=== PATIENT | male | born 1945 | race Caucasian/White ===

== ENCOUNTER 2016-12-24 08:32 | Inpatient (IN) | payer BC, OTHER ==
[2016-11-22 12:42] VITALS: BMI 21.0
--- NOTE | 2016-11-22 13:12 | PAT Medication Instructions ---
Service Date Nov 22, 2016. Current Home Medication List Gabapentin (Neurontin), 400 MG PO HS Multivitamin (Multivitamin), 1 TAB PO QAM Oxycodone/Acetaminophen 2.5MG/325MG (Percocet 2.5MG/325MG), 1.5 TAB PO Q4-6H PRN for Pain Medication Instructions For Your Scheduled Surgery - Hold the following medications the morning of surgery: Multivitamin (Multivitamin), 1 TAB PO QAM - Take the following medications the morning of surgery with a sip of water OTHERWISE NOTHING TO EAT OR DRINK AFTER MIDNIGHT: Oxycodone/Acetaminophen 2.5MG/325MG (Percocet 2.5MG/325MG), 1.5 TAB PO Q4-6H PRN for Pain (may take if needed up to 4 hours prior to surgery) - Take the following medications as scheduled the night before surgery: Gabapentin (Neurontin), 400 MG PO HS Oxycodone/Acetaminophen 2.5MG/325MG (Percocet 2.5MG/325MG), 1.5 TAB PO Q4-6H PRN for Pain If you have any questions please call us at [phone] (Mona Christensen PA-C) or [phone] or [phone]
[2016-11-22 14:07] LABS: BASO % 0.5 %; BASO ABS # 0.03 K/uL (0-0.2); COMPLETE YES; EOS % 2.1 %; IG% 0.2 %; LYMPH % 30.1 %; LYMPH ABS # 1.96 K/uL (1.2-3.4); MEAN CELL VOLUME 85.4 fL (80-100); MEAN CORPUSCULAR HEMOGLOBIN 29.6 pg (25-34); MEAN CORPUSCULAR HGB CONC 34.6 g/dl (32-36); MEAN PLATELET VOLUME 11.1 fL (7.4-10.4); MONO % 4.9 %; NEUT % 62.2 %; PLATELET COUNT 199 K/uL (130-400); WHITE BLOOD COUNT 6.52 K/uL (4.8-10.8)
[2016-11-22 14:13] LABS: URINE APPEARANCE CLEAR (CLEAR); URINE BILIRUBIN NEG (NEG); URINE COLOR YELLOW; URINE NITRITE NEG (NEG); URINE SPECIFIC GRAVITY 1.022 (1.000-1.030); UROBILINOGEN NEG (NEG); ZZUR CULT IF INDIC CLEAN CATCH NO
[2016-11-22 14:15] LABS: INR 1.1 (0.9-1.1); PROTHROMBIN TIME (PATIENT) 12.2 SECONDS (9.0-12.0)
[2016-11-22 14:30] LABS: BUN/CREATININE RATIO 14.2 (10-20); CALCIUM 8.8 mg/dl (8.5-10.1); CREATININE 1.1 mg/dl (0.60-1.40)
[2016-11-22 14:33] LABS: MANUAL MICROSCOPIC REQUIRED? NO; REVIEW REQ? NO
--- NOTE | 2016-12-21 10:14 | HISTORY & PHYSICAL EXAMINATION ---
DATE OF ADMISSION: 12/24/2016 CHIEF COMPLAINT: Right knee pain. HISTORY OF PRESENT ILLNESS: Mr. Fregoso is a 71-year-old male with a multiple-year history of pain in his right knee. The patient rates his pain a 10/10. He has pain with his daily activities. He has limited standing and walking tolerance. Pain is worse with weightbearing. The patient takes injections and [place] without relief. Anti-inflammatories cause nosebleeds. He has failed conservative treatment and is scheduled for right knee replacement. PAST MEDICAL HISTORY: He denies heart disease, diabetes or DVT. PAST SURGICAL HISTORY: Left TKA 2013, right shoulder arthroscopy. SOCIAL HISTORY: The patient denies alcohol or tobacco use. He lives in a single-story home. He is and retired. FAMILY HISTORY: Negative for DVT. MEDICATIONS: Oxycodone 1-1/2 tablet daily, gabapentin 400 mg at bedtime, multivitamin. ALLERGIES: TAPE. REVIEW OF SYSTEMS: See HPI. Ten other systems reviewed, all negative. PHYSICAL EXAMINATION: VITAL SIGNS: Height 5-foot 10, weight 152 pounds, BMI is 22. GENERAL: This is a well-developed, well-nourished male who is alert and oriented x3. Mood and affect are appropriate. HEENT: Normocephalic, atraumatic. Mucous membranes are moist and intact. NECK: Supple without lymphadenopathy. HEART: Regular rate and rhythm without murmurs, rubs or gallops. LUNGS: Clear to auscultation without wheezes or rhonchi. ABDOMEN: Soft and nontender. Bowel sounds are equal and active. EXTREMITIES: No ecchymosis, redness or warmth. Thigh and calf are soft and nontender. He has varus deformity. Range of motion is from 0-120 degrees with +1 laxity. He is neurovascularly intact with +5/5 strength. X-RAY EXAMINATION: AP and lateral views show joint space narrowing and osteophyte formation, mainly in the medial compartment. IMPRESSION: Degenerative joint disease, right knee. PLAN: The patient will be admitted for a right total knee arthroplasty. We will plan on aspirin for DVT prophylaxis. The patient will have [facility] for home physical therapy. Dr. Long is his PCP.
[~2016-12-24] VITALS: Ht 177.8 cm; Wt 68.2 kg
[2016-12-24] VITALS (8 sets, daily range): BP systolic 98–152; BP diastolic 55–76; PULSE 56–65; TEMP 36.2–36.9; O2SAT 92–98; Ht 177.8 cm; Wt 68.2 kg
[~2016-12-24 08:32] MED LIST: ACETAMINOPHEN 500 MG TAB PO SCH; ATROPINE SULFATE 0.1 MG/ML 5ML SYR IV PRN; BUPIVACAINE 0.25% 30 ML VIAL ONE; BUPIVACAINE 0.5 % 5 MG/1 ML PF 10ML VIAL ONE; CEFAZOLIN 2000 MG/60 ML D5W 60 ML IV SCH; CeleBREX 200 MG CAP PO SCH; DEXAMETHASONE 4 MG TAB PO SCH; EpHEDrine SULFATE INJ 50 MG/ML AMP IV PRN; FAMOTIDINE 20 MG TAB PO SCH; FENTANYL CITRATE INJ 50 MCG/1 ML 2 ML VIAL IV PRN; GABA1CAP5 PO; GABAPENTIN 300 MG CAP PO SCH; LACTATED RINGER'S 1000ML 1,000 ML IV SCH; LACTATED RINGER'S 1000ML 500 ML IV ONE; METOCLOPRAMIDE HCL 10 MG TAB PO SCH; MULT-506 PO; ONDANSETRON INJ 2 MG/ML 2 ML VIAL IV PRN; OXYC2.5T3 PO; OXYCODONE HCL 10 MG TABCR (OXYCONTIN) PO SCH; POLYMYXIN B SULFATE 100,000 UNITS in NSS 100ML IR SCH; ROPIVACAINE 5MG/ML 30 ML 150 MG, BUPIVACAINE/EPINEPHR 0.5% MPF 30 ML, KETOROLAC TROMETH... INFIL SCH; VANCOMYCIN INJ 400 MG in NSS 100ML IR SCH
--- NOTE | 2016-12-24 11:11 | History & Physical Bridge Note ---
H&P Re-Evaluation Bridge Note: I have examined the patient, reviewed the History & Physical and in the interval since the performance of the History & Physical I have noted the following changes of clinical significance: No changes noted
[2016-12-24] MEDS ORDERED: PROPOFOL IV EMULSION 10 MG/ML 20 ML VIAL IV ONE (11:27)
[2016-12-24] MEDS ORDERED: MIDAZOLAM HCL 1 MG/ML 2ML VIAL ONE ×2 (11:27)
[2016-12-24] MEDS ORDERED: FENTANYL CITRATE INJ 50 MCG/1 ML 2 ML VIAL ONE (11:27)
[2016-12-24] MEDS: TRANEXAMIC ACID INJ 1,000 MG in SODIUM CHLORIDE 0.9% 100ML 100 ML IV SCH ×2 (11:54→16:29)
[2016-12-24] MEDS ORDERED: BUPIVACAINE/EPINEPHRINE 0.25% 1:200,000 30 ML VIAL ONE (12:25)
[2016-12-24] MEDS ORDERED: BACITRACIN 50000 UNIT VIAL ONE (12:25)
[2016-12-24] MEDS ORDERED: ORTHO JOINT ANESTHETIC ONE (12:25)
[2016-12-24] MEDS ORDERED: POVIDONE-IODINE OP SOLN 30 ML BTL ONE (12:25)
[2016-12-24] MEDS ORDERED: LIDOCAINE HCL 2% 2 ML VIAL (20MG/ML) ONE (13:00)
--- NOTE | 2016-12-24 13:47 | [facility] Post Operative Brief Note ---
Immediate Operative Summary Operative Date Dec 24, 2016. Pre-Operative Diagnosis Degenerative joint disease, right knee Post-Operative Diagnosis Degenerative joint disease, right knee Procedure(s) Performed Right Total Knee Arthoplasty Surgeon Dr. Jaime Hart Operating Room Technologist Surgeon(s) Keyshawn Jackson PA-C Estimated Blood Loss 50 ml Findings DJD Specimens A: Right knee bone and tissue Complication(s) None Disposition Recovery Room / PACU
[2016-12-24] MEDS ORDERED: OXYCODONE HCL IR 5 MG TAB (IMMEDIATE RELEASE) PO PRN (14:00)
[2016-12-24] MEDS ORDERED: MAGNESIUM HYDROXIDE SUSP 30 ML UDC PO PRN (14:00)
[2016-12-24] MEDS ORDERED: SOD PHOSPHATE/SOD BIPHOSPHATE ENEMA 132 ML BTL PR PRN (14:00)
[2016-12-24] MEDS ORDERED: BISACODYL 10 MG SUPP PR PRN (14:00)
[2016-12-24] MEDS ORDERED: MoRPHine SULFATE 2 MG/ML CARP IV PRN (14:00)
[2016-12-24] MEDS ORDERED: ONDANSETRON INJ 2 MG/ML 2 ML VIAL IV PRN (14:00)
[2016-12-24] MEDS ORDERED: DiphenhydrAMINE HCL 50 MG/ML VIAL IV PRN (14:00)
[2016-12-24] MEDS ORDERED: ALUMINUM/MAGNESIUM/SIMETH (MAALOX MAX) 30 ML UDC PO PRN (14:00)
[2016-12-24] MEDS ORDERED: KETOROLAC TROMETHAMINE 15 MG/ML VIAL IV. PRN (14:00)
[2016-12-24] MEDS ORDERED: ZOLPIDEM TARTRATE 5 MG TAB PO PRN (14:00)
[2016-12-24] MEDS ORDERED: METOCLOPRAMIDE HCL INJ 5 MG/ML 2 ML VIAL IV PRN (14:00)
--- NOTE | 2016-12-24 14:40 | DIAGNOSTIC IMAGING REPORT ---
RIGHT KNEE 1 OR 2 VIEWS ROUTINE CLINICAL HISTORY: AP/LATERAL IN PACU RIGHT KNEE Right pain. Trauma placement. COMPARISON: None. DISCUSSION: Status post total right knee replacement. Good contact between prosthetic and underlying bone. Surgical drains in position. Expected postoperative soft tissue change IMPRESSION: Anatomic alignment status post total joint replacement Electronically signed by: Luther Abraham M.D. 12/24/2016 2:39 PM Dictated Date/Time: 12/24/2016 2:38 PM
--- NOTE | 2016-12-24 15:23 | Anesthesiology Progress Note ---
Anesthesia Post Op Note Date & Time Dec 24, 2016 at 15:24 Vital Signs Pain Intensity: 0 Vital Signs Past 12 Hours Date Time Temp Pulse Resp B/P Pulse Ox O2 Delivery O2 Flow Rate FiO2 12/24/16 15:15 57 12 113/62 98 Nasal Cannula 2 12/24/16 15:05 58 12 114/61 98 Nasal Cannula 2 12/24/16 14:55 37.0 63 21 125/71 98 Nasal Cannula 2 12/24/16 14:45 62 14 96/39 97 Nasal Cannula 2 12/24/16 14:35 60 12 121/63 98 Nasal Cannula 2 12/24/16 14:25 61 16 118/64 98 Nasal Cannula 2 12/24/16 14:15 36.2 64 14 116/55 98 Nasal Cannula 2 12/24/16 09:27 36.6 59 16 152/76 97 Room Air Notes Mental Status: alert / awake / arousable, participated in evaluation Pt Amnestic to Procedure: Yes Nausea / Vomiting: adequately controlled Pain: adequately controlled Airway Patency, RR, SpO2: stable & adequate BP & HR: stable & adequate Hydration State: stable & adequate Neuraxial Anesthesia: was administered, sensory block is resolving Anesthetic Complications: no major complications apparent
[2016-12-24] MEDS: D5W AND 1/2NSS + 20MEQ KCL 1,000 ML IV SCH (19:46)
[2016-12-24] MEDS: CEFAZOLIN IV 1,000 MG in DEXTROSE 5% 50ML 50 ML IV SCH (19:48)
[2016-12-24] MEDS ORDERED: TRANEXAMIC ACID INJ 1,000 MG in SODIUM CHLORIDE 0.9% 100ML 100 ML IV SCH (20:00)
[2016-12-24] MEDS ORDERED: SENNA 8.6 MG TAB PO SCH (21:00)
[2016-12-24] MEDS ORDERED: GABAPENTIN 400 MG CAP PO SCH (21:00)
[2016-12-24] MEDS: ASPIRIN 81 MG ECTAB PO SCH (21:06)
[2016-12-24] MEDS: OXYCODONE HCL 10 MG TABCR (OXYCONTIN) PO SCH (21:06)
[2016-12-24] MEDS: ACETAMINOPHEN 500 MG TAB PO SCH (22:09)
[2016-12-24] MEDS: TRAMADOL HCL 50 MG TAB PO PRN (22:12)
--- NOTE | 2016-12-25 00:34 | OPERATIVE REPORT ---
DATE OF OPERATION: 12/24/2016 PREOPERATIVE DIAGNOSIS: Degenerative arthritis, right knee. POSTOPERATIVE DIAGNOSIS: Same. PROCEDURE: Right total knee with patient matched implant. SURGEON: Dr. Hart. INSURANCE LAW SPECIALIST: VIRGILIO Quintero. ANESTHESIA: Spinal. BLOOD LOSS: 50 mL. REPLACEMENT FLUIDS: 1700 mL crystalloid. DRAINS: Hemovac x2. CULTURES: None. COMPLICATIONS: None. COMPONENTS USED: Silvestre \T\ Nephew Journey Knee System: Femur size 6, tibia size 5 x 10, patella size 38. NOTE: VIRGILIO Quintero was present and assisted throughout due to the complicated nature of this case. He helped with preparation and setup, he first assisted throughout and personally closed the capsule, subcutaneous skin layers and applied the postoperative dressing. DESCRIPTION: Following satisfactory spinal, the patient was supine. A tourniquet was placed but not inflated. The lower extremity was prepared with ChloraPrep and draped sterilely. Following a surgical time-out, a midline incision was made with a trivector approach. The knee showed marked grade 4 changes in all compartments. The cruciate ligaments were excised. The patient matched femoral block was applied. Femoral distal rotation and resection were set and completed. The 4-in-1 block was used to finish preparation of the femur. The patient matched tibial block was applied. Tibial resection was completed. The patella was freehand cut. Soft tissue balancing was completed and a trial reduction showed good tensioning, stability on the collateral ligaments, stable range of motion, and the patella tracked well. The trial components were removed. The capsule was prepared with the orthopedic cocktail and after irrigation, the components were cemented using Simplex G cement. A Betadine soak was performed. After 5 minutes, the Betadine was irrigated. Two drains were placed. After irrigation, the capsule was closed with a running suture of 0 V-Loc and reinforced with #1 Vicryl. Subcutaneous tissues were closed with 2-0 Vicryl. The skin was closed with surgical celestino and an Aquacel dressing was applied. The patient was returned to his bed in stable condition. I attest to the content of the Intraoperative Record and any orders documented therein. Any exceptio ns are noted below.
[2016-12-25 02:50] VITALS: BP 101/61; PULSE 62; TEMP 36.5; O2SAT 97
[2016-12-25] MEDS: CEFAZOLIN IV 1,000 MG in DEXTROSE 5% 50ML 50 ML IV SCH (04:33)
[2016-12-25] MEDS: D5W AND 1/2NSS + 20MEQ KCL 1,000 ML IV SCH (04:33)
[2016-12-25] MEDS: ACETAMINOPHEN 500 MG TAB PO SCH (05:41)
[2016-12-25] MEDS: TRAMADOL HCL 50 MG TAB PO PRN (05:41)
[2016-12-25 05:53] LABS: HEMATOCRIT 33.9 % (42-52); MEAN CORPUSCULAR HEMOGLOBIN 29.3 pg (25-34); MEAN CORPUSCULAR HGB CONC 34.5 g/dl (32-36); PLATELET COUNT 188 K/uL (130-400); RED BLOOD COUNT 3.99 M/uL (4.7-6.1); WHITE BLOOD COUNT 12.36 K/uL (4.8-10.8)
[2016-12-25 06:28] LABS: BUN/CREATININE RATIO 17.2 (10-20); CALCIUM 8.4 mg/dl (8.5-10.1); POTASSIUM 4.3 mmol/L (3.5-5.1)
[2016-12-25 07:37] VITALS: BP 122/72; PULSE 59; TEMP 36.3; O2SAT 94
--- NOTE | 2016-12-25 07:43 | Orthopedic Progress Note ---
Orthopedic Progress Note Date of Service Dec 25, 2016. Subjective Post OP Day: 1 Reports: feeling well, Denies: SOB, calf pain, chest pain, light headedness, nausea / vomiting Objective calves soft nontender, N/V intact, dressing C/D/I, A&O x3, toes mobile, hemovac drainage (1515/205CC PER SHIFT) Date Time Temp Pulse Resp B/P Pulse Ox O2 Delivery O2 Flow Rate FiO2 12/25/16 07:37 36.3 59 16 122/72 94 Room Air 12/25/16 02:50 36.5 62 16 101/61 97 Room Air 12/25/16 00:15 Room Air 12/24/16 23:03 36.3 61 17 118/67 96 Room Air 12/24/16 20:28 92 Room Air 12/24/16 18:37 36.2 63 17 124/64 98 Nasal Cannula 2.0 12/24/16 17:28 36.2 65 17 120/64 97 Nasal Cannula 2.0 12/24/16 16:25 36.9 56 16 131/70 98 Nasal Cannula 2.0 12/24/16 16:00 36.5 56 17 98/55 98 Nasal Cannula 2.0 12/24/16 15:30 98 Nasal Cannula 2.0 12/24/16 15:30 98 Nasal Cannula 2.0 12/24/16 15:30 36.5 60 17 114/64 98 Nasal Cannula 2.0 12/24/16 15:25 36.8 58 12 116/64 98 Nasal Cannula 2 12/24/16 15:15 57 12 113/62 98 Nasal Cannula 2 12/24/16 15:05 58 12 114/61 98 Nasal Cannula 2 12/24/16 14:55 37.0 63 21 125/71 98 Nasal Cannula 2 12/24/16 14:45 62 14 96/39 97 Nasal Cannula 2 12/24/16 14:35 60 12 121/63 98 Nasal Cannula 2 12/24/16 14:25 61 16 118/64 98 Nasal Cannula 2 12/24/16 14:15 36.2 64 14 116/55 98 Nasal Cannula 2 12/24/16 09:27 36.6 59 16 152/76 97 Room Air Laboratory Results 24 Hours: Test 12/25/16 05:20 Hematocrit 33.9 % Hemoglobin 11.7 g/dL Assessment & Plan Assessment: POD#1 SP RIGHT TKA Inhouse Planning Pain Management: Celebrex, Oxycontin, PO Tylenol, Oxy IR DVT Prophylaxis: TEDs, SCDs, ASA Discharge Planning Discharge Planning: home with home health (DC HOME TODAY. KEEP DRESSING/DRAIN.)
[2016-12-25] MEDS ORDERED: RXC5 PO (07:45)
[2016-12-25] MEDS ORDERED: ONDA8TAB6 PO (07:45)
[2016-12-25] MEDS ORDERED: ACET-1138 PO (07:45)
[2016-12-25] MEDS ORDERED: SNK PO (07:45)
[2016-12-25] MEDS ORDERED: MORP-157 PO (07:45)
[2016-12-25] MEDS ORDERED: ASPEC81 PO (07:45)
[2016-12-25] MEDS ORDERED: CLB200 PO (07:45)
--- NOTE | 2016-12-25 07:46 | Discharge Instructions ---
Discharge Instructions Admission Reason for Admission: Right Knee Degenerative Arthritis Discharge Discharge Diagnosis / Problem: SP RIGHT TKA Discharge Goals Goal(s): Decrease discomfort, Improve function, Increase independence Activity Recommendations Activity Limitations: per Instructions/Follow-up section . Instructions / Follow-Up Instructions / Follow-Up ACTIVITY RECOMMENDATIONS: SELF CARE INSTRUCTIONS AFTER TOTAL KNEE REPLACEMENT A. You may need to continue a physical therapy program after discharge from the hospital. There are several options available to you. Your doctor will assist you in selecting the best one for you. 1. An out-patient facility 2 to 3 times a week for therapy or home therapy. 2. Continue working on all exercises taught to you in the hospital. Your goals should be to increase bending of your knee to 90 degrees and beyond and to fully straighten your knee. B. You may progress at your own pace from walking with a walker or crutches to a cane; then to no assistive devices. C. Make walking a part of your daily routine. Be up as much as comfortable with rest periods throughout the day. Rest with leg elevation is very important. Use the ice wrap frequently for the first 3-4 weeks. D. There are no restrictions on activities. You may ride in a car, shop, participate in chief program officer and all social activities. E. Wear the long elastic stockings (YOLIS hose) 20 hours a day for 2 weeks after surgery. They can be removed several times a day for laundering and for a bath. F. You may shower, no tub baths until cleared by your doctor. SPECIAL CARE INSTRUCTIONS: VERY IMPORTANT TO READ AND REVIEW A. There are a few signs you need to watch for after you are home. Call [facility] if you notice any of the followin. Increased severe knee pain. Some pain is expected especially when you exercise. 2. Increased swelling in your leg or knee; pain or swelling of the calf muscle in either lower leg. 3. Any fluid drainage from the incision. 4. Shortness of breath or chest pain. B. Please call [facility] at if you have any concerns or questions about your operation or recovery. The doctor or his nurse will return your call promptly. C. You must take antibiotics before dental work, bladder, bowel or other surgery. Your doctor will provide you with a permanent care to carry describing this precaution. IMPORTANT: * REMEMBER TO TAKE ASPIRIN, 81 MG, TWICE DAILY FOR 4 WEEKS UNLESS OTHERWISE DIRECTED. THIS IS YOUR BLOOD THINNER. * HIGH RISK PATIENTS MAY BE PRESCRIBED A STRONGER BLOOD THINNER. THIS WILL BE PROVIDED AT DISCHARGE. * CALL IF INCREASED PAIN, REDNESS, DRAINAGE OR FEVER GREATER THAT 101. * WEAR YOLIS HOSE 20 HOURS PER DAY FOR 2 WEEKS. * YOU MAY HAVE A LARGE BAND-AID LIKE DRESSING (SILVERON). THIS WILL REMAIN ON YOUR INCISION FOR 7 DAYS, THEN CAN BE REMOVED. IF INCISION IS LEAKING THROUGH DRESSING, CALL THE OFFICE . FOLLOW UP VISIT: If appointment is not already scheduled: Please call [facility] to make a follow-up appointment for 2 weeks after your surgery at . Current Hospital Diet Patient's current hospital diet: Regular Diet Discharge Diet Recommended Diet: Regular Diet Procedures Procedures Performed: Right Total Knee Arthoplasty Pending Studies Studies pending at discharge: no Medical Emergencies . Who to Call and When: Medical Emergencies: If at any time you feel your situation is an emergency, please call [phone] immediately. . Non-Emergent Contact Non-Emergency issues call your: Primary Care Provider . "Provider Documentation" section prepared by Taryn Canales. VTE Core Measure Inpt VTE Proph given/why not?: Other Anticoagulation, T.E.D. Stockings, SCD's
[2016-12-25] MEDS: ASPIRIN 81 MG ECTAB PO SCH (08:42)
[2016-12-25] MEDS: OXYCODONE HCL 10 MG TABCR (OXYCONTIN) PO SCH (08:42)
[2016-12-25] MEDS ORDERED: MULTIVITAMIN TAB PO SCH (09:00)
[2016-12-25] MEDS ORDERED: PANTOprazole SOD 40 MG TAB PO SCH (09:00)
[2016-12-25 09:46] VITALS: BP 121/66; PULSE 69; O2SAT 95
[2016-12-25 10:45] VITALS: BP 117/59; PULSE 74; TEMP 36.3; O2SAT 96
[2016-12-25 12:25] VITALS: BP 117/59; PULSE 74; TEMP 36.3; O2SAT 96
[2016-12-26] MEDS ORDERED: CeleBREX 200 MG CAP PO SCH (21:00)
--- NOTE | 2016-12-27 13:39 | DISCHARGE SUMMARY ---
DISCHARGE DIAGNOSIS: Degenerative joint disease, right knee. CONSULTS: None. COMPLICATIONS: None. PROCEDURES: Right total knee arthroplasty performed by Dr. Jaime Hart on 12/24/2016. BRIEF HISTORY: As dictated in the history and physical. HOSPITAL SUMMARY: The patient was admitted on the above date and had the above-noted surgery performed which he tolerated well. On the first postoperative day, he was feeling well and had no complaints. Denied shortness of breath, calf pain, chest pain or lightheadedness. Calves were soft and nontender, neurovascularly intact. Dressings clean, dry and intact. Toes were mobile. Vital signs were stable and he was afebrile. Hemoglobin was 11.7 and he was started on physical therapy protocol and continued on DVT prophylaxis and pain management. He was progressing well with his physical therapy and remaining stable and it was felt that he could be discharged to home on 12/25/2016. For further review, please see chart. LAB AND X-RAY DATA: As per chart. DISCHARGE INSTRUCTIONS: The patient was discharged to home in satisfactory condition on 12/25/2016. DIET: Regular. ACTIVITY: Follow TKA instruction sheets and special care instructions as noted. Follow up with Dr. Hart in 2 weeks. The patient to call for appointment if one has not been made for you. DISCHARGE MEDICATIONS: Acetaminophen 1000 mg p.o. q. 8 hours, aspirin 81 mg p.o. b.i.d., Celebrex 200 mg p.o. b.i.d., MS Contin 15 mg p.o. q. 12 hours, Zofran 8 mg p.o. q. 8 hours p.r.n. nausea, oxycodone 5-10 mg p.o. q. 4 hours p.r.n., senna 17.2 mg p.o. at bedtime. Resume taking gabapentin 400 mg p.o. at bedtime, multivitamin 1 tab p.o. q.a.m. and stop taking Percocet.
== END 2016-12-25 14:07 | disposition home health service (06) | DRG 470 ==
LOC: ENRESERVTM → ENRESERVDT → C.ACU 08:32 → C.3E 11:24
PROVIDERS: ADMIT Orthopaedic Surgery; ATTEND Orthopaedic Surgery
PROC: 0SRC0J9 Replacement of Right Knee Joint with Synthetic Substitute, Cemented, Open Approach (ICD-10-PCS; principal; 2016-12-24 11:15)
DX: M17.11 Unilateral primary osteoarthritis, right knee (principal); Z96.652 Presence of left artificial knee joint

== ENCOUNTER 2017-12-04 10:08 | Emergency (ER) | payer BC, OTHER ==
[~2017-12-04] VITALS: Ht 175.3 cm; Wt 67.5 kg
[~2017-12-04 10:08] MED LIST changes: +ACET-1138 PO; -ACETAMINOPHEN 500 MG TAB PO SCH; +ASPEC81 PO; -ATROPINE SULFATE 0.1 MG/ML 5ML SYR IV PRN; -BUPIVACAINE 0.25% 30 ML VIAL ONE; -BUPIVACAINE 0.5 % 5 MG/1 ML PF 10ML VIAL ONE; -CEFAZOLIN 2000 MG/60 ML D5W 60 ML IV SCH; +CLB200 PO; -CeleBREX 200 MG CAP PO SCH; -DEXAMETHASONE 4 MG TAB PO SCH; -EpHEDrine SULFATE INJ 50 MG/ML AMP IV PRN; -FAMOTIDINE 20 MG TAB PO SCH; -FENTANYL CITRATE INJ 50 MCG/1 ML 2 ML VIAL IV PRN; -GABAPENTIN 300 MG CAP PO SCH; -LACTATED RINGER'S 1000ML 1,000 ML IV SCH; -LACTATED RINGER'S 1000ML 500 ML IV ONE; -METOCLOPRAMIDE HCL 10 MG TAB PO SCH; -ONDANSETRON INJ 2 MG/ML 2 ML VIAL IV PRN; -OXYC2.5T3 PO; -OXYCODONE HCL 10 MG TABCR (OXYCONTIN) PO SCH; -POLYMYXIN B SULFATE 100,000 UNITS in NSS 100ML IR SCH; -ROPIVACAINE 5MG/ML 30 ML 150 MG, BUPIVACAINE/EPINEPHR 0.5% MPF 30 ML, KETOROLAC TROMETH... INFIL SCH; +RXC5 PO; +SNK PO; -VANCOMYCIN INJ 400 MG in NSS 100ML IR SCH
[2017-12-04 10:22] VITALS: TEMP 36.4; Ht 175.3 cm; Wt 67.5 kg
[2017-12-04] MEDS ORDERED: ALUMINUM/MAGNESIUM SUSP 30 ML UDC PO STA (10:53)
[2017-12-04] MEDS ORDERED: ASPIRIN 81 MG CHEW PO STA (10:53)
--- NOTE | 2017-12-04 10:55 | EMERGENCY ROOM VISIT NOTE ---
History Report prepared by Joseph: Ad Noland Under the Supervision of: Dr. Sean Buchanan D.O. First contact with patient: 10:48 Chief Complaint: CHEST PAIN Stated Complaint: CHEST PAIN, SOB Nursing Triage Summary: pt reports chest pain started at 1999 yesterday feels like burning. feels sob worse with deep breath. History of Present Illness The patient is a 72 year old male who presents to the Emergency Room with complaints of constant chest pains that began last night at 1999, 14 hours prior to arrival. The patient states that his pain is mostly concentrated to his left side and that it is worsened with deep inspiration. The pain is described at a "burning" sensation. The patient's notes that last night when his symptoms began he was short of breath. He denies any associated cough. He has no cardiac history and has never had a cardiac work-up before. Source of History: patient, spouse/significant other Onset: 14 hours [employer]OWBO[employer] OPER[employer] Position: chest (left) Quality: burning Timing: constant Associated Symptoms: + SOB Review of Systems See HPI for pertinent positives & negatives. A total of 10 systems reviewed and were otherwise negative. Past Medical & Surgical Medical Problems: (1) Kidney stone (2) Small bowel obstruction Surgical Problems: (1) Post-operative state Family History Omitted secondary to age. Social History Smoking Status: Never Smoker Drug Use: none Marital Status: Housing Status: lives with family Occupation Status: employed Current/Historical Medications Scheduled Gabapentin (Neurontin), 400 MG PO HS Omeprazole (Prilosec), 40 MG PO DAILY [Triflex], 1 DOSE PO DAILY Scheduled PRN Oxycodone HCl (Oxycodone HCl), 2.5 MG PO BID PRN for Pain Allergies Coded Allergies: Iodinated Diagnostic Agents (Unverified Allergy, Mild, itchy, 12/04/17) Levofloxacin (Unverified Allergy, Mild, itchy, 12/04/17) Adhesives (Unverified Allergy, Unknown, PULLED SKIN OFF WITH TAPE, 12/04/17 ) Physical Exam Vital Signs Date Time Temp Pulse Resp B/P (MAP) Pulse Ox O2 Delivery O2 Flow Rate FiO2 12/04/17 12:43 60 20 158/91 96 12/04/17 11:04 58 12/04/17 10:58 63 18 173/93 98 Room Air 12/04/17 10:58 97 Room Air 12/04/17 10:22 36.4 67 18 138/73 97 Room Air Physical Exam GENERAL: Patient is awake, alert, and in no acute distress. Patient is resting comfortably and showing no signs of anxiety EYES: The conjunctivae are clear. The pupils are round and reactive. EARS, NOSE, MOUTH AND THROAT: The nose is without any evidence of any deformity. Mucous membranes are moist tongue is midline NECK: The neck is nontender and supple. RESPIRATORY: Normal respiratory effort is noted there is no evidence of wheezing rhonchi or rales CARDIOVASCULAR: Regular rate and rhythm noted there no murmurs rubs or gallops normal S1 normal S2 GASTROINTESTINAL: The abdomen is soft. Bowel sounds are present in all quadrants. Abdomen is nontender MUSCULOSKELETAL/EXTREMITIES: There is no evidence of gross deformity full range of motion is noted in the hips and shoulders SKIN: There is no obvious evidence of any rash. There are no petechiae, pallor or cyanosis noted. NEUROLOGIC: Patient is awake alert and oriented x3 Medical Decision & Procedures ER Provider Diagnostic Interpretation: Radiology results as stated below per my review and radiologist interpretation: CHEST ONE VIEW PORTABLE CLINICAL HISTORY: CHEST PAIN dyspnea COMPARISON STUDY: 07/06/2014 FINDINGS: The bones soft tissues and hemidiaphragms are normal. The cardiomediastinal silhouette is normal. The lungs are clear. The pulmonary vasculature is normal. IMPRESSION: Negative chest. The above report was generated using voice recognition software. It may contain grammatical, syntax or spelling errors. Electronically signed by: Luther Abraham M.D. 12/04/2017 11:19 AM Dictated Date/Time: 12/04/2017 11:19 AM Laboratory Results 12/04/17 10:58 Red Blood Count 5.25, Mean Corpuscular Volume 85.0, Mean Corpuscular Hemoglobin 29.3, Mean Corpuscular Hemoglobin Concent 34.5, Mean Platelet Volume 10.3, Neutrophils (%) (Auto) 69.8, Lymphocytes (%) (Auto) 20.9, Monocytes (%) (Auto) 7.5, Eosinophils (%) (Auto) 1.3, Basophils (%) (Auto) 0.3, Neutrophils # (Auto) 4.22, Lymphocytes # (Auto) 1.26, Monocytes # (Auto) 0.45, Eosinophils # (Auto) 0.08, Basophils # (Auto) 0.02 12/04/17 10:58 Test 12/04/17 10:58 White Blood Count 6.04 K/uL (4.8-10.8) Red Blood Count 5.25 M/uL (4.7-6.1) Hemoglobin 15.4 g/dL (14.0-18.0) Hematocrit 44.6 % (42-52) Mean Corpuscular Volume 85.0 fL (80-100) Mean Corpuscular Hemoglobin 29.3 pg (25-34) Mean Corpuscular Hemoglobin Concent 34.5 g/dl (32-36) Platelet Count 204 K/uL (130-400) Mean Platelet Volume 10.3 fL (7.4-10.4) Neutrophils (%) (Auto) 69.8 % Lymphocytes (%) (Auto) 20.9 % Monocytes (%) (Auto) 7.5 % Eosinophils (%) (Auto) 1.3 % Basophils (%) (Auto) 0.3 % Neutrophils # (Auto) 4.22 K/uL (1.4-6.5) Lymphocytes # (Auto) 1.26 K/uL (1.2-3.4) Monocytes # (Auto) 0.45 K/uL (0.11-0.59) Eosinophils # (Auto) 0.08 K/uL (0-0.5) Basophils # (Auto) 0.02 K/uL (0-0.2) RDW Standard Deviation 42.3 fL (36.4-46.3) RDW Coefficient of Variation 13.8 % (11.5-14.5) Immature Granulocyte % (Auto) 0.2 % Immature Granulocyte # (Auto) 0.01 K/uL (0.00-0.02) Prothrombin Time 11.4 SECONDS (9.0-12.0) Prothromb Time International Ratio 1.1 (0.9-1.1) Activated Partial Thromboplast Time 25.4 SECONDS (21.0-31.0) Partial Thromboplastin Ratio 1.0 Anion Gap 7.0 mmol/L (3-11) Est Creatinine Clear Calc Drug Dose 70.1 ml/min Estimated GFR () 97.2 Estimated GFR (Non- 83.9 BUN/Creatinine Ratio 16.9 (10-20) Calcium Level 9.1 mg/dl (8.5-10.1) Total Bilirubin 0.4 mg/dl (0.2-1) Direct Bilirubin < 0.1 mg/dl (0-0.2) Aspartate Amino Transf (AST/SGOT) 13 U/L (15-37) Alanine Aminotransferase (ALT/SGPT) 20 U/L (12-78) Alkaline Phosphatase 102 U/L (45-117) Total Creatine Kinase 43 U/L (39-308) Creatine Kinase MB 1.1 ng/ml (0.5-3.6) Creatine Kinase MB Ratio 2.6 (0-3.0) Troponin I < 0.015 ng/ml (0-0.045) Total Protein 6.8 gm/dl (6.4-8.2) Albumin 3.7 gm/dl (3.4-5.0) Lipase 104 U/L (73-393) Laboratory results per my review. Medications Administered Medications (Trade) Dose Ordered Sig/Chani Route Start Time Stop Time Status Last Admin Dose Admin Aspirin (Aspirin Chew) 324 mg NOW STAT PO 12/04/17 10:53 12/04/17 10:54 DC 12/04/17 11:34 324 MG Al Hydroxide/Mg Hydroxide (Maalox Susp) 30 ml NOW STAT PO 12/04/17 10:53 12/04/17 10:54 DC 12/04/17 11:34 30 ML ECG Indication: chest pain Rate (beats per minute): 59 Rhythm: sinus bradycardia Findings: no acute ischemic change, no ectopy Comparison ECG Date: 07/06/2014 Change: no significant change Change: Patient's EKG was interpreted by me. ED Course 1050: The patient was evaluated in room C10. A complete history and physical examination were performed. 1053: Ordered Maalox Susp 30 mL PO, Aspirin Chew 324 PO. 1215: Upon reevaluation, the patient is resting in bed. I discussed the results and treatment plan with him. He verbalized agreement of the treatment plan. The patient was discharged home. Medical Decision Differential diagnosis: Etiologies such as cardiac ischemia, aortic dissection, pulmonary embolism, pneumonia, pneumothorax, musculoskeletal, infections, pericarditis, myocarditis , esophageal rupture, gastrointestinal, as well as others were entertained. The Patient has a Heart Score of 2. Following evaluation. The patient is a 72-year-old male who presented to the emergency department for evaluation of ongoing epigastric pain. The patient's EKG did not show any acute changes compared to previous. The patient's cardiac biomarker was negative despite having ongoing pain. I discussed the patient's laboratory and radiographic studies with him. I also discussed the limitations of the emergency department workup for chest pain with him. The patient was encouraged to continue all medications as prescribed and rest. I also encouraged him to call his primary care physician to schedule a follow-up appointment for possible further testing such as stress test. He was also encouraged to return the emergency Department immediately if symptoms change worsen or the need arises. Blood Pressure Screening Patient's blood pressure: Elevated blood pressure Blood pressure disposition: Elevated BP felt to be situational Impression Primary Impression: Epigastric abdominal pain Scribe Attestation The scribe's documentation has been prepared under my direction and personally reviewed by me in its entirety. I confirm that the note above accurately reflects all work, treatment, procedures, and medical decision making performed by me. Departure Information Dispostion Home / Self-Care Prescriptions Omeprazole (PRILOSEC) 40 Mg Cap 40 MG PO DAILY, #30 CAP Prov: Sean Buchanan, DO 12/04/17 Referrals Dominic Long, DNiONi (PCP) Forms Call Back Authorization, HOME CARE DOCUMENTATION FORM, IMPORTANT VISIT INFORMATION Patient Instructions My [facility] Additional Instructions Call your family to schedule a follow-up appointment. You may require further studies such as a stress test to further evaluate the cause of her discomfort. Continue all medications as prescribed. Try using Maalox or Mylanta as directed for symptomatically relief. Return to the emergency department immediately if symptoms change worsen or the need arises.
[2017-12-04 10:58] VITALS: O2SAT 97
[2017-12-04 11:12] LABS: BASO % 0.3 %; BASO ABS # 0.02 K/uL (0-0.2); EOS % 1.3 %; EOS ABS # 0.08 K/uL (0-0.5); HEMATOCRIT 44.6 % (42-52); HEMOGLOBIN 15.4 g/dL (14.0-18.0); IG# 0.01 K/uL (0.00-0.02); LYMPH % 20.9 %; LYMPH ABS # 1.26 K/uL (1.2-3.4); MEAN CORPUSCULAR HEMOGLOBIN 29.3 pg (25-34); MEAN CORPUSCULAR HGB CONC 34.5 g/dl (32-36); MEAN PLATELET VOLUME 10.3 fL (7.4-10.4); MONO % 7.5 %; MONO ABS # 0.45 K/uL (0.11-0.59); NEUT % 69.8 %; NEUT ABS # 4.22 K/uL (1.4-6.5); PLATELET COUNT 204 K/uL (130-400); RED CELL DISTRIBUTION WIDTH CV 13.8 % (11.5-14.5); RED CELL DISTRIBUTION WIDTH SD 42.3 fL (36.4-46.3); WHITE BLOOD COUNT 6.04 K/uL (4.8-10.8)
[2017-12-04] MEDS ORDERED: TRIFLEX PO (11:18)
[2017-12-04] MEDS ORDERED: OXYC-609 PO (11:18)
[2017-12-04 11:20] LABS: INR 1.1 (0.9-1.1); PTT PATIENT 25.4 SECONDS (21.0-31.0)
--- NOTE | 2017-12-04 11:21 | DIAGNOSTIC IMAGING REPORT ---
CHEST ONE VIEW PORTABLE CLINICAL HISTORY: CHEST PAIN dyspnea COMPARISON STUDY: 07/06/2014 FINDINGS: The bones soft tissues and hemidiaphragms are normal. The cardiomediastinal silhouette is normal. The lungs are clear. The pulmonary vasculature is normal. IMPRESSION: Negative chest. The above report was generated using voice recognition software. It may contain grammatical, syntax or spelling errors. Electronically signed by: Luther Abraham M.D. 12/04/2017 11:19 AM Dictated Date/Time: 12/04/2017 11:19 AM
[2017-12-04 11:30] LABS: ALBUMIN 3.7 gm/dl (3.4-5.0); ALT/SGPT 20 U/L (12-78); BLOOD UREA NITROGEN 15 mg/dl (7-18); CALCIUM 9.1 mg/dl (8.5-10.1); CARBON DIOXIDE 26 mmol/L (21-32); CREATININE 0.91 mg/dl (0.60-1.40); GLUCOSE 99 mg/dl (70-99); LIPASE 104 U/L (73-393); POTASSIUM 4.1 mmol/L (3.5-5.1); SODIUM 136 mmol/L (136-145)
[2017-12-04 11:35] LABS: ALKALINE PHOSPHATASE 102 U/L (45-117); AST/SGOT 13 U/L (15-37); CKMB 1.1 ng/ml (0.5-3.6); TOTAL PROTEIN 6.8 gm/dl (6.4-8.2)
[2017-12-04] MEDS ORDERED: OMEP40CA41 PO (12:33)
[2017-12-04 12:43] VITALS: BP 158/91; PULSE 60; O2SAT 96
== END 2017-12-04 12:44 | disposition home or self-care (01) ==
LOC: C.EDB 10:10 → C.EDC 12:44
DX: R10.13 Epigastric pain (principal); Z87.442 Personal history of urinary calculi; Z79.899 Other long term (current) drug therapy

== ENCOUNTER → 2017-12-25 | Day surgery (SDC) | payer BC ==
[2017-12-24 07:34] VITALS: Ht 177.8 cm; Wt 68.2 kg
[~2017-12-25] VITALS: Ht 177.8 cm; Wt 68.2 kg
[~2017-12-25] MED LIST changes: -ACET-1138 PO; -ASPEC81 PO; -CLB200 PO; +GABA-1220 PO; -GABA1CAP5 PO; +LIDOCAINE HCL 2% 2 ML VIAL (20MG/ML) ONE; +OXYC-57 PO; +PRLSR20 PO; +PROPOFOL IV EMULSION 10 MG/ML 20 ML VIAL IV ONE; -RXC5 PO; -SNK PO; +SODIUM CHLORIDE 0.9% 500ML 500 ML IV ONE
--- NOTE | 2017-12-25 09:28 | Endo History and Physical ---
History & Physical Date of Service: Dec 25, 2017. Chief Complaint: HISTORY OF POLYPS Referring Physician: CAT History of Present Illness 72 yo presenting for surveillance colonoscopy for remote history of polyps. Past Medical History Arthritis, Cancer, Kidney Disease Past Surgical History Hx Cardiac Surgery: No Hx Internal Defibrillator: No Hx Pacemaker: No Hx Abdominal Surgery: Yes (EXPLORATORY LAP FOR TWISTED BOWELS, LEFT INGUINAL HERNIA) Hx of Implantable Prosthesis: No Hx Post-Op Nausea and Vomiting: No Hx Cancer Surgery: Yes (BASAL CELL NECK AND HEAD) Hx Thoracic Surgery: No Hx Orthopedic: Yes (LEFT/RT TKA, RT SHOULDER SURGERY) Hx Urinary Tract Surgery: Yes (KIDNEY STONE REMOVAL (OPEN SURGERY)) Family History Esophogeal CA Social History Smoking Status: Never Smoker Hx Substance Use: Yes (SEE MED REC) Hx Alcohol Use: Yes (OCCASIONAL) Allergies Coded Allergies: Iodinated Diagnostic Agents (Unverified Allergy, Mild, itchy, 12/25/17) Levofloxacin (Unverified Allergy, Mild, itchy, 12/25/17) Adhesives (Unverified Allergy, Unknown, PULLED SKIN OFF WITH TAPE, 12/25/17 ) Current Medications Reported Home Medications Medications Dose Route/Sig Max Daily Dose Days Date Category Dose Instructions Prilosec (Omeprazole) 20 Mg Capcr 20 Mg PO QAM 12/24/17 Reported Multivitamin (Multivitamins) Tab 1 Tab PO QAM 12/24/17 Reported Percocet 5MG/325MG (Oxycodone/Acetaminophen) Tab 0.5 Tab PO BID PRN 12/24/17 Reported PAIN Neurontin (Gabapentin) 400 Mg Cap 400 Mg PO HS 11/22/16 Reported Vital Signs Weight (Kilograms): 68.18 Height (Feet): 5 Height (Inches): 10 Physical Exam General Appearance: WD/WN Respiratory/Chest: Respiratory effort: no dyspnea Auscultation: breath sounds normal, CTA except as noted, no wheezing Cardiovascular: Heart Auscultation: RRR, normal S1, normal S2 Abdomen: Bowel Sounds: normal Inspection & Palpation: soft, non-distended, no tenderness, guarding & rebound Assessment and Plan 72 yo presenting for colonoscopy for history of polyps
--- NOTE | 2017-12-25 10:07 | GI REPORT ---
Procedure Date: 12/25/2017 9:39 AM Procedure: Colonoscopy Indications: High risk colon cancer surveillance: Personal history of colonic polyps Medicines: Monitored Anesthesia Care Complications: No immediate complications. Estimated blood loss: None. Estimated Blood Loss: Estimated blood loss: none. Procedure: Pre-Anesthesia Assessment: - Pre-Anesthesia Assessment: - Prior to the procedure, a History and Physical was performed, and patient medications, allergies and sensitivities were reviewed. The patient's tolerance of previous anesthesia was reviewed. Please see Tip or Skip for complete details. - The risks and benefits of the procedure and the sedation options and risks were discussed with the patient. All questions were answered and informed consent was obtained. - Patient identification and proposed procedure were verified prior to the procedure by the physician and the nurse. The procedure was verified in the pre-procedure area in the procedure room. After obtaining informed consent, the endoscope was passed carefully and meticuously under direct vision and only advanced when the lumen was clearly identified, C02 insuflation was utilized throughout the entirity of the procedure. Throughout the procedure, the patient's blood pressure, pulse, and oxygen saturations were monitored continuously. After I obtained informed consent, the scope was passed under direct vision. Throughout the procedure, the patient's blood pressure, pulse, and oxygen saturations were monitored continuously. The scope was introduced through the anus and advanced to the cecum, identified by appendiceal orifice and ileocecal valve. The colonoscopy was performed without difficulty. The patient tolerated the procedure well. The quality of the bowel preparation was good. Findings: A 3 mm polyp was found in the ascending colon. The polyp was sessile. The polyp was removed with a jumbo cold forceps. Resection and retrieval were complete. A 3 mm polyp was found in the sigmoid colon. The polyp was sessile. The polyp was removed with a jumbo cold forceps. Resection and retrieval were complete. Multiple small-mouthed diverticula were found in the sigmoid colon. Internal hemorrhoids were found during retroflexion. The terminal ileum appeared normal. The exam was otherwise without abnormality on direct and retroflexion views. Impression: - One 3 mm polyp in the ascending colon, removed with a jumbo cold forceps. Resected and retrieved. - One 3 mm polyp in the sigmoid colon, removed with a jumbo cold forceps. Resected and retrieved. - Diverticulosis in the sigmoid colon. - Internal hemorrhoids. - The examined portion of the ileum was normal. - The examination was otherwise normal on direct and retroflexion views. Recommendation: - Discharge patient to home (with escort). - Repeat colonoscopy in 5 years for surveillance based on pathology results. - Return to referring physician as previously scheduled. Dony Holland MD 12/25/2017 10:06:58 AM This report has been signed electronically. Note Initiated On: 12/25/2017 9:39 AM I attest to the content of the Intraoperative Record and orders documented therein, exceptions below
--- NOTE | 2017-12-25 10:10 | Discharge Instructions ---
Endoscopy Patient Instructions Date / Procedure(s) Performed Dec 25, 2017. Colonoscopy Allergy Information Coded Allergies: Iodinated Diagnostic Agents (Unverified Allergy, Mild, itchy, 12/25/17) Levofloxacin (Unverified Allergy, Mild, itchy, 12/25/17) Adhesives (Unverified Allergy, Unknown, PULLED SKIN OFF WITH TAPE, 12/25/17 ) Discharge Date / Findings Dec 25, 2017. Findings: A 3 mm polyp was found in the ascending colon. The polyp was sessile. The polyp was removed with a jumbo cold forceps. Resection and retrieval were complete. A 3 mm polyp was found in the sigmoid colon. The polyp was sessile. The polyp was removed with a jumbo cold forceps. Resection and retrieval were complete. Multiple small-mouthed diverticula were found in the sigmoid colon. Internal hemorrhoids were found during retroflexion. The terminal ileum appeared normal. The exam was otherwise without abnormality on direct and retroflexion views. Impression: - One 3 mm polyp in the ascending colon, removed with a jumbo cold forceps. Resected and retrieved. - One 3 mm polyp in the sigmoid colon, removed with a jumbo cold forceps. Resected and retrieved. - Diverticulosis in the sigmoid colon. - Internal hemorrhoids. - The examined portion of the ileum was normal. - The examination was otherwise normal on direct and retroflexion views. Recommendation: - Discharge patient to home (with escort). - Repeat colonoscopy in 5 years for surveillance based on pathology results. - Return to referring physician as previously scheduled. Provider Instructions Activity Restrictions - No exercising or heavy lifting for 24 hours. - Do not drink alcohol the day of the procedure. - Do not drive a car or operate machinery until the day after the procedure. - Do not make any important decisions or sign important papers in 24 hours after the procedure. Following Day: - Return to full activity which may include returning to work/school. Diet Start your diet with liquids and light foods (jello, soup, juice, toast). Then eat your usual diet if not nauseated. Treatment For Common After Affects For mild abdominal pain, bloating, or excessive gas: - Rest - Eat lightly - Lie on right side Follow-Up Information Follow-up with CAT as scheduled Anesthesia Information What You Should Know You have had a procedure that required some medicine to reduce anxiety and discomfort. This treatment is called moderate sedation. After receiving the treatment, you may be sleepy, but you will be able to breathe on your own. The effects of the treatment may last for several hours. Follow these instructions along with Activity/Diet recommendations noted above: * Do NOT do anything where dizziness or clumsiness would be dangerous. * Rest quietly at home today, then you can be up and about tomorrow. * Have a responsible person stay with you the rest of today. * You may have had an I.V. today. If so, you may take the dressing off later today. Recommendations Call your doctor if: * Trouble breathing * Continuous vomiting for more than 24 hours * Temperature above 101 degrees * Severe abdominal pain or bloating * Pain not relieved by pain medicine ordered * There is increased drainage or redness from any incision * A large amount of rectal bleeding greater than 2-3 tablespoons. (If you had a polyp/s removed or have hemorrhoids, a small amount of blood - from the rectum is to be expected.) * You have any unanswered questions or concerns. IN THE EVENT OF A SERIOUS EMERGENCY, GO TO THE NEAREST EMERGENCY ROOM Your discharge instructions were prepared by provider Dony Holland. Patient Instructions Signature Page Moises Fregoso Patient (or Guardian) Signature/Date: I have read and understand the instructions given to me by my caregivers. Caregiver/RN/Doctor Signature/Date: The above-named patient and/or guardian has received patient instructions on this date. + Original Patient Signature Page (only) stays with chart. Please make copy for patient.
[2017-12-25 10:27] VITALS: BP 125/71; PULSE 60; O2SAT 95
--- NOTE | 2017-12-25 10:59 | Anesthesiology Progress Note ---
Anesthesia Post Op Note Date & Time Dec 25, 2017 at 10:59 Vital Signs Pain Intensity: 0 Vital Signs Past 12 Hours Date Time Temp Pulse Resp B/P (MAP) Pulse Ox O2 Delivery O2 Flow Rate FiO2 12/25/17 10:27 60 20 125/71 (89) 95 12/25/17 10:18 62 20 124/70 (88) 95 12/25/17 10:12 63 20 115/71 (86) 97 12/25/17 10:04 60 20 93/49 (64) 97 Notes Mental Status: alert / awake / arousable, participated in evaluation Pt Amnestic to Procedure: Yes Nausea / Vomiting: adequately controlled Pain: adequately controlled Airway Patency, RR, SpO2: stable & adequate BP & HR: stable & adequate Hydration State: stable & adequate Anesthetic Complications: no major complications apparent
== END | disposition home or self-care (01) ==
LOC: C.GI 08:42
PROVIDERS: ATTEND Internal Medicine
DX: Z12.11 Encounter for screening for malignant neoplasm of colon (principal); Z86.010 Personal history of colon polyps; D12.2 Benign neoplasm of ascending colon; D12.5 Benign neoplasm of sigmoid colon; K57.30 Diverticulosis of large intestine without perforation or abscess without bleeding; K64.8 Other hemorrhoids; M19.90 Unspecified osteoarthritis, unspecified site; Z98.890 Other specified postprocedural states; Z96.653 Presence of artificial knee joint, bilateral; F17.220 Nicotine dependence, chewing tobacco, uncomplicated; Z80.0 Family history of malignant neoplasm of digestive organs

== ENCOUNTER 2021-09-29 18:30 | Inpatient (IN) ==
[2021-09-29] MEDS ORDERED: ONDANSETRON INJ 2 MG/ML 2 ML VIAL IV STA (19:04)
[2021-09-29 20:05] LABS: Basophils # (auto) 0.01 K/uL (0-0.2); Basophils % (auto) 0.1 %; Eosinophils # (auto) 0.06 K/uL (0-0.5); Eosinophils % (auto) 0.5 %; Hematocrit (blood only) 46.6 % (42-52); Hemoglobin 16.1 g/dL (14.0-18.0); Immature Granulocytes # (auto) 0.03 K/uL (0.00-0.02); Immature Granulocytes % (auto) 0.3 %; Lymphocytes % (auto) 9.5 %; Mean Corpuscular Hemoglobin 30.5 pg (25-34); Mean Corpuscular Hgb Conc 34.5 g/dL (32-36); Mean Corpuscular Volume 88.3 fL (80-100); Mean Platelet Volume 11.8 fL (7.4-10.4); Monocytes # (auto) 0.31 K/uL (0.11-0.59); Monocytes % (auto) 2.7 %; Neutrophils # (auto) 10.07 K/uL (1.4-6.5); Neutrophils % (auto) 86.9 %; Platelet Count 172 K/uL (130-400); RDW Coefficient of Variation 13.9 % (11.5-14.5); RDW Standard Deviation 45.4 fL (36.4-46.3); Red Blood Count 5.28 M/uL (4.7-6.1); White Blood Count 11.58 K/uL (4.8-10.8)
[2021-09-29 20:46] LABS: Albumin Level 3.8 gm/dl (3.4-5.0); BUN Creatinine Ratio 16.2 (10-20); Bilirubin,Total 0.6 mg/dl (0.2-1); Calcium 9.6 mg/dl (8.5-10.1); Creatinine Clr Calc Pharmacy 57.5 ml/min; Est GFR (African American) 79.2 ml/min; Est GFR (Non-African American) 68.3 ml/min; Globulin 3.9 gm/dl (2.5-4.0); Potassium 4.3 mmol/L (3.5-5.1); Total Protein 7.7 gm/dl (6.4-8.2)
[2021-09-29] MEDS ORDERED: MoRPHine SULFATE 2 MG/ML CARP IV STA (21:54)
[2021-09-29] MEDS ORDERED: PROCHLORPERAZINE 2 ML IV ONE (21:54)
[2021-09-29] MEDS ORDERED: diphenhydrAMINE 50 MG/ML VIAL IV STA (21:54)
--- NOTE | 2021-09-29 22:01 | Emergency Department Note ---
Impression & Plan SBO (small bowel obstruction), Nephrolithiasis, Abdominal pain, Hernia, hiatal ED Provider Note NAME: BLANCO MEYER AGE: 75 SEX: M : 1945 ARRIVES VIA: Walk-In INFORMANT: Patient, ED PROVIDER(S): Justice Rico MD Chief Complaint: Abdominal pain HPI: Patient does present due to concern for abdominal pain. The patient states that this began soon after lunch today. The patient states that since then the patient has had approximately 5 episodes of nonbloody but is concerned about bilious emesis. Patient states that this was similar to when he had a bowel obstruction 12 years ago and did require surgery to relieve it. Patient has any fevers but does feel chilled. The patient has received his seasonal flu shot as well as his Covid vaccination. The patient does use smokeless tobacco but denies any alcohol or drug use. Patient is not taking anything for symptoms and states that his abdominal pain is diffuse and may be worse in the mid abdomen. Patient states that has been fairly constant with associated nausea and the vomiting. Patient denies any dysuria or hematuria. The patient did have a small bowel movement around 5 but it was incomplete. ROS: See HPI for pertinent positives and negatives. A total of 10 systems were reviewed and otherwise negative. Past medical history: See below Surgical history: See below Social history: See below Physical Exam: GENERAL: Well appearing, well nourished, NAD, wearing glasses, wearing a mask, non-toxic. EYE EXAM: Normal conjunctiva. PERRL, no anisocoria and EOM's grossly intact w/o pain. [OROPHARYNX: Moist mucus membranes. Grossly normal dentition. No exudate, posterior pharynx is clear, no tonsillar/uvular deviation or swelling. No cervical adenopathy, no submental, submandibular, or sublingual swelling.] NECK: Supple, no nuchal rigidity, no adenopathy, non-tender. No signs of meningismus. FROM of the neck with good chin to chest and neck extension. No stridor. LUNGS: Clear to auscultation. Normal chest wall mechanics. HEART: NSR, no MRG. ABDOMEN: Abdomen soft, mild diffuse discomfort without peritonitis, no masses, no rebound or guarding. BACK: No CVA TTP. SKIN: No rashes and no bruising. UPPER EXTREMITIES: Upper extremities are grossly normal. LOWER EXTREMITIES: Grossly normal, no edema. NEURO EXAM: A&O x3, cranial nerves II-XII grossly intact, normal speech, moves all 4 extremities on command w/o issue. Differential diagnoses: Appendicitis, testicular torsion, infections, diverticulitis, UTI, obstruction, mesenteric ischemia, aortic pathology, inflammatory bowel disease, renal colic, PUD, pancreatitis, biliary pathology, hernia, volvulus, constipation, as well as other pathologies. Course: Patient was seen and evaluated the bedside. Full history physical exam was performed. Imaging Studies: See Below Cardiac monitoring: An order was placed for continuous cardiac monitoring. The monitor shows a rate of 82 with sinus rhythm. MDM: Patient was seen due to concern for abdominal pain. The patient was concerned about the possibility of a small bowel obstruction as he has a prior history and states that this feels similar. Blood work was obtained in triage. CAT scan was ordered and patient was treated symptomatically. Patient has a white count of 11 with a normal H&H and platelet count. Kidney function is unremarkable. Lipase normal along with LFTs with only trace elevation in alk phos. Patient CT does show concerns for SBO with transition point in the right lower quadrant. No pneumatosis or pneumoperitoneum. I did speak with the on-call hospitalist Dr. Funk and the patient was admitted to the medicine service. I did speak with the on-call general surgery service Deep Paul PA-C. Upon reassessment of the patient the patient has had no further vomiting and states that his pain and nausea is improved. Patient was admitted to the medicine service. Past Med/Surg History Medical History Bowel obstruction H/O nephrolithotomy with removal of calculi Kidney stones Nephrolithiasis Surgical History H/O abdominal surgery Social History Smoking Status: Current some day smoker Tobacco Type: Smokeless Tobacco (Dip or Chew) Hx Alcohol Use: No Hx Substance Use: No Current Living Situation: Spouse Feels Safe at Home: Yes Immunizations: Vaccinated for Covid and has received seasonal flu shot Allergies Allergies Allergy/AdvReac Type Severity Reaction Status Date / Time adhesive Allergy Intermediate PULLED Verified 09/29/21 22:25 SKIN OFF WITH TAPE Iodinated Contrast Media Allergy Intermediate ITCHY, Verified 09/29/21 22:25 REDNESS FROM IV SITE UP TO SHOULDER levofloxacin Allergy Mild itchy Verified 09/29/21 22:25 Home Meds Home Medications Medication Instructions Recorded Confirmed cyanocobalamin (vitamin B-12) 1,000 mcg PO DAILY 09/29/21 09/29/21 1,000 mcg tablet (Vitamin B-12) dorzolamide-timolol (PF) 2 %-0.5 % 1 drp OPHTHALMIC (EYE) BID 09/29/21 09/29/21 eye drops in a dropperette gabapentin 400 mg capsule 400 mg PO HS 09/29/21 09/29/21 latanoprost 0.005 % eye drops 1 drp OPB HS 09/29/21 09/29/21 multivitamin 1 tab PO DAILY 09/29/21 09/29/21 omeprazole 20 mg capsule,delayed 20 mg PO DAILY 09/29/21 09/29/21 release oxycodone-acetaminophen 5 mg-325 0.5 - 1 tab PO DIRECTED PRN 09/29/21 09/29/21 mg tablet propylene glycol 0.6 % eye drops 1 drp OPHTHALMIC (EYE) DIRECTED 09/29/21 09/29/21 (Systane Complete) PRN Results & Data (ED) Vital Signs Vital Signs - 24 hr 09/29/21 18:52 09/29/21 22:00 Temperature 36.5 C Temperature Source Temporal Artery Scan Pulse Rate [Left Finger] 88 Respiratory Rate 16 20 Respiratory Depth Normal Blood Pressure 170/71 H Blood Pressure [Right Arm] 140/89 Blood Pressure Mean 104 Blood Pressure Mean [Right Arm] 106 Blood Pressure Position Sitting Pulse Oximetry 97 98 Oxygen Delivery Method Room Air Room Air Sepsis Recent Fever Within 48 Hours No Sepsis New/Unexplained Change in Mental Status No Sepsis Action Taken by Nursing No Action Required Home Medications Current Medication List: was personally reviewed by me Laboratory Data Attestation: I reviewed the patient's lab results. Result diagrams: 09/29/21 19:40 09/29/21 19:40 Lab Results 09/29/21 09/29/21 Range/Units 19:40 19:40 WBC 11.58 H (4.8-10.8) K/uL RBC 5.28 (4.7-6.1) M/uL Hgb 16.1 (14.0-18.0) g/dL Hct 46.6 (42-52) % MCV 88.3 (80-100) fL MCH 30.5 (25-34) pg MCHC 34.5 (32-36) g/dL RDW Std Deviation 45.4 (36.4-46.3) fL RDW Coeff of [place]errero 13.9 (11.5-14.5) % Plt Count 172 (130-400) K/uL MPV 11.8 H (7.4-10.4) fL Immature Gran % (Auto) 0.3 % Neut % (Auto) 86.9 % Lymph % (Auto) 9.5 % [place] % (Auto) 2.7 % Eos % (Auto) 0.5 % Baso % (Auto) 0.1 % Neut # (Auto) 10.07 H (1.4-6.5) K/uL Lymph # (Auto) 1.10 L (1.2-3.4) K/uL [place] # (Auto) 0.31 (0.11-0.59) K/uL Eos # (Auto) 0.06 (0-0.5) K/uL Baso # (Auto) 0.01 (0-0.2) K/uL Immature Gran # (Auto) 0.03 H (0.00-0.02) K/uL Sodium 137 (136-145) mmol/L Potassium 4.3 (3.5-5.1) mmol/L Chloride 108 H (98-107) mmol/L Carbon Dioxide 23 (21-32) mmol/L Anion Gap 6.0 (3-11) BUN 17 (7-18) mg/dl Creatinine 1.06 (0.6-1.4) mg/dl Est Cr Clr Drug Dosing 57.5 ml/min Est GFR ( Amer) 79.2 ml/min Est GFR (Non-Af Amer) 68.3 ml/min BUN/Creatinine Ratio 16.2 (10-20) Glucose 133 H (70-99) mg/dl Calcium 9.6 (8.5-10.1) mg/dl Total Bilirubin 0.6 (0.2-1) mg/dl AST 15 (15-37) U/L ALT 19 (12-78) U/L Alkaline Phosphatase 129 H (45-117) U/L Total Protein 7.7 (6.4-8.2) gm/dl Albumin 3.8 (3.4-5.0) gm/dl Globulin 3.9 (2.5-4.0) gm/dl Albumin/Globulin Ratio 1.0 (0.9-2) Lipase 99 (73-393) U/L Specimen Hemolysis Administered Medications Discontinued Medications Diphenhydramine HCl (Diphenhydramine 50 Mg/Ml Vial) 12.5 mg IV NOW STA Stop: 09/29/21 21:55 Last Admin: 09/29/21 22:14 Dose: 12.5 mg Documented by: [id number] Prochlorperazine (Compazine) 2 mls @ 1 mls/min IV ONE ONE Stop: 09/29/21 21:55 Last Admin: 09/29/21 22:13 Dose: 1 mls/min Documented by: [id number] Ioversol (Optiray 320 100ml) 92 ml IV ONCE ONE Stop: 09/29/21 22:44 Last Admin: 09/29/21 22:44 Dose: 92 ml Documented by: [id number] Morphine Sulfate (Morphine Sulfate 2 Mg/Ml Carp) 2 mg IV NOW STA Stop: 09/29/21 21:55 Last Admin: 09/29/21 22:13 Dose: 2 mg Documented by: [id number] Ondansetron HCl (Ondansetron Inj 2 Mg/Ml 2 Ml Vial) 4 mg IV NOW STA Stop: 09/29/21 19:05 Last Admin: 09/29/21 19:47 Dose: 4 mg Documented by: [id number] Imaging Data Radiologist's Impression: Abdomen/Pelvis CT 09/29/21 21:[address] WITH IV CONTRAST CT DOSE: 299.55 mGy.cm HISTORY: Acute generalized abdominal pain with nausea and vomiting diffuse ab pain, n/v; h/o obstruction TECHNIQUE: Multiaxial CT images of the abdomen and pelvis were performed following the IV administration of 92 cc of Optiray, A dose lowering technique was utilized adhering to the principles of ALARA. COMPARISON STUDY: CT abdomen and pelvis 05/03/2013 FINDINGS: Mild cardiomegaly with coronary artery calcifications. Subsegmental bibasilar atelectasis/scarring. Calcified granulomata of the right lung base. There is no pneumatosis or pneumoperitoneum. Unremarkable spleen, moderately atrophic pancreas, gallbladder, adrenal glands and liver. Patent portal vein. 1.3 cm cyst of the superior pole left kidney. Cysts of the right kidney measure up to 1.7 cm. Multifocal cortical thinning with parenchymal scarring of the right kidney. Numerous right-sided renal calculi measure up to approximately 5 mm. No ureteral calculi or hydronephrosis. There is a 1.2 cm calcification within the dependent aspect of the right urinary bladder adjacent to the ureterovesicular junction. Prostamegaly. Urinary bladder wall thickening with partial distention. Small fat filled right inguinal hernia. Atherosclerosis of the aorta without aneurysm. There is no adenopathy. Distended fluid-filled distal esophagus with small hiatal hernia. Numerous air and fluid-filled prominent and mildly dilated loops of small bowel within the lower abdomen and pelvis measure up to 3 cm. Mild associated intraluminal edema. There is transitioned narrowing of the ileum within the abdominal right lower quadrant on image 313 of series 3 with distal decompressed bowel. Air-fluid levels are also noted within the cecum and ascending colon with mild transition narrowing of the mid ascending colon on image 283 seen best on the coronal and sagittal reformatted images. Unremarkable soft tissues. No acute fracture. Degenerative changes of the spine, pelvis and hips. IMPRESSION: 1. Findings suggestive of small bowel obstruction with transition point within the abdominal right lower quadrant. 2. Mild interloop edema without pneumatosis or pneumoperitoneum. 3. Transitioned luminal narrowing of the mid ascending colon is likely secondary to peristalsis. An underlying lesion is considered less likely. This could be correlated with endoscopy. 4. Nonobstructing right nephrolithiasis without ureteral calculi or hydronephrosis. 5. 1.2 cm calculus of the dependent urinary bladder. 6. Prostamegaly. 7. Small hiatal hernia. ACT 112: Negative or not required by law. The above report was generated using voice recognition software. It may contain grammatical, syntax or spelling errors. Electronically signed by: Dennis Wu M.D. 09/29/2021 11:21 PM Discharge Plan Visit Data Chief Complaint: GI Assessment Stated Complaint: VOMITING,CRAMPS,CONSTIPATION ED Provider: Justice Rico Discharge Problem: SBO (small bowel obstruction), Nephrolithiasis, Abdominal pain, Hernia, hiatal Forms Stand Alone Forms: My [facility] Prescriptions Prescriptions: No Action latanoprost 0.005 % drops 1 drp OPB HS RF: 0 gabapentin 400 mg capsule 400 mg PO HS RF: 0 oxycodone-acetaminophen 5-325 mg tablet 0.5 - 1 tab PO DIRECTED PRN (Reason: Pain) RF: 0 omeprazole 20 mg capsule,delayed release(DR/EC) 20 mg PO DAILY RF: 0 dorzolamide-timolol (PF) 2-0.5 % dropperette 1 drp ophthalmic (eye) BID RF: 0 multivitamin Tablet 1 tab PO DAILY RF: 0 cyanocobalamin (vitamin B-12) [Vitamin B-12] 1,000 mcg Tablet 1,000 mcg PO DAILY RF: 0 Systane Complete 0.6 % Drops 1 drp OPHTHALMIC (EYE) DIRECTED PRN (Reason: Dry Eyes) RF: 0 Referrals Referrals: Dominic Long DO [Physician] - Discharge Problem: Abdominal pain Qualifiers: Abdominal location: generalized Qualified Code(s): R10.84 - Generalized abdominal pain
[2021-09-29] MEDS ORDERED: OPTIRAY 320 100ml IV ONE (22:43)
--- NOTE | 2021-09-29 23:23 | CT Scan Report ---
ABDOMEN AND PELVIS CT WITH IV CONTRAST CT DOSE: 299.55 mGy.cm HISTORY: Acute generalized abdominal pain with nausea and vomiting diffuse ab pain, n/v; h/o obstruc tion TECHNIQUE: Multiaxial CT images of the abdomen and pelvis were performed following the IV administrat ion of 92 cc of Optiray, A dose lowering technique was utilized adhering to the principles of ALARA. COMPARISON STUDY: CT abdomen and pelvis 05/03/2013 FINDINGS: Mild cardiomegaly with coronary artery calcifications. Subsegmental bibasilar atelectasis/s carring. Calcified granulomata of the right lung base. There is no pneumatosis or pneumoperitoneum. U nremarkable spleen, moderately atrophic pancreas, gallbladder, adrenal glands and liver. Patent bianka l vein. 1.3 cm cyst of the superior pole left kidney. Cysts of the right kidney measure up to 1.7 cm. Multifo alen cortical thinning with parenchymal scarring of the right kidney. Numerous right-sided renal calcu li measure up to approximately 5 mm. No ureteral calculi or hydronephrosis. There is a 1.2 cm calcifi cation within the dependent aspect of the right urinary bladder adjacent to the ureterovesicular junc tion. Prostamegaly. Urinary bladder wall thickening with partial distention. Small fat filled right i nguinal hernia. Atherosclerosis of the aorta without aneurysm. There is no adenopathy. Distended fluid-filled distal esophagus with small hiatal hernia. Numerous air and fluid-filled promi nent and mildly dilated loops of small bowel within the lower abdomen and pelvis measure up to 3 cm. Mild associated intraluminal edema. There is transitioned narrowing of the ileum within the abdominal right lower quadrant on image 313 of series 3 with distal decompressed bowel. Air-fluid levels are a lso noted within the cecum and ascending colon with mild transition narrowing of the mid ascending co gilberto on image 283 seen best on the coronal and sagittal reformatted images. Unremarkable soft tissues. No acute fracture. Degenerative changes of the spine, pelvis and hips. IMPRESSION: 1. Findings suggestive of small bowel obstruction with transition point within the abdominal right lo wer quadrant. 2. Mild interloop edema without pneumatosis or pneumoperitoneum. 3. Transitioned luminal narrowing of the mid ascending colon is likely secondary to peristalsis. An u nderlying lesion is considered less likely. This could be correlated with endoscopy. 4. Nonobstructing right nephrolithiasis without ureteral calculi or hydronephrosis. 5. 1.2 cm calculus of the dependent urinary bladder. 6. Prostamegaly. 7. Small hiatal hernia. ACT 112: Negative or not required by law. The above report was generated using voice recognition software. It may contain grammatical, syntax o r spelling errors. Electronically signed by: Dennis Wu M.D. 09/29/2021 11:21 PM
--- NOTE | 2021-09-30 00:12 | Surgery Consultation ---
Date of Consultation September 30, 2021 Assessment & Plan (1) SBO (small bowel obstruction): Patient be admitted on the medical service. We recommend proceeding as follows: N.p.o. status Hydration measures with IV fluids Provide analgesics Provide antiemetics At the present time the patient's abdomen is nondistended, his pain is well controlled, and he does not have any nausea vomiting. I did discuss with the patient if his abdominal exam worsens (worsening pain, worsening abdominal d istention, etc.) Or if any further nausea vomiting ensue I would recommend placing an NG tube for gastric decompression and symptomatic relief. We will continue following while the patient is hospitalized Supervising Physician Co-Signing Physician Notes Dr. Pastorpatient admitted with abdominal pain nausea and vomiting. He has a history of prior laparotomies and possible bowel resection but history of adhesions . He has not had any nausea or vomiting since being in the hospital We will monitor him without NG tube at the present time History of Present Illness Reason for Consultation: Small bowel obstruction History of Present Illness This 75-year-old male with a prior history of abdominal surgery. The patient says he required exploratory laparotomy secondary to "twisted bowel". He notes that the surgery was in excess of 20 years ago. Patient says he has had multiple small bowel obstructions in the past. He notes his most recent small bowel obstruction was approximate 12 years ago and was treated successfully in a conservative manner. Patient notes that he was in his usual state of health feeling fine yesterday however earlier today he developed some abdominal pain in the right upper quadrant of his abdomen along with some nausea vomiting. Patient notes his pain does not radiate and he also does not note any other modifying factors. Because of the symptoms he presented to the emergency department In the emergency department patient had labs and imaging which I independently reviewed. CBC revealed white blood cell count is 11.5. Hemoglobin, hematocrit, and platelet count were all within normal range. Chemistry profile shows sodium, potassium, BUN, and creatinine were all within normal range. There is no significant elevation of his LFTs or lipase. A Covid test has been performed and was pending. CT scan of the abdomen and pelvis were performed. This showed findings suggestive of a small bowel obstruction with a transition point in the right lower quadrant. There was no pneumatosis or pneumoperitoneum. The patient was noted to have some air-fluid levels in dilated loops of small bowel in the lower abdomen. At the time of my interview is resting comfortably in bed. His pain is well controlled and his nausea vomiting has subsided. Allergies Allergy/AdvReac Type Severity Reaction Status Date / Time adhesive Allergy Intermediate PULLED Verified 09/29/21 22:25 SKIN OFF WITH TAPE Iodinated Contrast Media Allergy Intermediate ITCHY, Verified 09/29/21 22:25 REDNESS FROM IV SITE UP TO SHOULDER levofloxacin Allergy Mild itchy Verified 09/29/21 22:25 Home Medications Medication Instructions Recorded Confirmed Type cyanocobalamin (vitamin B-12) 1,000 mcg PO DAILY 09/29/21 09/29/21 History 1,000 mcg tablet (Vitamin B-12) dorzolamide-timolol (PF) 2 %-0.5 % 1 drp OPHTHALMIC (EYE) BID 09/29/21 09/29/21 History eye drops in a dropperette gabapentin 400 mg capsule 400 mg PO HS 09/29/21 09/29/21 History latanoprost 0.005 % eye drops 1 drp OPB HS 09/29/21 09/29/21 History multivitamin 1 tab PO DAILY 09/29/21 09/29/21 History omeprazole 20 mg capsule,delayed 20 mg PO DAILY 09/29/21 09/29/21 History release oxycodone-acetaminophen 5 mg-325 0.5 - 1 tab PO DIRECTED PRN 09/29/21 09/29/21 History mg tablet propylene glycol 0.6 % eye drops 1 drp OPHTHALMIC (EYE) DIRECTED 09/29/21 09/29/21 History (Systane Complete) PRN Patient History Medical History Bowel obstruction H/O nephrolithotomy with removal of calculi Kidney stones Nephrolithiasis Surgical History H/O abdominal surgery Social History Smoking Status: Never smoker Tobacco Type: Smokeless Tobacco (Dip or Chew) Second Hand Exposure: No; Do You Dip or Chew Tobacco: No; Tobacco Cessation Education Requested by Patient: No Hx Alcohol Use: No Hx Substance Use: No Preferred Language: Stateless Communication Ability: Effective Harness Inspector Required: No Beliefs That Will Affect Care: None Current Living Situation: Spouse Other Information That Helps Us Care for You: No Feels Safe at Home: Yes Safety Concerns: Feels Safe At This Time Assistive Devices: Glasses and Hearing Aid - Right Assistive Devices Comment: Reading glasses. Review of Systems Constitutional: no fever and no chills Eyes: no diplopia Ear, Nose, Mouth, Throat: no ear pain Respiratory: no cough and no dyspnea Cardiovascular: no chest pain Gastrointestinal: + abdominal pain, + nausea and + vomiting Genitourinary: no dysuria Integumentary: no rash Neurologic: no localized weakness Physical Exam Constitutional: well developed and well nourished; no acute distress Eyes: no conjunctival abnormality ENMT: Ears: no hearing impairment Neck: trachea midline Respiratory: normal respiratory effort, lungs clear to auscultation Cardiovascular: Rate/Rhythm: regular rate and regular rhythm Gastrointestinal (Abdomen): Abdomen is soft and nondistended. Bowel sounds are hypoactive. The patient had a well-healed Laurent incision under the right subcostal margin. There is no rebound tenderness or guarding. Patient did have some minor pain with palpation greatest in the right upper quadrant. I do not appreciate any hernias. Musculoskeletal: No calf tenderness Skin: no rashes Neurologic: moves all extremities Results & Data ([facility]) Vital Signs (Past 12 Hours) Vital Signs Temp Pulse Resp BP BP Pulse Ox 09/29/21 22:00 88 20 140/89 98 09/29/21 18:52 36.5 C 16 170/71 H 97 PG Care Time/CCT Total # of Minutes Spent Total Time Spent with Patient: Total time spent is greater than 50% in coordination of care (as documented) at patient's floor/unit and/or counseling patient: Coding Level of Care Code 36018 Inpt Consult Level 5 Diagnoses SBO (small bowel obstruction) K56.609
--- NOTE | 2021-09-30 00:58 | History & Physical Report ---
Date of Service September 30, 2021 Assessment & Plan (1) SBO (small bowel obstruction): Plan: History bowel surgery for "twisted bowel" 1970s chronic back pain on narcotics anxiety/mood disorder, at baseline GERD on PPI Hyperglycemia rule out DM GMF Bowel rest NGT decompression if with further emesis Surgery consult Re: SBO (Patient already evaluated at the ER by provider contact center rep.) Patient advised to limit as needed narcotic intake for chronic back pain for now Check hemoglobin A1c DVT prophylaxis per Lovenox subcu Full code Text document was generated using [employer] voice recognition software. It may contain grammatical or spelling errors. Kindly contact undersigned for clarification of any documentation item in question. History of Present Illness Chief Complaint: Abdominal pain Primary Care Provider: Rosa Dickens MD History obtained from patient and records. Medical history significant for hyperlipidemia, urolithiasis, chronic back pain, anxiety/mood disorder, GERD, glaucoma. Last confinement 2016 under Orthopedics service for elective right knee surgery. Patient noted generalized abdominal pain after lunch today followed by bilious emesis. Good bowel movements today as per patient no fever, no chills. Achy abdominal pain reminiscent of twisted bowel episode requiring emergent surgery at [facility] in 1973. Patient denies chest pain, S OB. Patient consulted ER for further evaluation. 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 Allergies Allergy/AdvReac Type Severity Reaction Status Date / Time adhesive Allergy Intermediate PULLED Verified 09/29/21 22:25 SKIN OFF WITH TAPE Iodinated Contrast Media Allergy Intermediate ITCHY, Verified 09/29/21 22:25 REDNESS FROM IV SITE UP TO SHOULDER levofloxacin Allergy Mild itchy Verified 09/29/21 22:25 Home Medications Medication Instructions Recorded Confirmed Type cyanocobalamin (vitamin B-12) 1,000 mcg PO DAILY 09/29/21 09/29/21 History 1,000 mcg tablet (Vitamin B-12) dorzolamide-timolol (PF) 2 %-0.5 % 1 drp OPHTHALMIC (EYE) BID 09/29/21 09/29/21 History eye drops in a dropperette gabapentin 400 mg capsule 400 mg PO HS 11/19/21 11/19/21 History latanoprost 0.005 % eye drops 1 drp OPB HS 09/29/21 09/29/21 History multivitamin 1 tab PO DAILY 09/29/21 09/29/21 History omeprazole 20 mg capsule,delayed 20 mg PO DAILY 09/29/21 09/29/21 History release oxycodone-acetaminophen 5 mg-325 0.5 - 1 tab PO DIRECTED PRN 09/29/21 09/29/21 History mg tablet propylene glycol 0.6 % eye drops 1 drp OPHTHALMIC (EYE) DIRECTED 09/29/21 09/29/21 History (Systane Complete) PRN Past Med/Surg History Medical History Bowel obstruction H/O nephrolithotomy with removal of calculi Kidney stones Nephrolithiasis Surgical History H/O abdominal surgery Social History Smoking Status: Never smoker Tobacco Type: Smokeless Tobacco (Dip or Chew) Second Hand Exposure: No; Do You Dip or Chew Tobacco: No; Tobacco Cessation Education Requested by Patient: No Hx Alcohol Use: No Hx Substance Use: No Preferred Language: Kinyarwanda Communication Ability: Effective Hazmat Cdl Driver Required: No Beliefs That Will Affect Care: None Current Living Situation: Spouse Other Information That Helps Us Care for You: No Feels Safe at Home: Yes Safety Concerns: Feels Safe At This Time Assistive Devices: Glasses and Hearing Aid - Right Assistive Devices Comment: Reading glasses. Review of Systems Review of Systems: As per HPI, all 10 systems reviewed, all other ROS negative Physical Exam Physical Exam: GENERAL: Comfortable, pleasant, no respiratory distress SKIN: Normal color, warm HEENT: [place] palpebral conjunctivae, no ptosis, dry buccal mucosa NECK : Supple, no tenderness CHEST : CTA, no tenderness HEART : RRR, no obvious murmurs ABDOMEN: Some distention, central abdominal tenderness EXTREMITIES : No LE swelling/tenderness, no other conspicuous deformities noted NEUROLOGIC : Coherent, no facial asymmetry, no other gross focality Results & Data Results & Data ([facility]) Vital Signs (Past 12 Hours) Vital Signs Temp Pulse Pulse Resp BP BP Pulse Ox 09/30/21 00:00 135/84 95 09/29/21 23:45 94 09/29/21 23:30 86 18 140/75 94 09/29/21 23:15 83 16 94 09/29/21 23:00 75 18 133/71 94 09/29/21 22:59 72 16 95 09/29/21 22:00 88 20 140/89 98 09/29/21 18:52 36.5 C 16 170/71 H 97 Laboratory Results Laboratory Results WBC 11.58 K/uL (4.8-10.8) H 09/29/21 19:40 RBC 5.28 M/uL (4.7-6.1) 09/29/21 19:40 Hgb 16.1 g/dL (14.0-18.0) 09/29/21 19:40 Hct 46.6 % (42-52) 09/29/21 19:40 MCV 88.3 fL (80-100) 09/29/21 19:40 MCH 30.5 pg (25-34) 09/29/21 19:40 MCHC 34.5 g/dL (32-36) 09/29/21 19:40 RDW Std Deviation 45.4 fL (36.4-46.3) 09/29/21 19:40 RDW Coeff of Guerrero 13.9 % (11.5-14.5) 09/29/21 19:40 Plt Count 172 K/uL (130-400) 09/29/21 19:40 MPV 11.8 fL (7.4-10.4) H 09/29/21 19:40 Immature Gran % (Auto) 0.3 % 09/29/21 19:40 Neut % (Auto) 86.9 % 09/29/21 19:40 Lymph % (Auto) 9.5 % 09/29/21 19:40 Sawyer % (Auto) 2.7 % 09/29/21 19:40 Eos % (Auto) 0.5 % 09/29/21 19:40 Baso % (Auto) 0.1 % 09/29/21 19:40 Neut # (Auto) 10.07 K/uL (1.4-6.5) H 09/29/21 19:40 Lymph # (Auto) 1.10 K/uL (1.2-3.4) L 09/29/21 19:40 Sawyer # (Auto) 0.31 K/uL (0.11-0.59) 09/29/21 19:40 Eos # (Auto) 0.06 K/uL (0-0.5) 09/29/21 19:40 Baso # (Auto) 0.01 K/uL (0-0.2) 09/29/21 19:40 Immature Gran # (Auto) 0.03 K/uL (0.00-0.02) H 09/29/21 19:40 Sodium 137 mmol/L (136-145) 09/29/21 19:40 Potassium 4.3 mmol/L (3.5-5.1) 09/29/21 19:40 Chloride 108 mmol/L (98-107) H 09/29/21 19:40 Carbon Dioxide 23 mmol/L (21-32) 09/29/21 19:40 Anion Gap 6.0 (3-11) 09/29/21 19:40 BUN 17 mg/dl (7-18) 09/29/21 19:40 Creatinine 1.06 mg/dl (0.6-1.4) 09/29/21 19:40 Est Cr Clr Drug Dosing 57.5 ml/min 09/29/21 19:40 Est GFR ( Amer) 79.2 ml/min 09/29/21 19:40 Est GFR (Non-Af Amer) 68.3 ml/min 09/29/21 19:40 BUN/Creatinine Ratio 16.2 (10-20) 09/29/21 19:40 Glucose 133 mg/dl (70-99) H 09/29/21 19:40 Calcium 9.6 mg/dl (8.5-10.1) 09/29/21 19:40 Total Bilirubin 0.6 mg/dl (0.2-1) 09/29/21 19:40 AST 15 U/L (15-37) 09/29/21 19:40 ALT 19 U/L (12-78) 09/29/21 19:40 Alkaline Phosphatase 129 U/L (45-117) H 09/29/21 19:40 Total Protein 7.7 gm/dl (6.4-8.2) 09/29/21 19:40 Albumin 3.8 gm/dl (3.4-5.0) 09/29/21 19:40 Globulin 3.9 gm/dl (2.5-4.0) 09/29/21 19:40 Albumin/Globulin Ratio 1.0 (0.9-2) 09/29/21 19:40 Lipase 99 U/L (73-393) 09/29/21 19:40 Specimen Hemolysis 09/29/21 19:40 SARS-CoV-2, RNA, NAAT NEGATIVE (NEGATIVE) 09/29/21 Unknown Impressions Abdomen/Pelvis CT 09/29/21 21:[address] WITH IV CONTRAST CT DOSE: 299.55 mGy.cm HISTORY: Acute generalized abdominal pain with nausea and vomiting diffuse ab pain, n/v; h/o obstruction TECHNIQUE: Multiaxial CT images of the abdomen and pelvis were performed following the IV administration of 92 cc of Optiray, A dose lowering technique was utilized adhering to the principles of ALARA. COMPARISON STUDY: CT abdomen and pelvis 05/03/2013 FINDINGS: Mild cardiomegaly with coronary artery calcifications. Subsegmental bibasilar atelectasis/scarring. Calcified granulomata of the right lung base. There is no pneumatosis or pneumoperitoneum. Unremarkable spleen, moderately atrophic pancreas, gallbladder, adrenal glands and liver. Patent portal vein. 1.3 cm cyst of the superior pole left kidney. Cysts of the right kidney measure up to 1.7 cm. Multifocal cortical thinning with parenchymal scarring of the right kidney. Numerous right-sided renal calculi measure up to approximately 5 mm. No ureteral calculi or hydronephrosis. There is a 1.2 cm calcification within the dependent aspect of the right urinary bladder adjacent to the ureterovesicular junction. Prostamegaly. Urinary bladder wall thickening with partial distention. Small fat filled right inguinal hernia. Atherosclerosis of the aorta without aneurysm. There is no adenopathy. Distended fluid-filled distal esophagus with small hiatal hernia. Numerous air and fluid-filled prominent and mildly dilated loops of small bowel within the lower abdomen and pelvis measure up to 3 cm. Mild associated intraluminal edema. There is transitioned narrowing of the ileum within the abdominal right lower quadrant on image 313 of series 3 with distal decompressed bowel. Air-fluid levels are also noted within the cecum and ascending colon with mild transition narrowing of the mid ascending colon on image 283 seen best on the coronal and sagittal reformatted images. Unremarkable soft tissues. No acute fracture. Degenerative changes of the spine, pelvis and hips. IMPRESSION: 1. Findings suggestive of small bowel obstruction with transition point within the abdominal right lower quadrant. 2. Mild interloop edema without pneumatosis or pneumoperitoneum. 3. Transitioned luminal narrowing of the mid ascending colon is likely secondary to peristalsis. An underlying lesion is considered less likely. This could be correlated with endoscopy. 4. Nonobstructing right nephrolithiasis without ureteral calculi or hydronephrosis. 5. 1.2 cm calculus of the dependent urinary bladder. 6. Prostamegaly. 7. Small hiatal hernia. ACT 112: Negative or not required by law. The above report was generated using voice recognition software. It may contain grammatical, syntax or spelling errors. Electronically signed by: Dennis Wu M.D. 09/29/2021 11:21 PM
[2021-09-30] MEDS: SODIUM CHLORIDE 0.9% 1000ML 1,000 ML IV SCH ×2 (01:27→18:01)
[2021-09-30 01:30] LABS: Magnesium 2.3 mg/dl (1.8-2.4)
[2021-09-30] MEDS ORDERED: ACETAMINOPHEN 325 MG TAB PO PRN (02:05)
[2021-09-30] MEDS ORDERED: PROMETHAZINE HCL 6.25 MG in SODIUM CHLORIDE 0.9% 50 ML IV PRN (02:05)
[2021-09-30] MEDS ORDERED: ARTIFICIAL TEARS OP PRN (02:15)
[2021-09-30] MEDS: DORZOLAMIDE/TIMOLOL 22.3/6.8MG/ML 10 ML BTL OP SCH ×3 (02:39→19:57)
[2021-09-30] MEDS: LATANOPROST 0.005% OP SOLN 2.5 ML BTL OPB SCH ×2 (02:39→19:57)
--- NOTE | 2021-09-30 05:08 | Surgery Progress Note ---
Date of Service September 30, 2021 Assessment & Plan (1) SBO (small bowel obstruction): Plan: Patient be admitted on the medical service. Continue care as follows: Maintain n.p.o. status until bowel function returns Continue hydration measures with IV fluids until diet can be advanced Provide analgesics Provide antiemetics We will hold on NG tube placement at this time as patient has not had any worsening abdominal pain, worsening abdominal distention, or nausea vomiting. We will continue following while the patient is hospitalized Admission and Anticipated Discharge Date Admission Date: September 30, 2021 Supervising Physician Co-Signing Physician Notes Dr. Pastor-patient feels somewhat better, passed a small amount of flatus He does have relatively active bowel sounds-we will see how he does this morning and possibly consider some clear liquids Depending on his progress If he does worsen he may need an NG tube and at some point a contrast study-we will hold off for now Subjective Patient is resting comfortably in bed. Since admission he has not had any further nausea vomiting. He has not passed any flatus or had a bowel movement since admission. He denies any worsening abdominal distention or pain. Physical Exam Gastrointestinal (Abdomen): Abdomen is soft without distention. There is minimal pain with palpation. Bowel sounds are hypoactive. Results & Data ([facility]) Vital Signs (Past 12 Hours) Vital Signs Temp Pulse Pulse Resp BP BP Pulse Ox 09/30/21 01:55 36.6 C 96 H 14 153/76 H 95 09/30/21 01:51 86 20 128/60 98 09/30/21 01:45 67 20 95 09/30/21 01:30 67 13 136/76 94 09/30/21 01:15 67 14 94 09/30/21 01:11 75 18 95 09/30/21 00:45 96 09/30/21 00:30 137/74 95 09/30/21 00:15 95 09/30/21 00:00 135/84 95 09/29/21 23:45 94 09/29/21 23:30 86 18 140/75 94 09/29/21 23:15 83 16 94 09/29/21 23:00 75 18 133/71 94 09/29/21 22:59 72 16 95 09/29/21 22:00 88 20 140/89 98 09/29/21 18:52 36.5 C 16 170/71 H 97 PG Care Time/CCT Total # of Minutes Spent Total Time Spent with Patient: Total time spent is greater than 50% in coordination of care (as documented) at patient's floor/unit and/or counseling patient: Coding Level of Care Code 62905 Subseq Hosp Care Lvl 1 Diagnoses SBO (small bowel obstruction) K56.609
[2021-09-30 06:14] LABS: Basophils # (auto) 0.01 K/uL (0-0.2); Basophils % (auto) 0.1 %; Eosinophils # (auto) 0.01 K/uL (0-0.5); Eosinophils % (auto) 0.1 %; Hematocrit (blood only) 39.9 % (42-52); Hemoglobin 13.7 g/dL (14.0-18.0); Lymphocytes % (auto) 17.2 %; Mean Corpuscular Hemoglobin 29.8 pg (25-34); Mean Corpuscular Hgb Conc 34.3 g/dL (32-36); Mean Corpuscular Volume 86.7 fL (80-100); Mean Platelet Volume 11.5 fL (7.4-10.4); Monocytes # (auto) 0.55 K/uL (0.11-0.59); Monocytes % (auto) 6.8 %; Neutrophils # (auto) 6.16 K/uL (1.4-6.5); Neutrophils % (auto) 75.8 %; Platelet Count 203 K/uL (130-400); RDW Coefficient of Variation 13.9 % (11.5-14.5); RDW Standard Deviation 44.4 fL (36.4-46.3); White Blood Count 8.13 K/uL (4.8-10.8)
[2021-09-30 06:53] LABS: BUN Creatinine Ratio 17.9 (10-20); Creatinine Clr Calc Pharmacy 66.6 ml/min; Est GFR (African American) 92.7 ml/min
[2021-09-30 07:39] LABS: Estimated Average Glucose 123 mg/dl; Hemoglobin A1C 5.9 % (4.5-5.6)
[2021-09-30 08:05] LABS: Appearance Urine Clear (Clear); Bilirubin Urine Negative (Negative); Blood Urine Negative (Negative); Color Urine Yellow; Glucose Urine UA Negative (Negative); Ketones Urine Negative (Negative); Leukocyte Esterase Urine Negative (Negative); Nitrite Urine Negative (Negative); Protein Urine Negative (Negative); Specific Gravity Urine > 1.045 (1.000-1.030); Urobilinogen Urine Negative (Negative); pH Urine 5.5 (4.5-7.5)
[2021-09-30] MEDS: CYANOCOBALAMIN 500 MCG TABLET (VITAMIN B-12) PO SCH (08:23)
[2021-09-30] MEDS: MULTIVITAMIN TAB PO SCH (08:23)
[2021-09-30] MEDS: PANTOprazole 40 MG TAB PO SCH (08:23)
[2021-09-30] MEDS: ENOXAPARIN INJ 30 MG/0.3 ML SYR SQ SCH (08:23)
--- NOTE | 2021-09-30 09:46 | XRay Report ---
XR KUB/Abdomen 1 view CLINICAL HISTORY: r/o sbo TECHNIQUE: 1 view of the abdomen was obtained. Comparison: None available at the time of this dictation. FINDINGS: Lung bases are unremarkable. The osseous structures are grossly unremarkable. Mildly distended loops of small bowel are seen measuring up to 34 mm in diameter. A moderate amount of stool is noted within the large bowel. IMPRESSION: Mildly gas-distended loops of small bowel which may reflect ileus versus partial obstruction. ACT 112: Negative or not required by law. Electronically signed by: Demetrio Collins M.D. 09/30/2021 9:45 AM
[2021-09-30] MEDS: KETOROLAC TROMETHAMINE 15 MG/ML VIAL IV PRN (15:56)
[2021-09-30] MEDS: GABAPENTIN 400 MG CAP PO SCH (19:55)
[2021-09-30] MEDS: oxyCODONE HCL IR 5 MG TAB (IMMEDIATE RELEASE) PO PRN (21:24)
--- NOTE | 2021-09-30 21:26 | Hospitalist Progress Note ---
Date of Service September 30, 2021 Assessment & Plan (1) SBO (small bowel obstruction): Plan: Small bowel obstruction H/O bowel surgery many years ago --CT ABD:Findings suggestive of small bowel obstruction with transition point within the abdominal right lower quadrant. Mild interloop edema without pneumatosis or pneumoperitoneum. Transitioned luminal narrowing of the mid ascending colon is likely secondary to peristalsis. An underlying lesion is considered less likely. This could be correlated with endoscopy. Nonobstructing right nephrolithiasis without ureteral calculi or hydronephrosis. 1.2 cm calculus of the dependent urinary bladder. Prostamegaly. Small hiatal hernia. -Conservative management as per surgery Appreciate surgery input Continue bowel rest Continue IV fluids Pain control as needed Avoid narcotics as able chronic back pain on narcotics Anxiety/mood disorder Stable Prediabetes HbA1c 5.9 GERD Continue PPI DVT prophylaxis Lovenox SQ Code Status Full code Admission and Anticipated Discharge Date Admission Date: September 30, 2021 Subjective Patient is seen and examined at bedside Denies any abdominal pain, nausea, vomiting Family at bedside Also denies any chest pain, shortness of breath, dizziness No bowel movement today Review of Systems Review of Systems: All systems reviewed & are unremarkable except as noted in Subjective Physical Exam Physical Exam: Physical Exam: Vitals signs as noted above General Appearance:Moderately built and nourished, no apparent distress Head: normocephalic, Atraumatic Eyes: normal inspection, EOMI Neck: supple, Trachea midline Respiratory/Chest: Normal breath sounds, CTA, No accessory muscle use Cardiovascular: S1, S2, No murmur Abdomen/GI:Soft, Non tender, Decreased Bowel sounds Extremities/Musculoskeletal:normal inspection, no edema Neurologic/Psych:AAOX3, grossly no focal neurological deficits Skin: normal color, warm Results & Data Results & Data ([facility]) Vital Signs (Past 12 Hours) Vital Signs Temp Pulse Resp BP Pulse Ox 09/30/21 14:28 36.4 C L 60 18 115/63 94 Laboratory Results Short CBC 09/30/21 Range/Units 05:42 WBC 8.13 (4.8-10.8) K/uL Hgb 13.7 L (14.0-18.0) g/dL Hct 39.9 L (42-52) % Plt Count 203 (130-400) K/uL BMP 09/30/21 05:42 Sodium 140 Potassium 4.0 Chloride 109 H Carbon Dioxide 26 BUN 17 Creatinine 0.93 Glucose 113 H Calcium 9.0 Urine 09/30/21 Range/Units 07:34 Urine Color Yellow Urine Appearance Clear (Clear) Urine pH 5.5 (4.5-7.5) Ur Specific Frannie > 1.045 H (1.000-1.030) Urine Protein Negative (Negative) Urine Glucose (UA) Negative (Negative)
--- NOTE | 2021-10-01 05:03 | Surgery Progress Note ---
Date of Service October 01, 2021 Assessment & Plan (1) SBO (small bowel obstruction): Plan: Patient be admitted on the medical service. Continue care as follows: This patient is passing flatus and pain is improve we will consider advancing to clear liquids later today Continue hydration measures with IV fluids until certain oral intake is adequate Provide analgesics Provide antiemetics We will continue following while the patient is hospitalized Admission and Anticipated Discharge Date Admission Date: September 30, 2021 Supervising Physician Co-Signing Physician Notes Dr. Pastor-patient says he is feeling well, passing flatus We will try him on some clear liquids If he is stable he could possibly be discharged home today from a surgical standpoint Subjective Patient is resting comfortably in bed. He notes relatively uneventful night. He notes abdominal pain that was present at time of admission has improved. He denies any nausea vomiting overnight. He says that he is passing flatus. He has yet to have a bowel movement since admission. Physical Exam Gastrointestinal (Abdomen): Abdomen is soft and nondistended. Bowel sounds are present. There is minimal pain with palpation. Results & Data ([facility]) Vital Signs (Past 12 Hours) Vital Signs Temp Pulse Resp BP Pulse Ox 09/30/21 23:00 36.8 C 51 L 20 128/61 97 PG Care Time/CCT Total # of Minutes Spent Total Time Spent with Patient: Total time spent is greater than 50% in coordination of care (as documented) at patient's floor/unit and/or counseling patient: Coding Level of Care Code 24640 Subseq Hosp Care Lvl 1 Diagnoses SBO (small bowel obstruction) K56.609
[2021-10-01 06:24] LABS: Hematocrit (blood only) 38.2 % (42-52); Mean Corpuscular Hemoglobin 29.8 pg (25-34); Mean Corpuscular Volume 87.6 fL (80-100); Mean Platelet Volume 11.5 fL (7.4-10.4); Platelet Count 180 K/uL (130-400); RDW Coefficient of Variation 13.7 % (11.5-14.5); RDW Standard Deviation 44.4 fL (36.4-46.3); Red Blood Count 4.36 M/uL (4.7-6.1); White Blood Count 5.43 K/uL (4.8-10.8)
[2021-10-01 06:54] LABS: BUN Creatinine Ratio 19.1 (10-20); Calcium 8.4 mg/dl (8.5-10.1); Creatinine Clr Calc Pharmacy 63.8 ml/min; Est GFR (African American) 88.1 ml/min; Est GFR (Non-African American) 76.1 ml/min; Potassium 3.6 mmol/L (3.5-5.1)
[2021-10-01] MEDS: DORZOLAMIDE/TIMOLOL 22.3/6.8MG/ML 10 ML BTL OP SCH ×2 (07:42→20:43)
[2021-10-01] MEDS: ENOXAPARIN INJ 30 MG/0.3 ML SYR SQ SCH (07:42)
[2021-10-01] MEDS: CYANOCOBALAMIN 500 MCG TABLET (VITAMIN B-12) PO SCH (07:42)
[2021-10-01] MEDS: MULTIVITAMIN TAB PO SCH (07:43)
[2021-10-01] MEDS: PANTOprazole 40 MG TAB PO SCH (07:43)
[2021-10-01] MEDS ORDERED: Nursing to Pharmacy Communication SCH (12:30)
[2021-10-01] MEDS: SODIUM CHLORIDE 0.9% 1000ML 1,000 ML IV SCH (13:35)
--- NOTE | 2021-10-01 18:26 | Hospitalist Progress Note ---
Date of Service October 01, 2021 Assessment & Plan (1) SBO (small bowel obstruction): Plan: Small bowel obstruction H/O bowel surgery many years ago --CT ABD:Findings suggestive of small bowel obstruction with transition point within the abdominal right lower quadrant. Mild interloop edema without pneumatosis or pneumoperitoneum. Transitioned luminal narrowing of the mid ascending colon is likely secondary to peristalsis. An underlying lesion is considered less likely. This could be correlated with endoscopy. Nonobstructing right nephrolithiasis without ureteral calculi or hydronephrosis. 1.2 cm calculus of the dependent urinary bladder. Prostamegaly. Small hiatal hernia. -Conservative management as per surgery Appreciate surgery input Continue bowel rest Continue IV fluids Pain control as needed Minimize narcotics as able Start on clear liquid diet Repeat KUB tomorrow chronic back pain on narcotics Anxiety/mood disorder Stable Prediabetes HbA1c 5.9 GERD Continue PPI DVT prophylaxis Lovenox SQ Code Status Full code Admission and Anticipated Discharge Date Admission Date: September 30, 2021 Subjective Patient is seen and examined at bedside States feeling well today Reports having a small bowel movement this morning Tolerating clear liquids Abdominal pain resolved Denies any chest pain, shortness of breath, dizziness, nausea, vomiting Review of Systems Review of Systems: All systems reviewed & are unremarkable except as noted in Subjective Physical Exam Physical Exam: Physical Exam: Vitals signs as noted above General Appearance:Moderately built and nourished, no apparent distress Head: normocephalic, Atraumatic Eyes: normal inspection, EOMI Neck: supple, Trachea midline Respiratory/Chest: Normal breath sounds, CTA, No accessory muscle use Cardiovascular: S1, S2, No murmur Abdomen/GI:Soft, Non tender, Decreased Bowel sounds Extremities/Musculoskeletal:normal inspection, no edema Neurologic/Psych:AAOX3, grossly no focal neurological deficits Skin: normal color, warm Results & Data Results & Data ([facility]) Vital Signs (Past 12 Hours) Vital Signs Temp Pulse Resp BP Pulse Ox 10/01/21 15:09 36.6 C 57 L 16 144/78 H 96 10/01/21 07:21 36.4 C L 55 L 16 128/71 94 Laboratory Results Short CBC 10/01/21 Range/Units 05:44 WBC 5.43 (4.8-10.8) K/uL Hgb 13.0 L (14.0-18.0) g/dL Hct 38.2 L (42-52) % Plt Count 180 (130-400) K/uL [facility] 10/01/21 05:44 Sodium 141 Potassium 3.6 Chloride 111 H Carbon Dioxide 25 BUN 19 H Creatinine 0.97 Glucose 92 Calcium 8.4 L
[2021-10-01] MEDS: LATANOPROST 0.005% OP SOLN 2.5 ML BTL OPB SCH (20:43)
[2021-10-01] MEDS: GABAPENTIN 400 MG CAP PO SCH (20:44)
[2021-10-01] MEDS: oxyCODONE HCL IR 5 MG TAB (IMMEDIATE RELEASE) PO PRN (20:46)
[2021-10-02] MEDS: KETOROLAC TROMETHAMINE 15 MG/ML VIAL IV PRN (03:04)
[2021-10-02 06:47] LABS: Hematocrit (blood only) 39.5 % (42-52); Hemoglobin 13.5 g/dL (14.0-18.0); Mean Corpuscular Hemoglobin 29.7 pg (25-34); Mean Corpuscular Hgb Conc 34.2 g/dL (32-36); Platelet Count 209 K/uL (130-400); RDW Coefficient of Variation 13.5 % (11.5-14.5); Red Blood Count 4.54 M/uL (4.7-6.1); White Blood Count 5.66 K/uL (4.8-10.8)
[2021-10-02 07:24] LABS: BUN Creatinine Ratio 13.3 (10-20); Calcium 8.5 mg/dl (8.5-10.1); Creatinine Clr Calc Pharmacy 68.8 ml/min; Est GFR (African American) 96.5 ml/min; Est GFR (Non-African American) 83.3 ml/min; Potassium 3.6 mmol/L (3.5-5.1)
--- NOTE | 2021-10-02 08:47 | Surgery Progress Note ---
Date of Service October 02, 2021 Assessment & Plan (1) SBO (small bowel obstruction): Plan: Patient reports feeling well. + return of bowel function Tolerating clears, will trial advancing diet further If tolerates diet patient may be discharged to home from our standpoint Admission and Anticipated Discharge Date Admission Date: September 30, 2021 Supervising Physician Co-Signing Physician Notes agree Subjective Patient says he is feeling well. Denies abdominal pain, nausea/vomiting. Reports passing flatus and had a BM yesterday and today. Tolerating clears and is hungry for more. Physical Exam Physical Exam: awake/alert Gastrointestinal (Abdomen): Percussion/Palpation: abdomen soft; abdomen nontender Results & Data ([facility]) Vital Signs (Past 12 Hours) Vital Signs Temp Pulse Resp BP Pulse Ox 10/02/21 07:38 36.5 C 84 16 134/80 95 10/01/21 23:39 155/70 H 10/01/21 22:18 36.6 C 52 L 16 175/92 H 96 PG Care Time/CCT Total # of Minutes Spent Total Time Spent with Patient: Total time spent is greater than 50% in coordination of care (as documented) at patient's floor/unit and/or counseling patient: Coding Level of Care Code 89131 Subseq Hosp Care Lvl 1 Diagnoses SBO (small bowel obstruction) K56.609
[2021-10-02] MEDS: MULTIVITAMIN TAB PO SCH (09:05)
[2021-10-02] MEDS: PANTOprazole 40 MG TAB PO SCH (09:05)
[2021-10-02] MEDS: CYANOCOBALAMIN 500 MCG TABLET (VITAMIN B-12) PO SCH (09:05)
[2021-10-02] MEDS: DORZOLAMIDE/TIMOLOL 22.3/6.8MG/ML 10 ML BTL OP SCH (09:06)
[2021-10-02] MEDS: ENOXAPARIN INJ 30 MG/0.3 ML SYR SQ SCH (09:07)
--- NOTE | 2021-10-02 10:04 | XRay Report ---
KUB HISTORY: Small bowel obstruction. Generalized abdominal pain. Nausea. COMPARISON: KUB 09/30/2021. FINDINGS: Mildly dilated gas-filled loop of small bowel again noted within the abdomen. This is simil ar to the prior study and likely represent a small bowel obstruction. There is gas and stool remainin g within the colon. Right-sided nephrolithiasis again noted. No ureteral calculi. No pneumoperitoneu m or pneumatosis. IMPRESSION: No change in the mildly dilated gas-filled loop of small bowel within the abdomen likely representing a small bowel obstruction. ACT 112: Negative or not required by law. Electronically signed by: Colin Pradhan M.D. 10/02/2021 10:03 AM
--- NOTE | 2021-10-02 12:43 | Hospitalist Progress Note ---
Date of Service October 02, 2021 Assessment & Plan (1) SBO (small bowel obstruction): Plan: Small bowel obstruction H/O bowel surgery many years ago --CT ABD:Findings suggestive of small bowel obstruction with transition point within the abdominal right lower quadrant. Mild interloop edema without pneumatosis or pneumoperitoneum. Transitioned luminal narrowing of the mid ascending colon is likely secondary to peristalsis. An underlying lesion is considered less likely. This could be correlated with endoscopy. Nonobstructing right nephrolithiasis without ureteral calculi or hydronephrosis. 1.2 cm calculus of the dependent urinary bladder. Prostamegaly. Small hiatal hernia. -Conservative management as per surgery Appreciate surgery input Continue bowel rest Received IV fluids Pain control as needed Minimize narcotics as able Advance to low fiber diet Had bowel movements Advised to follow-up with surgery upon discharge chronic back pain on narcotics Anxiety/mood disorder Stable Prediabetes HbA1c 5.9 GERD Continue PPI DVT prophylaxis Lovenox SQ Code Status Full code Admission and Anticipated Discharge Date Admission Date: September 30, 2021 Subjective Patient is seen and examined at bedside Doing well today Eager to get discharged Discussed with surgery today Had bowel movement Tolerates diet Denies nausea, vomiting, abdominal pain, chest pain, dyspnea, dizziness Review of Systems Review of Systems: All systems reviewed & are unremarkable except as noted in Subjective Physical Exam Physical Exam: Physical Exam: Vitals signs as noted above General Appearance:Moderately built and nourished, no apparent distress Head: normocephalic, Atraumatic Eyes: normal inspection, EOMI Neck: supple, Trachea midline Respiratory/Chest: Normal breath sounds, CTA, No accessory muscle use Cardiovascular: S1, S2, No murmur Abdomen/GI:Soft, Non tender, +Bowel sounds Extremities/Musculoskeletal:normal inspection, no edema Neurologic/Psych:AAOX3, grossly no focal neurological deficits Skin: normal color, warm Results & Data Results & Data ([facility]) Vital Signs (Past 12 Hours) Vital Signs Temp Pulse Resp BP Pulse Ox 10/02/21 07:38 36.5 C 84 16 134/80 95 Laboratory Results Short CBC 10/02/21 Range/Units 06:26 WBC 5.66 (4.8-10.8) K/uL Hgb 13.5 L (14.0-18.0) g/dL Hct 39.5 L (42-52) % Plt Count 209 (130-400) K/uL BMP 10/02/21 06:26 Sodium 140 Potassium 3.6 Chloride 109 H Carbon Dioxide 26 BUN 12 Creatinine 0.90 Glucose 108 H Calcium 8.5
--- NOTE | 2021-10-02 12:51 | Discharge Summary ---
Date of Service October 02, 2021 Admission HPI Per Admitting Provider History obtained from patient and records. Medical history significant for hyperlipidemia, urolithiasis, chronic back pain, anxiety/mood disorder, GERD, glaucoma. Last confinement 2016 under Orthopedics service for elective right knee surgery. Patient noted generalized abdominal pain after lunch today followed by bilious emesis. Good bowel movements today as per patient no fever, no chills. Achy abdominal pain reminiscent of twisted bowel episode requiring emergent surgery at [facility] in 1973. Patient denies chest pain, S OB. Patient consulted ER for further evaluation. Medical History as above Surgical History : Bowel surgery, skin cancer surgery, thyroid lobectomy, kidney stone removal, shoulder surgery, knee surgeries Family History : Esophageal cancer, heart disease, DM Personal/Social history : Non-smoker, occasional EtOH intake, retired from [employer] work Admission Exam Per Admitting Provider Physical Exam Physical Exam: GENERAL: Comfortable, pleasant, no respiratory distress SKIN: Normal color, warm HEENT: [place] palpebral conjunctivae, no ptosis, dry buccal mucosa NECK : Supple, no tenderness CHEST : CTA, no tenderness HEART : RRR, no obvious murmurs ABDOMEN: Some distention, central abdominal tenderness EXTREMITIES : No LE swelling/tenderness, no other conspicuous deformities noted NEUROLOGIC : Coherent, no facial asymmetry, no other gross focality Principal Diagnosis Small bowel obstruction Discharge Data Allergies Allergy/AdvReac Type Severity Reaction Status Date / Time adhesive Allergy Intermediate PULLED Verified 09/29/21 22:25 SKIN OFF WITH TAPE Iodinated Contrast Media Allergy Intermediate ITCHY, Verified 09/29/21 22:25 REDNESS FROM IV SITE UP TO SHOULDER levofloxacin Allergy Mild itchy Verified 09/29/21 22:25 Consultations 09/29/21 23:34 ED Decision to Admit Stat 09/29/21 23:37 Consult General Surgery Routine 09/30/21 00:34 Consult General Surgery Stat Ordered Studies 09/29/21 21:54 CT abd pelvis IV con only Stat Hospital Course (1) SBO (small bowel obstruction): Small bowel obstruction H/O bowel surgery many years ago --CT ABD:Findings suggestive of small bowel obstruction with transition point within the abdominal right lower quadrant. Mild interloop edema without pneumatosis or pneumoperitoneum. Transitioned luminal narrowing of the mid ascending colon is likely secondary to peristalsis. An underlying lesion is considered less likely. This could be correlated with endoscopy. Nonobstructing right nephrolithiasis without ureteral calculi or hydronephrosis. 1.2 cm calculus of the dependent urinary bladder. Prostamegaly. Small hiatal hernia. -Conservative management as per surgery Appreciate surgery input Continue bowel rest Received IV fluids Pain control as needed Minimize narcotics as able Advance to low fiber diet Had bowel movements Advised to follow-up with surgery upon discharge chronic back pain on narcotics Anxiety/mood disorder Stable Prediabetes HbA1c 5.9 GERD Continue PPI DVT prophylaxis Lovenox SQ Code Status Full code Total Time Total Time Spent Total Time Spent (In Minutes): 42 minutes Discharge Plan Discharge Items Patient Disposition: Home - Self-Care Reason For Visit: SBO Discharge Diagnosis: Small bowel obstruction Activity: Per Instructions section Exercise/Sports: Gradually increase as tolerated Non-emergency contact: Primary Care Provider and Surgeon Call non-emergency contact if: you have any medication questions, your symptoms worsen, your pain is concerning for you and you have a fever Follow-up/Referrals: Rosa Huff MD [Primary Care Provider] - (Date & Time 10/06/2021 3:00 PM Provider Rosa Dickens MD Department Family Medicine [facility] ) Diet: Low Fiber Addtl Attending Provider Instructions: Follow-up with your primary care physician Dr. Herb Dickens on 10/06/2021 3:00 PM Follow-up with your surgeon Dr. Pastor as advised --- Minimize narcotic medications (Oxycodone) as advised, and skin worsening bowel movement and cause recurrent small bowel obstruction. Seek immediate medical attention if your symptoms reoccur or worsen Please take all medications as instructed on discharge list below. Please call if you have any questions or problems. You can reach a [facility] hospitalist on duty at [facility] 24 hours a day by calling [phone] Pending Studies at Discharge: No Stand-Alone Forms: [facility], Smoking Cessation Medications and DC Order Prescriptions: Continued latanoprost 0.005 % drops 1 drp OPB HS RF: 0 gabapentin 400 mg capsule 400 mg PO HS RF: 0 oxycodone-acetaminophen 5-325 mg tablet 0.5 - 1 tab PO DIRECTED PRN (Reason: Pain) RF: 0 omeprazole 20 mg capsule,delayed release(DR/EC) 20 mg PO DAILY RF: 0 dorzolamide-timolol (PF) 2-0.5 % dropperette 1 drp ophthalmic (eye) BID RF: 0 multivitamin Tablet 1 tab PO DAILY RF: 0 cyanocobalamin (vitamin B-12) [Vitamin B-12] 1,000 mcg Tablet 1,000 mcg PO DAILY RF: 0 Systane Complete 0.6 % Drops 1 drp OPHTHALMIC (EYE) DIRECTED PRN (Reason: Dry Eyes) RF: 0 Discharge Orders: Discharge Order (Routine); Ordered 10/02/21 Ordered By: Saleem Ordonez Admission Data Admit Date/Time: 09/30/21 01:00 Attending Provider: Saleem Ordonez Admit Provider: Kenny Edmondson Primary Care Provider: Rosa Huff Other Providers: Kenny Edmondson ; Deep Paul ; Chris Pastor
== END 2021-10-02 14:34 | disposition home or self-care (01) | DRG 390 ==
LOC: ED 18:30 → 3W 09-30 01:00

== ENCOUNTER 2022-02-20 10:06 | Observation (INO) ==
--- NOTE | 2022-02-16 10:57 | Anesthesiology Consultation ---
Date of Service February 16, 2022 Assessment & Plan (1) Encounter for pre-operative examination: Chart Review Chart Review: Acceptable Risk for Surgery (pending preop Covid testing results ) and Patient NOT seen in Pre Admission Testing Per nursing assessment 02/16/22, patient resides in [facility]. No recent travel. Only wears mask when required. No known Covid positive exposures or Covid related symptoms. No known Covid infection in the past 90 days. Pt is fully vaccinated for Covid. Preop Covid testing 02/16/22= results pending History Surgery Operation Date: 02/20/22 14:45 Proposed Procedures p Transurethral Resection of Prostate - Rufus Bellamy MD s Laser Litholapaxy, Possible Right Ureteroscopy, Laser Litho, Stent - Rufus Bellamy MD Height/Weight Height: 5 ft 9 in Weight: 68.039 kg Allergies Allergy/AdvReac Type Severity Reaction Status Date / Time adhesive Allergy Intermediate PULLED Verified 02/16/22 09:08 SKIN OFF WITH TAPE Iodinated Contrast Media Allergy Intermediate ITCHY, Verified 02/16/22 09:08 REDNESS FROM IV SITE UP TO SHOULDER levofloxacin Allergy Mild itchy Verified 02/16/22 09:08 Medications Home Medications Medication Instructions Recorded Confirmed Last Taken cyanocobalamin (vitamin B-12) 1,000 mcg PO QAM 09/29/21 02/16/22 09/29/21 1,000 mcg tablet (Vitamin B-12) dorzolamide-timolol (PF) 2 %-0.5 % 1 drp OPHTHALMIC (EYE) BID 09/29/21 02/16/22 09/29/21 08:00 eye drops in a dropperette gabapentin 400 mg capsule 400 mg PO HS 09/29/21 02/16/22 09/28/21 multivitamin 1 tab PO QAM 09/29/21 02/16/22 09/29/21 omeprazole 20 mg capsule,delayed 20 mg PO QAM 09/29/21 02/16/22 09/29/21 release oxycodone-acetaminophen 5 mg-325 0.5 - 1 tab PO DIRECTED PRN 09/29/21 02/16/22 Unknown mg tablet tafluprost (PF) 0.0015 % eye drops 1 drp OPHTHALMIC (EYE) HS 02/16/22 02/16/22 Unknown in a dropperette (Diane (SMITA)) Past Medical History Medical History (Updated 02/16/22 @ 13:52 by Kanwal Mallory PA-C) Bladder stone HX Bowel obstruction HX SBO Cancer BASAL CELL Chronic back pain GERD (gastroesophageal reflux disease) Hiatal hernia Nephrolithiasis Past Family History Family History Brother Family history of diabetes mellitus Family history of esophageal cancer Mother Family history of diabetes mellitus Past Surgical History Surgical History H/O abdominal surgery FOR SBO H/O nephrolithotomy with removal of calculi History of colonoscopy History of lithotripsy History of repair of rotator cuff RIGHT Social History Smoking Status: Never smoker Do You Dip or Chew Tobacco: Yes (1 CAN PER 3 DAYS) Hx Alcohol Use: Yes Alcohol type: beer alcohol intake frequency: holidays/special occasions only Hx Substance Use: Yes substance use type: prescription drug Lab Results Anesthesia Preop Results Results Anesthesia Widget: WBC 6.47 K/uL (4.8-10.8) 02/07/22 Hgb 13.9 g/dL (14.0-18.0) L 02/07/22 Hct 41.1 % (42-52) L 02/07/22 Plt 215 K/uL (130-400) 02/07/22 Na 138 mmol/L (136-145) 02/07/22 K 4.3 mmol/L (3.5-5.1) 02/07/22 Cl 106 mmol/L (98-107) 02/07/22 CO2 29 mmol/L (21-32) 02/07/22 BUN 18 mg/dl (6-23) 02/07/22 Creat 1.00 mg/dl (0.6-1.4) 02/07/22 Glucose Level 88 mg/dl (70-99(Fasting)) 02/07/22 Testing Laboratory Results 02/07/22= URINE CULTURE: No growth Electrocardiogram Date: 02/07/22 Marked sinus bradycardia at 44bpm When compared to EKG from Dec 04, 2017- no significant change was found per cardio. (Discussed with Dr. Amaro- patient denies any recent dizziness, syncope, or near syncope- patient can proceed as scheduled) Chest X-Ray Date: 02/07/22 Findings: + NAD Mid thoracic compression deformities are age-indeterminate however are presumed to be chronic. Echocardiogram Date: 03/21/21 EF: 65% LV Function: normal RWMA: + none Other Findings: + LVH (mild/concentric ) and + diastolic dysfunction (Grade I ) Mild MR. Mild TR. Mild left atrial enlargement. Aortic root is mildly enlarged. Proximal ascending thoracic aorta is normal in size.
[~2022-02-20 10:06] MED LIST changes: -GABA-1220 PO; -LIDOCAINE HCL 2% 2 ML VIAL (20MG/ML) ONE; +LR 15ML/HR IV SCH; -MULT-506 PO; -OXYC-57 PO; -PRLSR20 PO; -PROPOFOL IV EMULSION 10 MG/ML 20 ML VIAL IV ONE; -SODIUM CHLORIDE 0.9% 500ML 500 ML IV ONE; +cefTRIAXone SODIUM 1,000 MG in DEXTROSE 5% 50 ML IV SCH
[2022-02-20] MEDS ORDERED: ATROPINE SULFATE 0.1 MG/ML 10ML SYR IV PRN (10:59)
[2022-02-20] MEDS ORDERED: ONDANSETRON INJ 2 MG/ML 2 ML VIAL IV PRN (10:59)
[2022-02-20] MEDS ORDERED: ePHEDrine sulfate 50 MG/ML AMP IV PRN (10:59)
--- NOTE | 2022-02-20 11:30 | History & Physical Bridge Note ---
Date of Service February 20, 2022 History & Physical Bridge Note I have examined the patient, reviewed the History & Physical and in the interval since the performance of the History & Physical I have noted the following changes of clinical significance: no changes noted
[2022-02-20] MEDS ORDERED: ONDANSETRON INJ 2 MG/ML 2 ML VIAL ONE (11:42)
[2022-02-20] MEDS ORDERED: LIDOCAINE 2% 2 ML VIAL/AMP(20MG/ML) INFIL ONE (11:42)
[2022-02-20] MEDS ORDERED: PHENYLEPHRINE 100MCG/ML 5ML SYR ONE (11:42)
[2022-02-20] MEDS ORDERED: DEXAMETHASONE SOD INJ 4 MG/ML VIAL ONE (11:42)
[2022-02-20] MEDS ORDERED: ePHEDrine sulfate 50 MG/ML SYR ONE (11:42)
[2022-02-20] MEDS ORDERED: fentaNYL citrate 100 MCG/2 ML VIAL ONE (11:42)
[2022-02-20] MEDS ORDERED: MIDAZOLAM HCL 1 MG/ML 2ML VIAL ONE (11:42)
[2022-02-20] MEDS ORDERED: PROPOFOL IV EMULSION 10 MG/ML 20 ML VIAL IV ONE (11:42)
[2022-02-20] MEDS ORDERED: GLYCOPYRROLATE 0.2 MG/ML VIAL ONE (12:16)
--- NOTE | 2022-02-20 13:08 | Operative Report ---
PG Post Operative Report Pre & Post Diagnosis Operation Date: 02/20/22 12:00 Pre-Op Diagnosis: Bladder Stones, Nephrolithiasis, Benign Prostaic Hyperplasia Post-Op Diagnosis: Bladder Stones, Nephrolithiasis, Benign Prostaic Hyperplasia I identified the patient and participated in the time-out.: Yes Procedure Operation Date: 02/20/22 12:00 Actual Procedures p Transurethral Resection of Prostate - Rufus Bellamy MD s Laser Litholapaxy - Rufus Bellamy MD Surgeon Julius Bellamy MD Data Security Consultant none Estimated Blood Loss 5 Findings Consistent with Post-Op Diagnosis Specimens bladder stones Description of Procedure The patient was identified in the preoperative holding area, appropriate informed consents were reviewed and completed and the patient was transferred to the operative suite. Upon arrival, appropriate antibiotics and anesthesia were administered and the patient was placed in dorsal lithotomy position and prepped and draped in sterile fashion. To begin the case I passed a 27 Turkmen resectoscope with 30 degree lens and visual obturator. Inspection revealed a healthy-appearing urethra and a large prostate with an intravesical median lobe. It was somewhat challenging to advance the scope over the prostate given its size and median lobe. Immediately behind the median lobe I encountered a large bladder calculus. The the UOs were also visualized in this area but were somewhat difficult to access. I turned my attention then to the stone and utilized a 550 m laser fiber to fragment the stone into pieces that were small enough to irrigate through the scope and evacuate out of the bladder. After confirming a clear bladder I turned my attention to the prostate. I utilized a button electrode to incise the bladder neck at 5 and 7:00 and subsequently resected the intravesical median lobe. After flattening this to the bladder neck advancement of the scope into the bladder was extremely improved. He did, however have substantial lateral lobe hypertrophy and I resected the left lateral lobe in the right lateral lobe before moving on to apical tissue. At the conclusion of my resection I confirmed that there was excellent hemostasis in all significant obstruction had been relieved. I evacuated all remaining clot and tissue from the bladder before placing a 22 Turkmen Suarez catheter. There were no complications and he tolerated the procedure very well. I attest to the content of the Intraoperative Record and any orders documented therein. Any exceptions are noted below.
[2022-02-20] MEDS: fentaNYL citrate 100 MCG/2 ML VIAL IV PRN ×4 (13:15→13:30)
[2022-02-20] MEDS: HYDROmorphone INJ 1 MG/ML SYRINGE IV PRN ×9 (13:40→14:15)
--- NOTE | 2022-02-20 13:58 | Anesthesiology Progress Note ---
Date of Service February 20, 2022 Anesthesia Post Procedure Vital Signs Vital Signs: Temp Pulse Resp BP Pulse Ox 02/20/22 13:55 60 9 L 151/77 H 99 02/20/22 13:45 62 15 154/79 H 99 02/20/22 13:36 63 12 126/72 99 02/20/22 13:25 60 17 158/78 H 99 02/20/22 13:15 66 15 142/76 H 99 02/20/22 13:05 36.2 C L 67 14 163/85 H 99 02/20/22 10:39 36.6 C 52 L 18 126/64 96 Pain Intensity Penis: Pain Intensity: 7 Transfer of Care Handoff Completed per policy Notes Mental Status: alert / awake / arousable and participated in evaluation Patient Amnestic to Procedure: Yes Nausea / Vomiting: adequately controlled Pain: adequately controlled Airway Patency, RR, SpO2: stable & adequate BP & HR: stable & adequate Hydration State: stable & adequate Anesthetic Complications: no major complications apparent and Pt Satisfied with anesthetic care
[2022-02-20] MEDS ORDERED: BELLADONNA/OPIUM SUPP 60 MG SUPP PR PRN (15:03)
[2022-02-20] MEDS ORDERED: PHENAZOPYRIDINE HCL 200 MG TAB PO STA (15:03)
[2022-02-20] MEDS ORDERED: PHENAZOPYRIDINE HCL 200 MG TAB PO PRN (15:03)
[2022-02-20] MEDS ORDERED: ACETAMINOPHEN 325 MG TAB PO PRN (15:29)
[2022-02-20] MEDS: LACTATED RINGER'S 1,000 ML IV SCH (16:43)
[2022-02-20] MEDS: DORZOLAMIDE/TIMOLOL 22.3/6.8MG/ML 10 ML BTL OP SCH (20:19)
[2022-02-20] MEDS ORDERED: TAFLUPROST 0.0015% OP SCH (21:00)
[2022-02-20] MEDS ORDERED: GABAPENTIN 400 MG CAP PO SCH (21:00)
[2022-02-20] MEDS: HYDROCODONE/ACETAMOPHEN 5/325MG TAB PO PRN (21:22)
[2022-02-21] MEDS: LACTATED RINGER'S 1,000 ML IV SCH ×2 (00:51→10:31)
[2022-02-21] MEDS: HYDROCODONE/ACETAMOPHEN 5/325MG TAB PO PRN ×2 (00:51→09:20)
--- NOTE | 2022-02-21 08:24 | Urology Progress Note ---
Date of Service February 21, 2022 Assessment & Plan (1) Benign localized prostatic hyperplasia with lower urinary tract symptoms (LUTS): (2) Bladder stones: Plan: s/p TURP and lithalopaxy - doing well now - plan for voiding trial this AM - ambulate - d.c home later this AM Admission and Anticipated Discharge Date Admission Date: February 20, 2022 Subjective some dysuria overnight, but otherwise no issues urine clear tolerating a diet Physical Exam Physical Exam: urine clear abd soft Results & Data ([facility]) Vital Signs (Past 12 Hours) Vital Signs Temp Pulse Resp BP Pulse Ox 02/21/22 03:27 36.6 C 63 16 123/63 96 02/20/22 21:56 36.6 C 70 16 100/61 94 PG Care Time/CCT Total # of Minutes Spent Total Time Spent with Patient: Total time spent is greater than 50% in coordination of care (as documented) at patient's floor/unit and/or counseling patient: Coding Level of Care Code None Diagnoses Benign localized prostatic hyperplasia with lower urinary tract symptoms (LUTS) N40.1 Bladder stones N21.0
[2022-02-21] MEDS: DORZOLAMIDE/TIMOLOL 22.3/6.8MG/ML 10 ML BTL OP SCH (08:47)
[2022-02-21] MEDS ORDERED: PANTOprazole 40 MG TAB PO SCH (09:00)
--- NOTE | 2022-02-21 16:18 | Discharge Summary ---
Date of Service February 21, 2022 Admission HPI Per Admitting Provider 76yo M admitted s/p TURP and litholapaxy Admission Exam Per Admitting Provider Constitutional well developed and well nourished Neck neck nontender Respiratory normal respiratory effort; no respiratory distress and does not use accessory muscles Cardiovascular Rate/Rhythm: regular rate Vessels: radial pulses present Extremities: no edema Gastrointestinal (Abdomen) Inspection/Auscultation: abdomen normal to inspection Percussion/Palpation: abdomen soft; abdomen nontender and no guarding Musculoskeletal Head/Neck/Chest: normocephalic and head atraumatic Extremities: extremities normal to inspection Skin no rashes and no lesions Trauma: no evidence of skin trauma Neurologic awake; not obtunded Speech / Cognition: normal speech Motor/Sensory: no tremor Psychiatric Orientation: alert and oriented x 3 Genitourinary no CVA tenderness Lymphatic no lymphadenopathy Principal Diagnosis Bladder Stones, Nephrolithiasis, Benign Prostatic Hyperplasia Discharge Exam Physical Exam: urine clear abd soft Discharge Data Allergies Allergy/AdvReac Type Severity Reaction Status Date / Time adhesive Allergy Intermediate PULLED Verified 02/20/22 10:45 SKIN OFF WITH TAPE Iodinated Contrast Media Allergy Intermediate ITCHY, Verified 02/20/22 10:45 REDNESS FROM IV SITE UP TO SHOULDER levofloxacin Allergy Mild itchy Verified 02/20/22 10:45 Procedures Performed Operation Date: 02/20/22 12:00 Actual Procedures p Transurethral Resection of Prostate - Rufus Bellamy MD s Laser Litholapaxy - Rufus Bellamy MD Hospital Course (1) Benign localized prostatic hyperplasia with lower urinary tract symptoms (LUTS): (2) Bladder stones: 76yo M admitted s/p TURP and litholapaxy - No acute issues postoperatively. - Pt in stable condition overnight with appropriate urine output. - He passed a voiding trial on the morning of POD #1. - Tolerated diet. - Minimal pain. - Ambulated without issue. - Pt discharged home in stable condition. Total Time Total Time Spent Total Time Spent (In Minutes): 15 Discharge Plan Discharge Items Patient Disposition: Home - Self-Care Reason For Visit: Bladder Stones, Nephrolithiasis, Benign, LUTS Discharge Diagnosis: Bladder Stones, Nephrolithiasis, Benign Prostaic Hyperplasia Activity: Per Instructions section Lifting: No more than 25 pounds Bathing: No limitations Sexual Activity: When tolerated Exercise/Sports: Gradually increase as tolerated Driving/Machine Use: Do not drive if taking prescription pain medication. Non-emergency contact: Surgeon and Urologist Call non-emergency contact if: you have any medication questions, your pain is not controlled, your pain is worsening and you have a fever Follow-up/Referrals: Rufus Bellamy MD [Physician] - Brooke Li, [Primary Care Provider] - Diet: Regular Addtl Attending Provider Instructions: Please take all medications as prescribed and keep all follow-ups as scheduled. Please call our office at [phone] with any questions, concerns or need to reschedule appointments for any reason. We are happy to assist you. The Urology office will contact you to schedule your follow-up appointment. If you are unable to urinate for 6-8 hours, you will need to proceed to the emergency room as you may require replacement of the urinary catheter. Tips for your recovery at home: Dont be alarmed by brownish or reddish blood or clots in your urine. This is a result of the procedure. This may occur off and on for weeks to months after the procedure but should continue to improve. Drink plenty of fluids during the day (enough to keep your urine very light colored). This will help keep a healthy flow of urine. Do not lift >25 lbs until your followup. Avoid constipation. Please use a stool softener (Colace) for the first two weeks after your procedure. It is okay to take AZO (available over the counter) as needed for a few days to relieve burning with urination. This may cause your urine or feces to turn an orangish-color. This is expected When to call [facility] at [phone]: Your urine contains heavy blood clots or you are unable to urinate. You are constantly leaking urine Fever of 101F or higher, chills, nausea, or vomiting Your pain is not relieved with medication Pending Studies at Discharge: Yes Stand-Alone Forms: [employer], Opioid Pain Management, Smoking Cessation Medications and DC Order Prescriptions: Continued gabapentin 400 mg capsule 400 mg PO HS RF: 0 oxycodone-acetaminophen 5-325 mg tablet 0.5 - 1 tab PO DIRECTED PRN (Reason: Pain) RF: 0 omeprazole 20 mg capsule,delayed release(DR/EC) 20 mg PO QAM RF: 0 dorzolamide-timolol (PF) 2-0.5 % dropperette 1 drp ophthalmic (eye) BID RF: 0 multivitamin Tablet 1 tab PO QAM RF: 0 cyanocobalamin (vitamin B-12) [Vitamin B-12] 1,000 mcg Tablet 1,000 mcg PO QAM RF: 0 Zioptan (PF) 0.0015 % Dropperette 1 drp OPHTHALMIC (EYE) HS RF: 0 Discharge Orders: Discharge Order (Routine); Ordered 02/21/22 Ordered By: Andria Wills Admission Data Admit Date/Time: 02/20/22 13:17 Attending Provider: Rufus Bellamy Admit Provider: Rufus Bellamy Primary Care Provider: Brooke Li Other Interventions: Discharge Summary Assessment (RN) Last Done: 02/21/22 14:26 Coding Level of Care Code D/C DAY MANAGEMENT <30 MINS Diagnoses Benign localized prostatic hyperplasia with lower urinary tract symptoms (LUTS) N40.1 Bladder stones N21.0
[2022-02-23 01:06] LABS: Component 2 DNR; Source BLADDER
== END 2022-02-21 16:15 | disposition home or self-care (01) ==
LOC: 3N 10:06 → ASU 10:06
DX: N21.0 Calculus in bladder; Z91.040 Latex allergy status; Z88.1 Allergy status to other antibiotic agents; K21.9 Gastro-esophageal reflux disease without esophagitis; N52.9 Male erectile dysfunction, unspecified; Z91.041 Radiographic dye allergy status; N20.0 Calculus of kidney; N40.1 Benign prostatic hyperplasia with lower urinary tract symptoms

== ENCOUNTER 2023-11-28 18:25 | Inpatient (IN) ==
[2023-11-28 19:20] LABS: Hematocrit (blood only) 39.1 % (42.0-52.0); Mean Corpuscular Hgb Conc 33.2 g/dL (32.0-36.0); Mean Corpuscular Volume 87.3 fL (80.0-100.0); Mean Platelet Volume 11.4 fL (9.4-12.4); Platelet Count 222 K/uL (130-400); RDW Standard Deviation 44.2 fL (36.4-46.3); Red Blood Count 4.48 M/uL (4.70-6.10); White Blood Count 8.32 K/ul (4.8-10.8)
[2023-11-28 19:29] LABS: Albumin Globulin Ratio 1.6 (0.9-2); Albumin Level 4.1 gm/dl (3.4-5.0); BUN Creatinine Ratio 19.2 (10-20); Bilirubin,Total 0.5 mg/dl (0.2-1.0); Calcium 8.9 mg/dl (8.6-10.3); Creatinine Clr Calc Pharmacy 61.3 ml/min; Est GFR (African American) 84.8 ml/min; Est GFR (Non-African American) 73.2 ml/min; Globulin 2.5 gm/dl (2.5-4.0); Potassium 4.1 mmol/L (3.5-5.1); Total Protein 6.6 gm/dl (6.0-8.3)
[2023-11-28 19:46] LABS: Troponin I High Sensitivity 1240.7 pg/ml (0-20)
[2023-11-28 19:49] LABS: INR 1.2 (0.9-1.1); Partial Thromboplastin Ratio 1.1; Partial Thromboplastin Time 30 Seconds (21-31); Prothrombin Time 12.8 Seconds (9.0-12.0)
--- NOTE | 2023-11-28 20:03 | Emergency Department Note ---
History of Present Illness General Chief complaint: GI Assessment Stated complaint: HEART CATH ON , BLOODY STOOL, COVID POSITIVE Time Seen by Provider: 11/28/23 19:51 History of Present Illness 77-year-old male presents emergency department he states he had rectal bleeding that started around 5 PM this evening. Patient denies any abdominal pain denies hematemesis. Patient is currently on aspirin Eliquis and Plavix. Patient of note this past Saturday had a cardiac catheterization and stent placement at [facility] due to a failed stress test. Patient denies any current chest pain shortness of breath nausea patient denies weakness. Patient's had a prior colonoscopy many years ago. Patient is currently on Eliquis for A-fib and had Plavix added to his regimen this week. Patient has no other complaints. There are no other mitigating or alleviating factors Home Medications Medication Instructions Recorded Confirmed Type cyanocobalamin (vitamin B-12) 1,000 mcg PO QAM 09/29/21 10/09/23 History 1,000 mcg tablet (Vitamin B-12) dorzolamide-timolol (PF) 2 %-0.5 % 1 drp ophthalmic (eye) BID 09/29/21 10/09/23 History eye drops in a dropperette gabapentin 400 mg capsule 400 mg PO HS 09/29/21 10/09/23 History multivitamin 1 tab PO QAM 09/29/21 10/09/23 History omeprazole 20 mg capsule,delayed 20 mg PO QAM 09/29/21 10/09/23 History release oxycodone-acetaminophen 5 mg-325 0.5 - 1 tab PO DIRECTED PRN Pain 09/29/21 10/09/23 History mg tablet tafluprost (PF) 0.0015 % eye drops 1 drp ophthalmic (eye) HS 02/16/22 10/09/23 History in a dropperette (Zioptan (PF)) Allergies Allergy/AdvReac Type Severity Reaction Status Date / Time adhesive Allergy Unknown PULLED Verified 10/09/23 08:04 SKIN OFF WITH TAPE Iodinated Contrast Media Allergy Unknown ITCHY, Verified 10/09/23 08:04 REDNESS FROM IV SITE UP TO SHOULDER levofloxacin Allergy Unknown itchy Verified 10/09/23 08:04 Past Med/Surg History Medical History History of kidney stones History of colon polyps Glaucoma Hiatal hernia Bladder stone HX Chronic back pain Cancer BASAL CELL GERD (gastroesophageal reflux disease) Bowel obstruction HX SBO Nephrolithiasis Surgical History History of surgery removal of bladder stones History of hernia surgery History of total left knee replacement History of total right knee replacement History of repair of rotator cuff RIGHT History of lithotripsy multiple History of colonoscopy H/O abdominal surgery FOR SBO H/O nephrolithotomy with removal of calculi Family History Brother Family history of diabetes mellitus Family history of esophageal cancer Mother Family history of diabetes mellitus Social History Smoking Status: Never smoker Tobacco Type: Smokeless Tobacco (Dip or Chew) Second Hand Exposure: No; Do You Dip or Chew Tobacco: Yes; Hx Alcohol Use: No Hx Substance Use: No Preferred Language: Micronesian Communication Ability: Effective Poultry Tender Required: No Beliefs That Will Affect Care: None Current Living Situation: Spouse current occupational status: retired Feels Safe at Home: Yes Assistive Devices: Hearing Aid - Right Review of Systems A total of 10 systems reviewed and were otherwise negative Respiratory: no cough Cardiovascular: no chest pain Gastrointestinal: + blood in stools; no abdominal pain Physical Exam Vital Signs Vital Signs - 24 hr 11/28/23 18:43 11/28/23 19:48 11/28/23 20:14 Temperature 36.9 C Temperature Source Temporal Artery Scan Pulse Rate - Lying Pulse Rate - Sitting Pulse Rate - Standing Pulse Rate 55 L 58 L Pulse Rhythm Regular Pulse Strength Normal Respiratory Rate 20 Respiratory Effort / Characteristics Non-Labored Spontaneous Respiratory Depth Normal Respiratory Pattern Regular Blood Pressure - Sitting Blood Pressure- Standing Blood Pressure 147/78 H Blood Pressure Mean 101 Blood Pressure Position Sitting Pulse Oximetry 98 98 Oxygen Delivery Method Room Air Room Air Sepsis Recent Fever Within 48 Hours No Sepsis New/Unexplained Change in Mental Status No Sepsis Action Taken by Nursing No Action Required 11/28/23 20:16 Temperature Temperature Source Pulse Rate - Lying 53 L Pulse Rate - Sitting 57 L Pulse Rate - Standing 62 Pulse Rate Pulse Rhythm Pulse Strength Respiratory Rate Respiratory Effort / Characteristics Respiratory Depth Respiratory Pattern Blood Pressure - Sitting 136/75 Blood Pressure- Standing 142/65 H Blood Pressure Blood Pressure Mean Blood Pressure Position Pulse Oximetry Oxygen Delivery Method Sepsis Recent Fever Within 48 Hours Sepsis New/Unexplained Change in Mental Status Sepsis Action Taken by Nursing GENERAL: Patient is awake alert in no acute distress patient is resting comfortably and showing no signs of anxiety EYES: The conjunctivae are clear. The pupils are round and reactive. EARS, NOSE, MOUTH AND THROAT: The nose is without any evidence of any deformity. Mucous membranes are moist. Tongue is midline. NECK: The neck is nontender and supple. RESPIRATORY: Normal respiratory effort is noted there is no evidence of wheezing rhonchi or rales CARDIOVASCULAR: Regular rate and rhythm noted there no murmurs rubs or gallops normal S1 normal S2. GASTROINTESTINAL: The abdomen is soft. Abdomen is nontender. Rectal exam is grossly heme positive stool BACK: No midline tenderness or or step-off noted range of motion in flexion extension as well as rotation no signs of muscle spasm noted MUSCULOSKELETAL/EXTREMITIES: There is no evidence of gross deformity full range of motion is noted in the hips and shoulders. SKIN: There is no obvious evidence of any rash. There are no petechiae, pallor or cyanosis noted. NEUROLOGIC: Patient is awake alert and oriented x3 strength is symmetric Course Reevaluation(s) Reevaluation #1: Patient is resting in no distress on repeat examination. Patient is hemodynamically stable Time: 20:26 Consultations Consultation #1: Case was discussed with Dr. Pham approved from [facility] for admission Time: 20:26 Medical Decision Making Medical Records Attestation: I reviewed the patient's medical records. Home Medications Current Medication List: was personally reviewed by me Laboratory Data Attestation: I reviewed the patient's lab results. Patient has a normal hemoglobin and normal INR, patient has an elevated troponin in the 1200 range with no other reference and will troponin level from [facility] 11/28/23 19:00 11/28/23 19:00 Lab Results 11/28/23 11/28/23 Range/Units 19:00 20:16 WBC 8.32 (4.8-10.8) K/ul RBC 4.48 L (4.70-6.10) M/uL Hgb 13.0 L (14.0-18.0) g/dl Hct 39.1 L (42.0-52.0) % MCV 87.3 (80.0-100.0) fL MCH 29.0 (25.0-34.0) pg MCHC 33.2 (32.0-36.0) g/dL RDW Std Deviation 44.2 (36.4-46.3) fL RDW Coeff of Guerrero 14.0 (11.5-14.5) % Plt Count 222 (130-400) K/uL MPV 11.4 (9.4-12.4) fL PT 12.8 H (9.0-12.0) Seconds INR 1.2 H (0.9-1.1) APTT 30 (21-31) Seconds PTT Ratio 1.1 Sodium 137 (136-145) mmol/L Potassium 4.1 (3.5-5.1) mmol/L Chloride 104 (98-107) mmol/L Carbon Dioxide 29 (21-32) mmol/L Anion Gap 4 (3-11) BUN 19 (6-23) mg/dl Creatinine 0.99 (0.6-1.4) mg/dl Est Cr Clr Drug Dosing 61.3 ml/min Est GFR ( Amer) 84.8 ml/min Est GFR (Non-Af Amer) 73.2 ml/min BUN/Creatinine Ratio 19.2 (10-20) Glucose 100 H (70-99(Fasting)) mg/dl Calcium 8.9 (8.6-10.3) mg/dl Total Bilirubin 0.5 (0.2-1.0) mg/dl AST 18 (13-39) U/L ALT 15 (7-52) U/L Alkaline Phosphatase 91 (34-104) U/L Troponin I High Sens 1240.7 H* (0-20) pg/ml Total Protein 6.6 (6.0-8.3) gm/dl Albumin 4.1 (3.4-5.0) gm/dl Globulin 2.5 (2.5-4.0) gm/dl Albumin/Globulin Ratio 1.6 (0.9-2) POC Stool Occult Blood Positive A (Negative) Imaging Data Attestation: I personally reviewed and interpreted this imaging study as follows: ECG Data Attestation: I personally reviewed and interpreted this ECG as follows: Additional Comments: EKG interpreted by me sinus bradycardia at 54, nonspecific ST-T change in the lateral leads, no obvious ST segment elevation, normal axis, normal intervals Telemetry was ordered by me, interpreted as sinus bradycardia rate of 54 MDM Narrative Medical decision making differential diagnosis includes lower GI bleed upper GI bleed electrolyte abnormality cardiac dysrhythmia I do not suspect diverticulitis or ischemic colitis Plan is to check labs, EKG, CBC, type and screen Patient's is at bedside provide me history of him receiving a cardiac cath in his medications from this past week at [facility] I have also reviewed the cardiac cath from [place] of 11/30/2023 Patient will be admitted to monitor for GI bleeding as the patient is on aspirin, Plavix, Eliquis; patient is having no current chest pain the elevation of his troponin may be due to the fact that he had cardiac catheterization however this needs to be trended. Case was [facility] with the [facility] for [facility] will be admitted at 2026 Impression & Plan GIB (gastrointestinal bleeding), Elevated troponin Discharge Plan Visit Data Chief Complaint: GI Assessment Stated Complaint: HEART CATH ON TUES, BLOODY STOOL, COVID POSITIVE ED Provider: Ebenezer Zhu Discharge Problem: GIB (gastrointestinal bleeding), Elevated troponin Patient Disposition: Admitted As Inpatient Forms Stand Alone Forms: My [facility] [employer] Prescriptions Prescriptions: No Action gabapentin 400 mg capsule 400 mg PO HS oxycodone-acetaminophen 5-325 mg tablet 0.5 - 1 tab PO DIRECTED PRN (Reason: Pain) omeprazole 20 mg capsule,delayed release(DR/EC) 20 mg PO QAM dorzolamide-timolol (PF) 2-0.5 % dropperette 1 drp ophthalmic (eye) BID multivitamin Tablet 1 tab PO QAM cyanocobalamin (vitamin B-12) [Vitamin B-12] 1,000 mcg Tablet 1,000 mcg PO QAM tafluprost (PF) [Zioptan (PF)] 0.0015 % Dropperette 1 drp OPHTHALMIC (EYE) HS Referrals Referrals: Brooke Li DO [Primary Care Provider] -
--- NOTE | 2023-11-28 22:26 | History & Physical Report ---
Date of Service November 28, 2023 Assessment & Plan (1) GIB (gastrointestinal bleeding): Plan: 77-year-old male with a past medical history significant for hyperlipidemia, prediabetes, hypercalcemia, aortic root enlargement, nonrheumatic aortic valve insufficiency, history of CAD s/p stent, GERD, nephrolithiasis, spinal stenosis, arthritis, weakness of right foot, glaucoma, depression, anxiety, A-fib on Eliquis, who recently had elective cardiac cath for positive stress test and s/p drug-eluting stent to ramus and in on aspirin and Plavix and Eliquis comes with rectal bleed. Patient states he was constipated. Today around 5 PM he had an episode of blood per rectum. Since then no more episodes per patient. Denies abdominal pain. Normal micturition. Denies any chest pain or shortness of breath. Denies cough. No fevers. No runny nose or sore throat. No blurred visions. No earache. No headaches. Resting comfortably. Patient was newly diagnosed with A-fib in September 2023. Because of that he had a nuclear stress test which was positive. Last Saturday at [facility] had cardiac cath which showed Ramus branch 95% stenosis and s/p OBIE. Also found to have MID LAD 50%, distal LAD 60%, ostial 70% and proximal RCA 50% stenosis. Currently on aspirin, Plavix and Eliquis and beta-ino and statin. Currently hemodynamically stable. Patient states couple of weeks ago he had some runny nose and sore throat for 1 week and that got resolved. And on Nov 26 2022 patient was tested positive for COVID. Patient currently has no COVID symptoms and is saturating okay on room air. Says he is ambulating okay. GI bleeding Blood per rectum Hemoglobin stable at 13.0 Blood consent obtained Holding Eliquis for now Will continue aspirin and Plavix as patient recently last Saturday had cardiac cath and drug-eluting stent to ramus Will follow H&H every 6 hours IV Pepcid twice daily and IV Protonix daily N.p.o. IV fluids close monitoring telemetry floor GI consult Elevated troponin Patient currently asymptomatic EKG no acute ST changes Probably from recent cardiac cath We will follow serial enzymes Cardiology consulted CAD Last Saturday had cardiac cath for positive nuclear stress test S/p drug-eluting stent to ramus branch Also found to have mid LAD 50%, distal LAD 60%, ostial 70% and proximal RCA 50% stenosis On aspirin, Plavix, statin and beta-ino which we will continued We will consult cardiology as patient currently having rectal bleed and elevated trop Atrial fibrillation Rate controlled with metoprolol Holding Eliquis for rectal bleed Close monitor Prediabetes We will follow HbA1c levels Hyperlipidemia On statin Aortic root enlargement follow-up History of glaucoma Continue home eyedrops DVT prophylaxis SCDs Disposition Telemetry floor Full code History of Present Illness Chief Complaint: Rectal bleed Primary Care Provider: Brooke Li DO 77-year-old male with a past medical history significant for hyperlipidemia, prediabetes, hypercalcemia, aortic root enlargement, nonrheumatic aortic valve insufficiency, history of CAD s/p stent, GERD, nephrolithiasis, spinal stenosis, arthritis, weakness of right foot, glaucoma, depression, anxiety, A-fib on Eliquis, who recently had elective cardiac cath for positive stress test and s/p drug-eluting stent to ramus and in on aspirin and Plavix and Eliquis comes with rectal bleed. Patient states he was constipated. Today around 5 PM he had an episode of blood per rectum. Since then no more episodes per patient. Denies abdominal pain. Normal micturition. Denies any chest pain or shortness of breath. Denies cough. No fevers. No runny nose or sore throat. No blurred visions. No earache. No headaches. Resting comfortably. Patient was newly diagnosed with A-fib in September 2023. Because of that he had a nuclear stress test which was positive. Last Saturday at [facility] had cardiac cath which showed Ramus branch 95% stenosis and s/p OBIE. Also found to have MID LAD 50%, distal LAD 60%, ostial 70% and proximal RCA 50% stenosis. Currently on aspirin, Plavix and Eliquis and beta-ino and statin. Currently hemodynamically stable. Patient states couple of weeks ago he had some runny nose and sore throat for 1 week and that got resolved. And on Nov 26 2022 patient was tested positive for COVID. Patient currently has no COVID symptoms and is saturating okay on room air. Says he is ambulating okay. Past medical history. As mentioned above Past surgical history. Bilateral knee arthroplasty. Colonoscopy with biopsy. Injection of the lumbosacral spine. Abdominal surgery for twisted bowel. Partial removal of left thyroid lobe. Removal of kidney stone. Right shoulder arthroscopy. Social history. . No smoking. Social drinking. No drug use. Family history. Brother had esophageal cancer. Uncle had skin cancer. Mother mother had diabetes, CAD, rheumatic heart disease. Daughter has heart disorder. Allergies Allergy/AdvReac Type Severity Reaction Status Date / Time adhesive Allergy Intermediate PULLED Verified 11/28/23 20:33 SKIN OFF WITH TAPE Iodinated Contrast Media Allergy Intermediate ITCHY, Verified 11/28/23 20:33 REDNESS FROM IV SITE UP TO SHOULDER levofloxacin Allergy Intermediate itchy Verified 11/28/23 20:33 Home Medications Medication Instructions Recorded Confirmed Type cyanocobalamin (vitamin B-12) 1,000 mcg PO QAM 09/29/21 11/28/23 History 1,000 mcg tablet (Vitamin B-12) dorzolamide-timolol (PF) 2 %-0.5 % 1 drp ophthalmic (eye) BID 09/29/21 11/28/23 History eye drops in a dropperette gabapentin 400 mg capsule 400 mg PO HS 09/29/21 11/28/23 History omeprazole 20 mg capsule,delayed 20 mg PO QAM 09/29/21 11/28/23 History release oxycodone-acetaminophen 5 mg-325 0.5 - 1 tab PO DIRECTED PRN Pain 09/29/21 11/28/23 History mg tablet tafluprost (PF) 0.0015 % eye drops 1 drp ophthalmic (eye) HS 02/16/22 11/28/23 History in a dropperette (Zioptan (PF)) apixaban 5 mg tablet (Eliquis) 5 mg PO BID 11/28/23 11/28/23 History ascorbic acid (vitamin C) 100 mg 100 mg PO DAILY 11/28/23 11/28/23 History tablet (Vitamin C) aspirin 81 mg tablet,delayed 81 mg PO DAILY 11/28/23 11/28/23 History release clopidogrel 75 mg tablet 75 mg PO DAILY 11/28/23 11/28/23 History metoprolol tartrate 25 mg tablet 25 mg PO BID 11/28/23 11/28/23 History rmxldznvkxtd-hndtxbhm-oyeryo tablet 1 tab PO DAILY 11/28/23 11/28/23 History nitroglycerin 0.4 mg sublingual 0.4 mg sublingual DIRECTED PRN 11/28/23 11/28/23 History tablet (Nitrostat) Chest Pain psyllium husk 3.4 gram/5.4 gram 1 tbsp PO DAILY 11/28/23 11/28/23 History oral powder (Metamucil) rosuvastatin 20 mg tablet 20 mg PO QPM 11/28/23 11/28/23 History Past Med/Surg History Medical History History of kidney stones History of colon polyps Glaucoma Hiatal hernia Bladder stone HX Chronic back pain Cancer BASAL CELL GERD (gastroesophageal reflux disease) Bowel obstruction HX SBO Nephrolithiasis Surgical History History of surgery removal of bladder stones History of hernia surgery History of total left knee replacement History of total right knee replacement History of repair of rotator cuff RIGHT History of lithotripsy multiple History of colonoscopy H/O abdominal surgery FOR SBO H/O nephrolithotomy with removal of calculi Family History Brother Family history of diabetes mellitus Family history of esophageal cancer Mother Family history of diabetes mellitus Social History Smoking Status: Never smoker Tobacco Type: Smokeless Tobacco (Dip or Chew) Second Hand Exposure: No; Do You Dip or Chew Tobacco: Yes; Tobacco Cessation Education Requested by Patient: No Hx Alcohol Use: No Hx Substance Use: No Preferred Language: Greek Communication Ability: Effective Circular Knitter Helper Required: No Beliefs That Will Affect Care: None Current Living Situation: Spouse current occupational status: retired Other Information That Helps Us Care for You: No Feels Safe at Home: Yes Safety Concerns: Feels Safe At This Time Assistive Devices: Glasses and Hearing Aid - Right Review of Systems Review of Systems: All systems reviewed & are unremarkable except as noted in HPI & below Physical Exam Physical Exam: General- Not in distress Head- atraumatic Eyes- PERRL. ENT- oropharynx clear Neck- supple, no JVD. Lungs- clear to auscultation no wheezing or crackles Heart- regular rhythm; no murmur, no gallop. Abdomen- normal bowel sounds, soft, nontender, no distension. Extremities- no pretibial edema, no erythema seen Neuro- alert, oriented x 3; PERRL,no facial palsy; no dysarthria; moves extremities Skin- warm & dry Results & Data Results & Data Vital Signs (Past 12 Hours) Vital Signs Temp Pulse Resp BP Pulse Ox O2 Del Method 11/28/23 21:30 57 L 24 95 11/28/23 21:01 53 L 16 140/78 96 11/28/23 21:00 53 L 16 96 11/28/23 20:30 56 L 18 98 11/28/23 20:14 55 L 18 98 11/28/23 20:14 58 L 11/28/23 19:48 98 Room Air 11/28/23 18:43 36.9 C 55 L 20 147/78 H 98 Room Air Diagnostic Findings Laboratory Results WBC 8.32 K/ul (4.8-10.8) 11/28/23 19:00 RBC 4.48 M/uL (4.70-6.10) L 11/28/23 19:00 Hgb 13.0 g/dl (14.0-18.0) L 11/28/23 19:00 Hct 39.1 % (42.0-52.0) L 11/28/23 19:00 MCV 87.3 fL (80.0-100.0) 11/28/23 19:00 MCH 29.0 pg (25.0-34.0) 11/28/23 19:00 MCHC 33.2 g/dL (32.0-36.0) 11/28/23 19:00 RDW Std Deviation 44.2 fL (36.4-46.3) 11/28/23 19:00 RDW Coeff of Guerrero 14.0 % (11.5-14.5) 11/28/23 19:00 Plt Count 222 K/uL (130-400) 11/28/23 19:00 MPV 11.4 fL (9.4-12.4) 11/28/23 19:00 PT 12.8 Seconds (9.0-12.0) H 11/28/23 19:00 INR 1.2 (0.9-1.1) H 11/28/23 19:00 APTT 30 Seconds (21-31) 11/28/23 19:00 PTT Ratio 1.1 11/28/23 19:00 Sodium 137 mmol/L (136-145) 11/28/23 19:00 Potassium 4.1 mmol/L (3.5-5.1) 11/28/23 19:00 Chloride 104 mmol/L (98-107) 11/28/23 19:00 Carbon Dioxide 29 mmol/L (21-32) 11/28/23 19:00 Anion Gap 4 (3-11) 11/28/23 19:00 BUN 19 mg/dl (6-23) 11/28/23 19:00 Creatinine 0.99 mg/dl (0.6-1.4) 11/28/23 19:00 Est Cr Clr Drug Dosing 61.3 ml/min 11/28/23 19:00 Est GFR ( Amer) 84.8 ml/min 11/28/23 19:00 Est GFR (Non-Af Amer) 73.2 ml/min 11/28/23 19:00 BUN/Creatinine Ratio 19.2 (10-20) 11/28/23 19:00 Glucose 100 mg/dl (70-99(Fasting)) H 11/28/23 19:00 Calcium 8.9 mg/dl (8.6-10.3) 11/28/23 19:00 Total Bilirubin 0.5 mg/dl (0.2-1.0) 11/28/23 19:00 AST 18 U/L (13-39) 11/28/23 19:00 ALT 15 U/L (7-52) 11/28/23 19:00 Alkaline Phosphatase 91 U/L (34-104) 11/28/23 19:00 Troponin I High Sens 1240.7 pg/ml (0-20) H* 11/28/23 19:00 Total Protein 6.6 gm/dl (6.0-8.3) 11/28/23 19:00 Albumin 4.1 gm/dl (3.4-5.0) 11/28/23 19:00 Globulin 2.5 gm/dl (2.5-4.0) 11/28/23 19:00 Albumin/Globulin Ratio 1.6 (0.9-2) 11/28/23 19:00 POC Stool Occult Blood Positive (Negative) A 11/28/23 20:16 SARS-CoV-2 (PCR) POSITIVE (Negative) A* 11/28/23 21:49 Influenza Type A (PCR) Negative (Neg) 11/28/23 21:49 Influenza Type B (PCR) Negative (Neg) 11/28/23 21:49 RSV (RT-PCR) Negative (Neg) 11/28/23 21:49 Blood Type A Negative 11/28/23 19:56 Antibody Screen NEGATIVE 11/28/23 19:56 ECG Additional Comments: ECG. Sinus bradycardia rate of 54. Nonspecific ST and T wave abnormalities. Code Status & VTE Plan VTE Prophylaxis Plan VTE Prophylaxis will be ordered: Yes
[2023-11-28 22:42] LABS: Influenza A virus by PCR Negative (Neg); Influenza B virus by PCR Negative (Neg); RSV by PCR Negative (Neg)
[2023-11-28 22:44] LABS: SARS CoV2 RNA(COVID-19) Ceph POSITIVE (Negative)
[2023-11-28] MEDS ORDERED: GABAPENTIN 400 MG CAP PO STA (23:09)
[2023-11-28] MEDS ORDERED: NITROGLYCERIN SL 0.4 MG/TAB TAB SL PRN (23:16)
[2023-11-28] MEDS ORDERED: ACETAMINOPHEN 325 MG TAB PO PRN (23:16)
[2023-11-29] MEDS: SODIUM CHLORIDE 0.9% 1,000 ML IV SCH ×3 (00:11→20:20)
[2023-11-29] MEDS: oxyCODONE/ACETAMINOPHEN 5mg/325mg TAB PO PRN ×3 (01:43→17:23)
--- OUTSIDE RECORDS SUMMARY | 2023-11-29 04:51 | External Medical Summary | Summary of Care ---
Author Name Unknown Organization [facility] Address [address] [place] [address] Phone [phone] Care Team Providers Care Building Official Name Role Phone Brooke Li Primary Care Provider [phone] Reason for Referral * Evaluate & Treat - Unlimited Visits (Within 30 days (routine)) - Pending Review Specialty Diagnoses / Procedures Referred By Lanny mcbride Referred To Contact CARDIAC REHAB / Cardiology Diagnoses S/P PTCA (percutaneous transluminal coronary angioplasty) Evelia Mckeon MD [address] [place] [address] Referral ID Status Reason Start Date Expiration Date Visits Requested Visits Authorized [id number] Pending Review Specialty Services Required 11/26/[phone] Question Answer Referral Priority Within 30 days (routine) Where should this appointment be scheduled? [facility] Modality No Preference, either is clinically appropriate Comments Discharge Order Reason for Visit * Auth/Cert Specialty Diagnoses / Procedures Referred By Lanny mcbride Referred To Contact Diagnoses Abnormal stress test Abnormal stress test [R94.39] Procedures CORONARY ANGIOGRAPHY W/LEFT HEART CATH CORONARY ANGIOGRAPHY W/LEFT HEART CATH Referral ID Status Reason Start Date Expiration Date Visits Re quested Visits Authorized [id number] Encounter Details Date Type Department Care Team (Latest Contact Info) Description 11/26/2023 9:08 AM EST - 11/27/2023 12:15 PM EST Hospital Encounter [facility], Cardiac Recovery Suite Extended Unit, [address] [place] [address] Jana Velasquez MD [address] [place] [address] EKG Report Discharge Disposition: Home - Self Care Allergies Active Allergy Reactions Criticality Noted Date Comments Adhesive Tape 09/11/2014 "burn" Doxycycline 06/19/2018 Dizzy, very nauseated Iodinated Contrast Media 12/30/2017 ITCHING documented as of this encounter (statuses as of 11/28/2023) Medications Medication Sig Dispensed Refills Start Date End Date Status CENTRUM SILVER PO TABS Take by mouth. 0 4 Active Vitamin C 100 MG Oral Tablet Chewable Take 1 Tablet by mouth in the morning. 0 Active B-12 1000 MCG Oral Tablet Extended Release Take by mouth. 0 0 Active Zioptan 0.0015 % Ophthalmic Solution Instill 1 Drop into both eyes at bedtime. 0 1 Active Dorzolamide HCl-Timolol Mal PF 2-0.5 % Ophthalmic Solution Instill 1 Drop into both eyes 2 times a day. 0 1 Active Metamucil 0.36 GM Oral Capsule (Psyllium) Take by mouth. 0 Active Apixaban 5 MG Oral Tablet (Eliquis) Take 1 Tablet by mouth in the morning and 1 Tablet before bedtime. 90 Tablet 1 3 Active Metoprolol Tartrate 25 MG Oral Tablet (Lopressor) Take 1 Tablet by mouth in the morning and 1 Tablet before bedtime. 180 Tablet 1 3 Active Omeprazole 20 MG Oral Capsule Delayed Release (PriLOSEC) TAKE ONE CAPSULE BY MOUTH EVERY MORNING 90 Capsule 3 3 Active oxyCODONE-Acetam inophen 5-325 MG Oral Tablet (Percocet)Indica tions:Spinal stenosis, lumbar region, with neurogenic claudication Take 1 Tablet by mouth daily as needed for Pain, Severe. Make take an extra half pill as needed. 45 Tablet 0 3 Active Gabapentin 400 MG Oral Capsule (Neurontin) TAKE ONE CAPSULE BY MOUTH AT BEDTIME 90 Capsule 3 4 Active Nitroglycerin 0.4 MG Sublingual Tablet Sublingual (Nitrostat)Indic ations:Abnormal nuclear stress test Place 1 Tablet under the tongue every 5 minutes as needed for Pain, Chest. up to 3 doses in 15 minutes 25 Tablet 11 4 Active Aspirin 81 MG Oral Tablet Delayed ReleaseIndicatio ns:Abnormal nuclear stress test Take 1 Tablet by mouth in the morning. 0 4 Active Contrast Allergy PreMed Pack 3 x 50 MG & 1 x 50 MG Oral Kit (predniSONE & diphenhydrAMINE) Indications:Cont rast media allergy Take 1 prednisone 50mg tab 13 hours prior to cath; Take 1 prednisone 50mg tab 7 hours prior to cath; Take 1 prednisone 50mg tab and 1 diphenhydramine 50mg tab 1hour prior to cath. 1 Kit 0 4 Active Clopidogrel Bisulfate 75 MG Oral Tablet (pLAVix) Take 1 Tablet by mouth in the morning. Do not start before November 27, 2023. 90 Tablet 3 4 Active Rosuvastatin Calcium 20 MG Oral Tablet (Crestor) Take 1 Tablet by mouth every afternoon. Do not start before November 27, 2023. 90 Tablet 3 4 Active Rosuvastatin Calcium 10 MG Oral Tablet (Crestor)Indicat ions:Abnormal nuclear stress test Take 1 Tablet by mouth in the morning. 30 Tablet 11 4 024 Discontinued documented as of this encounter (statuses as of 11/28/2023) Active Problems Problem Noted Date Diagnosed Date S/P angioplasty with stent 11/26/2023 Abnormal stress test 11/26/2023 Coronary artery disease invo lving false pass coronary artery of false pass heart without angina pectoris 11/22/2023 Hypercalcemia 10/10/2023 Nonrheumatic aortic valve insufficiency 04/10/20 23 Overview: Echo 2022 Weakness of right foot 03/26/2023 Hydronephrosis with urinary obstruction due to renal calculus 10/22/2022 Prediabetes 10/23/2021 Overview: Per Prediabetes protocol Aortic root enlargement 03/23/2021 Other specified glaucoma 09/08/2020 Overview: Bilateral, partial vision loss left due to this Current mild episode of william r depressive disorder without prior episode 09/08/2020 Anxiety 09/08/2020 Mixed hyperlipidemia 11/24/2019 History of kidney stones 07/01/2019 History of colon polyps 07/01/2019 Chronic bilateral low back pain with right-sided sciatica 01/14/2018 MEDICATION USE AGREEMENT 12/19/2017 Gastroesophageal reflux disease without esophagi tis 12/19/2017 Hx of nonmelanoma skin cancer 02/20/2016 Overview: basal cell carcinoma (scalp, L cheek, L neck, L adventist 10/31) Knee joint replacement status 09/11/2014 Spinal stenosis, lumbar iris on, with neurogenic claudication 09/04/2012 ADVANCE DIRECTIVE INFORMATION 07/11/2005 Overview: Yes, Patient instructed to provide copy of advance directive for provider to review and to be scanned into Electronic Medical Record Subjective tinnitus 12/29/2004 Nephrolithiasis 04/24/2001 [facility] arthritis, thumb, degenerative documented as of this encounter (statuses as of 11/28/2023) Resolved Problems Problem Noted Date Diagnosed Date Resolved Date SBO (small bowel obstruction) 10/06/2021 11/23/2021 Acute pain of right shoulder 01/14/2018 08/11/2019 Seborrheic keratoses 02/20/2016 016 AK (actinic keratosis) 02/20/201612/19 Benign neoplasm of colon 03/09/2008 Overview: adenomatous polyps--repeat 6-12 months Lumbago 07/11/2005 06/19/2018 BPH without obstruction/lowe r urinary tract symptoms 12/29/2004 08/11/2019 NONTOX UNINODULAR GOITER 11/01/200311/2018 Malignant neoplasm of skin of parts of face 08/10/2002 02/20/2016 Overview: ICD-10 update of inactive term Major depressive disorder 06/03/2001 Overview: ICD-10 update of inactive term ACUTE CYSTITIS 04/24/2001 01/06/2009 Overview: Resolved per Benign Acute Dxs Protocol #3 High triglycerides 8 Rotator cuff tear 08/11/2019 Overview: right documented as of this encounter (statuses as of 11/28/2023) Immunizations Name Administration Dates Next Due COVID-19 mRNA, LNP-s, No Pre serve, 2-Dose Series (Moderna) 02/09/2021,01/06/2021 COVID-19, MRNA-LNP, 23-24, P F, 30 MCG/0.3 mL, 12 YRS AND ABOVE, IM (Carmine-Comirnaty) 10/01/2023 COVID-19, mRNA, LNP-s, PF, B ooster, 100mcg/0.5mg (Moderna) 09/13/2021 Covid-19, Mrna, Lnp-s, Pf, B ivalent, 50 Mcg, IM, 12 yrs and above (Moderna) 09/12/2022 H1N1 2009 Influenza, IM 09/26/2009 Pneumococcal Conjugate Vacc, 13 Valent (Prevnar) 10/27/2015 Pneumococcal Polysaccharide PPV23 (Pneumovax) 02/26/2011 Season Influenza, Quad, PF, Adjuvanted, 65+ Yrs, IM (FLUAD) 08/19/2020 Seasonal Influenza, PF, 6 M & above, IM , (FluLaval or Fluzone) 12/25/2018 Seasonal Influenza, Quadriva lent Hd (Fluzone Hd) 08/12/2023,08/10/2022,08/16/2021 Seasonal Influenza, Quadriva lent, No Preserve, IM 07/23/2017,09/14/2016 Seasonal Influenza, Split, I IV3, With Preserve, Inj 08/25/2015,08/25/2015,07/14/2014,08/18,08/11/2010,07/22/2009 Seasonal Influenza, Trivalen t, Adjuvanted, 65+ yrs 08/11/2019 TDAP (age 10 and older)(Boostrix) 06/11/2019 TDAP (age 11 and older)(Adacel) 04/11/2009 Varicella Zoster Vaccine (Adult) 09/04/2012 Zoster Vaccine Recombinant (Shingrix) 09/05/2021 ,07/15/2020,04/26/2020 documented as of this encounter Social History Tobacco Use Types Packs/Day Years Used Date Smoking Tobacco: Never Smokeless Tobacco: Current Snuff Comments:snuff one can every couple days Alcohol Use Standard Drinks/Week Comments Yes 0.8 (1 standard drin k = 0.6 oz pure alcohol) Bill drinks socially maybe 1 beer every few months PHQ-2 Answer Date Recorded PHQ Adult Total Score 1 08/12/2023 Hunger Vital Sign Answer Date Recorded Within the past 12 months, y ou worried that your food would run out before you got the money to buy more. Never true 08/12/20 23 Within the past 12 months, t he food you bought just didn't last and you didn't have money to get more. Never true 08/12/2023 Sex and Gender Information Value Date Recorded Sex Assigned at Male 08/10/2022 8:43 AM EDT Gender Identity Male 08/10/2022 8:43 AM EDT Sexual Orientation Straight 08/10/2022 8: 43 AM EDT Job Start Date Occupation Industry Not on file Not on file Not on file documented as of this encounter Last Filed Vital Signs Vital Sign Reading Time Taken Comments Blood Pressure 127/65 11/27/2023 7:55 AM EST Pulse 58 11/27/2023 7:55 AM EST Temperature 36.5 C (97.7 F) 11/27/2023 7:55 AM ES T Respiratory Rate 16 11/27/2023 4:20 AM EST Oxygen Saturation 96% 11/27/2023 7:55 AM EST Inhaled Oxygen Concentration - - Weight 68 kg (150 lb) 11/26/2023 10:26 AM EST Height 175.3 cm (5' 9") 11/26/2023 10:26 AM EST Body Mass Index 22.15 11/26/2023 10:26 AM EST documented in this encounter Discharge Instructions * Discharge Instr - AVS* Zackary Pruitt CRNP - 11/26/2023 3:59 PM EST Discharge Date: 11/27/[address] Velasquez of the Department of Cardiology at [phone] during business hours for any questions or test results. For after-hours emergencies call [phone] and have your doctor paged. Scheduling services is available between the hours of 8:00 am and 9:00 pm by calling . For routine questions, your [facility] Team prefers the use of [employer]. [employer] is an online internet tool to help you meet your health care needs quickly by providing a secure, confidential way to view your health records and communicate with your [facility] Team. To sign up for [employer] go to [email or web address], "Click" [place] Now on the right side of the screen and complete the user registration information. The information below provides you with the instructions and the list of medications you need to betaking following discharge from the hospital. If you have any questions, please ask before leaving.Please carry this letter with you when you see your doctor in the clinic. If you have questions, you can reach us at the numbers above. Brief summary of your inpatient care: You had a heart catheterization. A coronary artery was openedusing a stent. One drug stent (s) was placed to the Ramus coronary artery. Your primary diagnosis at discharge was coronary artery disease with percutaneous cardiovascular intervention Your doctors during this hospitalization included: Dr. Velasquez of the Department of Cardiology Inpatient test results pending: None Operations & Procedures: Cardiac Catheterization with percutaneous cardiovascular intervention Complications: None Advance Directive Documented: Advance Directive Does the Patient have an Advance Directive? Not Addressed Diet: Heart healthy diet, 2 gram sodium diet, Low fat diet, High fiber diet Driving: You may resume driving 48 hours . Date you may return to work or school: N/A Laboratory tests: None An appointment your primary care provider (Brooke Li DO) has been requested for you in 1-2 weeks. Schedulers will notify you of your appointment. An appointment with your cardiology provider (ALPHONSO Shaver) in [facility] has been requestedfor you in 1 month. Schedulers will notify you of the appointment. Special Instructions: - Plavix (clopidogrel) - This drug is most important for stent patients. It keeps the stent from blocking up by preventing blood clots from forming within the stent. When blood clots form, they blockthe stent and cause a heart attack. You should remain on Plavix uninterrupted for at least 6 months, preferably one year . Please call your chiseler head before stopping Plavix for any reason. - Aspirin - You need to take aspirin even though you are on Plavix. The preferred dose of aspirin is 81 mg per day (one baby aspirin). Use the non- coated kind. - Statin Drugs (cholesterol pill) slow the growth of heart artery blockages. Your statin drug is rosuvastatin. - Nitroglycerin (nitro): Your should carry nitro at all times. When chest pain occurs take one nitro under tongue and call 911. You may take additional nitro every five minutes as needed for ongoing chest pain up to three pills. Lie down after using nitro. Do not drive after using nitro. Patients with chronic stable chest pain who frequently use nitro may not need to call 911. Ask your physician about this. - Beta blockers are important for some cardiac patients and after a heart attack. Your beta blockeris metoprolol. - Do not use Motrin/Ibuprofen/Advil and other types of "NSAIDs" (nonsteroidal anti-inflammatory drugs.hgb) - "NSAIDs" make aspirin ineffective, can raise blood pressure, and can damage your kidneys. Try Tylenol for pain. Consult your pharmacist for questions about "NSAIDs".. Radial Artery Instructions for Post- Catheterization Care: Activity: Do not use the arm we used for your procedure today. Do not lift more than 10 lbs for 3 days with the arm used for the procedure. A responsible adult must be with the patient for at least 24 hours after your procedure. Rest todaybut you may gradually resume your usual activity tomorrow. Do not drive, operate any appliances and/or machinery or sign legal documents for at least 24 hours due to the anesthesia. You may wash the wrist with soap and water and you may shower. Do not soak the wrist in water without a waterproof bandage until the small incision is healed. If you notice bleeding, increased swelling, tingling in the fingers or pain in your forearm that isnot relieved by Tylenol, please seek medical attention. If you develop a fever over 101 degrees F you should contact your chiseler head. It is normal to have a small amount of discomfort for up to one week following your procedure but this should continue to improve with time, and not worsen. If you have any questions or are concerned with how your arm is healing, please call the doctor whodid your procedure at . Keep the puncture site covered with a dry bandage for 24 hours, then remove the bandage. You shouldreplace it every 24 hours or if it gets wet. This should be done until the puncture site has completely healed. Cardiovascular RISK FACTOR control YOUR RISK FACTOR TREATMENT GOALS: Controlling the factors that cause arteries to form blockages will reduce your chance of having new blockages. Work with your health care providers to control your risk factors. If you have trouble reaching these goals then ask your health care provider to work with you further until they are controlled. Diabetes - In diabetics, hemoglobin A1C is a measure of the average blood sugar over the past 3 months. The goal is less than 7.0%. Your result is: Hemoglobin AIC Results: Lab Results Component Value Date/Time HEMOGLOBIN A1C - [facility] 5.6 10/01/2023 09:40 AM HEMOGLOBIN A1C - [facility] 5.7 (H) 09/06/2022 07:45 AM HEMOGLOBIN A1C - [facility] 5.4 11/27/2016 08:43 AM HEMOGLOBIN A1C - [facility] 5.2 09/19/2000 04:10 PM Hypertension - Goal is less than 120/80. High cholesterol LDL cholesterol (bad cholesterol) - goal is less than 70 mg/dl. HDL cholesterol (good cholesterol) - goal is greater than 40 mg/dl in men and 50 mg/dl in women. Triglycerides (other blood fats that are especially elevated in diabetics and pre-diabetics) - goalis less than 150 mg/dl. Your Lipid Panel Results are: Results for orders placed or performed in visit on 03/26/23 LIPID PANEL WITH DIRECT LDL IF TG IS HIGH Result Value Ref Range Triglycerides 217 (H) <=174 mg/dL Cholesterol 196 <200 mg/dL HDL Cholesterol 36 (L) >39 mg/dL Non-HDL Cholesterol 160 (H) <=159 mg/dL LDL Cholesterol 117 <=129 mg/dL Tobacco - Tobacco is poison to your arteries. It will cause blockages. Continuing to smoke tobacco may lead to heart attacks, strokes, or leg amputation. You should avoid tobacco. Your goal is to notsmoke at all. Talk with your primary care provider about counseling and medications to help you stop smoking. Exercise - The [employer] recommends walking 30 minutes a day most days of the week; if you have to lose weight you should walk 60-90 minutes a day. Remember that if you develop chestpain, you should stop what you are doing. Do not continue to exercise if you have chest pain. See your special activity instructions above. Hewitt weight - Your BMI (a measure of ideal body weight) is Body mass index is 22.15 kg/m.. Your BMI should be less than 25. Your waist size also predicts risk of heart attack: a woman's waist should be less than 35 inches and a man's waist less than 40. Maintaining your ideal body weight will help your heart, reduce blood pressure, blood sugar, and cholesterol, improve or help prevent diabetes, and improve or help prevent congestive heart failure. documented in this encounter Progress Notes * Zackary Pruitt CRNP - 11/27/2023 8:29 AM EST PROGRESS NOTE - Cardiology [facility] [place] [address] Name: Moises Meyer Location: [facility] Date: 11/27/2023 Time: 8:29 AM SUBJECTIVE: Moises Meyer is sitting upright in bed at time of examination. He reported experiencing CP for a short period after PCI yesterday but tells me that it resolved quickly and denies any overnight events, no further episodse of CP. He denies experiencing SOB, palpitations, syncope or near-syncope. He has been diagnosed COVID (+) but reports only experiencing some nasal congestion and rhinorrhea. He denies productive cough, diaphoresis, N/V/D, fever or chills. OBJECTIVE: Most Recent Vital Signs: BP: 127 mmHg/65 mmHg (11/27/23 075) Pulse: 58 (11/27/23 075) Temp: 36.5 C (11/27/23 075) Resp: 16 (11/27/23 0420) SpO2: 96 % (11/27/23 075) Vital Signs Last 24 Hours: Systolic BP: Most Recent Systolic BP Av.2 mmHg Min: 90 mmHg Max: 157 mmHg Temperature: Most Recent Temperature Av.4 C Min: 35.5 C Max: 36.89 C Pulse: Pulse Av.8 Min: 47 Max: 89 Respirations: Resp Av.8 Min: 7 Max: 18 SpO2: SpO2 Av.9 % Min: 94 % Max: 99 % Physical Examination: BP 127/65 | Pulse 58 | Temp 36.5 C (97.7 F) | Resp 16 | Ht 1.753 m (5' 9") | Wt 68 kg (150 lb) | SpO2 96% | BMI 22.15 kg/m | BSA 1.82 m General: No acute distress HEENT: Unremarkable Neck: Supple and without lymphadenopathy. No thyromegaly. No JVD Lungs: CTAB Cardiac: RRR. Normal S1 and S2. No S3, No S4, No rub, No murmur. Neurological: AAOx3, sand technologist strength equal, no facial droop Abdomen: soft, nontender, nondistended. No organomegaly appreciated. BS present x4 quadrants Musculoskeletal: Unremarkable Extremities: No edema Skin: DSD to right radial access site. Otherwise, senescent skin changes LABS: reviewed as indicated IMPRESSION and PLAN: CAD s/p PCI of RI COVID-19 infection No overnight events; patient denies experiencing further episodes of CP. Recommendation is for DAPT (ASA and clopidogrel) for at least one year s/p PCI of RI on 11/26/2023. The right radial access site appears to be healing without S/S of infection or complication EKGs reviewed, most recently showing resolution of prior anterolateral ST depression with persistent lateral TWI. Labs reviewed and stable. Patient has tested COVID (+) on 11/26 but is denying experiencing significant related symptoms. Anticipate discharge to home today. * Zackary Pruitt CRNP - 11/26/2023 4:28 PM EST [address] [address] Admission Date: 11/26/2023 Discharge Date: 11/27/2023 DISCHARGE DIAGNOSES: Active Hospital Problems Diagnosis *Principal Diagnosis - S/P angioplasty with stent Abnormal stress test Coronary artery disease involving false pass coronary artery of false pass heart without angina pectoris Resolved Hospital Problems No resolved problems to display. Attending Provider: Jana Velasquez MD CONDITION ON DISCHARGE: stable DISPOSITION ON DISCHARGE: home FOLLOW-UP: Future Appointments Appt Date/Time Provider Department 12/05/2023 10:00 AM FARM [employer] [facility] Cardiac Studies [facility] 12/13/2023 9:30 AM Mariajose, ELLIOT [facility], [facility] 12/31/2023 8:00 AM Jayla Adler, Sleep Disorders Ctr [facility] 01/15/2024 2:20 PM Andria Chhaal PA-C Dermatology [facility] 02/06/2024 9:30 [address] [facility] 02[facility]13/2024 10:00 AM Abdirashid Spicer CRNP Cardiology, [facility] 05/06/2024 8:50 AM Brooke Li DO Family Medicine [facility] 08/13/2024 8:30 AM Portillo Nurse Annual Wellness Ancillary [facility] Outpatient testing already scheduled: none Outpatient testing that needs to be arranged: none Inpatient test results pending: none MEDICATIONS ON DISCHARGE: MEDICATION UPDATES AT DISCHARGE START taking these medications INSTRUCTIONS clopidogrel 75 MG Tablet Commonly known as: pLAVix Take 1 Tablet by mouth in the morning. Do not start before November 27, 2023. CHANGE how you take these medications INSTRUCTIONS rosuvastatin 20 MG Tablet Commonly known as: Crestor What changed: medication strength how much to take when to take this Take 1 Tablet by mouth every afternoon. Do not start before November 27, 2023. CONTINUE taking these medications INSTRUCTIONS Apixaban 5 MG Tablet Commonly known as: Eliquis Take 1 Tablet by mouth in the morning and 1 Tablet before bedtime. aspirin enteric coated 81 MG Tbec Take 1 Tablet by mouth in the morning. B-12 1000 MCG Tbcr Take by mouth. Centrum Silver Tablet Take by mouth. Contrast Allergy PreMed Pack 3 x 50 MG & 1 x 50 MG Kit Generic drug: predniSONE & diphenhydrAMINE Take 1 prednisone 50mg tab 13 hours prior to cath; Take 1 prednisone 50mg tab 7 hours prior to cath; Take 1 prednisone 50mg tab and 1 diphenhydramine 50mg tab 1hour prior to cath. Dorzolamide HCl-Timolol Mal PF 2-0.5 % Soln Instill 1 Drop into both eyes 2 times a day. Gabapentin 400 MG Capsule Commonly known as: Neurontin TAKE ONE CAPSULE BY MOUTH AT BEDTIME Metamucil 0.36 g Caps Generic drug: Psyllium Take by mouth. Metoprolol Tartrate 25 MG Tablet Commonly known as: Lopressor Take 1 Tablet by mouth in the morning and 1 Tablet before bedtime. Nitroglycerin 0.4 MG Subl Commonly known as: Nitrostat Place 1 Tablet under the tongue every 5 minutes as needed for Pain, Chest. up to 3 doses in 15 minutes omeprazole 20 MG Cpdr Commonly known as: PriLOSEC TAKE ONE CAPSULE BY MOUTH EVERY MORNING oxyCODONE-acetaminophen 5-325 mg per tab Commonly known as: Percocet Take 1 Tablet by mouth daily as needed for Pain, Severe. Make take an extra half pill as needed. Vitamin C 100 MG chewable tablet Take 1 Tablet by mouth in the morning. Zioptan 0.0015 % Soln Generic drug: Tafluprost (PF) Instill 1 Drop into both eyes at bedtime. ALLERGIES: Adhesive tape, Doxycycline, and Iodinated contrast media INSTRUCTIONS: Diet: heart healthy diet, 2 gram sodium diet, low fat diet, high fiber diet Code status (this admission): Full Code Discussion of adv directives occurred with - adult: Patient Does patient have living will: No Does patient have health care power of research attorney: No ADMISSION HISTORY & PHYSICAL EXAM (focused): Past medical history: Paroxysmal atrial fibrillation, newly dx per trisha 09/2023 [id number] score of 1 (age) Hyperlipidemia Enlarged aorta, aortic root 4.3 Family history of aortic aneurysm with rupture HPI Very pleasant 77-year-old male presenting to the cardiology office today for an acute appointment to discuss recent testing. Patient was initially evaluated proximally one-week ago by the undersigned due to new onset paroxysmal atrial fibrillation and dyspnea with exertion. A nuclear stress test was performed earlier todayrevealing a moderate-sized anterolateral reversible perfusion defect (Lcx territory). Per quantitative analysis, the perfusion defect is 56% reversible. Patient did have chest discomfort with stress. Today the patient presents with his per his usual routine. He is currently chest pain-free andnot having dyspnea. No palpitations, dizziness, syncope or near syncope. No orthopnea, PND, or increased lower extremity edema. No fever, chills, cough, hematochezia, melena, or hemoptysis. He is compliant with all medications and offers no side effects. Physical Examination: BP 124/68 | Pulse 60 | Wt 68 kg (150 lb) | BMI 22.31 kg/m | BSA 1.82 m General: No acute distress. A+Ox3. HEENT: Normocephalic. Atraumatic. Conjunctiva and sclera clear. NECK: No carotid bruits. No JVD. Carotid upstrokes are brisk. Heart: RRR. S1 and S2 noted without murmur, rubs, gallops. PMI non displaced. Lungs: Clear to auscultation. No wheezes, rhonchi, rales. Abdomen: Normal bowel sounds. Soft. Nontender. No masses or organomegaly. No abdominal bruits. Extremities: No edema. No clubbing or cyanosis. Pulses: radial=2/4, posterior tibial=2/4, dorsalis pedis = 2/4. NEURO: No focal deficits. PSYCH: Normal. " HOSPITAL COURSE (focused): Moises Meyer presented to the cardiac recovery suite (CRS) for coronary angiography via right radial artery access. He was found to have 95% stenosis of the ramus branch and subsequently underwentDES. There were no complications during or following the procedure. He experienced CP immediately following PCI which quickly resolved. He was kept overnight in the CRS for observation and remained hemodynamically stable. Basic laboratory analysis and cardiac enzymes were normal. He had no further chest pain or dyspnea during this hospital stay and was ambulatory without dizziness or gait issues.All discharge instructions were reviewed with the patient prior to discharge. He will need to take DAPT (ASA and Plavix) daily for 6-12 months s/p PCI. He did test (+) for COVID infection on 11/26/2023 but reported experiencing only minor symptoms (nasal congestion and rhinorrhea) and remained afebrile. Operations & Procedures: cardiac catheterization and coronary intervention or stent placement [place] Interpretation (focused): Coronary disease - hemodynamically significant Ramus branch with 95% stenosis s/p PCI with [id number] Synergy OBIE deployed at 16 cain Mid LAD with 50% stenosis followed by 60% stenosis in distal LAD. 1st diagonal with ostial 70% stenosis Proximal RCA with 50% stenosis SELECTED RESULTS: Last recorded weight: Weight: 68 kg (150 lb) (11/26/23 1026) Laboratory: CARDIAC: Troponin T (see below for last three most recent values): No results found for: "TROPT" CHEMISTRY: BUN, Creatinine, GFR Estimated, Sodium, Potassium, Chloride, Carbon Dioxide, Glucose, Calcium (see below for most recent value): Lab Results Component Value Date/Time BUN 18 11/12/2023 03:54 PM BUN 13 10/12/2020 12:37 PM CREAT 1.3 (H) 11/12/2023 03:54 PM CREAT 0.95 11/08/2022 12:00 AM CREAT 1.0 10/12/2020 12:37 PM GFRESTIMATED >60.0 10/12/2020 12:37 PM NA 141 11/12/2023 03:54 PM NA 140 10/12/2020 12:37 PM POTASSIUM 4.5 11/12/2023 03:54 PM POTASSIUM 4.1 11/08/2022 12:00 AM POTASSIUM 4.5 10/12/2020 12:37 PM CL 106 11/12/2023 03:54 PM CL 104 10/12/2020 12:37 PM CO2 27 11/12/2023 03:54 PM CO2 29 10/12/2020 12:37 PM CA 9.4 11/12/2023 03:54 PM CA 9.0 10/12/2020 12:37 PM CREATININE: Creatinine (see below for last three most recent values): Lab Results Component Value Date/Time CREAT 1.3 (H) 11/12/2023 03:54 PM CREAT 1.0 10/14/2023 08:23 AM CREAT 0.9 10/01/2023 09:40 AM CREAT 0.95 11/08/2022 12:00 AM CREAT 1.08 10/20/2022 12:00 AM CREAT 0.90 09/30/2021 12:00 AM CREAT 1.0 10/12/2020 12:37 PM CREAT 1.0 04/22/2020 10:27 AM CREAT 1.1 08/11/2019 11:56 AM COAGS: PT, INR (see below for three most recent values): Lab Results Component Value Date/Time INR 1.2 11/12/2023 03:54 PM BLOOD COUNT: WBC, Hgb, Platelets (see below for most recent value): Lab Results Component Value Date/Time WBC 6.67 11/12/2023 03:54 PM WBC 6.61 10/12/2020 12:37 PM HGB 13.5 (L) 11/12/2023 03:54 PM HGB 13.1 (A) 11/08/2022 12:00 AM HGB 14.0 10/12/2020 12:37 PM PLT 201 11/12/2023 03:54 PM PLT 215 10/12/2020 12:37 PM HEMOGLOBIN: Hgb (see below for last three most recent values): Lab Results Component Value Date/Time HGB 13.5 (L) 11/12/2023 03:54 PM HGB 14.0 03/26/2023 07:57 AM HGB 13.1 (A) 11/08/2022 12:00 AM HGB 14.0 10/20/2022 12:00 AM HGB 13.5 (L) 09/30/2021 12:00 AM HGB 14.0 10/12/2020 12:37 PM HGB 13.6 (L) 06/19/2018 02:18 PM HGB 14.6 06/10/2017 08:23 AM HEMOGLOBIN A1C: (see below for most recent value): Lab Results Component Value Date/Time HGBA1C 5.6 11/27/2023 05:02 AM HGBA1C 5.9 (H) 09/30/2021 12:00 AM HGBA1C 5.4 11/27/2016 08:43 AM LIVER FUNCTION TEST: Albumin, AST, ASTCMC (resulted at [facility]), Alkaline Phosphatase, ALT, ALTCMC (resulted at [facility] lab), Bilirubin Total, TBilCMC (resulted at [facility] lab), Protein - (see below for most recent value of each component): Lab Results Component Value Date/Time AST 20 06/19/2018 02:18 PM ALKP 94 06/19/2018 02:18 PM ALT 15 06/19/2018 02:18 PM TBIL 0.4 06/19/2018 02:18 PM PROT 6.2 06/19/2018 02:18 PM Complications: none CONSULTS ORDERED: CARDIAC REHAB CONSULT IP PHARMACY CONSULT IP REFERRING PHYSICIAN: Ref: ABDIRASHID SPICER[[id number]] [address] [place] [address] (office) [phone] (fax) PRIMARY CARE PROVIDER: PCP: Brooke Li [address] / [place] [address] (office) [phone] (fax) Note: To contact a physician responsible for this patients hospital care, please call [facility] [phone]. documented in this encounter H&P Notes * Papa Verduzco DNP - 11/26/2023 11:03 AM EST HISTORY & PHYSICAL INTERVAL NOTE - Cardiology Service [address] [place] [address] History and Physical Update: Name: Moises Meyer Location: CATH/Cath Date: 11/26/2023 Time: 11:03 AM DATE OF HISTORY AND PHYSICAL: 11/12/2023 REFERRED BY: ALPHONSO Wakefield Chief Complaint: abnormal nuclear stress I have reviewed the H&P previously performed and examined the patient today. There are no new findings noted. Physical Examination: BP: 151 mmHg/79 mmHg (11/26/23 1030) Pulse: 60 (11/26/23 1030) Temp: 36.5 C (11/26/23 1030) Resp: 16 (11/26/23 1030) SpO2: 97 % (11/26/23 1030) Cardiac: normal rate and rhythm, no murmur, gallops or rub Lungs: normal respiratory effort, fine rales to the bases Right Radial pulse 2+ Left Radial pulse 2+ Right DP pulse 1+ Right PT pulse 1+ Left DP pulse 1+ Left PT pulse 1+ IV Contrast Allergy: yes, received standard prep Contraindications to dual anti-platelet therapy: No, does get back injections for pain History of anemia: No ASA: Received typical daily dose Anticoagulation: Yes - Eliquis: Last Dose 11/23/2023 Labs reviewed as indicated below: Latest Reference Range & Units 11/12/23 15:54 Sodium 135 - 146 mmol/L 141 Potassium 3.5 - 5.1 mmol/L 4.5 Chloride 98 - 107 mmol/L 106 CO2 22 - 32 mmol/L 27 BUN 6 - 20 mg/dL 18 Creatinine 0.6 - 1.2 mg/dL 1.3 (H) Estimated Glomerular Filtration Rate >=60 mL/min 58 (L) Anion Gap 7 - 15 mmol/L 8 Glucose 70 - 120 mg/dL 90 Calcium 8.4 - 10.2 mg/dL 9.4 INR 0.8 - 1.2 1.2 Prothrombin Time 11.6 - 15.2 seconds 15.1 aPTT 21 - 38 seconds 30 CBC Rpt ! CBC WITH WBC DIFFERENTIAL Rpt ! WBC 4.00 - 10.80 K/uL 6.67 HGB 14.0 - 16.8 g/dL 13.5 (L) HCT 40.0 - 48.4 % 41.4 MCV 82.0 - 99.5 fL 91.0 PLT 140 - 400 K/uL 201 Absolute Neutrophils 1.80 - 7.70 K/uL 4.25 Absolute Lymphocytes 1.00 - 4.80 K/ul 1.69 Absolute Monocytes 0.00 - 1.10 K/uL 0.52 Absolute Eosinophils 0.00 - 0.70 K/uL 0.15 Absolute Basophils 0.00 - 0.20 K/uL 0.04 (H): Data is abnormally high (L): Data is abnormally low !: Data is abnormal Rpt: View report in Results Review for more information * Desire Alfaro CRNP - 11/25/2023 8:24 AM EST The note below has been copied and pasted from office visit with Abdirashid WERNER on 11/12/2023 Cardiology Outpatient Visit 11/12/2023 Primary Respiratory Care Program Director: NEW PATIENT Past medical history: Paroxysmal atrial fibrillation, newly dx per trishao 09/2023 [id number] score of 1 (age) Hyperlipidemia Enlarged aorta, aortic root 4.3 Family history of aortic aneurysm with rupture HPI Very pleasant 77-year-old male presenting to the cardiology office today for an acute appointment to discuss recent testing. Patient was initially evaluated proximally one-week ago by the undersigned due to new onset paroxysmal atrial fibrillation and dyspnea with exertion. A nuclear stress test was performed earlier todayrevealing a moderate-sized anterolateral reversible perfusion defect (Lcx territory). Per quantitative analysis, the perfusion defect is 56% reversible. Patient did have chest discomfort with stress. Today the patient presents with his per his usual routine. He is currently chest pain-free andnot having dyspnea. No palpitations, dizziness, syncope or near syncope. No orthopnea, PND, or increased lower extremity edema. No fever, chills, cough, hematochezia, melena, or hemoptysis. He is compliant with all medications and offers no side effects. Current Medications Current Outpatient Medications Medication Sig Dispense Refill CENTRUM SILVER PO TABS Take by mouth. Vitamin C 100 MG Oral Tablet Chewable Take 1 Tablet by mouth in the morning. B-12 1000 MCG Oral Tablet Extended Release Take by mouth. Zioptan 0.0015 % Ophthalmic Solution Instill 1 Drop into both eyes at bedtime. Dorzolamide HCl-Timolol Mal PF 2-0.5 % Ophthalmic Solution Instill 1 Drop into both eyes 2 times a day. Metamucil 0.36 GM Oral Capsule (Psyllium) Take by mouth. Apixaban 5 MG Oral Tablet (Eliquis) Take 1 Tablet by mouth in the morning and 1 Tablet before bedtime. 90 Tablet 1 Metoprolol Tartrate 25 MG Oral Tablet (Lopressor) Take 1 Tablet by mouth in the morning and 1 Tablet before bedtime. 180 Tablet 1 Omeprazole 20 MG Oral Capsule Delayed Release (PriLOSEC) TAKE ONE CAPSULE BY MOUTH EVERY MORNING 90Capsule 3 oxyCODONE-Acetaminophen 5-325 MG Oral Tablet (Percocet) Take 1 Tablet by mouth daily as needed for Pain, Severe. Make take an extra half pill as needed. 45 Tablet 0 Gabapentin 400 MG Oral Capsule (Neurontin) TAKE ONE CAPSULE BY MOUTH AT BEDTIME 90 Capsule 3 Nitroglycerin 0.4 MG Sublingual Tablet Sublingual (Nitrostat) Place 1 Tablet under the tongue every5 minutes as needed for Pain, Chest. up to 3 doses in 15 minutes 25 Tablet 11 Aspirin 81 MG Oral Tablet Delayed Release Take 1 Tablet by mouth in the morning. Rosuvastatin Calcium 10 MG Oral Tablet (Crestor) Take 1 Tablet by mouth in the morning. 30 Tablet 11 No current facility-administered medications for this visit. Past Medical History Past Medical History: Diagnosis Date Acute pain of right shoulder 01/14/2018 Benign neoplasm of colon 10/25/2008 adenomatous polyps--repeat 6-12 months BPH without obstruction/lower urinary tract symptoms 12/29/2004 Calculus of kidney CMC arthritis, thumb, degenerative Displacement of lumbar intervertebral disc without myelopathy 2002 Hypertrophy (benign) of prostate Knee joint replacement status 09/11/2014 Major depression, single episode NONTOX UNINODULAR GOITER 11/01/2003 Other and unspecified malignant neoplasm of skin of other and unspecified parts of face bcc l cheek Other seborrheic keratosis Rotator cuff tear right Past Surgical History Past Surgical History: Procedure Laterality Date ARTHROPLASTY KNEE TOTAL 08/03/14 Dr. Hart, left ARTHROPLASTY KNEE TOTAL Right 12/22/2016 COLONOSCOPY W/ BIOPSY (RECTUM) 03/09/08 adenomatous polyps--repeat 6-12 months COLONOSCOPY W/ BIOPSY (RECTUM) 10/25/08 bx's taken - path pending COLONOSCOPY, DIAGNOSTIC (RECTUM) 10/28/09 repeat in 3-5 years COLONOSCOPY, DIAGNOSTIC (RECTUM) 12/25/2017 adenomatous polyps, diverticulosis, repeat 5 yrs/[facility] INJECT DX/THER SUBSTANCE INTERLAMINAR LUMBAR/SACRAL W IMAGE GUIDE 03/18/2017 INJECTION SPINE LUMBAR OR SACRAL performed by Keyshawn Burden Cousins, DO at OR [facility] INJECT DX/THER SUBSTANCE INTERLAMINAR LUMBAR/SACRAL W IMAGE GUIDE 12/30/2017 INJECTION SPINE LUMBAR OR SACRAL performed by Keyshawn Burden Cousins, DO at [facility] INJECT DX/THER SUBSTANCE INTERLAMINAR LUMBAR/SACRAL W IMAGE GUIDE 01/05/2019 INJECTION SPINE LUMBAR OR SACRAL performed by Keyshawn Burden Cousins, DO at [facility] INJECT DX/THER SUBSTANCE INTERLAMINAR LUMBAR/SACRAL W IMAGE GUIDE 03/16/2021 INJECTION SPINE LUMBAR OR SACRAL performed by Keyshawn Stoversins, DO at [facility] INJECT DX/THER SUBSTANCE INTERLAMINAR LUMBAR/SACRAL W IMAGE GUIDE 04/10/2023 INJECTION SPINE LUMBAR OR SACRAL performed by Keyshawn Canaless, DO at OR [facility] INJECTION LUMBAR/SACRAL 10/21/2014 INJECTION SPINE LUMBAR OR SACRAL performed by Keyshawn Stoversins, DO at OR [facility] MISCELLANEOUS ORDER 2000 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 PARTIAL REMOVAL OF THYROID LOBE Left 2004 REMOVAL OF KIDNEY STONE 1970 Dr[facility] SHOULDER ARTHROSCOPY/SURGERY Cushion placed in the right shoulder Social History Social History Tobacco Use Smoking status: Never Smokeless tobacco: Current Types: Snuff Tobacco comments: snuff one can every couple days Vaping Use Vaping Use: Never used Substance Use Topics Alcohol use: Yes Alcohol/week: 0.8 standard drinks of alcohol Types: 1 12 oz of beer per week Comment: Bill drinks socially maybe 1 beer every few months Drug use: No Review of patient's allergies indicates: Allergen Reactions Adhesive Tape "burn" Doxycycline Dizzy, very nauseated Iodinated Contrast Media ITCHING Review of Systems: See HPI for pertinent positives. All others negative, other than those noted in HPI. Physical Exam BP 124/68 | Pulse 60 | Wt 68 kg (150 lb) | BMI 22.31 kg/m | BSA 1.82 m General: No acute distress. A+Ox3. HEENT: Normocephalic. Atraumatic. Conjunctiva and sclera clear. NECK: No carotid bruits. No JVD. Carotid upstrokes are brisk. Heart: RRR. S1 and S2 noted without murmur, rubs, gallops. PMI non displaced. Lungs: Clear to auscultation. No wheezes, rhonchi, rales. Abdomen: Normal bowel sounds. Soft. Nontender. No masses or organomegaly. No abdominal bruits. Extremities: No edema. No clubbing or cyanosis. Pulses: radial=2/4, posterior tibial=2/4, dorsalis pedis = 2/4. NEURO: No focal deficits. PSYCH: Normal. Lab data/imaging study review: [facility] 09/2023 Patient had a min HR of 47 bpm, max HR of 143 bpm, and avg HR of 62 bpm. Predominant underlying rhythm was Sinus Rhythm. 18 Supraventricular Tachycardia runs occurred, the run with the fastest interval lasting 5 beats with a max rate of 143 bpm, the longest lasting 20.5 secs with an avg rate of 108 bpm. Some episodes of Supraventricular Tachycardia may be possible Atrial Tachycardia with variable block. Atrial Fibrillation occurred (<1% burden), ranging from 79-108 bpm (avg of 94 bpm), the longest lasting 3 mins 4 secs with an avg rate of 93 bpm. Isolated SVEs were rare (<1.0%), SVE Couplets were rare (<1.0%), and SVE Triplets were rare (<1.0%). Isolated VEs were rare (<1.0%), VE Couplets were rare (<1.0%), and no VE Triplets were present. Paroxysmal atrial fibrillation recorded with low burden, longest episode lasting 3 minutes with an average heart rate of 93 beats per minute. Occasional symptoms correlating with sinus rhythm, and sensed supraventricular ectopy. Echo 03/2023 The examination is adequate to evaluate the referral indication. The left ventricular cavity size is normal. The LV wall thickness is mildly increased (concentric). The left ventricular wall motion is normal. The qualitative LV ejection fraction is 55-59% (normal). The left ventricular diastolic function is mildly abnormal (grade I). The aortic root is mildly enlarged. (4.3 cm) The proximal ascending thoracic aorta is normal sized. Mild aortic valve regurgitation is present. In comparison to prior study of March 21, 2021, aortic size is stable. Mild aortic insufficiency is now present Impression/Plan: 1. Abnormal nuclear stress test 2. Unstable angina (HCC) 3. KENYON (dyspnea on exertion) -Patient with symptoms concerning of unstable angina. -Nuclear stress test abnormal for possible left circumflex territorial ischemia Discussed recent testing in great detail. EKG today showed sinus judy with a nonspecific ST/T-waveabnormality, 54 beats per minute.. Further ischemic evaluation is warranted at this time. The risksof cardiac catheterization was described in detail including but not limited to bleeding, infection, vascular injury, kidney damage, heart attack, stroke, and need for emergency open heart surgery. We discussed the need to optimize medication regimen and the in term including adding aspirin and statin therapy. Patient agreeable with moving forward. Patient prefers catheterization to be done at [facility] All appropriate preoperative cardiac catheterization testing ordered including a CBC, CMP, lipid panel, PTT/PT INR, and chest x-ray. Start Aspirin 81 mg daily--this will be in addition to his Eliquis. Continue metoprolol tartrate 25 mg twice daily, future considerations of switching to succinate formulary Start rosuvastatin 10 mg daily Patient notes a history itching after contrast during a urologic procedure--no return of symptoms with contrast dye for CTA in 2019 per the patient and . Not on any phosphodiesterase (PDE) inhibitors Refrain from NSAID use. The use of sublingual nitroglycerin and when to call 911 was described to patient in detail. Patient was instructed to not stress himself or lift objects greater than 15-20 lb. 4. Dyslipidemia, goal LDL below 70 -LDL 117, uncontrolled. Triglycerides also elevated at 217. - ASCVD 10-Year Risk Score The 10-year ASCVD risk score (Kathy CHINO, et al., 2019) is: 28.7% Values used to calculate the score: Age: 77 years Sex: Male Is Non- : No Diabetic: No Tobacco smoker: No Systolic Blood Pressure: 124 mmHg Is BP treated: No HDL Cholesterol: 36 mg/dL Total Cholesterol: 196 mg/dL 1. Start rosuvastatin 10 mg daily 5. PAF (paroxysmal atrial fibrillation) (HCC) -Paroxysmal atrial fibrillation, newly dx per edil 09/2023 -[id number] score of 1 (age) 1. Continue metoprolol tartrate 25 mg twice daily, future considerations of transitioning to succinate formulary 2. Continue Eliquis 5 mg twice daily for stroke prevention 3. 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 Notes significant history of snoring. Will screen for obstructive sleep apnea-- patient willing to do a home sleep study, orders previously placed-- appt scheduled for 12/31/2023 6. Enlarged aorta (HCC) -Strong family history of aortic aneurysm as well as rupture as stated above. -Genetic testing has never been performed. -Per current guidelines aortic root and ascending aortic aneurysm should be screened yearly 1 ranging between 3.5 and 4.4 cm. Once the aneurysm dilates between 4.5-5.[address] should be every 6 months. -In the setting of asymptomatic sporadic thoracic aortic aneurysm, prophylactic repair is recommended when the end-diastolic aorta diameter is > 5.5 cm or aortic size index (aortic diameter [cm] divided by body surface area [m2]) =2.75 cm/m2. Another indication for elective thoracic aortic aneurysm repair would be any asymptomatic thoracic aortic aneurysm with rapid expansion =5 mm per year. . -To reduce the risk of aneurysm expansion good blood pressure control should be utilized. Goal blood pressure should be between 105-120 systolic. 1. (-) BELÉN/ARB, future consideration of adding Losartan pending BP readings. 2. (+) BB, continue metoprolol tartrate 25 mg twice daily, will likely switch to succinate formulary at follow-up. 3. No bicuspid valve noted on last echocardiogram. Will repeat an echo to reassess aortic measurements when patient is completing nuclear stress. 5. (+) statin, starting rosuvastatin 10 mg daily. 6. Avoid heavy lifting and baring down. 7. Avoid fluoroquinolones antibiotics as there is a risk for tendon rupture as well as aortic rupture. Avoid NSAIDS. 8. Genetic test Genetics referral placed-- encouraged patient to follow-up with his son who has notbeen tested yet. Should his testing come back positive first- degree relatives can also be screened.He is aware. The patient agrees to the above plan and will call with additional questions or concerns. ER with all emergencies advised. Check-out note: Labs and CXR today. Follow up after cath I spent a total of 60 minutes on the date of service in preparation, delivery, and documentation ofthe care provided to Moises Meyer excluding any time spent in the performance of separately billed services. ALPHONSO Currie, Department of Cardiology documented in this encounter Procedure Notes * Papa Nelson MD - 11/27/2023 4:22 AM ESTAssociated Order(s): EKG REASON FOR STUDY: post pci CONCLUSIONS: Sinus bradycardia Nonspecific ST and T wave abnormality Abnormal ECG When compared with ECG of 26-NOV-2023 16:08, ST/T abnormalities less marked Ventricular Rate: 54 Atrial Rate: 54 NE Interval: 174 QRS Duration: 100 QT/QTc: 474/449 ms P-R-T [place]: 50 : 47 : 139 degrees * Papa Nelson MD - 11/26/2023 3:26 PM ESTAssociated Order(s): EKG REASON FOR STUDY: CP CONCLUSIONS: Sinus rhythm , PAC Widespread ST & T abnormalities, consider ischemia Abnormal ECG When compared with ECG of 26-NOV-2023 14:21, Widespread ST & T differences, consider ischemia Limb leads now appear correctly placed Ventricular Rate: 82 Atrial Rate: 82 NE Interval: 200 QRS Duration: 92 QT/QTc: 336/392 ms P-R-T [place]: 69 : 61 : -50 degrees * Papa Nelson MD - 11/26/2023 2:21 PM ESTAssociated Order(s): EKG REASON FOR STUDY: S/P PCI CONCLUSIONS: Normal sinus rhythm Nonspecific ST and T wave abnormality Abnormal ECG When compared with ECG of 12-NOV-2023 15:41, Differences in limb leads - ? limb lead misplacement ? 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 Velasquez Exhibition Designer(s): Dr. Merino, Dr. Mckeon Anesthesia: Monitored local anesthesia with sedation Additional Findings: Coronary disease - hemodynamically significant Ramus branch with 95% stenosis s/p PCI with [id number] Synergy OBIE deployed at 16 cain Mid LAD with 50% stenosis followed by 60% stenosis in distal LAD. 1st diagonal with ostial 70% stenosis Proximal RCA with 50% stenosis Right radial access Complications: none Condition of patient: Fair Post Sedation Evaluation: Cardiovascular status: acceptable Level of consciousness: awake and alert Airway patency: patent Distress - NAD Hydration status - well hydrated Nausea/vomiting - not present Recommendations: DAPT for at least one year. Risk factor optimization. Medical management of CAD, escalate as tolerated. documented in this encounter Consult Notes * Isabell Elam, bundles hanger - 11/26/2023 3:27 PM ESTAssociated Order(s): PHARMACY CONSULT IP PHARMACY MEDICATION TEACHING CONSULT ANTIPLATELET THERAPY [address] [address] Name: Moises Meyer Location: [facility] Date: 11/26/2023 Time: 3:28 PM Requesting Service: Cardiology Patient Active Problem List Diagnosis Code Nephrolithiasis N20.0 Subjective tinnitus H93.19 ADVANCE DIRECTIVE INFORMATION Spinal stenosis, lumbar region, with neurogenic claudication M48.062 Knee joint replacement status Z96.659 CMC arthritis, thumb, degenerative M18.9 Hx of nonmelanoma skin cancer Z85.828 MEDICATION USE AGREEMENT [id number] Gastroesophageal reflux disease without esophagitis K21.9 Chronic bilateral low back pain with right-sided sciatica M54.41, G89.29 History of kidney stones Z87.442 History of colon polyps Z86.010 Mixed hyperlipidemia E78.2 Other specified glaucoma H40.89 Current mild episode of major depressive disorder without prior episode (HCC) F32.0 Anxiety F41.9 Aortic root enlargement (HCC) I77.89 Prediabetes R73.03 Hydronephrosis with urinary obstruction due to renal calculus N13.2 Weakness of right foot R29.898 Nonrheumatic aortic valve insufficiency I35.1 Hypercalcemia E83.52 Coronary artery disease involving false pass coronary 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 Medication covered during teaching session: Clopidogrel Indication for Antiplatelet Therapy: Stent Duration of Antiplatelet Therapy: 1 year Teaching points covered with patient and/or family: Route, Dosage Form and Schedule, Medication Intended Use/Action, Precautions to be Observed while using this Medication, Commonly Encountered Adverse Effects, Methods for Self- monitoring, Laboratory Monitoring, Potential Food and Drug Interactions, Therapeutic Contraindications, Prescription Refill Information, Action for a Missed Dose, and Patient Specific Information Written documentation regarding all of the teaching points was provided to the patient and/or family members present. accepted patient education handout. Outpatient antiplatelet medication supply: Patient requires a prescription for this antiplatelet medication: Patient prefers to have the prescription sent to his/her preferred pharmacy. Family member(s) present: and other Patient agreed to allow visitors to attend teaching, if present. Assessment of teaching effectiveness: Patient verbalized understanding and was engaged throughout teaching. Triple therapy with aspirin, Plavix, and Eliquis x 1 week, then continue taking Plavix and Eliquis. Has the patient expressed potential cost concerns? No Length of teaching: Brief (less than 15 minutes) Teaching completed according to pharmacy teaching standard 508. documented in this encounter Nursing Notes * Sindy Lynch RN - 11/26/2023 3:25 PM EST Pt c/o chest pressure 5/10 which is an increase since coming out from medical laboratory manager. Also feels like his"heart is racing". Dr. Mckeon made aware and Santana WERNER at bedside EKG done. documented in this encounter Miscellaneous Notes * Ancillary Progress Note - Ebenezer Jarvis RN - 11/27/2023 9:52 AM EST CARE MANAGEMENT - ADULT DISCHARGE NOTE [facility] [place] [address] Name: Moises Meyer Location: [facility]/E Date: 11/27/2023 Time: 9:53 AM The following coordination of care and discharge plan has been coordinated with the care team, patient, family and/or caregiver according to the patients needs and preferences. Discharge Discharge Second Notice Important Message from Medicare delivered: Not Applicable (11/27/23899) Was Caregiver/Family/Facility contacted regarding discharge: Yes (11/27/23899) Discharge Transportation: Family/Friends drive (11/27/23899) Final Discharge Plan (Complete only at time of Discharge): Home - Self Care (11/27/23899) Narrative: Patient to be discharged to home with no needs identified at this time. Family will provide transportation. Discharge destination time-out called during BOOST rounds, all parties agreeablewith transition plan of care. * Ancillary Progress Note - Ebenezer Jarvis RN - 11/27/2023 9:52 AM EST aCARE MANAGEMENT - ADULT INITIAL SCREENING [address] [address] Name: Moises Meyer Location: [facility]/ Date: 11/27/2023 Time: 9:52 AM Discussed patient with the interdisciplinary care team. This Hay Stacker performed a chart review to complete admission screen and assessed needs for transition planning. The client care consultant role and services were explained and emotional support was provided. Chief Complaint: No chief complaint on file. Prior Living Arrangements What was your living situation prior to admission/observation?: With Spouse (11/27/23899) History of falling: No (11/27/23729) Prior Level of Functioning Describe the patient's ability prior to admission/observation to perform ADLs: Performs independently (11/27/23899) Describe the patient's mobility status prior to admission: Patient ambulates independently (11/27/23899) Patient uses assistive device: No (11/27/23899) Caregiver Information Patient Contacts Name Relation Home Work Mobile CINTHIA MEYER Spouse [phone] MIC PACHECO Adult Child [phone] Risk Stratification/Psychosocial/Care Gaps Risk Stratification Psycho Social / Medical Concerns Identified: None Identified (11/27/23899) Accessed [facility] to connect patients to social care resources: No (11/27/23899) OBRA or OPTIONS needed for placement: No (11/27/23899) Readmission Risk Score: 7.75 (11/27/23 0801) AM-PAC Score With Stairs : 22 (11/26/23 1946) Prior to Admission Services Services Prior to Admission PROMOTIONS ASSISTANT Services (Services received within the last 30 days with exception, Psych within last two years): N/A (11/27/23899) [place] Dept[employer] of Aging (PDA) Waiver Program: N/A (11/27/23899) PROMOTIONS ASSISTANT Transportation (Services received within the last 30 days): Patient drives self (11/27/23899) Outpatient Hay Stacker: No care team leader to display Patient/Family Expectations: Return home For further screening information, please refer to the Care Management flow document. * Communication - Evelia Mckeon MD - 11/26/2023 11:38 AM EST INFORMED CONSENT FOR CARDIAC CATH AND INTERVENTIONAL PROCEDURES: Dr. Velasquez discussed with patient the alternatives to cardiac cath including medical therapy and if appropriate exercise testing. Dr. Velasquez discussed the risks of cath including 01/1000 , CO, CVA and 2/100 risk of allergic reaction, bleeding, infection, arrhythmia requiring shock, damage to artery requiring surgery or amputation, radiation skin sidhu. Dr. Velasquez discussed technique of catheterization. The patient indicated understanding and a preference for proceeding with catheterization considering these factors. Dr. Velasquez discussed with the patient coronary intervention and alternatives i ncluding bypass surgery and medical therapy. Dr. Velasquez discussed the risks of intervention including 5-10% risk of CO, 5% risk of bleeding possibly requiring transfusion, 1% risk of , 1% risk ofemergency CABG, and 20- 30% risk of restenosis, and the chance that even a successful procedure will not relieve symptoms if they are not due to cardiac ischemia. The patient would like to have ad hoc intervention done at the time of the catheterization if it seems appropriate. * Progress Notes - Non-Billable - Evelia Mckeon MD - 11/26/2023 7:32 AM EST PROGRESS NOTE - Interventional Cardiology [facility] [place] [address] Name: Moises Meyer Date: 11/26/2023 Time: 7:32 AM Name: Moises Meyer Referring Provider: Abdirashid Spicer [facility] [place]: [id number] Referring Respiratory Care Program Director: same as above Procedure Requested: Left heart cath, Coronary angiography Indication for Cath: chest pain Medical History Medication List (-) DM Prior to Admission medications Medication Sig Last Dose Discont. Contrast Allergy PreMed Pack 3 x 50 MG & 1 x 50 MG Oral Kit (predniSONE & diphenhydrAMINE) Take 1 prednisone 50mg tab 13 hours prior to cath; Take 1 prednisone 50mg tab 7 hours prior to cath;Take 1 prednisone 50mg tab and 1 diphenhydramine 50mg tab 1hour prior to cath. Aspirin 81 MG Oral Tablet Delayed Release Take 1 Tablet by mouth in the morning. Gabapentin 400 MG Oral Capsule (Neurontin) TAKE ONE CAPSULE BY MOUTH AT BEDTIME Nitroglycerin 0.4 MG Sublingual Tablet Sublingual (Nitrostat) Place 1 Tablet under the tongue every5 minutes as needed for Pain, Chest. up to 3 doses in 15 minutes Rosuvastatin Calcium 10 MG Oral Tablet (Crestor) Take 1 Tablet by mouth in the morning. oxyCODONE-Acetaminophen 5-325 MG Oral Tablet (Percocet) Take 1 Tablet by mouth daily as needed for Pain, Severe. Make take an extra half pill as needed. Omeprazole 20 MG Oral Capsule Delayed Release (PriLOSEC) TAKE ONE CAPSULE BY MOUTH EVERY MORNING Apixaban 5 MG Oral Tablet (Eliquis) Take 1 Tablet by mouth in the morning and 1 Tablet before bedtime. Metoprolol Tartrate 25 MG Oral Tablet (Lopressor) Take 1 Tablet by mouth in the morning and 1 Tablet before bedtime. Metamucil 0.36 GM Oral Capsule (Psyllium) Take by mouth. Dorzolamide HCl-Timolol Mal PF 2-0.5 % Ophthalmic Solution Instill 1 Drop into both eyes 2 times a day. Zioptan 0.0015 % Ophthalmic Solution Instill 1 Drop into both eyes at bedtime. B-12 1000 MCG Oral Tablet Extended Release Take by mouth. Vitamin C 100 MG Oral Tablet Chewable Take 1 Tablet by mouth in the morning. CENTRUM SILVER PO TABS Take by mouth. (-) HTN (-) Prior CHF in last 2 weeks, (-) PVD (-) Dialysis (-) Smoked in the past year (+) HLD (-) Family heart disease (male<55, female<65) (-) Prior CO (-) Prior PCI (-) Valve Surgery (-) CABG (-) Stroke/TIA (-) COPD/Emphysema (+) ASA in the last 24 hours (-) Dual Anti-platelet Therapy (-) History of HIT (+) Allergic to Dye, if yes, were they prepped: yes Review of patient's allergies indicates: Allergen Reactions Adhesive Tape "burn" Doxycycline Dizzy, very nauseated Iodinated Contrast Media ITCHING [facility] Frailty Score: 3 Very Fit - 1 Well - 2 Managing Well - 3 Vulnerable - 4 Mildly Frail - 5 Moderately Frail - 6 Severely Frail - 7 Very Severely Frail - 8 Terminally Ill - 9 Current Presentation Admission Date: (Not on file) | Admission Time: 999 CAD Presentation: (None, Unlikely to be ischemic, Stable, Unstable): stable Anginal Class: 2 Anti-Anginals in the last 2 weeks: + Beta Blockers | - Calcium Channel | - Long Acting Nitrates LV Dysfunction/ Cardiomyopathy: No EF in last 6 months: 55 % Stress Test (Last 6 months): yes | Type of stress test: NM SPECT Result (No test, Low Risk, Intermediate Risk, High Risk, Negative, Indeterminate): positive Labs Last Creatinine: Lab Results Component Value Date/Time CREATININE - [facility] 1.3 (H) 11/12/2023 03:54 PM CREATININE - [facility] 1.0 10/12/2020 12:37 PM CREATININE THERON 212 04/22/2020 10:27 AM CREATININE THERON - [facility] 179 03/26/2023 07:15 AM CREATININE, 24 HOUR URINE - [facility] 0.660 (L) 06/09/2001 08:12 AM CREATININE-[facility] 0.95 11/08/2022 12:00 AM Last GFR: No components found for: "E GLOM FILT RATE" Last INR: INR (no units) Date Value 11/12/2023 1.2 Last Hb/Hct: HGB (g/dL) Date Value 11/12/2023 13.5 (L) 10/12/2020 14.0 HEMOGLOBIN-[facility]IDE LAB (G/DL) Date Value 11/08/2022 13.1 (A) HCT (%) Date Value 11/12/2023 41.4 10/12/2020 42.1 Misc. Notes 77 year old male with PMHx PAF on eliquis, DLD, enlarged aorta (fm hx aortic aneurysm with rupture)presenting with abnormal NM SPECt/chest pain referred for LHC/cors NM SPECT 11/12/23: The combined low intensity exercise/pharmacologic myocardial perfusion imaging study is abnormal with evidence of ischemia in the circumflex coronary territory. Perfusion images reveal a moderate-sized anterolateral reversible perfusion defect. Per quantitative analysis, the perfusion defect is 56% reversible. Patient described 4/10 intensity chest discomfort with stress that resolved in the post stress recovery interval with rest and with the administration of caffeinated cola. Gated SPECT imaging reveals normal myocardial thickening and wall motion. The left ventricular ejection fraction was calculated to be 70% Sinus rhythm was observed throughout the study. TTE 04/09/23: The left ventricular cavity size is normal. The LV wall thickness is mildly increased (concentric). The left ventricular wall motion is normal. The qualitative LV ejection fraction is 55-59% (normal). The left ventricular diastolic function is mildly abnormal (grade I). The aortic root is mildly enlarged. (4.3 cm) The proximal ascending thoracic aorta is normal sized. Mild aortic valve regurgitation is present. In comparison to prior study of March 21, 2021, aortic size is stable. Mild aortic insufficiency is now present Dye allergy- prepped Not on AC Normal renal function (Cr 1.3) documented in this encounter Plan of Treatment Upcoming Encounters Date Type Department Care Team (Late st Contact Info) Description 12/05/2023 10:00 AM EST Cardiac Studies Cardiac Studies [address] [place] [address] 12/10/2023 1:10 PM EST Office Visit Family Medicine [address] [place] [phone] Brooke Li[address] [place] [address] 12/13/2023 9:30 AM EST Telemedicine Interventional [facility] Center, [facility] [address] [place] [address] Coty Billy PA-C [address] [place] [address] 12/23/2023 11:00 AM EST Office Visit Cardiology, [facility] [address] [facility] [place] [address] Abdirashid Spicer CRNP [address] [place] [address] 12/31/2023 8:00 AM EST Office Visit Sleep Disorders Ctr [facility] [address] [facility] [place] [phone] Jayla Adler [facility] [address] [place] [address] 02/06/2024 9:30 AM EDT Imaging Radiology [address] [facility] [place] [address] 02/13/2024 10:00 AM EDT Office Visit Cardiology, [facility] [address] [facility] [place] [address] Abdirashid Spicer CRNP [address] [place] [address] 05/06/2024 8:50 AM EDT Office Visit Family Medicine [address] [place] [phone] Brooke Li, [address] [place] [address] 08/13/2024 8:30 AM EDT Nurse Only Ancillary [address] [place] [address] [place], Nurse [address] [place] [address] Scheduled Orders Name Type Priority Associated Diagnoses Orde r Schedule CARDIAC REHAB W/ECG MONITORING Procedures Routine S/P PTCA (percutaneous transluminal coronary angioplasty) Ordered: 11/26/2023 Scheduled Procedures Name Priority Associated Diagnoses Date/Ti me COLONOSCOPY FLEXIBLE PROXIMAL DIAGNOSTIC Recall History of colon polyps Scheduled Referrals Name Type Priority Associated Diagnoses Orde r Schedule CARDIAC REHAB REFERRAL OP Referral Within 30 days (routine) S/P PTCA (percutaneous transluminal coronary angioplasty) Ordered: 11/26/2023 Health Maintenance Due Date Last Done Comments Depression Screening 08/12/2024 08/12/2023 HbA1c 11/27/2024 11/27/2023, 09/12, 09/06/2022, Additional history exists DTaP,Tdap,and Td Vaccines (3 - Td or Tdap) 06/11/2029 06/11/2019, 04/11/2009, 04/13/2004, Additional history exists Pneumococcal Vaccine: 65+ Years Completed 10/27/2015, 02/26/2011, 08/31/1997 COLONOSCOPY-EVERY 5 YRS AGES 18-100 Discontinued 12/25/2017, 12/04/2012, 10/28/2009, Additional history exists Zoster Vaccines Completed 09/05/2021, 02/2020, 04/26/2020, Additional history exists Influenza Vaccine (FLU shot) Completed 08/12/2023, 08/10/2022, 08/16/2021, Additional history exists COVID-19 Vaccine Completed 10/01/2023, 12/2021, 09/13/2021, Additional history exists GARDASIL-HPV IMMUNIZATION SERIES Aged Out No longer eligible based on patient's age to complete this topic Hepatitis B Aged Out No longer eligi ble based on patient's age to complete this topic MENINGOCOCCAL (MENACTRA/MENVEO) Aged Out No longer eligible based on patient's age to complete this topic documented as of this encounter Medical Devices Implanted Type Area Cdl Company Driver Device Identifier Shelf Expiration Date Model / Serial / Lot Stent 0.014in 2.5x16mm [id number] [employer] Delivery Coronary - [id number] Implanted:Qty: 1 on 11/26/2023 by Jana Velasquez MD at [facility]ARDIAC [facility] [place] [facility] [id number] 07/16/2024 [id number] / / [id number] documented as of this encounter Procedures Procedure Name Priority Date/Time Associated Diagnosis Comments HEMOGLOBIN A1C Routine 11/27/2023 5:02 AM EST BASIC METABOLIC PANEL Add-on 11/27/2023 5:02 AM EST CBC Add-on 11/27/2023 5:02 AM EST LIPID PANEL WITHOUT DIRECT LDL Routine 11/27/2023 5:02 AM EST HC ECG TRACING ONLY Routine 11/27/2023 4 :22 AM EST Status post cardiac catheterization SARS-COV-2 (COVID-19), NAAT STAT 11/26/2023 6:35 PM EST HC ECG TRACING ONLY STAT 11/26/2023 3 :26 PM EST Chest pain HC ECG TRACING ONLY Routine 11/26/2023 2 :21 PM EST Status post cardiac catheterization ACT, POINT OF CARE MARIZA 11/26/2023 2: 02 PM EST CARDIAC CATHETERIZATION REPORT Routine 11/26/2023 documented in this encounter Results * (ABNORMAL) BASIC METABOLIC PANEL (11/27/2023 5:02 AM EST) BUN 16 6 - 20 mg/dL 11/27/2023 9:22 AM EST [facility] Creatinine 0.9 0.6 - 1.2 mg/dL 11/27/2023 9:22 AM EST [facility] Estimated Glomerular Filtration Rate 83 >=60 mL/min 11/27/2023 9:22 AM EST [facility] Comment:eGFR is calculated b ased on the CKD-EPI 2020 equation Sodium 139 135 - 146 mmol/L 11/27/2023 9:22 AM EST [facility] Potassium 3.8 3.5 - 5.1 mmol/L 11/27/2023 9:22 AM EST [facility] Chloride 105 98 - 107 mmol/L 11/27/2023 9:22 AM EST [facility] CO2 19(L) 22 - 32 mmol/L 11/27/2023 9:22 AM EST [facility] Anion Gap 15 7 - 15 mmol/L 11/27/2023 9:22 AM EST [facility] Glucose 124(H) 70 - 120 mg/dL 11/27/2023 9:22 AM EST [facility] Calcium 8.8 8.4 - 10.2 mg/dL 11/27/2023 9:22 AM EST [facility] Blood Venous blood specimen / Unknown Venipuncture / Unknown 11/27/2023 5:02 AM EST 11/27/2023 5:06 AM EST Zackary BUSHNP LAB BLOOD ORDERABLE S [facility] [address] [place] [address] * (ABNORMAL) CBC (11/27/2023 5:02 AM EST) WBC 13.56(H) 4.00 - 10.80 K/uL 11/27/2023 9:05 AM EST [facility] RBC 3.87 4.50 - 5.25 M/uL 11/27/2023 9:05 AM EST [facility] HGB 11.6(L) 14.0 - 16.8 g/dL 11/27/2023 9:05 AM EST [facility] HCT 33.0(L) 40.0 - 48.4 % 11/27/2023 9:05 AM EST [facility] MCV 85.3 82.0 - 99.5 fL 11/27/2023 9:05 AM EST [facility] MCH 30.0 27.0 - 34.0 pg 11/27/2023 9:05 AM EST [facility] MCHC 35.2 32.0 - 36.0 g/dL 11/27/2023 9:05 AM EST [facility] RDW 13.7 11.5 - 15.5 % 11/27/2023 9:05 AM EST [facility] PLT 181 140 - 400 K/uL 11/27/2023 9:05 AM EST [facility] MPV 11.6 6.6 - 11.1 fL 11/27/2023 9:05 AM EST [facility] nRBCs 0 <=0 /100 WBCs 11/27/2023 9:05 AM EST LABORATORY [facility] Blood Venous blood specimen / Unknown Venipuncture / Unknown 11/27/2023 5:02 AM EST 11/27/2023 5:06 AM EST Zackary Pruitt CLASSROOM ASSISTANT LAB BLOOD ORDERABLE S Performing Organization Address [facility]/ZIP Co de Phone Number LABORATORY [facility] [address] [place] [address] * HEMOGLOBIN A1C (11/27/2023 5:02 AM EST) Hemoglobin A1C 5.6 4.0 - 5.6 % 11/27/2023 5:28 AM EST LABORATORY [facility] Comment:The use of HbA1c to monitor glycemic status is based on normal hemoglobin and HbA composition. This test should not be used in patients with abnormal hemoglobin that affects the half life of the red blood cell or the in vivo glycation rates. Estimated Average Glucose 114 <126 mg/dL 11/27/2023 5:28 AM EST LABORATORY [facility] Blood Venous blood specimen / Unknown Venipuncture / Unknown 11/27/2023 5:02 AM EST 11/27/2023 5:06 AM EST Papa Verduzco DNP LAB BLOOD ORDERABLES Performing Organization Address City/[facility]/ZIP Co de Phone Number LABORATORY [facility] [address] [place] [address] * (ABNORMAL) LIPID PANEL WITHOUT DIRECT LDL (11/27/2023 5:02 AM EST) Triglycerides 70 <=174 mg/dL 11/27/2023 6:09 AM EST LABORATORY [facility] Comment: Triglyceride Reference Ranges (mg/dL): <150 Acceptable 150-174 Borderline high 175-499 High >=500 Very high Cholesterol 105 <200 mg/dL 11/27/2023 6:09 AM EST LABORATORY [facility] Comment: Total Cholesterol Reference Ranges (mg/dL): <200 Desirable 200-239 Borderline high >=240 High HDL Cholesterol 38(L) >39 mg/dL 6:09 AM EST LABORATORY [facility] Comment: HDL Cholesterol Reference Ranges (mg/dL): >=60 High (Desirable) <50 Low (Undesirable) For Females <40 Low (Undesirable) For Males Non-HDL Cholesterol 67 <=159 mg/dL 11/27/2023 6:09 AM EST LABORATORY [facility] Comment: Non-HDL Cholesterol Reference Range (mg/dL): <100 Target level for high risk ASCVD patient <130 Optimal for general population 130-159 Near optimal for general population 160-189 Borderline High 190-219 High >=220 Very High LDL Cholesterol 53 <=129 mg/dL 11/27/2023 6:09 AM EST LABORATORY [facility] Comment: LDL Cholesterol Reference Ranges (mg/dL): <70 Target level for high risk ASCVD patient <100 Optimal for general population 100-129 Near optimal for general population 130-159 Borderline high 160-189 High >=190 Very high Blood Venous blood specimen / Unknown Venipuncture / Unknown 11/27/2023 5:02 AM EST 11/27/2023 5:06 AM EST Papa Verduzco [facility] LAB BLOOD ORDERABLES LABORATORY [facility] [address] [place] [address] * EKG (11/27/2023 4:22 AM EST) 11/27/2023 4:22 AM EST Narrative Procedure Note Papa Nelson MD - 11/27/2023 4:22 AM EST REASON FOR STUDY: post pci CONCLUSIONS: Sinus bradycardia Nonspecific ST and T wave abnormality Abnormal ECG When compared with ECG of 26-NOV-2023 16:08, ST/T abnormalities less marked Ventricular Rate: 54 Atrial Rate: 54 NE Interval: 174 QRS Duration: 100 QT/QTc: 474/449 ms P-R-T [place]: 50 : 47 : 139 degrees Evelia Mckeon MD EKG [facility] CARDIOLOG[facility] * (ABNORMAL) SARS-COV-2 (COVID-19), NAAT (11/26/2023 6:35 PM EST) SARS-CoV-2 (COVID-19) Result Positive( A) Negative 11/26/2023 7:54 PM EST LABORATORY [facility] Comment: 2019 Novel Coronavirus detected. Test results reported to [facility]. This express test was developed and its performance characteristics determined by [facility]. It has not been cleared or approved by the U.S. Food and Drug Administration (FDA). FDA does not require this test to go thru premarket FDA review. This test is used for clinical purposes. It should not be regarded as investigational or for research. This laboratory is certified under the Clinical Laboratory Improvement Amendments (CLIA) as qualified to perform high complexity clinical laboratory testing. This test is a nucleic acid amplification test (NAAT), a reverse transcriptase polymerase chain reaction (RT-PCR) test, or a Centers for Disease Control- acceptable equivalent. The test is performed in a high complexity Clinical Laboratory Improvement Amendments-(CLIA) certified laboratory. The test is acceptable for SARS-CoV-2 diagnosis, surveillance, and travel within the [facility] and to most countries. Please check with local testing authorities about requirements before travel. The validation of bronchial specimens, tracheal aspirates, and sputum for this assay was developed and performance characteristics determined by [facility]. The validation of alternate specimen types has not been cleared or approved by the U.S. Food and Drug Administration (FDA). It has been determined that such clearance is not necessary. Upper Respiratory Mid-turbinate nasal swab / Unknown Non-blood Collection / Unknown 11/26/2023 6:35 PM EST 11/26/2023 6:46 PM EST Papa Verduzco [facility] LAB MICRO - GENERAL ORDERABLES LABORATORY [facility] [address] [place] [address] * EKG (11/26/2023 3:26 PM EST) 11/26/2023 3:26 PM EST Narrative Procedure Note Papa Nelson MD - 11/26/2023 3:26 PM EST REASON FOR STUDY: CP CONCLUSIONS: Sinus rhythm , PAC Widespread ST & T abnormalities, consider ischemia Abnormal ECG When compared with ECG of 26-NOV-2023 14:21, Widespread ST & T differences, consider ischemia Limb leads now appear correctly placed Ventricular Rate: 82 Atrial Rate: 82 NE Interval: 200 QRS Duration: 92 QT/QTc: 336/392 ms P-R-T [place]: 69 : 61 : -50 degrees Papa Verduzco DNP EKG Performing Organization Address [facility] Co de Phone Number [facility] * EKG (11/26/2023 2:21 PM EST) 11/26/2023 2:21 PM EST Narrative Procedure Note Papa Nelson MD - 11/26/2023 2:21 PM EST REASON FOR STUDY: S/P PCI CONCLUSIONS: Normal sinus rhythm Nonspecific ST and T wave abnormality Abnormal ECG When compared with ECG of 12-NOV-2023 15:41, Differences in limb leads - ? limb lead misplacement ? current tracing Ventricular Rate: 65 Atrial Rate: 65 NE Interval: 184 QRS Duration: 92 QT/QTc: 448/465 ms P-R-T [place]: 37 : 18 : 61 degrees Evelia Mckeon MD EKG Performing Organization Address [facility] de Phone Number [facility] C[facility] * ACT, POINT OF CARE (11/26/2023 2:02 PM EST) ACT 266 50 - 1,000 secs 11/26/2023 2:41 PM EST [email or web address] Blood 11/26/2023 2:02 PM EST 11/26/2023 2:41 PM EST Narrative [email or web address] - 11/26/2023 2:41 PM EST NORMAL (NON-HEPARINIZED) 74-137 SECONDS HEPARINIZED 200+ SECONDS CRITICAL GREATER THAN 1000 SECONDS Jana Velasquez MD LAB POINT OF CARE TE ST DOCKED DEVICE UNSOLICITED RESULTS Performing Organization Address [facility] Co de Phone Number [email or web address] [address] [place] [address] * CARDIAC CATHETERIZATION REPORT (11/26/2023) DATE OF PROCEDURE 11/26/2023 [facility] DIAGNOSTIC Jana Ernandez MD [facility] INTERVENTIONAL Jana Ernandez MD [facility] CONCLUSIONS * Coronary disease - hemodynamically significant Ramus branch with 95% stenosis s/p PCI with [id number] Synergy OBIE deployed at 16 cain Mid LAD with 50% stenosis followed by 60% stenosis in distal LAD. 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 S/P PTCA (percutaneous transluminal coronary angioplasty) Postsurgical percutaneous transluminal coronary angioplasty status Status post cardiac catheterization Other postprocedural status Chest pain Chest pain, unspecified Paroxysmal atrial fibrillation (HCC) [I48.0] Atrial fibrillation Pure hypercholesterolemia, unspecified [E78.00] Tobacco use [Z72.0] Tobacco use disorder 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] Coronary atherosclerosis of false pass coronary artery Other specified disorders of arteries and arterioles (HCC) [I77.89] Other specified disorders of arteries and arterioles 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 (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) use of anticoagulants [Z79.01] Long-term (current) use of anticoagulants Family history of ischemic heart disease and other diseases of the circulatory system [Z82.49] Abnormal stress test Other nonspecific abnormal cardiovascular system function study 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 Apixaban (Eliquis) tab 5 mg 5 mg, Oral, BID (.AM/PM), First dose on Sat11/26/23 at 2100, Until Discontinued Given 11/27/2023 8:00 AM EST 5 mg Given 11/26/2023 7:46 PM EST 5 mg aspirin chew tab 81 mg 81 mg, Oral, Daily(AM), First dose on Sat11/27/23 at 0900, Until Discontinued, Post-op Given 11/27/2023 8:00 AM EST 81 mg atorvaSTATin (Lipitor) tab 80 mg 80 mg, Oral, ONCE, On Sat11/26/23 at 0945, For 1 dose, Pre-Op Given 11/26/2023 10:45 AM EST 80 mg clopidogrel (pLAVix) tab 600 mg 600 mg, Oral, ONCE, On Sat11/26/23 at 1430, For 1 dose, Intra-Op Given 11/26/2023 1:52 PM EST 600 mg clopidogrel (pLAVix) tab 75 mg 75 mg, Oral, Daily(AM), First dose on Sat11/27/23 at 0900, Until Discontinued, Post-op Given 11/27/2023 8:00 AM EST 75 mg dorzolamide-timolol (Cosopt Ocumeter Plus) ophthalmic solution 1 Drop 1 Drop, Both eyes, BID (.AM/PM), First dose on Sat11/26/23 at 2100, Until Discontinued Given 11/27/2023 8:00 AM EST 1 Drop Given 11/26/2023 6:55 PM EST 1 Drop fentaNYL (PF) inj 50 mcg 50 mcg, IV Push, PRN Pain, Severe, Starting on Sat11/26/23 at 1252, Until Sat11/26/23 at 1415, For 2 hours, To be administered in Cardiac Awning Installer intra-procedure only When given IV Push its recommended that the dose be given over 3 to 5 minutes., Intra-Op Given 11/26/2023 1:20 PM EST 25 mcg Gabapentin (Neurontin) cap 400 mg 400 mg, Oral, HS, First dose on Sat11/26/23 at 2200, Until Discontinued Given 11/26/2023 7:46 PM EST 400 mg hEParin inj 5,000 Units 5,000 Units, Intra-Arterial, PRN Other, Inadequate anticoagulation, Starting on Sat11/26/23 at 1252, Until Sat11/26/23 at 1334, For 1 dose, To be administered in Cardiac Awning Installer intra-procedure only , Intra-Op Given By 11/26/2023 1:34 PM EST 5,000 Units hEParin inj 5,000 Units 5,000 Units, IV Push, PRN Other, Anticoagulation not at goal, Starting on Sat11/26/23 at 1352, Until Sat11/26/23 at 1415, For 2 hours, To be administered in Cardiac Awning Installer intra-procedure., Intra-Op Given 11/26/2023 1:51 PM EST 4,000 Units Latanoprost (Xalatan) 0.005 % ophthalmic solution 1 Drop 1 Drop, Both eyes, QHS, First dose on Sat11/26/23 at 2200, Until Discontinued Given 11/26/2023 7:46 PM EST 1 Drop Metoprolol Tartrate (Lopressor) tab 25 mg 25 mg, Oral, BID (.AM/PM), First dose on Sat11/26/23 at 2100, Until Discontinued, Hold for HR less than 60 or SBP below 100 and notify service if dose is held Given 11/27/2023 8:00 AM EST 25 mg Given 11/26/2023 7:46 PM EST 25 mg midazolam (Versed) 2 MG/2ML inj 1 mg 1 mg, IV Push, PRN Anxiety, Starting on Sat11/26/23 at 1252, Until Sat11/26/23 at 1415, For 2 hours, To be administered in Cardiac Awning Installer intra-procedure only, Intra-Op Given 11/26/2023 1:20 PM EST 1 mg Nitroglycerin (Nitrostat) sl tab 0.4 mg 0.4 mg, Sublingual, Q5 MIN PRN Pain, Chest, Starting on Sat11/26/23 at 1534, Until Sat11/27/23 at 1616, This med should NOT be Crushed or Chewed Given 11/26/2023 3:45 PM EST 0.4 mg Given 11/26/2023 3:35 PM EST 0.4 mg NSS infusion Intravenous, at 100 mL/hr, CONTINUOUS, Starting on Sat11/26/23 at 0945, Until Sat11/26/23 at 1944, Pre-Op New Bag 11/26/2023 10:38 AM EST 100 mL /hr omeprazole (PriLOSEC) cap 20 mg 20 mg, Oral, Daily(AM), First dose on Sat11/27/23 at 0900, Until Discontinued, This med should NOT be Crushed or Chewed Given 11/27/2023 8:00 AM EST 20 mg oxyCODONE-acetaminophen 5-325 mg per tab (Percocet) 1 Tablet 1 Tablet, Oral, Q4H PRN Pain, Severe, Starting on Sat11/26/23 at 1547, Until Sat11/27/23 at 1616, Maximum of 4 grams (4000 mg) of acetaminophen per day Given 11/26/2023 11:54 PM EST 1 Tablet Given 11/26/2023 7:46 PM EST 1 Tablet verapamil (Isoptin) inj 2.5 mg 2.5 mg, Intra-Arterial, PRN Other, arterial spasm, Starting on Sat11/26/23 at 1252, Until Sat11/26/23 at 1351, For 1 hour, To be administered in Cardiac Awning Installer intra-procedure only, Intra-Op Given By 11/26/2023 1:34 PM EST 2.5 mg documented in this encounter Active and Recently Administered Medications Times are shown in EST. Scheduled Medication Order 11/25/2023 11/26/2023 11/27/2023 Apixaban (Eliquis) tab 5 mg 5 mg, Oral, BID (.AM/PM), First dose on Sat11/26/23 at 2100, Until Discontinued 1946 (Given - Provider: Radha Mccracken RN) 0800 (Given - Provider: Paty Goldberg LPN) aspirin chew tab 81 mg 81 mg, Oral, Daily(AM), First dose on Sat11/27/23 at 0900, Until Discontinued, Post-op 0800 (Given - Provid er: Paty Goldberg LPN) atorvaSTATin (Lipitor) tab 80 mg (COMPLETED) 80 mg, Oral, ONCE, On Sat11/26/23 at 0945, For 1 dose, Pre-Op 1045 (Given - Provider: Paty Goldberg LPN) clopidogrel (pLAVix) tab 600 mg (COMPLETED) 600 mg, Oral, ONCE, On Sat11/26/23 at 1430, For 1 dose, Intra-Op 1352 (Given - Provider: Dyana Gutiérrez RN)1430 (Not Given - Provider: Maria Guadalupe Barajas RN - Reason: Parameter(s) Not Met - Comment: this was given @ 1352) clopidogrel (pLAVix) tab 75 mg 75 mg, Oral, Daily(AM), First dose on Sat11/27/23 at 0900, Until Discontinued, Post-op 0800 (Given - Provid er: Paty Goldberg LPN) dorzolamide-timolol (Cosopt Ocumeter Plus) ophthalmic solution 1 Drop 1 Drop, Both eyes, BID (.AM/PM), First dose on Sat11/26/23 at 2100, Until Discontinued 185 (Given - Provider: Radha Mccracken RN) 0800 (Given - Provider: Paty Goldberg LPN) Gabapentin (Neurontin) cap 400 mg 400 mg, Oral, HS, First dose on Sat11/26/23 at 2200, Until Discontinued 1945 (Given - Provider: Radha Mccracken RN) Latanoprost (Xalatan) 0.005 % ophthalmic solution 1 Drop 1 Drop, Both eyes, QHS, First dose on Sat11/26/23 at 2200, Until Discontinued 1945 (Given - Provider: Radha Mccracken RN) Metoprolol Tartrate (Lopressor) tab 25 mg 25 mg, Oral, BID (.AM/PM), First dose on Sat11/26/23 at 2100, Until Discontinued, Hold for HR less than 60 or SBP below 100 and notify service if dose is held 1945 (Given - Provider: Radha Mccracken RN) 0800 (Given - Provider: Paty Goldberg LPN) omeprazole (PriLOSEC) cap 20 mg 20 mg, Oral, Daily(AM), First dose on Sat11/27/23 at 0900, Until Discontinued, This med should NOT be Crushed or Chewed 0800 (Given - Provid er: Paty Goldberg LPN) rosuvastatin (Crestor) tab 20 mg 20 mg, Oral, Q1700, First dose on Sat11/27/23 at 1700, Until Discontinued Continuous Medication Order 11/25/2023 11/26/2023 11/27/2023 NSS infusion Intravenous, at 100 mL/hr, CONTINUOUS, Starting on Sat11/26/23 at 0945, Until Sat11/26/23 at 1944, Pre-Op 1038 (New Bag - Provider: Dina Goldberg LPN) PRN Medication Order 11/25/2023 11/26/2023 11/27/2023 Acetaminophen (Tylenol) tab 650 mg 650 mg, Oral, Q6H PRN Pain, Mild, Pain, Moderate, Starting on Sat11/26/23 at 1553, Until Sat11/27/23 at 1616, Maximum of 4 grams (4000 mg) per day. fentaNYL (PF) inj 50 mcg (CANCELED) 50 mcg, IV Push, PRN Pain, Severe, Starting on Sat11/26/23 at 1252, Until Sat11/26/23 at 1415, For 2 hours, To be administered in Cardiac Awning Installer intra-procedure only When given IV Push its recommended that the dose be given over 3 to 5 minutes., Intra-Op 1320 (Given - Provider: Dyana Gutiérrez RN) hEParin inj 5,000 Units (COMPLETED) 5,000 Units, Intra-Arterial, PRN Other, Inadequate anticoagulation, Starting on Sat11/26/23 at 1252, Until Sat11/26/23 at 1334, For 1 dose, To be administered in Cardiac Awning Installer intra-procedure only , Intra-Op 1334 (Given By - Provider: Dyana Gutiérrez RN - Comment: ) hEParin inj 5,000 Units (CANCELED) 5,000 Units, IV Push, PRN Other, Anticoagulation not at goal, Starting on Sat11/26/23 at 1352, Until Sat11/26/23 at 1415, For 2 hours, To be administered in Cardiac Awning Installer intra-procedure., Intra-Op 1351 (Given - Provider: Dyana Gutiérrez RN) midazolam (Versed) 2 MG/2ML inj 1 mg (CANCELED) 1 mg, IV Push, PRN Anxiety, Starting on Sat11/26/23 at 1252, Until Sat11/26/23 at 1415, For 2 hours, To be administered in Cardiac Awning Installer intra-procedure only, Intra-Op 1320 (Given - Provider: Dyana Gutiérrez RN) Nitroglycerin (Nitrostat) sl tab 0.4 mg 0.4 mg, Sublingual, Q5 MIN PRN Pain, Chest, Starting on Sat11/26/23 at 1534, Until Sat11/27/23 at 1616, This med should NOT be Crushed or Chewed 1535 (Given - Provider: Juancarlos Barajas RN - Comment: bp 143/77)1545 (Given - Provider: Maria Guadalupe Barajas RN) oxyCODONE-acetaminophen 5-325 mg per tab (Percocet) 1 Tablet 1 Tablet, Oral, Q4H PRN Pain, Severe, Starting on Sat11/26/23 at 1547, Until Sat11/27/23 at 1616, Maximum of 4 grams (4000 mg) of acetaminophen per day 1946 (Given - Provider: Mike Mccracken RN)2354 (Given - Provider: Radha Mccracken RN) verapamil (Isoptin) inj 2.5 mg () 2.5 mg, Intra-Arterial, PRN Other, arterial spasm, Starting on Sat11/26/23 at 1252, Until Sat11/26/23 at 1351, For 1 hour, To be administered in Cardiac Awning Installer intra-procedure only, Intra-Op 1334 (Given By - Provider: Dyana Gutiérrez RN - Comment: ) documented in this encounter Additional Health Concerns Infection Onset Date Last Indicated Resolved Time COVID-19 (confirmed) 11/26/2023 11/26/2023 documented as of this encounter Advance Directives Latest Code Status on File Code Status Date Activated Date Inactivated Comments Full Code 11/26/2023 3:54 PM 11/27/2023 4:21 PM This order reflects the patients wishes and were consensually agreed upon. Question Answer Comments Discussion of Advance Directives occurred with: Patient Does the patient have a Living Will? No Does the patient have Health Care Power of Materials Technician? No Care Teams Building Official Relationship Specialty Start Date End Date Brooke Li DO [address] [place] [address] [place] [id number] PCP - General Internal Medicine 08/08/22 documented as of this encounter
--- OUTSIDE RECORDS SUMMARY | 2023-11-29 04:52 | External Medical Summary ---
Author Name Unknown Address Unknown Organization : Laboratory Report Ordering Provider Test Date Status MEHUL STRICKLAND 11/26/2023 14:02:00 Final NORMAL (NON-HEPARINIZED) 74- 137 SECONDS
HEPARINIZED 200+ SECONDS
CRITICAL GREATER THAN 1000 SECONDS
null Observation Date Value Abnormality Reference (Units ) Status Kaolin activated time [Units/volume] in Blood 11/26/2023 14:02:00 266 50-1000 (secs) Final Performing Location
--- OUTSIDE RECORDS SUMMARY | 2023-11-29 04:52 | External Medical Summary ---
Author Name Unknown Address Unknown Organization K01:[place] [facility] [place] [address] [place] [address] Laboratory Report Ordering Provider Test Date Status ELIZABETH CEE 11/27/2023 05:02:00 Final Observation Date Value Abnormality Reference (Units ) Status HbA1C 11/27/2023 05:02:00 5.6 4.0-5.6 (% ) Final The use of HbA1c to monitor glycemic status is based on normal hemoglobin and HbA composition. This test should not be used in patients with abnormal hemoglobin that affects the half life of the red blood cell or the in vivo glycation rates. Glucose, estimated average 11/27/2023 05:02:00 114 <126 (mg/dL) Final Performing Location [facility] [facility] [place] [address] [place] [address]
--- OUTSIDE RECORDS SUMMARY | 2023-11-29 04:52 | External Medical Summary ---
Author Name Unknown Address Unknown Organization K01:LABORATORY [facility] – [place] - [address] [place] [address] Laboratory Report Ordering Provider Test Date Status EBONY PEDRAZA 11/27/2023 05:02:00 Final Observation Date Value Abnormality Reference (Units ) Status WBC, Total 11/27/2023 05:02:00 13.56 Above high normal 4.00-10.80 (K/uL) Final RBC 11/27/2023 05:02:00 3.87 4.50-5.25 (M/uL) Final Hemoglobin 11/27/2023 05:02:00 11.6 Below low normal 14.0-16.8 (g/dL) Final HCT 11/27/2023 05:02:00 33.0 Below low normal 40.0-48.4 (%) Final MCV 11/27/2023 05:02:00 85.3 82.0-99.5 (fL) Final MCH 11/27/2023 05:02:00 30.0 27.0-34.0 (pg) Final MCHC 11/27/2023 05:02:00 35.2 32.0-36.0 (g/dL) Final RDW 11/27/2023 05:02:00 13.7 11.5-15.5 (%) Final Platelets 11/27/2023 05:02:00 181 140-400 (K/uL) Final MPV 11/27/2023 05:02:00 11.6 6.6-11.1 (fL) Final Nucleated erythrocytes/100 leukocytes [Ratio] in Blood by Automated count 11/27/2023 05:02:00 0 <=0 (/100 WBCs) Final Performing Location LABORATORY [facility] – [place] - [address] [place] [address]
--- OUTSIDE RECORDS SUMMARY | 2023-11-29 04:52 | External Medical Summary ---
Author Name Unknown Address Unknown Organization K01:LAB[facility]ATORY [facility] – [place] - [address] [place] [address] Laboratory Report Ordering Provider Test Date Status EBONY PEDRAZA 11/27/2023 05:02:00 Final Observation Date Value Abnormality Reference (Units ) Status BUN 11/27/2023 05:02:00 16 6-20 (mg/dL) Final Creatinine 11/27/2023 05:02:00 0.9 0.6-1.2 (mg/dL) Final Glomerular filtration rate/1.73 sq M.predicted [Volume Rate/Area] in Serum, Plasma or Blood by Creatinine-based formula (CKD-EPI) 11/27/2023 05:02:00 83 >=60 (mL/min) Final eGFR is calculated based on the CKD-EPI 2020 equation SODIUM 11/27/2023 05:02:00 139 135-146 (m mol/L) Final Potassium 11/27/2023 05:02:00 3.8 3.5-5.1 (m mol/L) Final Cl 11/27/2023 05:02:00 105 98-107 (mm ol/L) Final CO2 11/27/2023 05:02:00 19 Below low normal 22- 32 (mmol/L) Final Anion gap 11/27/2023 05:02:00 15 7-15 (mmol /L) Final Glucose 11/27/2023 05:02:00 124 Above high normal 70 -120 (mg/dL) Final Calcium 11/27/2023 05:02:00 8.8 8.4-10.2 ( mg/dL) Final Performing Location LABORATORY [facility] [place] - [address] [place] [address]
--- OUTSIDE RECORDS SUMMARY | 2023-11-29 04:52 | External Medical Summary | Summary of Care ---
Author Name Unknown Organization [facility] Address [address] [place] [address] Phone [phone] Care Team Providers Care Playback Operator Name Role Phone Brooke Li Primary Care Provider Reason for Visit * Auth/Cert Specialty Diagnoses / Procedures Referred By Contac t Referred To Contact Diagnoses Abnormal stress test Abnormal stress test [R94.39] Procedures CORONARY ANGIOGRAPHY W/LEFT HEART CATH CORONARY ANGIOGRAPHY W/LEFT HEART CATH Referral ID Status Reason Start Date Expiration Date Visits Re quested Visits Authorized [id number] Encounter Details Date Type Department Care Team (Latest Contact Info) Description 11/22/2023 6:55 AM EST - 11/22/2023 8:33 AM EST Hospital Encounter CRS Waiting [facility], Cardiac Recovery Suite Waiting Unit, [address] [place] [address] Edson Ramos MD [address] [place] [address] Discharge Disposition: Home - Self Care Allergies Active Allergy Reactions Criticality Noted Date Comments Adhesive Tape 09/11/2014 "burn" Doxycycline 06/19/2018 Dizzy, very nauseated Iodinated Contrast Media 12/30/2017 ITCHING documented as of this encounter (statuses as of 11/22/2023) Medications Medication Sig Dispensed Refills Start Date End Date Status CENTRUM SILVER PO TABS Take by mouth. 0 09/11/2014 Active Vitamin C 100 MG Oral Tablet Chewable Take 1 Tablet by mouth in the morning. 0 Active B-12 1000 MCG Oral Tablet Extended Release Take by mouth. 0 10/13/2020 Active Zioptan 0.0015 % Ophthalmic Solution Instill 1 Drop into both eyes at bedtime. 0 09/08/2021 Active Dorzolamide HCl-Timolol Mal PF 2-0.5 % Ophthalmic Solution Instill 1 Drop into both eyes 2 times a day. 0 09/13/2021 Active Metamucil 0.36 GM Oral Capsule (Psyllium) Take by mouth. 0 Active Apixaban 5 MG Oral Tablet (Eliquis) Take 1 Tablet by mouth in the morning and 1 Tablet before bedtime. 90 Tablet 1 10/18/2023 Active Metoprolol Tartrate 25 MG Oral Tablet (Lopressor) Take 1 Tablet by mouth in the morning and 1 Tablet before bedtime. 180 Tablet 1 10/18/2023 Active Omeprazole 20 MG Oral Capsule Delayed Release (PriLOSEC) TAKE ONE CAPSULE BY MOUTH EVERY MORNING 90 Capsule 3 10/29/2023 Active oxyCODONE-Acetaminoph en 5-325 MG Oral Tablet (Percocet)Indications :Spinal stenosis, lumbar region, with neurogenic claudication Take 1 Tablet by mouth daily as needed for Pain, Severe. Make take an extra half pill as needed. 45 Tablet 0 10/30/2023 Active Gabapentin 400 MG Oral Capsule (Neurontin) TAKE ONE CAPSULE BY MOUTH AT BEDTIME 90 Capsule 3 11/12/2023 Active Nitroglycerin 0.4 MG Sublingual Tablet Sublingual (Nitrostat)Indication s:Abnormal nuclear stress test Place 1 Tablet under the tongue every 5 minutes as needed for Pain, Chest. up to 3 doses in 15 minutes 25 Tablet 11 11/12/2023 Active Aspirin 81 MG Oral Tablet Delayed ReleaseIndications:Ab normal nuclear stress test Take 1 Tablet by mouth in the morning. 0 11/12/2023 Active Rosuvastatin Calcium 10 MG Oral Tablet (Crestor)Indications: Abnormal nuclear stress test Take 1 Tablet by mouth in the morning. 30 Tablet 11 11/12/2023 Active documented as of this encounter (statuses as of 11/22/2023) Active Problems Problem Noted Date Diagnosed Date Coronary artery disease invo lving [place] coronary artery of [place] heart without angina pectoris 11/22/2023 Hypercalcemia 10/10/2023 [...] carcinoma (scalp, L cheek, L neck, L confucianism 10/31) Knee joint replacement status 09/11/2014 Spinal stenosis, lumbar iris on, with neurogenic claudication 09/04/2012 ADVANCE DIRECTIVE INFORMATION 07/11/2005 Overview: Yes, Patient instructed to provide copy of advance directive for provider to review and to be scanned into Electronic Medical Record Subjective tinnitus 12/29/2004 Nephrolithiasis 04/24/2001 [facility] arthritis, thumb, degenerative documented as of this encounter (statuses as of 11/22/2023) Resolved Problems Problem Noted Date Diagnosed Date [...] as of this encounter (statuses as of 11/22/2023) Immunizations Name Administration Dates Next Due COVID-19 mRNA, LNP-s, No Pre serve, 2-Dose Series (Moderna) 02/09/2021,01/06/2021 COVID-19, MRNA-LNP, 23-24, P F, 30 MCG/0.3 mL, 12 YRS AND ABOVE, IM (Actifi-Comirnat) 10/01/2023 COVID-19, mRNA, LNP-s, PF, B ooster, [...] on file documented as of this encounter Progress Notes * Srikanth Walton CRNP - 11/22/2023 8:33 AM EST OUTPATIENT HEART CATHETERIZATION INSTRUCTIONS Your heart catheterization is scheduled for: 11/26/2023. Please report to the CARDIAC RECOVERY SUITE on the third floor of the [facility] ([facility]). Use the [facility] entrance located beside the parking garage; take the elevator to the 3rd floor. Do NOT take Eliquis for 3 days before your procedure (Take your last dose 11/22/2023, then stop it. Do NOT eat anything after midnight before your procedure. You may have clear liquids up to 2 hours prior to your procedure. Clear liquids include black coffee, tea, soda, jello, broth, and water NO Caffeine for 24 hours prior to procedure Do TAKE your other morning medications (with a small sip of water) at their usual times. Be SURE to take 81 mg of aspirin on the morning of your catheterization. Bring your medications with you in their original containers. It may be necessary for you to take them after your procedure. Please make sure to bring a class a regional drivers with you. If you have questions regarding your procedure or are not able to keep your appointment due to illness, bad weather or any other reason, please call between 7 AM & 5 PM. ALPHONSO Rodríguez * Srikanth Walton CRNP - 11/22/2023 8:33 AM EST Todays cardiac cath was canceled related to patient not stopping his eliquis and he also has an allergy to IV dye. Rescheduled for 11/26/2023. Cath instructions given to patient. Allergy Prep Instructions given to patient. ALPHONSO Rodríguez documented in this encounter Nursing Notes * Corin Suarez RN - 11/22/2023 7:48 AM EST Pt states he has IV contrast dye allergy and did not take prednisone or benadryl at home. Pt also states he took Eliquis this AM. Dr. Anika Trejo made aware. documented in this encounter Plan of Treatment Upcoming Encounters Date Type Department Care Team (Latest Contact Info) Description 11/26/2023 10:00 AM EST Hospital Encounter CRS Waiting [facility], Cardiac Recovery Suite Waiting Unit, [address] [place] [address] Jana Velasquez MD [address] [place] [address] 11/26/2023 10:00 AM EST - 11/26/2023 11:00 AM EST Surgery CRS Waiting [facility], Cardiac Recovery Suite Waiting Unit, [address] [place] [address] Jana Velasquez MD [address] [facility] [place] [address] CORONARY ANGIOGRAPHY W/LEFT HEART CATH 11/26/2023 10:00 AM EST Office Visit Cardiology [facility], [place] [address] [facility], [place] [address] [facility] Cardiac Recovery [facility] [address] [facility] [place] [address] 12/05/2023 10:00 AM EST Cardiac Studies Cardiac Studies [address] [place] [address] 12/13/2023 9:30 AM EST Telemedicine Interventional Pain Center, [facility] [address] [place] [address] Coty Billy PA-C [address] [place] [address] 12/31/2023 8:00 AM EST Office Visit Sleep Disorders Ctr [facility] [address] [place] [phone] Jayla Adler, [address] [place] [address] 01/15/2024 2:20 PM EST Office Visit Dermatology [address] [place] [address] Andria Chahal PA-C [address] [place] [address] [place] [address] 02/06/2024 9:30 AM EDT Imaging Radiology [address] [place] [address] 02/13/2024 10:00 AM EDT Office Visit Cardiology, [facility] [address] [place] [address] Ana Espinoza CRNP [address] [place] [address] 05/06/2024 8:50 AM EDT Office Visit Family Medicine [address] [place] [phone] [address] [place] [address] 08/13/2024 8:30 AM EDT Nurse Only Ancillary [address] [place] [address] [place], Nurse [address] [place] [address] Scheduled Procedures Name Priority Associated Diagnoses Date/Ti me CORONARY ANGIOGRAPHY W/LEFT HEART CATH Abnormal stress test 11/26/2023 10:00 AM EST COLONOSCOPY FLEXIBLE PROXIMAL DIAGNOSTIC Recall History of colon polyps Health Maintenance Due Date Last Done Comments Depression Screening 08/12/2024 08/12/2023 HbA1c 10/01/2024 10/01/2023, 08/12, 09/30/2021, Additional history exists DTaP,Tdap,and Td Vaccines (3 - Td or Tdap) 06/11/2029 06/11/2019, 04/11/2009, 04/13/2004, Additional history exists Pneumococcal Vaccine: 65+ Years Completed 10/27/2015, 02/26/2011, 08/31/1997 COLONOSCOPY-EVERY 5 YRS AGES 18-100 Discontinued 12/25/2017, 12/04/2012, 10/28/2009, Additional history exists Zoster Vaccines Completed 09/05/2021, 0902/2020, 04/26/2020, Additional history exists Influenza Vaccine (FLU [...] documented as of this encounter Medical Devices Not on filedocumented as of this encounter Administered Medications Inactive Administered Medications - up to 3 most recent administrations Medication Order MAR Action Action Date Dose Rate Site NSS infusion Intravenous, at 100 mL/hr, CONTINUOUS, Starting on Sat11/22/23 at 0730, Until Sat11/22/23 at 1234, Pre-Op documented in this encounter Active and Recently Administered Medications Times are shown in EST. Scheduled Medication Order 11/20/2023 11/21/2023 11/22/2023 aspirin chew tab 324 mg 324 mg, Oral, ONCE, On Sat11/22/23 at 0730, For 1 dose, Pre-Op 0730 (Due) atorvaSTATin (Lipitor) tab 80 mg 80 mg, Oral, ONCE, On Sat11/22/23 at 0730, For 1 dose, Pre-Op 0730 (Due) Continuous Medication Order 11/20/2023 11/21/2023 11/22/2023 NSS infusion Intravenous, at 100 mL/hr, CONTINUOUS, Starting on Sat11/22/23 at 0730, Until Sat11/22/23 at 1234, Pre-Op 0730 (Due) documented in this encounter Care Teams Playback Operator Relationship Specialty Start Date End Date Brooke Li DO [address] [place] [address] [place] [phone] PCP - General Internal Medicine 08/08/22 documented as of this encounter
--- OUTSIDE RECORDS SUMMARY | 2023-11-29 04:52 | External Medical Summary | Summary of Care ---
Author Name Unknown Organization [facility] Address [address] [place] [address] Phone [phone] Care Team Providers Care Hot Dip Tinning Supervisor Name Role Phone Brooke Li Primary Care Provider Encounter Details Date Type Department Care Team (Late st Contact Info) Description 11/26/2023 CardioDiagnostic Study Cardiology [facility] [address] [place] [address] Jana Velasquez MD [address] [place] [address] EKG Report Allergies Active Allergy Reactions Criticality Noted Date Comments Adhesive Tape 09/11/2014 "burn" Doxycycline 06/19/2018 Dizzy, very nauseated Iodinated Contrast Media 12/30/2017 ITCHING documented as of this encounter (statuses as of 11/27/2023) Medications Medication Sig Dispensed Refills Start Date End Date Status Clopidogrel Bisulfate 75 MG Oral Tablet (pLAVix) Take 1 Tablet by mouth in the morning. Do not start before November 27, 2023. 90 Tablet 3 4 Active Rosuvastatin Calcium 20 MG Oral Tablet (Crestor) Take 1 Tablet by mouth every afternoon. Do not start before November 27, 2023. 90 Tablet 3 4 Active CENTRUM SILVER PO TABS Take by mouth. 0 4 Suspended Vitamin C 100 MG Oral Tablet Chewable Take 1 Tablet by mouth in the morning. 0 Suspended B-12 1000 MCG Oral Tablet Extended Release Take by mouth. 0 0 Suspended Zioptan 0.0015 % Ophthalmic Solution Instill 1 Drop into both eyes at bedtime. 0 1 Suspended Dorzolamide HCl-Timolol Mal PF 2-0.5 % Ophthalmic Solution Instill 1 Drop into both eyes 2 times a day. 0 1 Suspended Metamucil 0.36 GM Oral Capsule (Psyllium) Take by mouth. 0 Suspended Apixaban 5 MG Oral Tablet (Eliquis) Take 1 Tablet by mouth in the morning and 1 Tablet before bedtime. 90 Tablet 1 3 Suspended Additional Information Metoprolol Tartrate 25 MG Oral Tablet (Lopressor) Take 1 Tablet by mouth in the morning and 1 Tablet before bedtime. 180 Tablet 1 3 Suspended Additional Information Omeprazole 20 MG Oral Capsule Delayed Release (PriLOSEC) TAKE ONE CAPSULE BY MOUTH EVERY MORNING 90 Capsule 3 3 Suspended Additional Information oxyCODONE-Acetami nophen 5-325 MG Oral Tablet (Percocet)Indicat ions:Spinal stenosis, lumbar region, with neurogenic claudication Take 1 Tablet by mouth daily as needed for Pain, Severe. Make take an extra half pill as needed. 45 Tablet 0 3 Suspended Additional Information Gabapentin 400 MG Oral Capsule (Neurontin) TAKE ONE CAPSULE BY MOUTH AT BEDTIME 90 Capsule 3 4 Suspended Additional Information Nitroglycerin 0.4 MG Sublingual Tablet Sublingual (Nitrostat)Indica tions:Abnormal nuclear stress test Place 1 Tablet under the tongue every 5 minutes as needed for Pain, Chest. up to 3 doses in 15 minutes 25 Tablet 11 4 Suspended Additional Information Aspirin 81 MG Oral Tablet Delayed ReleaseIndication s:Abnormal nuclear stress test Take 1 Tablet by mouth in the morning. 0 4 Suspended Additional Information Contrast Allergy PreMed Pack 3 x 50 MG & 1 x 50 MG Oral Kit (predniSONE & diphenhydrAMINE)I ndications:Contra st media allergy Take 1 prednisone 50mg tab 13 hours prior to cath; Take 1 prednisone 50mg tab 7 hours prior to cath; Take 1 prednisone 50mg tab and 1 diphenhydramine 50mg tab 1hour prior to cath. 1 Kit 0 4 Suspended Additional Information documented as of this encounter (statuses as of 11/27/2023) Active Problems Problem Noted Date Diagnosed Date S/P angioplasty with stent 11/26/2023 Abnormal stress test 11/26/2023 Coronary artery disease invo lving enterprise coronary artery of enterprise heart without angina pectoris 11/22/2023 Hypercalcemia 10/10/2023 [...] carcinoma (scalp, L cheek, L neck, L cheondoism 10/31) Knee joint replacement status 09/11/2014 Spinal stenosis, lumbar iris on, with neurogenic claudication 09/04/2012 ADVANCE DIRECTIVE INFORMATION 07/11/2005 Overview: Yes, Patient instructed to provide copy of advance directive for provider to review and to be scanned into Electronic Medical Record Subjective tinnitus 12/29/2004 Nephrolithiasis 04/24/2001 [facility] arthritis, thumb, degenerative documented as of this encounter (statuses as of 11/27/2023) Resolved Problems Problem Noted Date Diagnosed Date [...] as of this encounter (statuses as of 11/27/2023) Immunizations Name Administration Dates Next Due COVID-19 mRNA, LNP-s, No Pre serve, 2-Dose Series (Moderna) 02/09/2021,01/06/2021 COVID-19, MRNA-LNP, 23-24, P F, 30 MCG/0.3 mL, 12 YRS AND ABOVE, [facility] 10/01/2023 COVID-19, mRNA, LNP-s, PF, B ooster, [...] on file documented as of this encounter Procedure Notes * Papa Nelson MD - 11/26/2023 4:08 PM ESTAssociated Order(s): EKG REPORT REASON FOR STUDY: CP CONCLUSIONS: Normal sinus rhythm Widespread ST & T abnormalities, consider ischemia Abnormal ECG When compared with ECG of 26-NOV-2023 15:26, Nonspecific ST and T wave differences Ventricular Rate: 65 Atrial Rate: 65 [place] Interval: 178 QRS Duration: 94 QT/QTc: 422/438 ms P-R-T [place]: 51 : 57 : 223 degrees documented in this encounter Plan of Treatment Upcoming Encounters Date Type Department Care Team (Late st Contact Info) Description 12/05/2023 10:00 AM EST Cardiac Studies Cardiac Studies [address] [place] [address] 12/13/2023 9:30 AM EST Telemedicine Interventional Pain Center, [facility] [address] [place] [address] Coty Billy PA-C [address] [place] [address] 12/31/2023 8:00 AM EST Office Visit Sleep Disorders Ctr [facility] [address] [facility] [place] [phone] Jayla Adler DO [address] [place] [address] 01/15/2024 2:20 PM EST Office Visit Dermatology [address] [place] [address] Andria Chahal PA-C [address] [place] [address] [place] [address] 02/06/2024 9:30 AM EDT Imaging Radiology [facility] [facility] [address] [place] [address] 02/13/2024 10:00 AM EDT Office Visit Cardiology, [facility] [address] [place] [address] Ana Espinoza CRNP [address] [place] [address] 05/06/2024 8:50 AM EDT Office Visit Family Medicine [address] [place] [phone] Brooke Li, [address] [place] [address] 08/13/2024 8:30 AM EDT Nurse Only Ancillary [address] [place] [address] [place], Nurse Annual [address] [place] [address] Scheduled Procedures Name Priority Associated Diagnoses Date/Ti [...] this encounter Medical Devices Implanted Type Area Internist Medical Doctor Md Device Identifier Shelf Expiration Date Model / Serial / Lot Stent 0.014in 2.5x16mm [id number] Xchng Delivery Coronary - [id number] Implanted:Qty: 1 on 11/26/2023 by Jana Velasquez MD at [facility]S [facility] [employer] [id number] 07/16/2024 [id number] / / [id number] documented as of this encounter Procedures Procedure Name Priority Date/Time Associated Diagnosis Comments EKG REPORT 11/26/2023 4:08 PM EST documented in this encounter Results * EKG REPORT (11/26/2023 4:08 PM EST) 11/26/2023 4:08 PM EST Narrative Procedure Note Papa Nelson MD - 11/26/2023 4:08 PM EST REASON FOR STUDY: CP CONCLUSIONS: Normal sinus rhythm Widespread ST & T abnormalities, consider ischemia Abnormal ECG When compared with ECG of 26-NOV-2023 15:26, Nonspecific ST and T wave differences Ventricular Rate: 65 Atrial Rate: 65 WA Interval: 178 QRS Duration: 94 QT/QTc: 422/438 ms P-R-T [place]: 51 : 57 : 223 degrees Jana Velasquez MD EKG documented in this encounter Additional Health Concerns Infection Onset Date Last Indicated Resolved Time COVID-19 (confirmed) 11/26/2023 11/26/2023 documented as of this encounter Advance Directives Latest Code Status on File Code Status Date Activated Date Inactivated Comments Full Code 11/26/2023 3:54 PM This order reflects the patients wishes and were consensually agreed upon. Question Answer Comments Discussion of Advance Directives occurred with: Patient Does the patient have a Living Will? No Does the patient have Health Care Power of Card Checker? No Care Teams Hot Dip Tinning Supervisor Relationship Specialty Start Date End Date Brooke Li DO [address] [place] [address] [place] [phone] PCP - General Internal Medicine 08/08/22 documented as of this encounter
--- OUTSIDE RECORDS SUMMARY | 2023-11-29 04:52 | External Medical Summary | Summary of Care ---
Author Name Unknown Organization [facility] Address [address] [facility] [place] [address] Phone [phone] Care Team Providers Care Postal Mail Carrier Name Role Phone Brooke Li DO Primary Care Provider Reason for Visit * Reason Onset Date Comments Hospital Follow-Up 11/27/2023 COVID HD Encounter Details Date Type Department Care Team (Late st Contact Info) Description 11/27/2023 Telephone Family Medicine [address] [place] [address] Brooke Li DO [address] [place] [address] [place] [address] Hospital Follow-Up (COVID HD) Allergies Active Allergy Reactions Criticality Noted Date [...] EVERY MORNING 90 Capsule 3 10/29/2023 Active oxyCODONE-Acetamin ophen 5-325 MG Oral Tablet (Percocet)Indicati ons:Spinal stenosis, lumbar region, with neurogenic claudication Take 1 Tablet by mouth daily as needed for Pain, Severe. Make take an extra half pill as needed. 45 Tablet 0 10/30/2023 Active Gabapentin 400 MG Oral Capsule (Neurontin) TAKE ONE CAPSULE BY MOUTH AT BEDTIME 90 Capsule 3 11/12/2023 Active Nitroglycerin 0.4 MG Sublingual Tablet Sublingual (Nitrostat)Indicat ions:Abnormal nuclear stress test Place 1 Tablet under the tongue every 5 minutes as needed for Pain, Chest. up to 3 doses in 15 minutes 25 Tablet 11 11/12/2023 Active Aspirin 81 MG Oral Tablet Delayed ReleaseIndications :Abnormal nuclear stress test Take 1 Tablet by mouth in the morning. 0 11/12/2023 Active Contrast Allergy PreMed Pack 3 x 50 MG & 1 x 50 MG Oral Kit (predniSONE & diphenhydrAMINE)In dications:Contrast media allergy Take 1 prednisone 50mg tab 13 hours prior to cath; Take 1 prednisone 50mg tab 7 hours prior to cath; Take 1 prednisone 50mg tab and 1 diphenhydramine 50mg tab 1hour prior to cath. 1 Kit 0 11/22/2023 Active Clopidogrel Bisulfate 75 MG Oral Tablet (pLAVix) Take 1 Tablet by mouth in the morning. Do not start before November 27, 2023. 90 Tablet 3 11/27/2023 Active Rosuvastatin Calcium 20 MG Oral Tablet (Crestor) Take 1 Tablet by mouth every afternoon. Do not start before November 27, 2023. 90 Tablet 3 11/27/2023 Active documented as of this encounter (statuses as of 11/27/2023) Active Problems Problem Noted Date Diagnosed Date S/P angioplasty with stent 11/26/2023 Abnormal stress test 11/26/2023 Coronary artery disease invo lving [place] coronary artery of [place] heart without angina pectoris 11/22/2023 Hypercalcemia 10/10/2023 [...] carcinoma (scalp, L cheek, L neck, L pentecostal 10/31) Knee joint replacement status 09/11/2014 Spinal [...] MCG/0.3 mL, 12 YRS AND ABOVE, IM ([employer]-Comirnat) 10/01/2023 COVID-19, mRNA, LNP-s, PF, B ooster, [...] on file documented as of this encounter Miscellaneous Notes * Telephone Encounter - Gillian Chu OSA - 11/27/2023 1:39 PM EST Attempted to call patient to schedule hospital d/c follow for positive COVID admission. Call attempt #: 1 Phone number called: [phone]-LM/ MYG sent If patient calls in, please schedule HD appointment video visit. If patient declines video visit, schedule in-office visit. If patient declines both, send Telephone Encounter to the PCP clinic nurse pool (High Priority) documented in this encounter Plan of Treatment Upcoming Encounters Date Type Department Care Team (Late st Contact Info) Description 12/05/2023 10:00 AM EST Cardiac Studies Cardiac Studies [address] [place] [address] 12/13/2023 9:30 AM EST Telemedicine Interventional Pain Center, [facility] [address] [place] [address] Coty Billy PA-C [address] [place] [address] 12/31/2023 8:00 AM EST Office Visit Sleep Disorders Ctr [facility] [address] [place] [phone] Jayla Adler DO [address] [place] [address] 01/15/2024 2:20 PM EST Office Visit Dermatology [address] [place] [address] Andria Chahal PA-C [address] [place] [address] [place] [address] 02/06/2024 9:30 AM EDT Imaging Radiology [facility] [facility] [address] [place] [address] 02/13/2024 10:00 AM EDT Office Visit Cardiology, [facility] [address] [place] [address] Ana Espinoza CRNP [address] [place] [address] 05/06/2024 8:50 AM EDT Office Visit Family Medicine [address] [place] [phone] Brooke Li, [address] [place] [address] 08/13/2024 8:30 AM EDT Nurse Only Ancillary [address] [place] [address] [place], Nurse [address] [place] [address] Scheduled Procedures Name Priority Associated Diagnoses Date/Ti [...] this encounter Medical Devices Implanted Type Area Body Builder Apprentice Device Identifier Shelf Expiration Date Model / Serial / Lot Stent 0.014in 2.5x16mm [id number] X[employer] Delivery Coronary - [id number] Implanted:Qty: 1 on 11/26/2023 by Jana Velasquez MD at [facility] [employer] [id number] 07/16/2024 [id number] / / [id number] documented as of this encounter Additional Health Concerns Infection Onset [...] the patient have Health Care Power of Mammographer? No Care Teams Postal Mail Carrier Relationship Specialty Start Date End Date Brooke Li DO [address] [place] [address] [place] [phone] PCP - General Internal Medicine 08/08/22 documented as of this encounter
--- OUTSIDE RECORDS SUMMARY | 2023-11-29 04:52 | External Medical Summary ---
Author Name Unknown Address Unknown Organization [id number]:[facility] [place] [address] [facility] [address] Laboratory Report Ordering Provider Test Date Status ELIZABETH CEE 11/26/2023 18:35:30 Final SCREENING Observation Date Value Abnormality Reference (Units ) Status SARS Coronavirus 2 11/26/2023 18:35:30 Positive Abnormal N egative Final 2019 Novel Coronavirus detec laci. Test results reported to [facility].

This express test was developed and its performance characteristics determined by [facility]. It has not been cleared or approved [...] (RT-PCR) test, or a Centers for Disease Control-acceptable equivalent. The test is performed in a high complexity Clinical Laboratory Improvement Amendments-(CLIA) certified laboratory. The test is acceptable for SARS-CoV-2 diagnosis, surveillance, and travel within the [place] and to most countries. Please check with local testing authorities about requirements before travel.

The validation of bronchial specimens, tracheal aspirates, and sputum for this assay was developed and performance characteristics determined by [facility]. The validation of alternate specimen types has not been cleared or approved by the U.S. Food and Drug Administration (FDA). It has been determined that such clearance is not necessary. Performing Location [facility] [place] [address] [facility] [address]
--- OUTSIDE RECORDS SUMMARY | 2023-11-29 04:52 | External Medical Summary ---
Author Name Unknown Address Unknown Organization K01:[facility] [place] [address] [facility] [place] [address] Laboratory Report Ordering Provider Test Date Status ELIZABETH CEE 11/27/2023 05:02:00 Final Observation Date Value Abnormality Reference (Units ) Status Triglyceride 11/27/2023 05:02:00 70 <=174 ( mg/dL) Final Triglyceride Reference Range s (mg/dL):
<150 Acceptable
150-174 Borderline high
175-499 High
>=500 Very high Cholesterol 11/27/2023 05:02:00 105 <200 (mg /dL) Final Total Cholesterol Reference Ranges (mg/dL):
<200 Desirable
200-239 Borderline high
>=240 High HDL 11/27/2023 05:02:00 38 Below low normal >39 (mg/dL) Final HDL Cholesterol Reference Ra nges (mg/dL):
>=60 High (Desirable)
<50 Low (Undesirable) For Females
<40 Low (Undesirable) For Males NON-HDL CHOLESTEROL 11/27/2023 05:02:00 67 <=159 (mg/dL) Final Non-HDL Cholesterol Referenc e Range (mg/dL):
<100 Target level for high risk ASCVD patient
<130 Optimal for general population
130-159 Near optimal for general population
160-189 Borderline High
190-219 High
>=220 Very High LDL, (calculated) 11/27/2023 05:02:00 53 <= 129 (mg/dL) Final LDL Cholesterol Reference Ra nges (mg/dL):
<70 Target level for high risk ASCVD patient
<100 Optimal for general population
100-129 Near optimal for general population
130-159 Borderline high
160-189 High
>=190 Very high Performing Location [facility] [place] [address] [facility] [address]
--- OUTSIDE RECORDS SUMMARY | 2023-11-29 04:53 | External Medical Summary | Summary of Care ---
Author Name Unknown Organization [facility] Address [address] [place] [address] Phone [phone] Care Team Providers Care Mate First Name Role Phone Jen Brooke Real Primary Care Provider [phone] Reason for Visit * Reason Onset Date Comments Abnormal Test Results 11/12/2023 Encounter Details Date Type Department Care Team (Late st Contact Info) Description 11/12/2023 Telephone Cardiology, [facility] [address] [place] [address] Micheal Almanzar DO [address] [place] [address] Abnormal Test Results Allergies Active Allergy Reactions Criticality Noted Date Comments Adhesive Tape 09/11/2014 "burn" Doxycycline 06/19/2018 Dizzy, very nauseated Iodinated Contrast Media 12/30/2017 ITCHING documented as of this encounter (statuses as of 11/12/2023) Medications Medication Sig Dispensed Refills Start Date [...] AT BEDTIME 90 Capsule 3 11/12/2023 Active documented as of this encounter (statuses as of 11/12/2023) Active Problems Problem Noted Date Diagnosed Date Hypercalcemia 10/10/2023 Nonrheumatic aortic valve insufficiency 04/10/20 [...] carcinoma (scalp, L cheek, L neck, L yazidism 10/31) Knee joint replacement status 09/11/2014 Spinal stenosis, lumbar iris on, with neurogenic claudication 09/04/2012 ADVANCE DIRECTIVE INFORMATION 07/11/2005 Overview: Yes, Patient instructed to provide copy of advance directive for provider to review and to be scanned into Electronic Medical Record Subjective tinnitus 12/29/2004 Nephrolithiasis 04/24/2001 [facility] arthritis, thumb, degenerative documented as of this encounter (statuses as of 11/12/2023) Resolved Problems Problem Noted Date Diagnosed Date [...] as of this encounter (statuses as of 11/12/2023) Immunizations Name Administration Dates Next Due COVID-19 mRNA, LNP-s, No Pre serve, 2-Dose Series (Moderna) 02/09/2021,01/06/2021 COVID-19, MRNA-LNP, 23-24, P F, 30 MCG/0.3 mL, 12 YRS AND ABOVE, IM (PFIZER-Comirnaty) 10/01/2023 COVID-19, mRNA, LNP-s, PF, B ooster, [...] encounter Miscellaneous Notes * Telephone Encounter - Sunshine Roblero CMA - 11/12/2023 3:26 PM EST Appt today to discuss results. * Telephone Encounter - Aan Espinoza CRNP - 11/12/2023 1:13 PM EST Results discussed with Dr. Almanzar. Abnormal nuclear stress suggestive of Left circumflex territory ischemia. Patient needs seen in office to discuss results in detail as well as proceeding with a cardiac cath. Can we get the patient added onto my schedule: Either... 11/13/2022 at 930 am or 3 pm OR 11/14/2022 at 2 pm Ana Saxena CRNP * Telephone Encounter - Micheal Almanzar DO - 11/12/2023 1:09 PM EST The patient underwent a nuclear stress test today as referred by ALPHONSO Tao for the evaluation of dyspnea on exertion and recent diagnosis of paroxysmal atrial fibrillation. This study has what is deemed to be a "significant abnormality" consistent with [place] Act 112 and follow up is therefore recommended. The combined low intensity exercise/pharmacologic myocardial perfusion imaging study is abnormal with evidence of ischemia in the circumflex coronary territory. Perfusion images reveal a moderate-sized anterolateral reversible perfusion defect. Per quantitative analysis, the perfusion defect is 56% reversible. Patient described 10 intensity chest discomfort with stress that resolved in the post stress recovery interval with rest and with the administration of caffeinated cola. Gated SPECT imaging reveals normal myocardial thickening and wall motion. The left ventricular ejection fraction was calculated to be 70% Sinus rhythm was observed throughout the study. Micheal Almanzar DO documented in this encounter Plan of Treatment Upcoming Encounters Date Type Department Care Team (Late st Contact Info) Description 12/05/2023 10:00 AM EST Cardiac Studies Cardiac Studies [address] [place] [address] 12/13/2023 9:30 AM EST Telemedicine Interventional Pain Center, [facility] [address] [place] [address] Coty Billy PA-C [address] [place] [address] 12/31/2023 8:00 AM EST Office Visit Sleep Disorders [facility] [address] [place] [phone] Jayla Adler DO [address] [place] [address] 01/15/2024 2:20 PM EST Office Visit Dermatology [address] [place] [address] Andria Chahal PA-C [address] [place] [address] [place] [address] 02/13/2024 10:00 AM EDT Office Visit Cardiology, [facility] [address] [place] [address] Ana Espinoza CRNP [address] [place] [address] 05/06/2024 8:50 AM EDT Office Visit Family Medicine [address] [place] [phone] Brooke Li, [address] [place] [address] 08/13/2024 8:30 AM EDT Nurse Only Ancillary [address] [place] [address] [place], Nurse [address] [place] [address] Scheduled Procedures Name Priority Associated Diagnoses Date/Ti [...] Not on filedocumented as of this encounter Care Teams Mate First Relationship Specialty Start Date End Date Brooke Li DO [address] [place] [address] [place] [phone] PCP - General Internal Medicine 08/08/22 documented as of this encounter
--- OUTSIDE RECORDS SUMMARY | 2023-11-29 04:53 | External Medical Summary | Summary of Care ---
Author Name Unknown Organization [facility] Address [address] [facility] [address] Phone [phone] Care Team Providers Care Pricer Bagger Name Role Phone Brooke Li Primary Care Provider Reason for Visit * Reason Comments Follow Up Encounter Details Date Type Department Care Team (Late st Contact Info) Description 11/12/2023 3:30 PM EST [facility] [address] [facility] [address] Ana [facility]za CRNP [address] [facility] [address] Abnormal nuclear stress test*; Unstable angina (HCC); KENYON (dyspnea on exertion); Dyslipidemia, goal LDL below 70; PAF (paroxysmal atrial fibrillation) (HCC); Enlarged aorta (HCC) Allergies Active Allergy Reactions Criticality Noted Date [...] carcinoma (scalp, L cheek, L neck, L adventism 10/31) Knee joint replacement status 09/11/2014 Spinal [...] MCG/0.3 mL, 12 YRS AND ABOVE, IM ([facility]) 10/01/2023 COVID-19, mRNA, LNP-s, PF, B ooster, [...] Smoking Tobacco: Never Smokeless Tobacco: Current Snuff Tobacco Cessation:Ready to Q uit: Not Asked; Counseling Given: Not Answered Comments:snuff one can every couple days Alcohol [...] Sign Reading Time Taken Comments Blood Pressure 124/68 11/12/2023 3:09 PM EST Pulse 60 11/12/2023 3:09 PM EST Temperature - - Respiratory Rate - - Oxygen Saturation - - Inhaled Oxygen Concentration - - Weight 68 kg (150 lb) 11/12/2023 3:09 PM EST Height - - Body Mass Index 22.31 08/12/2023 8:42 AM EDT documented in this encounter Patient Instructions * Patient Instructions* Ana Espinoza CRNP - 11/12/2023 3:18 PM EST You have an abnormal stress test- next step is a cardiac cath. 1. Start aspirin 81 mg daily this is IN ADDITION to your Eliquis. 2. Start Cholesterol medication, Crestor/rosuvastatin 10 mg daily 3. Sublingual nitroglycerin was sent to your pharmacy- should symptoms return you should try to take a sublingual nitroglycerin (sit down and rest prior). If symptoms improve after 1 dose please alert our office. If symptoms do not improve you can take a 2nd dose 5 minutes later. I would then recommend calling 911 if symptoms do not improve after that 2nd dose. 4. NO LIFTING MORE THAN 15-20 lbs 5. Over the next few weeks leading up to your heart catheterization please take it easy and try notto do any strenuous activities that could provoke your symptoms. 6. Labs and chest xray today. [facility] Cardiology number: (ask to be connected to [facility] cardiology) or send me a [employer] message with any concerns. documented in this encounter Progress Notes * Ana Espinoza CRNP - 11/12/2023 3:30 PM EST Cardiology Outpatient Visit 11/12/2023 Primary Chief Bank Examiner: NEW PATIENT Past medical history: Paroxysmal atrial fibrillation, newly dx per zio 09/2023 [id number] score of 1 (age) Hyperlipidemia Enlarged aorta, [...] medications and offers no side effects. Current Outpatient Medications Medication Sig Dispense Refill [...] facility-administered medications for this visit. Past Medical History: Diagnosis Date Acute pain [...] keratosis Rotator cuff tear right Past Surgical History: Procedure Laterality Date ARTHROPLASTY KNEE TOTAL 08/03/14 Dr. Hart, left ARTHROPLASTY KNEE TOTAL Right 12/22/2016 COLONOSCOPY W/ BIOPSY (RECTUM) 03/09/08 adenomatous polyps--repeat 6-12 months COLONOSCOPY W/ BIOPSY (RECTUM) 10/25/08 bx's taken - path pending COLONOSCOPY, DIAGNOSTIC (RECTUM) 10/28/09 repeat in 3-5 years COLONOSCOPY, DIAGNOSTIC (RECTUM) 12/25/2017 adenomatous polyps, diverticulosis, repeat 5 yrs/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 PARTIAL REMOVAL OF THYROID LOBE Left 2004 REMOVAL OF KIDNEY STONE 1970 [facility] SHOULDER ARTHROSCOPY/SURGERY Cushion placed in the right shoulder Social History Tobacco Use Smoking status: Never [...] deficits. PSYCH: Normal. Lab data/imaging study review: o 09/2023 Patient had a min HR of [...] Patient prefers catheterization to be done at [facility] [address] All appropriate preoperative cardiac catheterization testing ordered [...] 117, uncontrolled. Triglycerides also elevated at 217. -The 10-year ASCVD risk score (Kathy CHINO, et [...] atrial fibrillation, newly dx per edil 09/2023 -[id number] score of 1 (age) 1. Continue metoprolol tartrate 25 mg twice daily, future considerations of transitioning to succinate formulary 2. Continue Eliquis 5 mg twice daily for stroke prevention 3. 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 Notes significant history of snoring. Will [...] and documentation ofthe care provided to Moises Fregoso excluding any time spent in the performance of separately billed services. ALPHONSO Currie, Department of Cardiology This chart was completed in part utilizing [employer] Speech Voice Recognition Software. Grammatical errors, random word insertions, prounoun errors, and incomplete sentences are an occasional consequence of this system due to software limitations, ambient noise, and hardware issues. Any formal questions or concerns about the content, text, or information contained within the body of this dictation should be directly addressed to the provider for clarification. documented in this encounter Nursing Notes * Sunshine Roblero CMA - 11/12/2023 3:08 PM EST Examination Room: 4 Name: Moises Fregoso Date of : (1945) Reason for Visit: go over stress test results Interim Hospitalization(s): none Problems/Concerns: denied Chest Pain/SOB: denied [facility] is a way you can talk to your provider online through e-mail. Would you like to sign up? I can activate it for you? ALREADY ACTIVE Patient was instructed to not get up on the exam table until directed and assisted by their provider; patient is to remain seated in the chair/ wheelchair/ exam table for fall prevention and safety reasons. Patient is aware to have assistance to step down off exam table with personnel. Patient voiced full comprehension of instructions. documented in this encounter Plan of Treatment Upcoming Encounters Date Type Department Care Team (Late st Contact Info) Description 12/05/2023 10:00 AM EST Cardiac Studies Cardiac Studies [address] [place] [address] 12/13/2023 9:30 AM EST Telemedicine Interventional Pain Center, [address] [place] [address] Coty Billy PA-C [address] [place] [address] 12/31/2023 8:00 AM EST Office Visit Sleep Disorders [facility] [address] [place] [phone] Jayla Adler, [address] [place] [address] 01/15/2024 2:20 PM EST Office Visit Dermatology [address] [place] [address] Andria Chahal PA-C [address] [place] [address] [place] [address] 02/13/2024 10:00 AM EDT Office Visit Cardiology, Health system [address] [place] [address] Ana Espinoza CRNP [address] [place] [address] 05/06/2024 8:50 AM EDT Office Visit Family Medicine [address] [place] [phone] Brooke Li, [address] [place] [address] 08/13/2024 8:30 AM EDT Nurse Only Ancillary [address] [place] [address] [place], Nurse [address] [place] [address] Pending Results Name Type Priority Associated Diagnoses Date /Time APTT Lab Routine Abnormal nuclear stress test 11/12/2023 3:54 PM EST BASIC METABOLIC PANEL Lab Routine Abnormal nuclear stress test 11/12/2023 3:54 PM EST CBC WITH WBC DIFFERENTIAL Lab Routine Abnormal nuclear stress test 11/12/2023 3:54 PM EST PT INR Lab Routine Abnormal nuclear stress test 11/12/2023 3:54 PM EST XR CHEST 2 VIEWS Medical Imaging Routine Abnormal nuclear stress test 11/12/2023 4:04 PM EST Scheduled Orders Name Type Priority Associated Diagnoses Orde r Schedule APTT Lab Routine Abnormal nuclear stress test Expected: 11/12/2023, Expires: 11/12/2024 BASIC METABOLIC PANEL Lab Routine Abnormal nuclear stress test Expected: 11/12/2023, Expires: 11/12/2024 CARDIAC CATH-CARDIOLOGY ONLY Procedures Routine Abnormal nuclear stress test Ordered: 11/12/2023 CBC WITH WBC DIFFERENTIAL Lab Routine Abnormal nuclear stress test Expected: 11/12/2023, Expires: 11/12/2024 EKG COMPLETE (TRACING AND INTERP) EKG Routine Abnormal nuclear stress test Ordered: 11/12/2023 PT INR Lab Routine Abnormal nuclear stress test Expected: 11/12/2023, Expires: 11/12/2024 Scheduled Procedures Name Priority Associated Diagnoses Date/Ti [...] Not on filedocumented as of this encounter Visit Diagnoses Diagnosis Abnormal nuclear stress test- Primary Other nonspecific abnormal cardiovascular system function study Unstable angina (HCC) Intermediate coronary syndrome KENYON (dyspnea on exertion) Other dyspnea and respiratory abnormality Dyslipidemia, goal LDL below 70 Other and unspecified hyperlipidemia PAF (paroxysmal atrial fibrillation) (HCC) Atrial fibrillation Enlarged aorta (HCC) Other specified disorders of arteries and arterioles documented in this encounter Care Teams Pricer Bagger Relationship Specialty Start Date End Date Brooke Li DO [address] [place] [address] [place] [address] PCP - General Internal Medicine 08/08/22 documented as of this encounter
--- OUTSIDE RECORDS SUMMARY | 2023-11-29 04:53 | External Medical Summary | Summary of Care ---
Author Name Unknown Organization [facility] Address [address] [facility] [place] [address] Phone [phone] Care Team Providers Care Outside Sales Representative Insurance Name Role Phone Brooke Li Primary Care Provider Reason for Referral * Precert (Within 10 days (routine)) - Pending Review Specialty Diagnoses / Procedures Referred By Lanny mcbride Referred To Contact Radiology Diagnoses Abnormal finding on chest xray Procedures CT CHEST WO CONTRAST Ana Espinoza CRNP [address] [place] [address] Referral ID Status Reason Start Date Expiration Date V isits Requested Visits Authorized [id number] Pending Review 11/29/[phone] Reason for Visit * Reason Onset Date Comments Test Results 11/15/2023 Encounter Details Date Type Department Care Team (Late st Contact Info) Description 11/15/2023 Telephone Cardiology, [facility] [address] [place] [address] Ana Espinoza CRNP [address] [place] [phone] Test Results Allergies Active Allergy Reactions Criticality Noted Date Comments Adhesive Tape 09/11/2014 "burn" Doxycycline 06/19/2018 Dizzy, very nauseated Iodinated Contrast Media 12/30/2017 ITCHING documented as of this encounter (statuses as of 11/15/2023) Medications Medication Sig Dispensed Refills Start Date End Date Status HERRERA RUBI PO TABS Take by mouth. 0 09/11/2014 [...] as of this encounter (statuses as of 11/15/2023) Active Problems Problem Noted Date Diagnosed Date [...] carcinoma (scalp, L cheek, L neck, L orthodoxy 10/31) Knee joint replacement status 09/11/2014 Spinal stenosis, lumbar iris on, with neurogenic claudication 09/04/2012 ADVANCE DIRECTIVE INFORMATION 07/11/2005 Overview: Yes, Patient instructed to provide copy of advance directive for provider to review and to be scanned into Electronic Medical Record Subjective tinnitus 12/29/2004 Nephrolithiasis 04/24/2001 [facility] arthritis, thumb, degenerative documented as of this encounter (statuses as of 11/15/2023) Resolved Problems Problem Noted Date Diagnosed Date [...] as of this encounter (statuses as of 11/15/2023) Immunizations Name Administration Dates Next Due COVID-19 mRNA, LNP-s, No Pre serve, 2-Dose Series (Moderna) 02/09/2021,01/06/2021 COVID-19, MRNA-LNP, 23-24, P F, 30 MCG/0.3 mL, 12 YRS AND ABOVE, IM ([email or web address]) 10/01/2023 COVID-19, mRNA, LNP-s, PF, B ooster, [...] Telephone Encounter - Sunshine Roblero CMA - 11/15/2023 9:40 AM EST My g sent. Order placed for chest CT. * Telephone Encounter - Sunshine Roblero CMA - 11/15/2023 9:35 AM EST Images from the original note were not included. Ana Espinoza CRNP [facility] Cardiology Nurse Pool/Class Chest x-ray did not show any acute findings however there is an area that could reflect infiltrate,lesion or new fat pad. Upon my review of the study it looks to be either bowel or atelectasis. I recommend him getting a noncontrast chest CT for further evaluation, however this does not need to be done prior to his heart catheterization. * Telephone Encounter - Sunshine Roblero CMA - 11/15/2023 9:34 AM EST ----- Message from ALPHONSO Denton sent at 11/13/2023 7:54 AM EST ----- Pre cath Blood work generally stable. Creatinine was mildly elevated. Please make sure he is staying well hydrated. CBC showed a slightly low hemoglobin. This is something we will monitor. documented in this encounter Plan of Treatment Upcoming Encounters Date Type Department Care Team (Latest Contact Info) Description 11/22/2023 7:00 AM EST Hospital Encounter CRS Waiting [facility], Cardiac Recovery Suite Waiting Unit, [address] [place] [address] Edson Ramos MD [facility] [place] [address] 11/22/2023 7:00 AM EST - 11/22/2023 8:00 AM EST Surgery CRS Waiting [facility], Cardiac Recovery Suite Waiting Unit, H [address] [place] [address] Edson Ramos MD [facility] [place] [address] CORONARY ANGIOGRAPHY W/LEFT HEART CATH 11/22/2023 7:00 AM EST Office Visit Cardiology [facility] [address] [place] [address] [place], Cardiac Recovery Nic [address] [place] [facility] [place] [address] 12/05/2023 10:00 AM EST Cardiac Studies Cardiac Studies [address] [place] [address] 12/13/2023 9:30 AM EST Telemedicine Interventional Pain Center, [facility] [address] [place] [address] Coty Billy PA-C [address] [place] [address] 12/31/2023 8:00 AM EST Office Visit Sleep Disorders [facility] [address] [place] [phone] Jayla Adler DO [address] [place] [address] 01/15/2024 2:20 PM EST Office Visit Dermatology [address] [place] [address] Andria Chahal PA-C [address] [place] [address] [place] [address] 02/13/2024 10:00 AM EDT Office Visit Cardiology, [facility] [place] [address] Ana Espinoza CRNP [address] [place] [address] 05/06/2024 8:50 AM EDT Office Visit Family Medicine [address] [place] [phone] Brooke Li [address] [place] [address] 08/13/2024 8:30 AM EDT Nurse Only Ancillary Malini Gonzalez[address] [place] [address] [place] Nurse [address] [place] [address] Scheduled Orders Name Type Priority Associated Diagnoses Orde r Schedule CT CHEST WO CONTRAST Medical Imaging Routine Abnormal finding on chest xray Expected: 11/29/2023 (Approximate), Expires: 12/16/2024 Scheduled Procedures Name Priority Associated Diagnoses Date/Ti me CORONARY ANGIOGRAPHY W/LEFT HEART CATH Abnormal stress test 11/22/2023 7:00 AM EST COLONOSCOPY FLEXIBLE PROXIMAL DIAGNOSTIC Recall [...] of this encounter Visit Diagnoses Diagnosis Abnormal finding on chest xray- Primary Other nonspecific abnormal finding of lung field Abnormal stress test Other nonspecific abnormal cardiovascular system function study documented in this encounter Care Teams Outside Sales Representative Insurance Relationship Specialty Start Date End Date Brooke Li DO [address] [place] [address] [place] [address] PCP - General Internal Medicine 08/08/22 documented as of this encounter
--- OUTSIDE RECORDS SUMMARY | 2023-11-29 04:53 | External Medical Summary | Summary of Care ---
Author Name Unknown Organization [facility] Address [address] [facility] [place] [address] Phone [phone] Care Team Providers Care Trust Accounts Supervisor Name Role Phone LiBrooke DO Primary Care Provider Encounter Details Date Type Department Care Team (Late st Contact Info) Description 11/06/2023 9:20 AM EST Office Visit Dermatology [address] [place] [address] Andria Chahal PA-C [address] [place] [address] [place] [address] Canceled (Provider cancels greater than 30 days) Allergies Active Allergy Reactions Criticality Noted Date [...] as needed. 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 Never true 10/02/20 23 Within the past 12 months, t [...] as of this encounter Miscellaneous Notes * Result Encounter Note - Ana Espinoza CRNP - 11/12/2023 1:20 PM EST See TE 11/12/2023 documented in this encounter Plan of Treatment Upcoming Encounters Date Type Department Care Team (Late st Contact Info) Description 12/05/2023 10:00 AM EST Cardiac Studies Cardiac Studies [address] [place] [address] 12/13/2023 9:30 AM EST Telemedicine Interventional Pain Center, [facility] [address] [place] [address] Coty Billy PA-C [address] [place] [address] 12/31/2023 8:00 AM EST Office Visit Sleep Disorders Ctr [facility] [address] [place] [phone] Jayla Adler DO [address] [place] [address] 01/15/2024 2:20 PM EST Office Visit Dermatology [address] [place] [address] Andria Chahal PA-C [address] [place] [address] [place] [address] 02/13/2024 10:00 AM EDT Office Visit Cardiology, [facility] [address] [place] [address] Ana Espinoza CRNP [address] [place] [address] 05/06/2024 8:50 AM EDT Office Visit Family Medicine [address] [place] [phone] Brooke Li, [address] [place] [address] 08/13/2024 8:30 AM EDT Nurse Only Ancillary [address] [place] [address] [place], Nurse Annual [address] [place] [address] Scheduled Procedures Name Priority Associated Diagnoses Date/Ti [...] Not on filedocumented as of this encounter Procedures Procedure Name Priority Date/Time Associated Diagnosis Comments NM MYOCARDIAL PERFUSION IMAGING SPECT MULTIPLE STUDIES WITH PHARMACOLOGIC INTERVENTION Routine 11/12/2023 8:30 AM EST documented in this encounter Results * NM MYOCARDIAL PERFUSION IMAGING SPECT MULTIPLE STUDIES WITH PHARMACOLOGIC INTERVENTION (11/12/2023 8:30 AM EST) 11/12/2023 8:30 AM EST Ana WERNER RAD NUCLEAR MED Performing Organization Address City/State/[facility] Co wa Phone Number [facility] documented in this encounter Care Teams Trust Accounts Supervisor Relationship Specialty Start Date End Date Brooke Li DO [address] [place] [address] [place] [address] PCP - General Internal Medicine 08/08/22 documented as of this encounter
--- OUTSIDE RECORDS SUMMARY | 2023-11-29 04:53 | External Medical Summary | Summary of Care ---
Author Name Unknown Organization [facility] Address [address] [place] [address] Phone [phone] Care Team Providers Care Registered Nurse Cardiovascular Icu Name Role Phone Brooke Li DO Primary Care Provider [phone] Reason for Visit * Reason Onset Date Comments Order Request 11/22/2023 Encounter Details Date Type Department Care Team (Late st Contact Info) Description 11/22/2023 Telephone [facility] [place] [address] [place] [address] Anika Trejo DO [address] [place] [address] Order Request Allergies Active Allergy Reactions Criticality Noted Date [...] Active Rosuvastatin Calcium 10 MG Oral Tablet (Crestor)Indicatio ns:Abnormal nuclear stress test Take 1 Tablet by mouth in the morning. 30 Tablet 11 11/12/2023 Active Contrast Allergy PreMed Pack 3 x 50 MG & 1 x 50 MG Oral Kit (predniSONE & diphenhydrAMINE)In dications:Contrast media allergy Take 1 prednisone 50mg tab 13 hours prior to cath; Take 1 prednisone 50mg tab 7 hours prior to cath; Take 1 prednisone 50mg tab and 1 diphenhydramine 50mg tab 1hour prior to cath. 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 He was given the following instructions: -take last dose of Eliquis 1/13 PM -Take 1 prednisone 50mg tab 13 hours prior to cath; -Take 1 prednisone 50mg tab 7 hours prior to cath; -Take 1 prednisone 50mg tab 1 hour prior cath; -Take 1 diphenhydramine 50mg tab 1hour prior to cath. documented in this encounter Plan of Treatment Upcoming Encounters Date Type Department Care Team (Latest Contact Info) Description 11/26/2023 10:00 AM EST Hospital Encounter CRS Waiting [facility] Cardiac Recovery Suite Waiting Unit, H [address] [place] [address] Jana Velasquez MD [address] [place] [address] 11/26/2023 10:00 AM EST - 11/26/2023 11:00 AM EST Surgery CRS Waiting [facility] Cardiac Recovery Suite Waiting Unit, H [address] [place] [facility] [address] Jana Velasquez MD [address] [place] [address] CORONARY ANGIOGRAPHY W/LEFT HEART CATH 11/26/2023 10:00 AM EST Office Visit Cardiology [facility] [place] [address] [place] [address] [facility] Cardiac Recovery [facility] [address] [place] [address] 12/05/2023 10:00 AM EST Cardiac Studies Cardiac Studies [address] [place] [address] 12/13/2023 9:30 AM EST Telemedicine Interventional Pain Center, [facility] [address] [place] [address] Coty Billy PA-C [address] [place] [address] 12/31/2023 8:00 AM EST Office Visit Sleep Disorders Ctr [facility] [address] [place] [phone] Jayla Adler DO [address] [place] [address] 01/15/2024 2:20 PM EST Office Visit Dermatology [address] [place] [address] Andria Chahal PA-C [address] [place] [address] [place] [address] 02/06/2024 9:30 AM EDT Imaging Radiology [address] [facility] [place] [address] 02/13/2024 10:00 AM EDT Office Visit Cardiology, [facility] [address] [place] [address] Ana Espinoza CRNP [address] [place] [address] 05/06/2024 8:50 AM EDT Office Visit Family Medicine [address] [place] [phone] Brooke Li, [address] [place] [address] [place] [address] 08/13/2024 8:30 AM EDT Nurse Only Ancillary [address] [place] [address] [place], Nurse Annual [address] [place] [address] Scheduled Procedures Name Priority Associated Diagnoses Date/Ti [...] as of this encounter Visit Diagnoses Diagnosis Contrast media allergy- Primary Allergy to radiographic dye Abnormal stress test Other nonspecific abnormal cardiovascular system function study documented in this encounter Care Teams Registered Nurse Cardiovascular Icu Relationship Specialty Start Date End Date Brooke Li DO [address] [place] [address] [place] [phone] PCP - General Internal Medicine 08/08/22 documented as of this encounter
--- OUTSIDE RECORDS SUMMARY | 2023-11-29 04:53 | External Medical Summary | Summary of Care ---
Author Name Unknown Organization [facility] Address [address] [facility] [address] Phone [phone] Care Team Providers Care Senior Data Architect Name Role Phone LiBeccaBrooke Addie DORMAN Primary Care Provider [phone] Reason for Visit * Reason Comments Outpatient Testing Encounter Details Date Type Department Care Team (Late st Contact Info) Description 11/12/2023 4:00 PM EST Laboratory Laboratory, [facility] [address] [place] [phone] [facility] [address] [place] [address] Abnormal nuclear stress test Allergies Active Allergy Reactions Criticality Noted Date [...] carcinoma (scalp, L cheek, L neck, 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) Knee joint replacement status 09/11/2014 Spinal [...] MCG/0.3 mL, 12 YRS AND ABOVE, IM ([employer]) 10/01/2023 COVID-19, mRNA, LNP-s, PF, B ooster, [...] on file documented as of this encounter Plan of Treatment Upcoming Encounters Date Type Department Care Team (Late st Contact Info) Description 12/05/2023 10:00 AM EST Cardiac Studies Cardiac Studies [address] [place] [address] 12/13/2023 9:30 AM EST Telemedicine Interventional Pain Center, [facility] [address] [place] [address] Coty Billy PA-C [address] [place] [address] 12/31/2023 8:00 AM EST Office Visit Sleep Disorders Ctr [facility] [address] [place] [phone] Jayla Adler DO [address] [place] [address] 01/15/2024 2:20 PM EST Office Visit Dermatology [address] [place] [address] Andria Chahal PA-C [address] [place] [address] [place] [address] 02/13/2024 10:00 AM EDT Office Visit Cardiology, [facility] [address] [place] [address] Ana Espinoza CRNP [address] [place] [address] 05/06/2024 8:50 AM EDT Office Visit Family Medicine [address] [place] [phone] Brooke Li [address] [place] [address] 08/13/2024 8:30 AM EDT Nurse Only Ancillary [address] [place] [address] [place], Nurse [address] [place] [address] Pending Results Name Type Priority Associated Diagnoses Date /Time APTT Lab Routine Abnormal nuclear stress test 11/12/2023 3:54 PM EST BASIC METABOLIC PANEL Lab Routine Abnormal nuclear stress test 11/12/2023 3:54 PM EST CBC WITH WBC DIFFERENTIAL Lab Routine Abnormal nuclear stress test 11/12/2023 3:54 PM EST PT INR Lab Routine Abnormal nuclear stress test 11/12/2023 3:54 PM EST CBC Lab Routine Abnormal nuclear stress test 11/12/2023 3:54 PM EST DIFFERENTIAL, AUTOMATED Lab Routine Abnormal nuclear stress test 11/12/2023 3:54 PM EST Scheduled Procedures Name Priority Associated Diagnoses Date/Ti [...] encounter Visit Diagnoses Diagnosis Abnormal nuclear stress test Other nonspecific abnormal cardiovascular system function study documented in this encounter Care Teams Senior Data Architect Relationship Specialty Start Date End Date Brooke Li DO [address] [place] [address] [place] [address] PCP - General Internal Medicine 08/08/22 documented as of this encounter
--- OUTSIDE RECORDS SUMMARY | 2023-11-29 04:53 | External Medical Summary | Summary of Care ---
Author Name Unknown Organization [facility] Address [address] [facility] [place] [address] Phone [phone] Care Team Providers Care Grounds Maintenance Supervisor Name Role Phone Jen Brooke Real Primary Care Provider [phone] Reason for Visit * Reason Onset Date Comments Abnormal Test Results 11/12/2023 Encounter Details Date Type Department Care Team (Late st Contact Info) Description 11/12/2023 Telephone Cardiology, [facility] [address] [place] [address] Micheal Almanzar DO [address] [place] [address] Abnormal Test Results Allergies Active Allergy Reactions [...] carcinoma (scalp, L cheek, L neck, 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 * Telephone Encounter - Ana Espinoza CRNP - 11/12/2023 1:13 PM EST [...] Department Care Team (Latest Contact Info) Description 11/12/2023 3:30 PM EST Office Visit Cardiology, [facility] [address] [place] [address] Ana Espinoza CRNP [address] [place] [address] Abnormal nuclear stress test* 12/05/2023 10:00 AM EST Cardiac Studies Cardiac Studies [address] [place] [address] 12/13/2023 9:30 AM EST Telemedicine Interventional Pain Center, [facility] [address] [place] [address] Coty Billy PA-C [address] [place] [address] 12/31/2023 8:00 AM EST Office Visit Sleep Disorders Ctr [facility] [address] [place] [phone] Jayla Adler DO [address] [place] [address] 01/15/2024 2:20 PM EST Office Visit Dermatology [address] [place] [address] Andria Chahal PA-C [address] [place] [address] [place] [address] 02/13/2024 10:00 AM EDT Office Visit Cardiology, [facility] [address] [place] [address] Ana Espinoza CRNP [address] [place] [address] 05/06/2024 8:50 AM EDT Office Visit Family Medicine [address] [place] [phone] Brooke Li, [address] [place] [address] 08/13/2024 8:30 AM EDT Nurse Only Ancillary [address] [place] [address] [place], Nurse Annual [address] [place] [address] Scheduled Procedures Name Priority Associated Diagnoses Date/Ti [...] filedocumented as of this encounter Care Teams Grounds Maintenance Supervisor Relationship Specialty Start Date End Date Brooke Li DO [address] [place] [address] [place] [address] PCP - General Internal Medicine 08/08/22 documented as of this encounter
--- OUTSIDE RECORDS SUMMARY | 2023-11-29 04:54 | External Medical Summary | Summary of Care ---
Author Name Unknown Organization [facility] Address [address] [facility] [address] Phone [phone] Care Team Providers Care Loft Worker Name Role Phone Nitza Jones DO Primary Care Provider Reason for Referral * Medication Prior Authorization - Pending Review Specialty Diagnoses / Procedures Referred By Contac t Referred To Contact Diagnoses Spinal stenosis, lumbar region, with neurogenic claudication Nitza Jones DO [address] [place] [address] [place] [address] Referral ID Status Reason Start Date Expiration Date V isits Requested Visits Authorized [id number] Pending Review 999 999 Reason for Visit * Reason Onset Date Comments Medication Refill 10/28/2023 Encounter Details Date Type Department Care Team (Late st Contact Info) Description 10/28/2023 Refill Family Medicine [address] [place] [phone] Kaleb Katz MD [address] [place] [address] [place] [address] Spinal stenosis, lumbar region, with neurogenic claudication Allergies Active Allergy Reactions Criticality Noted Date Comments Adhesive Tape 09/11/2014 "burn" Doxycycline 06/19/2018 Dizzy, very nauseated Iodinated Contrast Media 12/30/2017 ITCHING documented as of this encounter (statuses as of 10/30/2023) Medications Medication Sig Dispensed Refills Start Date End Date Status CENTRDENVER SILVER PO TABS 0 09/11/2014 Active Vitamin C 100 MG [...] 0.36 GM Oral Capsule (Psyllium) Take by mouth . 0 Active Gabapentin 400 MG Oral Capsule (Neurontin) TAKE ONE CAPSULE BY MOUTH AT BEDTIME 90 Capsule 3 12/14/2022 Active Apixaban 5 MG Oral Tablet (Eliquis) [...] take an extra half pill as needed. Continued script 45 Tablet 0 10/30/2023 Active oxyCODONE-Acetamin ophen 5-325 MG Oral Tablet (Percocet)Indicati ons:Spinal stenosis, lumbar region, with neurogenic claudication Take 1 Tablet by mouth daily as needed for Pain, Severe. Make take an extra half pill as needed. 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) Knee joint replacement status 09/11/2014 Spinal stenosis, lumbar iris on, with neurogenic claudication 09/04/2012 ADVANCE DIRECTIVE INFORMATION 07/11/2005 Overview: Yes, Patient instructed to provide copy of advance directive for provider to review and to be scanned into Electronic Medical Record Subjective tinnitus 12/29/2004 Nephrolithiasis 04/24/2001 [facility] arthritis, thumb, degenerative documented as of this encounter (statuses as of 10/30/2023) Resolved Problems Problem Noted Date Diagnosed Date [...] as of this encounter (statuses as of 10/30/2023) Immunizations Name Administration Dates Next Due COVID-19 mRNA, LNP-s, No Pre serve, 2-Dose Series (Moderna) 02/09/2021,01/06/2021 COVID-19, MRNA-LNP, 23-24, P F, 30 MCG/0.3 mL, 12 YRS AND ABOVE, IM ([employer]-Comirnaty) 10/01/2023 COVID-19, mRNA, LNP-s, PF, B ooster, [...] encounter Miscellaneous Notes * Telephone Encounter - Nitza Jones DO - 10/30/2023 9:10 AM ESTSigned Prescriptions: Disp Refills oxyCODONE-Acetaminophen 5-325 MG Oral Tabl*45 Tab*0 Sig: Take 1 Tablet by mouth daily as needed for Pain, Severe. Make take an extra half pill as needed. Continued script Authorizing Provider: NITZA JONES * Telephone Encounter - Erin Lee, [facility] - 10/30/2023 8:37 AM EST Pending Prescriptions: Disp Refills oxyCODONE-Acetaminophen 5-325 MG Oral Tabl*45 Tab*0 Sig: Take 1 Tablet by mouth daily as needed for Pain, Severe. Make take an extra half pill as needed. Continued script * Telephone Encounter - Erin Lee [facility] - 10/30/2023 8:37 AM EST I am leaving for [place] on the Nov.12. My script will before I come back . would like to get before then. due to the holidays it would need to be next week , please. Daniel Saxena * Telephone Encounter - Steffi Raymundo, [facility] - 10/30/2023 7:47 AM EST Postponing until 11/06 I have reviewed the patients controlled substance dispensing history in the Prescription Drug Monitoring Program in compliance with the [facility] regulations before prescribing a controlled substance. PDMP checked on 10/30/2023. Pending Prescriptions: Disp Refills oxyCODONE-Acetaminophen 5-325 MG Oral Tab*45 Tab*0 Sig: Take 1 Tablet by mouth daily as needed for Pain, Severe. Make take an extra half pill as needed. Continued script Last Visit: 10/01/2023 (in office), Visit date not found (telemedicine) Next Visit: 05/06/2024 Date medication was last filled: 10/12 Date medication is due for refill: 11/10 [facility] [address] [place] Is this request for a controlled substance? Yes and Urine Drug Screen was completed Toxicology results: Results for orders placed or performed in visit on 03/26/23 PAIN MANAGEMENT DRUG PANEL, URINE W/ INTERPRETATION Result Value Compliance Interpretation Based on the medication information provided: The positive oxycodone screening result is CONSISTENT with oxycodone use. Confirmatory testing is available upon request. Amphetamines Screen, U Negative Benzodiazepines Screen, U Negative Cannabinoids Screen, U Negative Cocaine Metabolite Screen, U Negative Fentanyl Screen, U Negative Hydrocodone Screen, U Negative Methadone Metabolite Screen, U Negative Morphine/Codeine Screen, U Negative Oxycodone Screen, U Positive (A) Valid Interpretation Normal Creatinine, U 179 Narrative Cutoff Concentrations: Drug Level Amphetamines 500 ng/mL Benzodiazepines 100 ng/mL Cannabinoids 50 ng/mL Cocaine Metabolite 150 ng/mL Fentanyl 1 ng/mL Hydrocodone / Hydromorphone 300 ng/mL Methadone Metabolite 100 ng/mL Morphine / Codeine 300 ng/mL Oxycodone / Oxymorphone 100 ng/mL Screening results are presumptive and can only be used for medical purposes. Confirmatory testing is available upon request. *Note: Due to a large number of results and/or encounters for the requested time period, some results have not been displayed. A complete set of results can be found in Results Review. Please approve if appropriate. Thank you, Steffi Raymundo, PharmD. Clinical Pharmacist [facility] ([facility]) (formerly Telepharmacy) 10/30/2023, 7:47 AM documented in this encounter Plan of Treatment Upcoming Encounters Date Type Department Care Team (Late st Contact Info) Description 11/01/2023 11:30 AM EST Office Visit Cardiology, [facility] [address] [place] [address] Ana Espinoza CRNP [address] [place] [address] 01/15/2024 2:20 PM EST Office Visit Dermatology [address] [place] [address] Andria Chahal PA-C [address] [place] [address] [place] [address] 05/06/2024 8:50 AM EDT Office Visit Family Medicine [address] [place] [phone] Nitza Jones, [address] [place] [address] 08/13/2024 8:30 AM EDT Nurse Only Ancillary [address] [place] [address] [place], Nurse Annual [address] [place] [address] Scheduled Procedures Name Priority Associated Diagnoses Date/Ti [...] as of this encounter Visit Diagnoses Diagnosis Spinal stenosis, lumbar region, with neurogenic claudication documented in this encounter Care Teams Loft Worker Relationship Specialty Start Date End Date Nitza Jones DO [address] [place] [address] [place] [phone] PCP - General Internal Medicine 08/08/22 documented as of this encounter
--- OUTSIDE RECORDS SUMMARY | 2023-11-29 04:54 | External Medical Summary ---
Author Name Unknown Address Unknown Organization [id number]:[facility] [place] [address] [facility] [place] [address] Laboratory Report Ordering Provider Test Date Status SANTHOSH MENDENHALLISO 11/12/2023 15:54:55 Final Observation Date Value Abnormality Reference (Units ) Status SYNC LEUKOCYTES IN BLOOD BY AUTOMATED COUNT 11/12/2023 15:54:55 6.67 4.00-10.80 (K/uL) Final Segs 11/12/2023 15:54:55 63.8 40.0-75.0 (%) Final Lymphs % 11/12/2023 15:54:55 25.3 18.0-42.0 (%) Final Monos 11/12/2023 15:54:55 7.8 1.0-11.0 (%) Final Eosinophils 11/12/2023 15:54:55 2.2 0.0-6.0 (%) Final Basos 11/12/2023 15:54:55 0.6 0.0-2.0 (%) Final Immature Granulocyte, Percent 11/12/2023 15:54:55 0.3 0.0-2.0 (%) Final Absolute Segs 11/12/2023 15:54:55 4.25 1.80-7.70 (K/uL) Final Lymphs, absolute 11/12/2023 15:54:55 1.69 1.00-4.80 (K/ul) Final Monos, Abs 11/12/2023 15:54:55 0.52 0.00-1.10 (K/uL) Final Eos, Abs 11/12/2023 15:54:55 0.15 0.00-0.70 (K/uL) Final Basos, Abs 11/12/2023 15:54:55 0.04 0.00-0.20 (K/uL) Final Immature Granulocytes, Number 11/12/2023 15:54:55 0.02 0.00-0.20 (K/uL) Final Performing Location [facility] [place] [address] [facility] [address]
--- OUTSIDE RECORDS SUMMARY | 2023-11-29 04:54 | External Medical Summary ---
Author Name Unknown Address Unknown Organization [id number][place] [facility] [place] [address] [facility] [address] Laboratory Report Ordering Provider Test Date Status NAYAN MENDENHALL 11/12/2023 15:54:55 Final Observation Date Value Abnormality Reference (Units ) Status WBC, Total 11/12/2023 15:54:55 6.67 4.00-10.80 (K/uL) Final RBC 11/12/2023 15:54:55 4.55 4.50-5.25 (M/uL) Final Hemoglobin 11/12/2023 15:54:55 13.5 Below low normal 14.0-16.8 (g/dL) Final HCT 11/12/2023 15:54:55 41.4 40.0-48.4 (%) Final MCV 11/12/2023 15:54:55 91.0 82.0-99.5 (fL) Final MCH 11/12/2023 15:54:55 29.7 27.0-34.0 (pg) Final MCHC 11/12/2023 15:54:55 32.6 32.0-36.0 (g/dL) Final RDW 11/12/2023 15:54:55 14.2 11.5-15.5 (%) Final Platelets 11/12/2023 15:54:55 201 140-400 (K/uL) Final MPV 11/12/2023 15:54:55 11.8 6.6-11.1 (fL) Final Nucleated erythrocytes/100 leukocytes [Ratio] in Blood by Automated count 11/12/2023 15:54:55 0 <=0 (/100 WBCs) Final Performing Location [facility] [facility] [place] [address] [place] [address]
--- OUTSIDE RECORDS SUMMARY | 2023-11-29 04:54 | External Medical Summary ---
Author Name Unknown Address Unknown Organization [id number]:LABORATORY [facility] [address] - [address] [place] [address] Laboratory Report Ordering Provider Test Date Status NAYAN MENDENHALL 11/12/2023 15:54:55 Final Anticoagulation may affect t esting. Refer to [facility] Test Catalog for a list of effects. Observation Date Value Abnormality Reference (Units ) Status aPTT panel - Platelet poor plasma 11/12/2023 15:54:55 30 21-38 (seconds) Final [facility] [address] [place] [address]
--- OUTSIDE RECORDS SUMMARY | 2023-11-29 04:54 | External Medical Summary ---
Author Name Unknown Address Unknown Organization K0G:[facility] - [address] [place] [address] Laboratory Report Ordering Provider Test Date Status NAYAN MENDENHALL 11/12/2023 15:54:55 Final Warfarin Therapy
INR: 2 .0-3.0 conventional anticoagulation
INR: 2.5- 3.5 high intensity anticoagulation Observation Date Value Abnormality Reference (Units ) Status PT 11/12/2023 15:54:55 15.1 11.6-15.2 (seconds) Final INR 11/12/2023 15:54:55 1.2 0.8-1.2 Final Performing Location [facility]ORY [facility] - [address] [place] [address]
--- OUTSIDE RECORDS SUMMARY | 2023-11-29 04:54 | External Medical Summary | Summary of Care ---
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 Name Role Phone Nitza Jones DO Primary Care Provider [phone] Reason for Visit * Reason Comments eRx-Medication Refill Encounter Details Date Type Department Care Team (Late st Contact Info) Description 10/28/2023 Refill [address] Medicine [address] [phone] Nitza Jones DO [address] [place] [address] [place] [address] Allergies Active Allergy Reactions Criticality Noted Date Comments Adhesive Tape 09/11/2014 "burn" Doxycycline 06/19/2018 Dizzy, very nauseated Iodinated Contrast Media 12/30/2017 ITCHING documented as of this encounter (statuses as of 10/29/2023) Medications Medication Sig Dispensed Refills Start Date End Date Status CENTRUM SILVER PO TABS 0 09/11/2014 Active Vitamin [...] AT BEDTIME 90 Capsule 3 12/14/2022 Active oxyCODONE-Acetamin ophen 5-325 MG Oral Tablet (Percocet)Indicati ons:Spinal stenosis, lumbar region, with neurogenic claudication Take 1 Tablet by mouth daily as needed for Pain, Severe. Make take an extra half pill as needed. Continued script 45 Tablet 0 10/10/2023 Active Apixaban 5 MG Oral Tablet (Eliquis) [...] EVERY MORNING 90 Capsule 3 10/29/2023 Active Omeprazole 20 MG Oral Capsule Delayed Release (PriLOSEC) Take 1 Capsule (20 mg) by mouth in the morning. 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) Knee joint replacement status 09/11/2014 Spinal stenosis, lumbar iris on, with neurogenic claudication 09/04/2012 ADVANCE DIRECTIVE INFORMATION 07/11/2005 Overview: Yes, Patient instructed to provide copy of advance directive for provider to review and to be scanned into Electronic Medical Record Subjective tinnitus 12/29/2004 Nephrolithiasis 04/24/2001 [facility] arthritis, thumb, degenerative documented as of this encounter (statuses as of 10/29/2023) Resolved Problems Problem Noted Date Diagnosed Date [...] as of this encounter (statuses as of 10/29/2023) Immunizations Name Administration Dates Next Due COVID-19 mRNA, LNP-s, No Pre serve, 2-Dose Series (Moderna) 02/09/2021,01/06/2021 COVID-19, MRNA-LNP, 23-24, P F, 30 MCG/0.3 mL, 12 YRS AND ABOVE, IM [facility] 10/01/2023 COVID-19, mRNA, LNP-s, PF, B ooster, [...] encounter Miscellaneous Notes * Telephone Encounter - Benny Beckwith [facility] - 10/29/2023 9:41 AM ESTSigned Prescriptions: Disp Refills Omeprazole 20 MG Oral Capsule Delayed Rele*90 Cap*3 Sig: TAKE ONE CAPSULE BY MOUTH EVERY MORNINGAuthorizing Provider: NITZA JONES User: BENNY BECKWITH NN documented in this encounter Plan of Treatment Upcoming Encounters Date Type Department Care Team (Late st Contact Info) Description 11/01/2023 11:30 AM EST Office Visit Cardiology, [facility] [address] [place] [address] Ana Espinoza CRNP [address] [place] [address] 01/15/2024 2:20 PM EST Office Visit Dermatology [facility] [place] [place] [address] Andria Chahal PA-C [address] [place] [address] [place] [address] 05/06/2024 8:50 AM EDT Office Visit Family Medicine [address] [place] [phone] Nitza Jones, [address] [place] [address] 08/13/2024 8:30 AM EDT Nurse Only Ancillary [address] [place] [address] [place], Nurse Annual Wellness [address] [place] [address] [place] [address] Scheduled Procedures Name Priority Associated Diagnoses Date/Ti [...] filedocumented as of this encounter Care Teams High [employer] Art Teacher Relationship Specialty Start Date End Date Nitza Jones DO [address] [place] [address] [place] [address] PCP - General Internal Medicine 08/08/22 documented as of this encounter
--- OUTSIDE RECORDS SUMMARY | 2023-11-29 04:54 | External Medical Summary | Summary of Care ---
Author Name Unknown Organization [facility] Address [address] [facility] [place] [address] Phone [phone] Care Team Providers Care Pt Escort Name Role Phone Jen Brooke Real Primary Care Provider Reason for Visit * Reason Comments eRx-Medication Refill Encounter Details Date Type Department Care Team (Late st Contact Info) Description 11/11/2023 Refill Interventional Pain Center, [facility] [address] [place] [address] Coty Lacy PA-C [address] [place] [address] Allergies Active Allergy Reactions Criticality Noted Date [...] AT BEDTIME 90 Capsule 3 11/12/2023 Active Gabapentin 400 MG Oral Capsule (Neurontin) TAKE ONE CAPSULE BY MOUTH AT BEDTIME 90 Capsule 3 12/14/2022 4 Discontinued documented as of this encounter (statuses [...] carcinoma (scalp, L cheek, L neck, L zoroastrianism 10/31) Knee joint replacement status 09/11/2014 Spinal [...] MCG/0.3 mL, 12 YRS AND ABOVE, IM ([employer]-Comirnat) 10/01/2023 COVID-19, mRNA, LNP-s, PF, B ooster, [...] encounter Miscellaneous Notes * Telephone Encounter - Coyt Lacy PA-C - 11/12/2023 8:57 AM ESTSigned Prescriptions: Disp Refills Gabapentin 400 MG Oral Capsule (Neurontin) 90 Cap*3 Sig: TAKE ONE CAPSULE BY MOUTH AT BEDTIME Authorizing Provider: COTY LACY * Telephone Encounter - Ana Macias LPN - 11/12/2023 8:09 AM ESTPending Prescriptions: Disp Refills Gabapentin 400 MG Oral Capsule [Pharmacy M*90 Cap*3 Sig: TAKE ONE CAPSULE BY MOUTH AT BEDTIME documented in this encounter Plan of Treatment Upcoming Encounters Date Type Department Care Team (Late st Contact Info) Description 12/05/2023 10:00 AM EST Cardiac Studies Cardiac Studies [address] [place] [address] 12/31/2023 8:00 AM EST Office Visit Sleep [facility] [address] [place] [phone] Jayla Adler, [address] [place] [address] 01/15/2024 2:20 PM EST Office Visit Dermatology [address] [place] [address] Andria Chahal PA-C [address] [place] [address] [place] [address] 02/13/2024 10:00 AM EDT Office Visit Cardiology, [facility] [address] [place] [address] Ana Espinoza CRNP [address] [place] [address] 05/06/2024 8:50 AM EDT Office Visit Family Medicine [address] [place] [phone] Brooke Li [address] [place] [address] 08/13/2024 8:30 AM EDT Nurse Only Ancillary [address] [place] [address] [place], Nurse Annual [address] [place] [address] Scheduled Procedures Name Priority Associated Diagnoses Date/Ti [...] filedocumented as of this encounter Care Teams Pt Escort Relationship Specialty Start Date End Date Brooke Li DO [address] [place] [address] [place] [address] PCP - General Internal Medicine 08/08/22 documented as of this encounter
--- OUTSIDE RECORDS SUMMARY | 2023-11-29 04:54 | External Medical Summary | Summary of Care ---
Author Name Unknown Organization [facility] Address [address] [place] [address] Phone [phone] Care Team Providers Care Feeder Catcher Tobacco Name Role Phone JenBeccaBrooke Addie DORMAN Primary Care Provider Reason for Referral * Evaluate & Treat - Unlimited Visits (Within 10 days (routine)) - Pending Review Specialty Diagnoses / Procedures Referred By Lanny mcbride Referred To Contact Sleep Medicine / Sleep Disorders Diagnoses PAF (paroxysmal atrial fibrillation) (HCC) KENYON (dyspnea on exertion) Enlarged aorta (HCC) Ana Espinoza CRNP [address] [place] [address] Referral ID Status Reason Start Date Expiration Date Visits Requested Visits Authorized [id number] Pending Review Specialty Services Required 3 2 2 Question Answer Referral Priority Within 10 days (routine) Where should this appointment be scheduled? [facility] SLEEP MED ADULT REFERRAL Sleep Apnea Testing and Management Does the patient snore and/or gasp at night or has been told they stop breathing at night? Yes Comments Wants home study * Evaluate & Treat - Unlimited Visits (Within 10 days (routine)) - Pending Review Specialty Diagnoses / Procedures Referred By Lanny mcbride Referred To Contact Medical Genetics / Hematology Oncology Diagnoses PAF (paroxysmal atrial fibrillation) (HCC) KENYON (dyspnea on exertion) Enlarged aorta (HCC) Ana Espinoza CRNP [address] [place] [address] Referral ID Status Reason Start Date Expiration Date Visits Requested Visits Authorized [id number] Pending Review Specialty Services Required 3 [phone] Question Answer Referral Priority Within 10 days (routine) Where should this appointment be scheduled? [facility] Is this referral request related to one of the following genetics sub-specialties? If unsure of category, use Medical Genetics Ask-A-Doc. Cardiovascular Will this information impact decision on implantable cardiac defibrillator placement, surgical decision making, or medication management? Yes If yes, please specify: enalarged aorta Is there a positive family history? Yes How are they related to your patient? brother-- from ruptured annureysm, also sons and dgtr with enalrged aorta What is their diagnosis? enlarged aorta What was their age of diagnosis? brother 59 yo * Precert (Within 10 days (routine)) - Pending Review Specialty Diagnoses / Procedures [facility] Referred To Contact Cardiac Studies Diagnoses PAF (paroxysmal atrial fibrillation) (HCC) KENYON (dyspnea on exertion) Enlarged aorta (HCC) Procedures ECHO, COMPLETE (2D), TRANS-THORACIC Ana Espinoza CRNP [address] [place] [address] Referral ID Status Reason Start Date Expiration Date Visits Requested Visits Authorized [id number] Pending Review Precert 11/01/[phone] * Precert (Within 10 days (routine)) - Pending Review Specialty Diagnoses / Procedures Referred By Contac t Referred To Contact Radiology Diagnoses PAF (paroxysmal atrial fibrillation) (HCC) KENYON (dyspnea on exertion) Enlarged aorta (HCC) Procedures NM MYOCARD PERF IMG SPECT MULT STUDIES WITH PHARM INTERV Ana Espinoza CRNP [address] [place] [address] Referral ID Status Reason Start Date Expiration Date Visits Requested Visits Authorized [id number] Pending Review Precert 11/01/[phone] Reason for Visit * Reason Comments Consultation * Evaluate & Treat - Unlimited Visits (Within 10 days (routine)) - Pending Review Specialty Diagnoses / Procedures Referred By Lanny mcbride Referred To Contact Cardiovascular Medicine / Cardiology Diagnoses Atrial fibrillation (HCC) Brooke Li, [address] [place] [address] Referral ID Status Reason Start Date Expiration Date Visits Requested Visits Authorized [id number] Pending Review Specialty Services Required 10/18/[phone] Encounter Details Date Type Department Care Team (Late st Contact Info) Description 11/01/2023 11:30 AM EST Office Visit Cardiology, [facility] [address] [place] [address] Ana Espinoza CRNP [address] [place] [address] PAF (paroxysmal atrial fibrillation) ([facility])*; KENYON (dyspnea on exertion); BALDO (obstructive sleep apnea); Enlarged aorta ([facility]); Dyslipidemia, goal LDL below 70 Allergies Active Allergy Reactions Criticality Noted Date Comments Adhesive Tape 09/11/2014 "burn" Doxycycline 06/19/2018 Dizzy, very nauseated Iodinated Contrast Media 12/30/2017 ITCHING documented as of this encounter (statuses as of 11/01/2023) Medications Medication Sig Dispensed Refills Start Date [...] Capsule (Psyllium) Take by mouth. 0 Active Gabapentin 400 MG Oral Capsule [...] as of this encounter (statuses as of 11/01/2023) Active Problems Problem Noted Date Diagnosed Date [...] carcinoma (scalp, L cheek, L neck, L episcopal 10/31) Knee joint replacement status 09/11/2014 Spinal stenosis, lumbar iris on, with neurogenic claudication 09/04/2012 ADVANCE DIRECTIVE INFORMATION 07/11/2005 Overview: Yes, Patient instructed to provide copy of advance directive for provider to review and to be scanned into Electronic Medical Record Subjective tinnitus 12/29/2004 Nephrolithiasis 04/24/2001 [facility] arthritis, thumb, degenerative documented as of this encounter (statuses as of 11/01/2023) Resolved Problems Problem Noted Date Diagnosed Date [...] as of this encounter (statuses as of 11/01/2023) Immunizations Name Administration Dates Next Due COVID-19 mRNA, LNP-s, No Pre serve, 2-Dose Series (Moderna) 02/09/2021,01/06/2021 COVID-19, MRNA-LNP, 23-24, P F, 30 MCG/0.3 mL, 12 YRS AND ABOVE, IM ([facility]) 10/01/2023 COVID-19, mRNA, LNP-s, PF, B ooster, [...] Sign Reading Time Taken Comments Blood Pressure 102/52 11/01/2023 11:09 AM EST Pulse 60 11/01/2023 11:09 AM EST Temperature - - Respiratory Rate 18 11/01/2023 11:09 AM EST Oxygen Saturation - - Inhaled Oxygen Concentration - - Weight 66.7 kg (147 lb 1.6 oz) 11/01/2023 11:09 AM EST Height - - Body Mass Index 21.88 08/12/2023 8:42 AM EDT documented in this encounter Progress Notes * Ana Espinoza CRNP - 11/01/2023 11:30 AM EST Cardiology Outpatient Visit 11/01/2023 Primary Respiratory Director: NEW PATIENT Past medical history: Paroxysmal atrial fibrillation, newly dx per zio 09/2023 [id number] score of 1 (age) Hyperlipidemia Enlarged aorta, 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 In September patient had concerns regarding fast heart rates in the morning. A Zio monitor was placed. Results indicated primarily sinus rhythm with an average heart rate in the mid 60s. He had multiple episodes of SVT as well as a low burden of Afib (less than 1%) with an average heart rate in the 90s. Symptoms correlated with only sinus rhythm and SVT though. He was started on Eliquis and metoprolol tartrate. Most recent echocardiogram dated 03/2023 showed a preserved LV systolic function of 55-59%. No wallmotion abnormalities. Left and right atrium were normal in size. There was mild aortic regurgitation. Mitral and tricuspid valve were normal. Today the patient presents with his . Will occasionally still have mild palpitations that occurin the morning/wake him in the morning. Notes significant snoring. Has never been testing for BALDO. Denies chest pain, but has had ongoing dyspnea over the last few months. No dizziness/lightheadedness, syncope or near syncope. No orthopnea, PND, or increased lower extremity edema. No fever, chills,cough, hematochezia, melena, or hemoptysis. Patient is compliant with all medications, and offers no side effects. Nonsmoker. No alcohol or drug use. Denies previous myocardial infarction, cardiac catheterization, coronary artery bypass grafting, a history of congestive heart failure, valvular disease or rheumatic fever, or history of arrhythmia. Notes a strong family history for aortic aneurysm. No genetic testing has ever been completed. Brother, suddenly in his 50s due to a ruptured undiagnosed aneurysm. Son has paroxysmal atrial fibrillation as well as aortic aneurysm and a dilated cardiomyopathy. Second son has not been tested. Daughter has paroxysmal atrial fibrillation as well as an enlarged aorta. Current Outpatient Medications Medication Sig Dispense Refill CENTRUM SILVER PO TABS Take by mouth. B-12 1000 MCG Oral Tablet Extended Release Take by mouth. Zioptan 0.0015 % Ophthalmic Solution Instill 1 Drop into both eyes at bedtime. Dorzolamide HCl-Timolol Mal PF 2-0.5 % Ophthalmic Solution Instill 1 Drop into both eyes 2 times a day. Metamucil 0.36 GM Oral Capsule (Psyllium) Take by mouth. Gabapentin 400 MG Oral Capsule (Neurontin) TAKE ONE CAPSULE BY MOUTH AT BEDTIME 90 Capsule 3 Apixaban 5 MG Oral Tablet (Eliquis) Take [...] half pill as needed. 45 Tablet 0 Vitamin C 100 MG Oral Tablet Chewable Take 1 Tablet by mouth in the morning. (Patient not taking: Reported on 11/01/2023) No current facility-administered medications for this visit. [...] (RECTUM) 12/25/2017 adenomatous polyps, diverticulosis, repeat 5 yrs/[facility] INJECT DX/THER SUBSTANCE INTERLAMINAR LUMBAR/SACRAL W [...] by Keyshawn Stoversins, DO at OR [facility] INJECTION LUMBAR/SACRAL 10/21/2014 INJECTION SPINE LUMBAR OR SACRAL performed by Keyshawn Burden Cousins, DO at [facility] MISCELLANEOUS ORDER 2000 [...] those noted in HPI. Physical Exam BP 102/52 | Pulse 60 | Resp 18 | Wt 66.7 kg (147 lb 1.6 oz) | BMI 21.88 kg/m | BSA 1.8 m General: No acute distress. A+Ox3. HEENT: [...] deficits. PSYCH: Normal. Lab data/imaging study review: [facility] 09/2023 Patient had a min HR of [...] aortic insufficiency is now present Impression/Plan: 1. PAF (paroxysmal atrial fibrillation) (HCC) 2. KENYON (dyspnea on exertion) 3. BALDO (obstructive sleep apnea) -Paroxysmal atrial fibrillation, newly dx per trishao 09/2023 -[id number] score of 1 (age) 1. Continue metoprolol tartrate 25 mg twice daily, future considerations of transitioning to succinate formulary 2. Continue Eliquis 5 mg twice daily for stroke prevention 3. Given dyspnea with exertion and new onset paroxysmal atrial fibrillation will rule out ischemic cause by doing a nuclear stress test. Will avoid exercise stress echo due to orthopedic limitations.Dobutamine avoided due to PAF. 4. 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 Notes significant history of snoring. Will screen for obstructive sleep apnea-- patient willing to do a home sleep study. 4. Enlarged aorta (HCC) -Strong family history of [...] be between 105-120 systolic. 1. (-) BELÉN/ARB, borderline hypotension noted in today's visit-- patient asymptomatic. 2. (+) BB, continue metoprolol tartrate 25 mg twice daily, will likely switch to succinate formulary at follow-up. 3. No bicuspid valve noted on last echocardiogram. Will repeat an echo to reassess aortic measurements when patient is completing nuclear stress. 5. (-) statin, plans to start statin therapy at follow-up. 6. Avoid heavy lifting and baring down. 7. Avoid fluoroquinolones antibiotics as there is a risk for tendon rupture as well as aortic rupture. Avoid NSAIDS. 8. Genetic test Genetics referral placed-- encouraged patient to follow-up with his son who has notbeen tested yet. Should his testing come back positive first- degree relatives can also be screened.He is aware. 5. Dyslipidemia, goal LDL below 70 LDL 117. The 10-year ASCVD risk score (Kathy DK, et al., 2019) is: 21.3% Values used to calculate the score: Age: 77 years Sex: Male Is Non- : No Diabetic: No Tobacco smoker: No Systolic Blood Pressure: 102 mmHg Is BP treated: No HDL Cholesterol: 36 mg/dL Total Cholesterol: 196 mg/dL 1. Plans to start statin therapy at follow-up -- likely Crestor 10 mg daily. The patient agrees to the above plan and will call with additional questions or concerns. ER with all emergencies advised. Follow-up: Return in about 3 months (around 01/31/2024). | Check-out note: Schedule nuclear stress and echo. Schedule genetics. Sleep med appt I spent a total of 60 minutes on the date of service in preparation, delivery, and documentation ofthe care provided to Moises Fregoso excluding any time spent in the performance of separately billed services. ALPHONSO Currie, Department of Cardiology This chart was completed in part utilizing [employer] Speech Voice Recognition Software. Grammatical errors, random [...] documented in this encounter Nursing Notes * Brooke Rivera LPN - 11/01/2023 11:08 AM EST Examination Room: 7 Name: Moises Fregoso Date of : (1945) Reason for Visit: New patient consult Interim Hospitalization(s): Denies Problems/Concerns: Denies Chest Pain/SOB: Denies My [facility] is a way you can [...] 10:00 AM EST Cardiac Studies Cardiac Studies [address] [place] [address] 12/31/2023 8:00 AM EST Office Visit Sleep Disorders [facility] [address] [place] [phone] Jayla Adler DO [address] [place] [address] 01/15/2024 2:20 PM EST Office Visit Dermatology [address] [place] [address] Andria Chahal PA-C [address] [place] [address] [place] [address] 02/13/2024 10:00 AM EDT Office Visit Cardiology, [facility] [address] [place] [address] Ana Espinoza CRNP [address] [place] [address] 05/06/2024 8:50 AM EDT Office Visit Family Medicine [address] [place] [phone] Brooke Li[address] [place] [address] 08/13/2024 8:30 AM EDT Nurse Only Ancillary [address] [place] [address] [place], Nurse Annual [address] [place] [address] Scheduled Orders Name Type Priority Associated Diagnoses Orde r Schedule NM MYOCARD PERF IMG SPECT MULT STUDIES WITH PHARM INTERV Cardiology Routine PAF (paroxysmal atrial fibrillation) (HCC) KENYON (dyspnea on exertion) Enlarged aorta (HCC) Expected: 11/01/2023, Expires: 12/02/2024 ECHO, COMPLETE (2D), TRANS-THORACIC Echocardiology Routine PAF (paroxysmal atrial fibrillation) (HCC) KENYON (dyspnea on exertion) Enlarged aorta (HCC) Expected: 11/01/2023, Expires: 11/01/2024 Scheduled Procedures Name Priority Associated Diagnoses Date/Ti me COLONOSCOPY FLEXIBLE PROXIMAL DIAGNOSTIC Recall History of colon polyps Scheduled Referrals Name Type Priority Associated Diagnoses Orde r Schedule GENETICS REFERRAL OP Referral Within 10 days (routine) PAF (paroxysmal atrial fibrillation) (HCC) KENYON (dyspnea on exertion) Enlarged aorta (HCC) Ordered: 11/01/2023 SLEEP MEDICINE REFERRAL OP Referral Within 10 days (routine) PAF (paroxysmal atrial fibrillation) (HCC) KENYON (dyspnea on exertion) Enlarged aorta (HCC) Ordered: 11/01/2023 Health Maintenance Due Date Last Done Comments [...] as of this encounter Visit Diagnoses Diagnosis PAF (paroxysmal atrial fibrillation) (HCC)- Primary Atrial fibrillation KENYON (dyspnea on exertion) Other dyspnea and respiratory abnormality BALDO (obstructive sleep apnea) Obstructive sleep apnea (adult) (pediatric) Enlarged aorta (HCC) Other specified disorders of arteries and arterioles Dyslipidemia, goal LDL below 70 Other and unspecified hyperlipidemia documented in this encounter Care Teams Feeder Catcher Tobacco Relationship Specialty Start Date End Date Brooke Li DO [address] [place] [address] [place] [address] PCP - General Internal Medicine 08/08/22 documented as of this encounter
--- OUTSIDE RECORDS SUMMARY | 2023-11-29 04:54 | External Medical Summary ---
Author Name Unknown Address Unknown Organization K01:[facility] [address] [place] [address] Laboratory Report Ordering Provider Test Date Status NAYAN MENDENHALL 11/12/2023 15:54:55 Final Observation Date Value Abnormality Reference (Units ) Status BUN 11/12/2023 15:54:55 18 6-20 (mg/dL) Final Creatinine 11/12/2023 15:54:55 1.3 Above high normal 0.6-1.2 (mg/dL) Final Glomerular filtration rate/1.73 sq M.predicted [Volume Rate/Area] in Serum, Plasma or Blood by Creatinine-based formula (CKD-EPI) 11/12/2023 15:54:55 58 Below low normal >=60 (mL/min) Final eGFR is calculated based on the CKD-EPI 2020 equation SODIUM 11/12/2023 15:54:55 141 135-146 (m mol/L) Final Potassium 11/12/2023 15:54:55 4.5 3.5-5.1 (m mol/L) Final Cl 11/12/2023 15:54:55 106 98-107 (mm ol/L) Final CO2 11/12/2023 15:54:55 27 22-32 (mmo l/L) Final Anion gap 11/12/2023 15:54:55 8 7-15 (mmol /L) Final Glucose 11/12/2023 15:54:55 90 70-120 (mg /dL) Final Calcium 11/12/2023 15:54:55 9.4 8.4-10.2 ( mg/dL) Final Performing Location [facility] [address] [place] [address]
--- OUTSIDE RECORDS SUMMARY | 2023-11-29 04:54 | External Medical Summary | Summary of Care ---
Author Name Unknown Organization [facility] [address] [facility] [address] Phone [phone] Care Team Providers Care Sifting Operator Name Role Phone Jen Nitza Real Primary Care Provider Reason for Visit * Reason Onset Date Comments Medication Refill 10/28/2023 Encounter Details Date Type Department Care Team (Late st Contact Info) Description 10/28/2023 Refill Family Medicine [address] [place] [phone] Kaleb Katz MD [address] [place] [address] [place] [address] Spinal stenosis, lumbar region, with neurogenic claudication [...] as needed. 45 Tablet 0 10/30/2023 Active oxyCODONE-Acetamin ophen 5-325 MG Oral Tablet (Percocet)Indicati ons:Spinal stenosis, lumbar region, with neurogenic claudication Take 1 Tablet by mouth daily as needed for Pain, Severe. Make take an extra half pill as needed. Continued script 45 Tablet 0 10/10/2023 3 Discontinue d(Refill) oxyCODONE-Acetamin ophen 5-325 MG Oral Tablet (Percocet)Indicati ons:Spinal stenosis, lumbar region, with neurogenic claudication Take 1 Tablet by mouth daily as needed for Pain, Severe. Make take an extra half pill as needed. Continued script 45 Tablet 0 10/30/2023 3 Discontinue d(Refill) documented as of this [...] MCG/0.3 mL, 12 YRS AND ABOVE, IM (SendMe-Comirnat) 10/01/2023 COVID-19, mRNA, LNP-s, PF, B ooster, 100mcg/0.5mg (Moderna) 09/13/2021 Covid-19, Mrna, Lnp-s, Pf, B ivalent, 50 Mcg, IM, 12 yrs and above (Moderna) 09/12/2022 H1N1 2009 Influenza, IM 09/26/2009 PPD 03/26/2003,08/26/2001 Pneumococcal Conjugate Vacc, 13 Valent (Prevnar) 10/27/2015 Pneumococcal Polysaccharide PPV23 (Pneumovax) 02/26/2011,08/31/1997 Season Influenza, Quad, PF, Adjuvanted, 65+ Yrs, IM (FLUAD) 08/19/2020 Seasonal Influenza, PF, 6 M & above, IM , (FluLaval or Fluzone) 12/25/2018 Seasonal Influenza, Quadriva lent Hd (Fluzone Hd) 08/12/2023,08/10/2022,08/16/2021 Seasonal Influenza, Quadriva lent, No Preserve, IM 07/23/2017,09/14/2016 Seasonal Influenza, Split, I IV3, With Preserve, Inj 08/25/2015,08/25/2015,07/14/2014,08/25,08/18/2012,08/15/2011,08/11/2010 ,08/11/2010,07/22/2009 Seasonal Influenza, Trivalen t, Adjuvanted, 65+ yrs 08/11/2019 TD - Tetanus/Diptheria (ADULT) 04/13/2004 TDAP (age 10 and older)(Boostrix) 06/11/2019 TDAP [...] as of this encounter Miscellaneous Notes * Addendum Note - Nitza Jones DO - 10/30/2023 12:46 PM ESTAddended by: NITZA JONES on: 10/30/2023 12:46 PM Modules accepted: Orders * Telephone Encounter - Nitza Jones DO - 10/30/2023 12:46 PM EST Original script printed. Re-sent to pharmacy. * Telephone Encounter - Hayden Rodriguez - 10/30/2023 11:57 AM ESTSigned Prescriptions: Disp Refills oxyCODONE-Acetaminophen 5-325 MG Oral Tabl*45 Tab*0 Sig: Take 1 Tablet by mouth daily as needed for Pain, Severe. Make take an extra half pill as needed. Continued scriptAuthorizing Provider: NITZA JONES * Telephone Encounter - Nitza Jones DO - 10/30/2023 9:10 AM ESTSigned Prescriptions: Disp Refills oxyCODONE-Acetaminophen 5-325 MG Oral Tabl*45 Tab*0 Sig: Take 1 Tablet by mouth daily as needed for Pain, Severe. Make take an extra half pill as needed. Continued script Authorizing Provider: NITZA JONES * Telephone Encounter - Erin Lee [facility] - 10/30/2023 8:37 AM EST Pending Prescriptions: Disp Refills oxyCODONE-Acetaminophen 5-325 MG Oral Tabl*45 Tab*0 Sig: Take 1 Tablet by mouth daily as needed for Pain, Severe. Make take an extra half pill as needed. Continued script * Telephone Encounter - Erin Lee [facility] - 10/30/2023 8:37 AM EST I am leaving for [place] on the Nov.12. My script will before I come back . would like to get before then. due to the holidays it would need to be next week , please. Daniel Saxena * Telephone Encounter - Steffi Raymundo [facility] - 10/30/2023 7:47 AM EST Postponing until 11/06 I have reviewed the patients controlled substance dispensing history in the Prescription Drug Monitoring Program in compliance with the [facility] regulations before prescribing a controlled substance. [...] medication is due for refill: 11/10 Pharmacy: [facility], [address] [place] Is this request for [...] approve if appropriate. Thank you, Steffi Raymundo, AydeD. Clinical Pharmacist Centralized Clinical Pharmacy Services (CCPS) (formerly Telepharmacy) 10/30/2023, 7:47 AM documented in this encounter Plan of Treatment Upcoming Encounters Date Type Department Care Team (Late st Contact Info) Description 11/01/2023 11:30 AM EST [facility] [place] [address] Ana Espinoza CRNP [address] [place] [address] 01/15/2024 2:20 PM EST Office Visit Dermatology [address] [place] [address] Andria Chahal PA-C [address] [place] [address] [place] [address] 05/06/2024 8:50 AM EDT Office Visit Family Medicine [address] [place] [phone] Nitza Jones DO [address] [place] [address] [place] [address] 08/13/2024 8:30 AM EDT Nurse Only Ancillary [address] [place] [address] [place], Nurse Annual Wellness [address] [place] [address] [place] [address] Scheduled Procedures Name Priority Associated Diagnoses Date/Ti [...] claudication documented in this encounter Care Teams Sifting Operator Relationship Specialty Start Date End Date Nitza Jones DO [address] [place] [address] [place] [address] PCP - General Internal Medicine 08/08/22 documented as of this encounter
--- OUTSIDE RECORDS SUMMARY | 2023-11-29 04:54 | External Medical Summary | Summary of Care ---
Author Name Unknown Organization [facility] Address [address] [place] [address] Phone [phone] Care Team Providers Care Heel Finisher Name Role Phone Brooke Li Primary Care Provider [phone] Reason for Visit * Reason Onset Date Comments Referral 10/23/2023 triage Encounter Details Date Type Department Care Team (Late st Contact Info) Description 10/23/2023 New Patient Triage (LEATHER HEEL BREASTER USE ONLY) Cardiology, [facility] [address] [place] [address] Violeta Altamirano CRNP [address] [place] [address] Referral (triage) Allergies Active Allergy Reactions Criticality Noted Date Comments Adhesive Tape 09/11/2014 "burn" Doxycycline 06/19/2018 Dizzy, very nauseated Iodinated Contrast Media 12/30/2017 ITCHING documented as of this encounter (statuses as of 10/23/2023) Medications Medication Sig Dispensed Refills Start Date [...] (Psyllium) Take by mouth . 0 Active Omeprazole 20 MG Oral Capsule Delayed Release (PriLOSEC) Take 1 Capsule (20 mg) by mouth in the morning. 90 Capsule 3 10/05/2022 Active Gabapentin 400 MG Oral Capsule (Neurontin) TAKE ONE CAPSULE BY MOUTH AT BEDTIME 90 Capsule 3 12/14/2022 Active oxyCODONE-Acetaminop hen 5-325 MG Oral Tablet (Percocet)Indication s:Spinal stenosis, lumbar region, with neurogenic claudication Take [...] before bedtime. 180 Tablet 1 10/18/2023 Active documented as of this encounter (statuses as of 10/23/2023) Active Problems Problem Noted Date Diagnosed Date [...] as of this encounter (statuses as of 10/23/2023) Resolved Problems Problem Noted Date Diagnosed Date [...] as of this encounter (statuses as of 10/23/2023) Immunizations Name Administration Dates Next Due COVID-19 [...] as of this encounter Progress Notes * Dara Chaparro DNP - 10/23/2023 5:51 PM EST Does patient need to be seen?: Yes Modality: Office visit Urgency: Within 10 days (routine) Discussed care plan with patient or proxy?: Yes scheduled Communicated with patient on Date (mm/dd/yyyy): 10/23/2023 at Time ([facility]): 0734 Dara Chaparro DNP [place] [address] [facility] * Hannah Acosta LPN - 10/23/2023 2:59 PM EST New Patient Triage What is the diagnosis/reason for referral?: I48.91 Enter order ID here: [id number] Specialty specific documentation: Cardiology Structural Heart CARDIAC REFERRAL 10/18/2023 Within 10 days (routine) Atrial fibrillation (HCC) [I48.91] - Primary CARDIOLOGY APPOINTMENT scheduled for 11/01/2023. REFERRING PROVIDER PCP Brooke Li, DO Family Medicine Adebayo Cantu TE 10/18/2023 heart monitor shows that he has a heart rhythm problem called atrial fibrillation. His heart is sometimes in the normal rhythm and sometimes in A-fib. A-fib increases his risk of stroke, so we need to put him on a blood thinner to reduce this risk. I am going to start him on one called Eliquis, which he takes twice a day. He needs to let me know if cost is an issue. I am also going to start him on a medication called metoprolol. I also sent this to his pharmacy. I would also like him to see cardiology. Route back to me to let me know if he is agreeable. MOST RECENT NOTES: Office Visit 10/01/2023 [facility] Adebayo Cantu presents today for routine follow up. He had injections in his back by Dr. Lemus but he doesn't get durable relief with this. He continues to take gabapentin at bedtime. Occasionally gets a shooting/burning pain down the right leg - occurs mostly when sitting. Doesn't want to take gabapentin during the day as it makes him too tired. He feels anxious/heart races every morning. It seems to get better after he eats breakfast. Most Recent LAB VALUES 10/14/2023 BMP, PTH 10/01/2023 A1c, TSH wfree T4 03/26/2023 LIPID panel, B-12, MAG, CBC w/diff CARDIAC TESTING ZIO-10/01/2023 EKG-09/19/2023 TTE-04/09/2023 Patient to keep appointment as scheduled. Discussed care plan with patient or proxy?: Yes Communicated with patient on Date (mm/marianne/nell): 10/23/2023 at Time ([facility]): 1507 documented in this encounter Plan of Treatment Upcoming Encounters Date Type Department Care Team (Late st Contact Info) Description 11/01/2023 11:30 AM EST Office Visit Cardiology, [facility] [address] [place] [address] Ana Espinoza CRNP [address] [place] [address] 01/15/2024 2:20 PM EST Office Visit Dermatology [address] [place] [address] Andria Chahal PA-C [address] [place] [address] [place] [address] 05/06/2024 8:50 AM EDT Office Visit Family Medicine [address] [place] [phone] Brooke Li, [address] [place] [address] [place] [address] 08/13/2024 8:30 AM EDT Nurse Only Ancillary [address] [place] [address] [place], Nurse Annual Wellness [address] [place] [address] [place] [address] Scheduled Procedures Name Priority Associated Diagnoses Date/Ti [...] filedocumented as of this encounter Care Teams Heel Finisher Relationship Specialty Start Date End Date Brooke Li DO [address] [place] [address] [place] [address] PCP - General Internal Medicine 08/08/22 documented as of this encounter
--- OUTSIDE RECORDS SUMMARY | 2023-11-29 04:54 | External Medical Summary | Summary of Care ---
Author Name Unknown Organization [facility] Address [address] [facility] [place] [address] Phone [phone] Care Team Providers Care Digital Computer Systems Analyst Name Role Phone Brooke Li Primary Care Provider Reason for Visit * Reason Onset Date Comments Appointment 11/08/2023 Encounter Details Date Type Department Care Team (Late st Contact Info) Description 11/08/2023 Telephone Cardiology, [facility] [address] [place] [address] Aan Espinoza CRNP [address] [facility] [address] Appointment Allergies Active Allergy Reactions Criticality Noted Date Comments Adhesive Tape 09/11/2014 "burn" Doxycycline 06/19/2018 Dizzy, very nauseated Iodinated Contrast Media 12/30/2017 ITCHING documented as of this encounter (statuses as of 11/08/2023) Medications Medication Sig Dispensed Refills Start Date [...] as of this encounter (statuses as of 11/08/2023) Active Problems Problem Noted Date Diagnosed Date [...] carcinoma (scalp, L cheek, L neck, 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) Knee joint replacement status 09/11/2014 Spinal stenosis, lumbar iris on, with neurogenic claudication 09/04/2012 ADVANCE DIRECTIVE INFORMATION 07/11/2005 Overview: Yes, Patient instructed to provide copy of advance directive for provider to review and to be scanned into Electronic Medical Record Subjective tinnitus 12/29/2004 Nephrolithiasis 04/24/2001 [facility] arthritis, thumb, degenerative documented as of this encounter (statuses as of 11/08/2023) Resolved Problems Problem Noted Date Diagnosed Date [...] as of this encounter (statuses as of 11/08/2023) Immunizations Name Administration Dates Next Due COVID-19 [...] encounter Miscellaneous Notes * Telephone Encounter - Isidra Huynh OSA - 11/08/2023 10:53 AM EST Nuc stress test needed per Ana Espinoza. documented in this encounter Plan of Treatment Upcoming Encounters Date Type Department Care Team (Late st Contact Info) Description 12/05/2023 10:00 AM EST Cardiac Studies Cardiac Studies [address] [place] [address] 12/31/2023 8:00 AM EST Office Visit [facility] [address] [place] [phone] Jayla Adler DO [address] [place] [address] 01/15/2024 2:20 PM EST Office Visit Dermatology [address] [place] [address] Andria Chahal PA-C [address] [place] [address] [place] [address] 02/13/2024 10:00 AM EDT Office Visit Cardiology, [facility] [address] [place] [address] Ana Espinoza CRNP [address] [place] [address] 05/06/2024 8:50 AM EDT Office Visit Family Medicine [address] [place] [phone] [address] [place] [address] 08/13/2024 8:30 AM EDT Nurse Only Ancillary [address] [place] [address] [place], Nurse Annual [address] [place] [address] Scheduled Procedures Name Priority Associated Diagnoses Date/Ti [...] filedocumented as of this encounter Care Teams Digital Computer Systems Analyst Relationship Specialty Start Date End Date Brooke Li DO [address] [place] [address] [place] [phone] PCP - General Internal Medicine 08/08/22 documented as of this encounter
--- OUTSIDE RECORDS SUMMARY | 2023-11-29 04:55 | External Medical Summary | Summary of Care ---
Author Name Unknown Organization [facility] Address [address] [place] [place] [place] [address] Phone [phone] Care Team Providers Care Entry Level Marketing Assistant Name Role Phone Brooke Li DO Primary Care Provider [phone] Reason for Referral * Evaluate & Treat - Unlimited Visits (Within 10 days (routine)) - Pending Review Specialty Diagnoses / Procedures Referred By Lanny [email or web address] Referred To Contact Cardiovascular Medicine / Cardiology Diagnoses Atrial fibrillation (HCC) Brooke Li [address] [place] [address] Referral ID Status Reason Start Date Expiration Date Visits Requested Visits Authorized [id number] Pending Review Specialty Services Required 10/18/[phone] Question Answer Referral Priority Within 10 days (routine) Where should this appointment be scheduled? [facility] To which of the following clinics are you referring your patient? General Cardiology Clinic Reason for Visit * Reason Onset Date Comments Test Results 10/18/2023 Encounter Details Date Type Department Care Team (Late st Contact Info) Description 10/18/2023 Telephone Family Medicine [address] [place] [phone] Brooke Li [address] [place] [address] Test Results Allergies Active Allergy Reactions Criticality Noted Date Comments Adhesive Tape 09/11/2014 "burn" Doxycycline 06/19/2018 Dizzy, very nauseated Iodinated Contrast Media 12/30/2017 ITCHING documented as of this encounter (statuses as of 10/18/2023) Medications Medication Sig Dispensed Refills Start Date [...] as of this encounter (statuses as of 10/18/2023) Active Problems Problem Noted Date Diagnosed Date [...] carcinoma (scalp, L cheek, L neck, L yazidi 10/31) Knee joint replacement status 09/11/2014 Spinal stenosis, lumbar iris on, with neurogenic claudication 09/04/2012 ADVANCE DIRECTIVE INFORMATION 07/11/2005 Overview: Yes, Patient instructed to provide copy of advance directive for provider to review and to be scanned into Electronic Medical Record Subjective tinnitus 12/29/2004 Nephrolithiasis 04/24/2001 [facility] arthritis, thumb, degenerative documented as of this encounter (statuses as of 10/18/2023) Resolved Problems Problem Noted Date Diagnosed Date [...] as of this encounter (statuses as of 10/18/2023) Immunizations Name Administration Dates Next Due COVID-19 [...] (Prevnar) 10/27/2015 Pneumococcal Polysaccharide PPV23 (Pneumovax) 02/26/2011 SEASONAL INFLUENZA, PF, 6 M & Above, IM , (FLULAVAL or FLUZONE) 12/25/2018 Season Influenza, Quad, PF, Adjuvanted, 65+ Yrs, IM (FLUAD) 08/19/2020 Seasonal Influenza, Quadriva lent Hd (Fluzone Hd) [...] encounter Miscellaneous Notes * Telephone Encounter - July Wylie OSA - 10/18/2023 9:50 AM EST Cardiology appt scheduled, pt aware. * Telephone Encounter - Brooke Li DO - 10/18/2023 9:07 AM EST Referral signed. Please schedule. * Telephone Encounter - Geeta Morfin LPN - 10/18/2023 8:44 AM EST I spoke to pt. He voiced understanding. He agrees to cardiology. Referral pending. Thanks. * Telephone Encounter - Brooke Li DO - 10/18/2023 8:31 AM EST Please call patient: His heart monitor shows that he has a heart rhythm problem called atrial fibrillation. His heart issometimes in the normal rhythm and sometimes in [...] let me know if he is agreeable. documented in this encounter Plan of Treatment Upcoming Encounters Date Type Department Care Team (Late st Contact Info) Description 11/01/2023 11:30 AM EST Office Visit Cardiology, [facility] [address] [place] [address] Ana Espinoza CRNP [address] [place] [address] 01/15/2024 2:20 PM EST Office Visit Dermatology [address] [place] [address] Andria Chahal PA-C [address] [place] [address] [place] [address] 05/06/2024 8:50 AM EDT Office Visit Family Medicine [address] [phone] Brooke Li DO [address] [place] [address] [place] [address] 08/13/2024 8:30 AM EDT Nurse Only Ancillary Malini Gonzalez[address] [place] [address] [place], Nurse Annual [address] [place] [address] Scheduled Procedures Name Priority Associated Diagnoses Date/Ti me COLONOSCOPY FLEXIBLE PROXIMAL DIAGNOSTIC Recall History of colon polyps Scheduled Referrals Name Type Priority Associated Diagnoses Orde r Schedule CARDIOLOGY REFERRAL OP Referral Within 10 days (routine) Atrial fibrillation (HCC) Ordered: 10/18/2023 Health Maintenance Due Date Last Done Comments [...] as of this encounter Visit Diagnoses Diagnosis Atrial fibrillation (HCC)- Primary Atrial fibrillation documented in this encounter Care Teams Entry Level Marketing Assistant Relationship Specialty Start Date End Date Brooke Li DO [address] [place] [address] [place] [address] PCP - General Internal Medicine 08/08/22 documented as of this encounter
--- OUTSIDE RECORDS SUMMARY | 2023-11-29 04:55 | External Medical Summary ---
Author Name Unknown Address Unknown Organization [id number]:LABORATORY [facility] - [address] [place] [address] Laboratory Report Ordering Provider Test Date Status ROBERT GODDARD 10/14/2023 08:23:49 Final Observation Date Value Abnormality Reference (Units ) Status Parathyrin.intact [Mass/volume] in Serum or Plasma 10/14/2023 08:23:49 47 15-65 (pg/mL) Final Performing Location LABORATORY [facility] - [address] [place] [address]
--- OUTSIDE RECORDS SUMMARY | 2023-11-29 04:55 | External Medical Summary ---
Author Name Unknown Address Unknown Organization K01:[facility] [place] [address] [place] [address] Laboratory Report Ordering Provider Test Date Status TYLER LOGAN 10/14/2023 08:23:49 Final Observation Date Value Abnormality Reference (Units ) Status MYCODE SPECIMEN-SST 10/14/2023 08:23:49 Freezing of extracted DNA, whole blood and/or serum. Final Performing Location [facility] [place] [address] [place] [address]
--- OUTSIDE RECORDS SUMMARY | 2023-11-29 04:55 | External Medical Summary ---
Author Name Unknown Address Unknown Organization K01:[facility] [place] [address] [place] [address] Laboratory Report Ordering Provider Test Date Status ROBERT GODDARD 10/14/2023 08:23:49 Final Observation Date Value Abnormality Reference (Units ) Status BUN 10/14/2023 08:23:49 17 6-20 (mg/dL) Final Creatinine 10/14/2023 08:23:49 1.0 0.6-1.2 (mg/dL) Final Glomerular filtration rate/1.73 sq M.predicted [Volume Rate/Area] in Serum, Plasma or Blood by Creatinine-based formula (CKD-EPI) 10/14/2023 08:23:49 76 >=60 (mL/min) Final eGFR is calculated based on the CKD-EPI 2020 equation SODIUM 10/14/2023 08:23:49 142 135-146 (m mol/L) Final Potassium 10/14/2023 08:23:49 3.9 3.5-5.1 (m mol/L) Final Cl 10/14/2023 08:23:49 106 98-107 (mm ol/L) Final CO2 10/14/2023 08:23:49 27 22-32 (mmo l/L) Final Anion gap 10/14/2023 08:23:49 9 7-15 (mmol /L) Final Glucose 10/14/2023 08:23:49 113 70-120 (mg /dL) Final Calcium 10/14/2023 08:23:49 9.0 8.4-10.2 ( mg/dL) Final Performing Location [facility] [address] [place] [address]
--- OUTSIDE RECORDS SUMMARY | 2023-11-29 04:55 | External Medical Summary | Summary of Care ---
Author Name Unknown Organization [facility] Address [address] [facility] [place] [address] Phone [phone] Care Team Providers Care Typing Pool Supervisor Name Role Phone Brooke Li DO Primary Care Provider Reason for Visit * Reason Comments Outpatient Testing Encounter Details Date Type Department Care Team (Late st Contact Info) Description 10/14/2023 8:20 AM EST Laboratory Laboratory [address] [place] [phone] [place] [address] [employer] Other*[id number]; Hypercalcemia Allergies Active Allergy Reactions Criticality Noted Date Comments Adhesive Tape 09/11/2014 "burn" Doxycycline 06/19/2018 Dizzy, very nauseated Iodinated Contrast Media 12/30/2017 ITCHING documented as of this encounter (statuses as of 10/14/2023) Medications Medication Sig Dispensed Refills Start Date [...] Continued script 45 Tablet 0 10/10/2023 Active documented as of this encounter (statuses as of 10/14/2023) Active Problems Problem Noted Date Diagnosed Date [...] carcinoma (scalp, L cheek, L neck, L zoroastrian 10/31) Knee joint replacement status 09/11/2014 Spinal stenosis, lumbar iris on, with neurogenic claudication 09/04/2012 ADVANCE DIRECTIVE INFORMATION 07/11/2005 Overview: Yes, Patient instructed to provide copy of advance directive for provider to review and to be scanned into Electronic Medical Record Subjective tinnitus 12/29/2004 Nephrolithiasis 04/24/2001 [facility] arthritis, thumb, degenerative documented as of this encounter (statuses as of 10/14/2023) Resolved Problems Problem Noted Date Diagnosed Date [...] as of this encounter (statuses as of 10/14/2023) Immunizations Name Administration Dates Next Due COVID-19 [...] Care Team (Late st Contact Info) Description 01/15/2024 2:20 PM EST Office Visit Dermatology [address] [place] [address] Andria Chahal PA-C [address] [place] [address] [place] [address] 05/06/2024 8:50 AM EDT Office Visit Family Medicine [address] [place] [phone] Brooke Li DO [address] [place] [address] [place] [address] 08/13/2024 8:30 AM EDT Nurse Only Ancillary [address] [place] [address] [place], Nurse Annual Wellness [address] [place] [address] [place] [address] Pending Results Name Type Priority Associated Diagnoses Date /Time MYCODE SUBSEQUENT ADULT Lab Routine [employer] Other*[id number] 10/14/2023 8:23 AM EST BASIC METABOLIC PANEL Lab Routine Hypercalcemia 10/14/2023 8:23 AM EST PTH Lab Routine Hypercalcemia 10/14/2023 8:23 AM EST MYCODE SST1 Lab Routine [employer] Other*[id number] 10/14/2023 8:23 AM EST MYCODE SST2 Lab Routine [employer] Other*[id number] 10/14/2023 8:23 AM EST Scheduled Procedures Name Priority Associated Diagnoses [...] as of this encounter Visit Diagnoses Diagnosis [employer] Other*[id number] Hypercalcemia documented in this encounter Care Teams Typing Pool Supervisor Relationship Specialty Start Date End Date Brooke Li DO [address] [place] [address] [place] [phone] PCP - General Internal Medicine 08/08/22 documented as of this encounter
--- OUTSIDE RECORDS SUMMARY | 2023-11-29 04:55 | External Medical Summary | Summary of Care ---
Author Name Unknown Organization [facility] Address [address] [place] [address] Phone [phone] Care Team Providers Care Quality Reviewer Name Role Phone Brooke Li Primary Care Provider Reason for Visit * Reason Onset Date Comments Referral 10/23/2023 triage Encounter Details Date Type Department Care Team (Late st Contact Info) Description 10/23/2023 New Patient Triage (INTERNET MERCHANT USE ONLY) Cardiology, [facility] [address] [place] [address] Violeta Altamirano CRNP [address] [place] [address] Referral (triage) Allergies Active Allergy [...] as of this encounter Progress Notes * Hannah Acosta LPN - 10/23/2023 2:59 PM EST New Patient Triage What is the diagnosis/reason for referral?: I48.91 Enter order ID here: [id number] Specialty specific documentation: Cardiology Structural Heart CARDIAC REFERRAL 10/18/2023 Within 10 days (routine) Atrial fibrillation (HCC) [I48.91] - Primary CARDIOLOGY APPOINTMENT scheduled for 11/01/2023. REFERRING PROVIDER PCP Brooke Li DO [facility] TE 10/18/2023 heart monitor shows that he [...] agreeable. MOST RECENT NOTES: Office Visit 10/01/2023 [facility] presents today for routine follow up. He [...] proxy?: Yes Communicated with patient on Date (mm/dd/yyyy): 10/23/2023 at Time ([facility]): 1507 documented in this encounter Plan of Treatment Upcoming Encounters Date Type Department Care Team (Late st Contact Info) Description 11/01/2023 11:30 AM EST Office [facility], [facility] [place] [address] Ana Espinoza CRNP [address] [place] [address] 01/15/2024 2:20 PM EST Office Visit Dermatology [address] [place] [address] Andria Chahal PA-C [address] [place] [address] [place] [address] 05/06/2024 8:50 AM EDT Office Visit Family Medicine [address] [place] [phone] Brooke Li DO [address] [place] [address] [place] [address] 08/13/2024 8:30 AM EDT Nurse Only Ancillary [address] [place] [address] [place], Nurse [address] [place] [address] Scheduled Procedures Name Priority Associated Diagnoses Date/Ti [...] filedocumented as of this encounter Care Teams Quality Reviewer Relationship Specialty Start Date End Date Brooke Li DO [address] [place] [address] [place] [address] PCP - General Internal Medicine 08/08/22 documented as of this encounter
--- OUTSIDE RECORDS SUMMARY | 2023-11-29 04:55 | External Medical Summary ---
Author Name Unknown Address Unknown Organization K01:[facility]ATORY [facility] - [address] [place] [address] Laboratory Report Ordering Provider Test Date Status TYLER LOGAN 10/14/2023 08:23:49 Final Observation Date Value Abnormality Reference (Units ) Status MYCODE SPECIMEN-SST 10/14/2023 08:23:49 Freezing of extracted DNA, whole blood and/or serum. Final Performing Location LAB[facility]ORY [facility] - [address] [place] [address]
--- OUTSIDE RECORDS SUMMARY | 2023-11-29 06:45 | External Medical Summary | Summary of Care ---
Author Name Unknown Organization [facility] Address [address] [place] [address] Phone [phone] Care Team Providers Care Planer Off Bearer Name Role Phone Brooke Li Primary Care Provider Encounter Details Date Type Department Care Team (Late st Contact Info) Description 11/28/2023 Documentation Cardiac Studies [facility] [address] [place] [address] Milagro Angel, [place] Allergies Active Allergy Reactions Criticality Noted Date [...] test 11/26/2023 Coronary artery disease invo lving agdaagux coronary artery of agdaagux heart without angina pectoris 11/22/2023 Hypercalcemia 10/10/2023 [...] carcinoma (scalp, L cheek, L neck, 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 I mailed him a packet of information explaining the program and benefits of participating. The packet also contains instructions on how to enroll in his local hospital should he decide to participate in the future. documented in this encounter Plan of Treatment Upcoming Encounters Date Type Department Care Team (Late st Contact Info) Description 12/05/2023 10:00 AM EST Cardiac Studies Cardiac Studies [address] [place] [phone] 12/10/2023 1:10 PM EST Office Visit Family Medicine [address] [place] [phone] Brooke Li, [address] [place] [address] 12/13/2023 9:30 AM EST Telemedicine Interventional [facility], [facility] [address] [place] [phone] Coty Billy PA-C [address] [place] [address] 12/23/2023 11:00 AM EST Office Visit Cardiology, [facility] [address] [place] [address] Ana Espinoza CRNP [address] [place] [address] 12/31/2023 8:00 AM EST Office Visit Sleep Disorders Ctr [facility] [address] [place] [phone] Jayla Adler, DO [address] [place] [address] 01/15/2024 11:30 AM EST Office Visit Cardiovascular Genetics, [facility] [address] [place] [address] Emmanuelle Gonzalez, MS [address] [place] [phone] 02/06/2024 9:30 AM EDT Imaging Radiology [address] [facility] [place] [address] 02/13/2024 10:00 AM EDT Office Visit Cardiology, [facility] [place] [address] Ana Espinoza CRNP [facility] [place] [address] 05/06/2024 8:50 AM EDT Office Visit Family Medicine [address] [place] [phone] [address] [place] [address] 08/13/2024 8:30 AM EDT Nurse Only Ancillary [address] [place] [phone] [place], Nurse [address] [place] [address] Scheduled Procedures Name Priority Associated Diagnoses Date/Ti [...] this encounter Medical Devices Implanted Type Area Lead Ingot Molder Device Identifier Shelf Expiration Date Model / Serial / Lot Stent 0.014in 2.5x16mm [id number] X[employer] Delivery Coronary - [id number] Implanted:Qty: 1 on 11/26/2023 by Jana Velasquez MD at [facility] [employer] [id number] 07/16/2024 [id number] / / [id number] documented as of this encounter Additional Health [...] the patient have Health Care Power of Home School Coordinator? No Care Teams Planer Off Bearer Relationship Specialty Start Date End Date Brooke Li DO [address] [place] [address] [place] [phone] PCP - General Internal Medicine 08/08/22 documented as of this encounter
[2023-11-29 07:11] LABS: Basophils # (auto) 0.04 K/uL (0.00-0.20); Basophils % (auto) 0.5 %; Eosinophils # (auto) 0.09 K/uL (0.00-0.50); Eosinophils % (auto) 1.1 %; Hematocrit (blood only) 33.1 % (42.0-52.0); Hemoglobin 11.3 g/dl (14.0-18.0); Immature Granulocytes # (auto) 0.03 K/uL (0.01-0.20); Immature Granulocytes % (auto) 0.4 %; Lymphocytes # (auto) 1.75 K/uL (1.20-3.40); Lymphocytes % (auto) 21.4 %; Mean Corpuscular Hemoglobin 29.2 pg (25.0-34.0); Mean Corpuscular Hgb Conc 34.1 g/dL (32.0-36.0); Mean Corpuscular Volume 85.5 fL (80.0-100.0); Mean Platelet Volume 11.5 fL (9.4-12.4); Monocytes # (auto) 0.59 K/uL (0.11-0.59); Monocytes % (auto) 7.2 %; Neutrophils # (auto) 5.69 K/uL (1.40-6.50); Neutrophils % (auto) 69.4 %; Platelet Count 176 K/uL (130-400); RDW Coefficient of Variation 13.7 % (11.5-14.5); RDW Standard Deviation 42.2 fL (36.4-46.3); Red Blood Count 3.87 M/uL (4.70-6.10); White Blood Count 8.19 K/ul (4.8-10.8)
[2023-11-29 07:26] LABS: Creatinine Clr Calc Pharmacy 71.7 ml/min; Est GFR (African American) 99.4 ml/min; Est GFR (Non-African American) 85.7 ml/min; Magnesium 1.9 mg/dl (1.7-2.4)
[2023-11-29] MEDS: CYANOCOBALAMIN (B-12) 500 MCG TABLET PO SCH (08:22)
[2023-11-29] MEDS: CLOPIDOGREL BISULFATE 75 MG TAB PO SCH (08:22)
[2023-11-29] MEDS: ASPIRIN 81 MG ECTAB PO SCH (08:23)
[2023-11-29] MEDS: DORZOLAMIDE/TIMOLOL 22.3/6.8MG/ML 10 ML BTL OP SCH ×2 (08:23→20:21)
[2023-11-29] MEDS: METOPROLOL TARTRATE 25 MG TAB PO SCH ×2 (08:23→20:29)
[2023-11-29] MEDS: CEROVITE ADV FORMULA TAB PO SCH (08:23)
[2023-11-29 08:25] LABS: Estimated Average Glucose 120 mg/dl; Hemoglobin A1C 5.8 % (4.5-5.6)
--- NOTE | 2023-11-29 08:27 | Hospitalist Progress Note ---
Date of Service November 29, 2023 Assessment & Plan (1) GIB (gastrointestinal bleeding): Plan: Mr. Fregoso is a 77-year-old male with a past medical history significant for hyperlipidemia, prediabetes, hypercalcemia, aortic root enlargement, nonrheumatic aortic valve insufficiency, history of CAD s/p stent, GERD, nephrolithiasis, spinal stenosis, arthritis, weakness of right foot, glaucoma, depression, anxiety, A-fib on Eliquis, who recently had elective cardiac cath for positive stress test and s/p drug-eluting stent to ramus and in on aspirin and Plavix and Eliquis who was admitted on 11/28 for acute blood loss anemia 2/2 BRBPR. Patient states he was constipated and then notes a single episode of notable blood while attempting to defecate on 11/28. Hgb down from 13 to 11. Patient's course is complicated given recent stent placed on 11/26, as well as atrial fibrillation. Patient was placed on triple therapy given the stent and a fib; however, in the setting of a bleed, the eliquis will be held. If a scope is necessary, ASA can be held; however, plavix must be continued at the very minimum uninterrupted. Plan to continue DAPT, hold eliquis in the interim, and trend hemoglobin. Once stable will advance diet and ensure solid bowel regimen to prevent further constipation. #Acute Blood loss anemia, concern for lower GI bleeding #Bright red blood per rectum Hemoglobin stable at 13.0, down to 11 Blood consent obtained GI following -Hold Eliquis and ASA if able, if hgb stable plan for OP scope in 1- 2months Cards following -Continue plavix and ASA as able, resume eliquis when safe per GI Given recent stent and no active reports of bleeding, will continue DAPT and hold eliquis Trend H&H every 12 hours IV Pepcid twice daily and IV Protonix daily CLD #COVID 19 infection -Reports slight flu-like symptoms 1-2 weeks ago, but denies any concerns at this time -CTM, symptom management, enhanced precautions #Elevated troponin likely given recent cath, demand from bleed Patient currently asymptomatic; EKG no acute ST changes Probably from recent cardiac cath Downtrended, CTM for chest pain #Obstructive CAD s/p stent placement 11/26/2023 ramus Also found to have mid LAD 50%, distal LAD 60%, ostial 70% and proximal RCA 50% stenosis On aspirin, Plavix, statin and beta-ino Continue statin and metoprolol 25 BID Continue plavix uninterrupted If continued bleeding, will hold ASA for scope purposes; however, will continue DAPT for now Monitor HH, transfuse <7.0 -Plan for OP scope in 1-2 months if stable #Paroxysmal Atrial fibrillation Rate controlled metoprolol Holding Eliquis for rectal bleed -Will need to resume upon GI determination risk is acceptable to do so Monitor on Tele #Prediabetes A1c 5.8%, CTM and encouraged lifestyle modifications once stable #Hyperlipidemia On statin #Aortic root enlargement OP follow-up #History of glaucoma Continue home eyedrops DVT prophylaxis SCDs Disposition Telemetry floor Full code Admission and Anticipated Discharge Date Admission Date: November 28, 2023 Subjective Admitted overnight. No further episodes of bleeding. Patient states that he feels ok, but just a bit tired. Denies chest pain, palpitations. Denies any other notable signs of bleeding, to include BRBPR Physical Exam Constitutional: WD/WN, vitals as above Respiratory: normal respiratory effort, lungs clear to auscultation Cardiovascular: RRR, no murmur, no edema bradycardic Gastrointestinal (Abdomen): normal bowel sounds, soft, nontender, no hepatosplenomegaly Musculoskeletal: no cyanosis or clubbing, extremities motor strength 5/5 Results & Data Results & Data Vital Signs (Past 12 Hours) Vital Signs Temp Pulse Pulse Resp BP BP Pulse Ox 11/29/23 07:54 36.7 C 60 16 139/65 97 11/29/23 03:00 36.4 C L 58 L 16 121/59 L 94 11/29/23 01:15 54 L 11/29/23 01:11 36.7 C 71 18 146/91 H 96 11/28/23 23:26 59 L 11/28/23 23:01 58 L 22 11/28/23 23:00 58 L 18 147/72 H 95 11/28/23 22:30 56 L 15 97 11/28/23 22:00 57 L 14 138/74 97 11/28/23 21:30 57 L 24 95 11/28/23 21:01 53 L 16 140/78 96 11/28/23 21:00 53 L 16 96 11/28/23 20:30 56 L 18 98 O2 Del Method 11/29/23 07:54 Room Air 11/29/23 03:00 Room Air 11/29/23 01:15 11/29/23 01:11 Room Air 11/28/23 23:26 11/28/23 23:01 11/28/23 23:00 Room Air 11/28/23 22:30 11/28/23 22:00 11/28/23 21:30 11/28/23 21:01 11/28/23 21:00 11/28/23 20:30 Laboratory Results Short CBC 11/28/23 11/29/23 11/29/23 Range/Units 19:00 06:27 10:56 WBC 8.32 8.19 (4.8-10.8) K/ul Hgb 13.0 L 11.3 L 11.8 L (14.0-18.0) g/dl Hct 39.1 L 33.1 L 34.2 L (42.0-52.0) % Plt Count 222 176 (130-400) K/uL [facility] 11/28/23 11/29/23 19:00 06:27 Sodium 137 137 Potassium 4.1 4.0 Chloride 104 107 Carbon Dioxide 29 27 BUN 19 17 Creatinine 0.99 0.81 Glucose 100 H 99 Calcium 8.9 8.0 L Liver Function 11/28/23 Range/Units 19:00 Total Bilirubin 0.5 (0.2-1.0) mg/dl AST 18 (13-39) U/L ALT 15 (7-52) U/L Alkaline Phosphatase 91 (34-104) U/L Albumin 4.1 (3.4-5.0) gm/dl Medications Administered Home Medications Medication Instructions Recorded Confirmed Last Taken cyanocobalamin (vitamin B-12) 1,000 mcg PO QAM 09/29/21 11/28/23 11/28/23 1,000 mcg tablet (Vitamin B-12) dorzolamide-timolol (PF) 2 %-0.5 % 1 drp ophthalmic (eye) BID 09/29/21 11/28/23 11/28/23 08:00 eye drops in a dropperette gabapentin 400 mg capsule 400 mg PO HS 09/29/21 11/28/23 11/27/23 omeprazole 20 mg capsule,delayed 20 mg PO QAM 09/29/21 11/28/23 11/28/23 release oxycodone-acetaminophen 5 mg-325 0.5 - 1 tab PO DIRECTED PRN Pain 09/29/21 11/28/23 11/15/22 mg tablet tafluprost (PF) 0.0015 % eye drops 1 drp ophthalmic (eye) HS 02/16/22 11/28/23 11/27/23 in a dropperette (Zioptan (PF)) apixaban 5 mg tablet (Eliquis) 5 mg PO BID 11/28/23 11/28/23 11/28/23 08:00 ascorbic acid (vitamin C) 100 mg 100 mg PO DAILY 11/28/23 11/28/23 11/28/23 tablet (Vitamin C) aspirin 81 mg tablet,delayed 81 mg PO DAILY 11/28/23 11/28/23 11/28/23 release clopidogrel 75 mg tablet 75 mg PO DAILY 11/28/23 11/28/23 11/28/23 metoprolol tartrate 25 mg tablet 25 mg PO BID 11/28/23 11/28/23 11/28/23 08:00 ykwprliztyom-quxtrkak-cdrzzt tablet 1 tab PO DAILY 11/28/23 11/28/23 11/28/23 nitroglycerin 0.4 mg sublingual 0.4 mg sublingual DIRECTED PRN 11/28/23 11/28/23 Unknown tablet (Nitrostat) Chest Pain psyllium husk 3.4 gram/5.4 gram 1 tbsp PO DAILY 11/28/23 11/28/23 11/28/23 oral powder (Metamucil) rosuvastatin 20 mg tablet 20 mg PO QPM 11/28/23 11/28/23 11/28/23 Active Medications Generic Name Dose Route Start Last Admin Trade Name Freq PRN Reason Stop Dose Admin Aspirin 81 mg 11/29/23 09:00 11/29/23 08:23 Aspirin 81 Mg Ectab PO 12/29/23 08:59 81 mg DAILY ALYSIA Administration Clopidogrel Bisulfate 75 mg 11/29/23 09:00 11/29/23 08:22 Clopidogrel Bisulfate 75 Mg Tab PO 12/29/23 08:59 75 mg DAILY ALYSIA Administration Cyanocobalamin 1,000 mcg 11/29/23 09:00 11/29/23 08:22 Cyanocobalamin (B-12) 500 Mcg Tablet PO 12/29/23 08:59 1,000 mcg QAM ALYSIA Administration Dorzolamide/Timolol 1 drops 11/29/23 09:00 11/29/23 08:23 Dorzolamide/Timolol 22.3/6.8mg/Ml 10 Ml Btl OP 12/29/23 08:59 1 drops BID ALYSIA Administration Sodium Chloride 1,000 mls @ 100 mls/hr 11/28/23 23:16 11/29/23 10:48 Nss IV 12/28/23 23:15 100 mls/hr .Q10H ALYSIA Administration Pantoprazole Sodium 40 mg/ 10 mls @ 5 mls/min 11/29/23 11:00 11/29/23 10:48 Syringe IV 12/29/23 10:59 5 mls/min DAILY@1100 ALYSIA Administration Famotidine 20 mg/ Syringe 5 mls @ 2.5 mls/min 11/29/23 09:00 11/29/23 08:28 IV 12/29/23 08:59 2.5 mls/min BID ALYSIA Administration Metoprolol Tartrate 25 mg 11/29/23 09:00 11/29/23 08:23 Metoprolol Tartrate 25 Mg Tab PO 12/29/23 08:59 25 mg BID ALYSIA Administration Miscellaneous 1 each 11/29/23 08:00 11/29/23 11:54 Tafluprost [Zioptan (Pf)]: Order Awaiting Action N/A 12/29/23 07:59 Not Given QS ALYSIA Multivitamins/Minerals 1 tab 11/29/23 09:00 11/29/23 08:23 Cerovite Adv Formula Tab PO 12/29/23 08:59 1 tab DAILY ALYSIA Administration Oxycodone/Acetaminophen 1 tab 11/29/23 01:12 11/29/23 10:53 Oxycodone/Acetaminophen 5mg/325mg Tab PO 12/13/23 01:11 1 tab Q6H PRN Administration Pain
[2023-11-29] MEDS: FAMOTIDINE 20 MG in SYRINGE 3 ML IV SCH ×2 (08:28→20:29)
[2023-11-29] MEDS ORDERED: NON-FORMULARY MEDICATION (Ascorbic Acid (Vitamin C) [Vitamin C] 100 mg Tablet) PO SCH (09:00)
--- NOTE | 2023-11-29 09:09 | Cardiology Consultation ---
Date of Consultation November 29, 2023 Assessment & Plan (1) Presence of stent in coronary artery in patient with coronary artery disease: (2) Paroxysmal atrial fibrillation: (3) Rectal bleeding: Plan 77-year-old patient presented to the emergency department with rectal bleeding. Recent percutaneous intervention of the ramus intermedius performed in the setting of abnormal nuclear stress testing as described above. Stent implanted without complication. Dual antiplatelet therapy recommended post procedure with discontinuation of aspirin in approximately 1 week. Plan to continue Eliquis for stroke prophylaxis in the setting of PAF plus clopidogrel. Eliquis may remain on hold in the setting of acute GI bleeding. Aspirin may be held in a.m. 11/30/2023. Continue clopidogrel uninterrupted. Restart Eliquis when bleeding risk is deemed acceptable by the gastroenterology service. There is no contraindication to endoscopy from a cardiovascular perspective, however, clopidogrel must be continued uninterrupted in the setting of recent drug-eluting stent implantation 11/26/2023. Continue metoprolol and rosuvastatin as ordered. History of Present Illness Reason for Consultation: Rectal bleed Requesting Physician: Dr. Pierre Attending Physician: Gabby Meadows MD History of Present Illness 77-year-old male with history of paroxysmal atrial fibrillation diagnosed September 2023 via ZIO monitor, coronary artery disease status post PCI of ramus 11/26/2023, and aortic root aneurysm. Presented to the emergency department with rectal bleeding last evening. Constipation preceding bleeding event. At approximately 5 PM 11/28/2023 he experienced blood per rectum. No recurrent episodes since admission. Eliquis placed on hold. Received a.m. doses of clopidogrel and aspirin. Paroxysmal atrial fibrillation with low burden diagnosed via ZIO monitor in September 2023. Patient denies palpitations, lightheadedness, or dizziness. Feeling well from a cardiovascular perspective. No chest pain or unusual shortness of breath. Telemetry reveals sinus rhythm. No orthopnea, PND, or lower extremity edema. Denies abdominal discomfort, nausea, or vomiting. Allergies Allergy/AdvReac Type Severity Reaction Status Date / Time adhesive Allergy Intermediate PULLED Verified 11/28/23 20:33 SKIN OFF WITH TAPE Iodinated Contrast Media Allergy Intermediate ITCHY, Verified 11/28/23 20:33 REDNESS FROM IV SITE UP TO SHOULDER levofloxacin Allergy Intermediate itchy Verified 11/28/23 20:33 Home Medications Medication Instructions Recorded Confirmed Type cyanocobalamin (vitamin B-12) 1,000 mcg PO QAM 09/29/21 11/28/23 History 1,000 mcg tablet (Vitamin B-12) dorzolamide-timolol (PF) 2 %-0.5 % 1 drp ophthalmic (eye) BID 09/29/21 11/28/23 History eye drops in a dropperette gabapentin 400 mg capsule 400 mg PO HS 09/29/21 11/28/23 History omeprazole 20 mg capsule,delayed 20 mg PO QAM 09/29/21 11/28/23 History release oxycodone-acetaminophen 5 mg-325 0.5 - 1 tab PO DIRECTED PRN Pain 09/29/21 11/28/23 History mg tablet tafluprost (PF) 0.0015 % eye drops 1 drp ophthalmic (eye) HS 02/16/22 11/28/23 History in a dropperette (Zioptan (PF)) apixaban 5 mg tablet (Eliquis) 5 mg PO BID 11/28/23 11/28/23 History ascorbic acid (vitamin C) 100 mg 100 mg PO DAILY 11/28/23 11/28/23 History tablet (Vitamin C) aspirin 81 mg tablet,delayed 81 mg PO DAILY 11/28/23 11/28/23 History release clopidogrel 75 mg tablet 75 mg PO DAILY 11/28/23 11/28/23 History metoprolol tartrate 25 mg tablet 25 mg PO BID 11/28/23 11/28/23 History oivndbrwaxqd-rcenqubj-cunrmm tablet 1 tab PO DAILY 11/28/23 11/28/23 History nitroglycerin 0.4 mg sublingual 0.4 mg sublingual DIRECTED PRN 11/28/23 11/28/23 History tablet (Nitrostat) Chest Pain psyllium husk 3.4 gram/5.4 gram 1 tbsp PO DAILY 11/28/23 11/28/23 History oral powder (Metamucil) rosuvastatin 20 mg tablet 20 mg PO QPM 11/28/23 11/28/23 History Patient History Medical History History of kidney stones History of colon polyps Glaucoma Hiatal hernia Bladder stone HX Chronic back pain Cancer BASAL CELL GERD (gastroesophageal reflux disease) Bowel obstruction HX SBO Nephrolithiasis Surgical History History of surgery removal of bladder stones History of hernia surgery History of total left knee replacement History of total right knee replacement History of repair of rotator cuff RIGHT History of lithotripsy multiple History of colonoscopy H/O abdominal surgery FOR SBO H/O nephrolithotomy with removal of calculi Family History Brother Family history of diabetes mellitus Family history of esophageal cancer Mother Family history of diabetes mellitus Social History Smoking Status: Never smoker Tobacco Type: Smokeless Tobacco (Dip or Chew) Second Hand Exposure: No; Do You Dip or Chew Tobacco: Yes; Tobacco Cessation Education Requested by Patient: No Hx Alcohol Use: No Hx Substance Use: No Preferred Language: Stateless Communication Ability: Effective Oral Pathologist Required: No Beliefs That Will Affect Care: None Current Living Situation: Spouse current occupational status: retired Other Information That Helps Us Care for You: No Feels Safe at Home: Yes Safety Concerns: Feels Safe At This Time Assistive Devices: Glasses and Hearing Aid - Right Review of Systems Review of Systems: All systems reviewed & are unremarkable except as noted in Subjective Physical Exam Constitutional: well nourished; no acute distress Respiratory: no respiratory distress and no labored breathing Auscultation: lungs clear to auscultation bilaterally; no crackles, no rales, no rhonchi and no wheezes Cardiovascular: Rate/Rhythm: regular rate and regular rhythm Heart Sounds: normal S1 and normal S2; no murmur Vessels: radial pulses present; no JVD and no carotid bruit Extremities: no edema Gastrointestinal (Abdomen): Inspection/Auscultation: abdomen normal to inspection and normal bowel sounds; abdomen not distended Percussion/Palpation: + abdomen tender, + guarding and + abdomen rigid; + abdom en not soft Neurologic: CN's II-XI intact bilaterally and moves all extremities Results & Data Vital Signs (Past 12 Hours) Vital Signs Temp Pulse Pulse Resp BP BP Pulse Ox 11/29/23 07:54 36.7 C 60 16 139/65 97 11/29/23 03:00 36.4 C L 58 L 16 121/59 L 94 11/29/23 01:15 54 L 11/29/23 01:11 36.7 C 71 18 146/91 H 96 11/28/23 23:26 59 L 11/28/23 23:01 58 L 22 11/28/23 23:00 58 L 18 147/72 H 95 11/28/23 22:30 56 L 15 97 11/28/23 22:00 57 L 14 138/74 97 11/28/23 21:30 57 L 24 95 O2 Del Method 11/29/23 07:54 Room Air 11/29/23 03:00 Room Air 11/29/23 01:15 11/29/23 01:11 Room Air 11/28/23 23:26 11/28/23 23:01 11/28/23 23:00 Room Air 11/28/23 22:30 11/28/23 22:00 11/28/23 21:30 Laboratory Results Cardiac Enzymes 11/28/23 11/29/23 Range/Units 19:00 06:27 AST 18 (13-39) U/L Troponin I High Sens 1240.7 H* 983.5 H* D (0-20) pg/ml Coagulation 11/28/23 Range/Units 19:00 PT 12.8 H (9.0-12.0) Seconds APTT 30 (21-31) Seconds CBC 11/28/23 11/29/23 11/29/23 Range/Units 19:00 06:27 10:56 WBC 8.32 8.19 (4.8-10.8) K/ul RBC 4.48 L 3.87 L (4.70-6.10) M/uL Hgb 13.0 L 11.3 L 11.8 L (14.0-18.0) g/dl Hct 39.1 L 33.1 L 34.2 L (42.0-52.0) % Plt Count 222 176 (130-400) K/uL Neut # (Auto) 5.69 (1.40-6.50) K/uL Lymph # (Auto) 1.75 (1.20-3.40) K/uL [place] # (Auto) 0.59 (0.11-0.59) K/uL Eos # (Auto) 0.09 (0.00-0.50) K/uL Baso # (Auto) 0.04 (0.00-0.20) K/uL Comprehensive Metabolic Panel 11/28/23 11/29/23 Range/Units 19:00 06:27 Sodium 137 137 (136-145) mmol/L Potassium 4.1 4.0 (3.5-5.1) mmol/L Chloride 104 107 (98-107) mmol/L Carbon Dioxide 29 27 (21-32) mmol/L BUN 19 17 (6-23) mg/dl Creatinine 0.99 0.81 (0.6-1.4) mg/dl Glucose 100 H 99 (70-99(Fasting)) mg/dl Calcium 8.9 8.0 L (8.6-10.3) mg/dl AST 18 (13-39) U/L ALT 15 (7-52) U/L Alkaline Phosphatase 91 (34-104) U/L Total Protein 6.6 (6.0-8.3) gm/dl Albumin 4.1 (3.4-5.0) gm/dl Intake and Output 11/28/23 11/29/23 11/29/23 22:59 06:59 14:59 Intake Total 1000 / 1000 Balance 1000 / 1000 Intake: IV 1000 / 1000 Sodium Chloride 0.9% 1,000 ml @ 1000 / 1000 100 mls/hr IV .Q10H [facility] Rx#: [id number] Other: Weight 69.4 kg 66.4 kg Weight Measurement Method Chair Scale Built in [facility] Diagnostic Findings Cardiac catheterization report summary 11/26/2023: Ramus branch with 95% stenosis status post PCI with 2.5 x 16 mm Synergy drug- eluting stent deployed at 16 cain. 50% mid LAD, 60% distal LAD stenosis. 70% ostial stenosis of D1. 50% proximal RCA stenosis. Lexiscan nuclear stress test report 11/12/2023: The combined low intensity exercise/pharmacologic myocardial perfusion imaging study is abnormal with evidence of ischemia in the circumflex coronary territory. Perfusion images reveal a moderate-sized anterolateral reversible perfusion defect. Per quantitative analysis, the perfusion defect is 56% reversible. Patient described 4/10 intensity chest discomfort with stress that resolved in the post stress recovery interval with rest and with the administration of caffeinated cola. Gated SPECT imaging reveals normal myocardial thickening and wall motion. The left ventricular ejection fraction was calculated to be 70% Sinus rhythm was observed throughout the study.
[2023-11-29 09:31] LABS: Troponin I High Sensitivity 983.5 pg/ml (0-20)
[2023-11-29] MEDS: PANTOprazole 40 MG in SYRINGE 0 ML IV SCH (10:48)
[2023-11-29 11:24] LABS: Hematocrit (blood only) 34.2 % (42.0-52.0); Hemoglobin 11.8 g/dl (14.0-18.0)
--- NOTE | 2023-11-29 11:25 | Gastrointestinal Consultation ---
Date of Consultation November 29, 2023 Assessment & Plan (1) Rectal bleeding: Pt's report of painless rectal bleeding, one episode, w a 2 point drop in Hb from baseline suggests a diverticular bleed or less likely a hemorrhoidal bleed. Both diverticular dx and hemorrhoids were present on most recent colonoscopy in 2018. Plan 1. Clear liquids po. 2. Monitor outputs. 3. Hold anticoagulants/antiplatelet. cardiology says Plavix must be continued - so recommend holding ASA and Eliquis. 4. If no further bleeding then would defer IP colonoscopy but will arrange OP colonoscopy in 3months on Plavix and ASA but off Eliquis (3 days prior). Supervising Physician Co-Signing Physician Notes I performed a history and physical examination of the patient today, including specifically on physical exam - soft abdomen. I have discussed the patient's management with the advanced practitioner. Please refer to the nurse practitioner's note for the documented findings and plan of care. Recent Cardiac cath with stents placement last week, now admitted with COIVID and rectal bleeding, H/H stable and bleeding resolved after stopping Eliquis. Likely diverticular or hemorrhoidal. Monitor H/H. Plan for colonoscopy as OP in 3 months on Plavix. Recall GI if needed. History of Present Illness Reason for Consultation: Rectal bleed Requesting Physician: Ignacio Attending Physician: Gabby Meadows MD History of Present Illness Mr. Moises Fregoso is a 77 yr old male pt of Dr. Brooke Li w a hx of A-fib on Eliquis/ASA, CAD who underwent placement of a drug-eluting stent last week for (+) stress test. He also has pre-DM, Aortic valve insufficiency, GERD, Spinal stenosis, glaucoma, depression/anxiety. He had been maintained on Eliquis, ASA and after the placement of the stent last week, Plavix was added. Yesterday, at home, he passed a formed brown BM at noon, the around 5 PM felt mild cramping (but not painful) and soon passed a very large liquid BM consisting of mostly red blood. He has not had significant abd pain, nausea, vomiting and other than the bloody BM, hasn't had diarrhea. He presented to the ED where Hb was 13 ->11.3 this morning. Prior OP Hb 2 weeks prior was 13.5. He has been hemodynamically stable. Eliquis was held. Spoke w cardiology who says ASA can be held but Plavix must be continued. The pt hasn't had further BMs since the bloody one yesterday at 5PM. He denies pain/N/V today. He is also COVID positive and denies any current respiratory or other viral symptoms though did have a sore throat a few weeks ago. Most recent colonoscopy was in Dec 2017 w sigmoid diverticulosis, int hemorrhoids, no polyps though he carries a hx of polyps and surveillance was recommended for 5 yrs (was due in 2022). NO prior EGD. Allergies Allergy/AdvReac Type Severity Reaction Status Date / Time adhesive Allergy Intermediate PULLED Verified 11/28/23 20:33 SKIN OFF WITH TAPE Iodinated Contrast Media Allergy Intermediate ITCHY, Verified 11/28/23 20:33 REDNESS FROM IV SITE UP TO SHOULDER levofloxacin Allergy Intermediate itchy Verified 11/28/23 20:33 Home Medications Medication Instructions Recorded Confirmed Type cyanocobalamin (vitamin B-12) 1,000 mcg PO QAM 09/29/21 11/28/23 History 1,000 mcg tablet (Vitamin B-12) dorzolamide-timolol (PF) 2 %-0.5 % 1 drp ophthalmic (eye) BID 09/29/21 11/28/23 History eye drops in a dropperette gabapentin 400 mg capsule 400 mg PO HS 09/29/21 11/28/23 History omeprazole 20 mg capsule,delayed 20 mg PO QAM 09/29/21 11/28/23 History release oxycodone-acetaminophen 5 mg-325 0.5 - 1 tab PO DIRECTED PRN Pain 09/29/21 11/28/23 History mg tablet tafluprost (PF) 0.0015 % eye drops 1 drp ophthalmic (eye) HS 02/16/22 11/28/23 History in a dropperette (Zioptan (PF)) apixaban 5 mg tablet (Eliquis) 5 mg PO BID 11/28/23 11/28/23 History ascorbic acid (vitamin C) 100 mg 100 mg PO DAILY 11/28/23 11/28/23 History tablet (Vitamin C) aspirin 81 mg tablet,delayed 81 mg PO DAILY 11/28/23 11/28/23 History release clopidogrel 75 mg tablet 75 mg PO DAILY 11/28/23 11/28/23 History metoprolol tartrate 25 mg tablet 25 mg PO BID 11/28/23 11/28/23 History hegdlvjarrcw-iojmeojw-xaimqh tablet 1 tab PO DAILY 11/28/23 11/28/23 History nitroglycerin 0.4 mg sublingual 0.4 mg sublingual DIRECTED PRN 11/28/23 11/28/23 History tablet (Nitrostat) Chest Pain psyllium husk 3.4 gram/5.4 gram 1 tbsp PO DAILY 11/28/23 11/28/23 History oral powder (Metamucil) rosuvastatin 20 mg tablet 20 mg PO QPM 11/28/23 11/28/23 History Patient History Medical History History of kidney stones History of colon polyps Glaucoma Hiatal hernia Bladder stone HX Chronic back pain Cancer BASAL CELL GERD (gastroesophageal reflux disease) Bowel obstruction HX SBO Nephrolithiasis Surgical History History of surgery removal of bladder stones History of hernia surgery History of total left knee replacement History of total right knee replacement History of repair of rotator cuff RIGHT History of lithotripsy multiple History of colonoscopy H/O abdominal surgery FOR SBO H/O nephrolithotomy with removal of calculi Family History Brother Family history of diabetes mellitus Family history of esophageal cancer Mother Family history of diabetes mellitus Social History Smoking Status: Never smoker Tobacco Type: Smokeless Tobacco (Dip or Chew) Second Hand Exposure: No; Do You Dip or Chew Tobacco: Yes; Tobacco Cessation Education Requested by Patient: No Hx Alcohol Use: No Hx Substance Use: No Preferred Language: Mauritian Communication Ability: Effective Manager Of Community Relations Required: No Beliefs That Will Affect Care: None Current Living Situation: Spouse current occupational status: retired Other Information That Helps Us Care for You: No Feels Safe at Home: Yes Safety Concerns: Feels Safe At This Time Assistive Devices: None Review of Systems Review of Systems: ROS: Gen: Denies weakness, fevers, weight loss Eyes: No eye redness, or pain, no recent vision changes Resp: No SOB, no cough Cardio: No palpitations/irregular beats, no chest pain GI: As per HPI, otherwise (-) : Denies pain on urination Skin: No jaundice, itching or new rashes Physical Exam Constitutional: WD/WN, vitals as above thin, pale white male, pleasant, talkative Eyes: PERRL, conjunctivae normal, anicteric sclerae ENMT: external ear and nose normal, oropharynx normal Neck: trachea midline, no thyromegaly Respiratory: normal respiratory effort, lungs clear to auscultation Cardiovascular: irregularly irregular, no murmurs, no edema Gastrointestinal (Abdomen): normal bowel sounds, soft, nontender, no hepatosplenomegaly Musculoskeletal: no cyanosis or clubbing, extremities motor strength 5/5 Skin: no rashes, warm and dry Neurologic: PERRL, EOMI, accommodation nl, no face palsy, no dysarthria Psychiatric: A+Ox3, euthymic affect Lymphatic: no cervical or axillary lymphadenopathy Results & Data Vital Signs (Past 12 Hours) Vital Signs Temp Pulse Pulse Resp BP Pulse Ox O2 Del Method 11/29/23 08:00 60 11/29/23 07:54 36.7 C 60 16 139/65 97 Room Air 11/29/23 03:00 36.4 C L 58 L 16 121/59 L 94 Room Air 11/29/23 01:15 54 L 11/29/23 01:11 36.7 C 71 18 146/91 H 96 Room Air 11/28/23 23:26 59 L Laboratory Results WBC 8.19, Hb 11.3, Hct 33, Plts 176, Na 137, K 4.0, Cl 107, CO2 27, BN 3, Cr 0.81, glucose 99. Trop 1240.
[2023-11-29 19:42] LABS: Hematocrit (blood only) 34.8 % (42.0-52.0); Hemoglobin 11.7 g/dl (14.0-18.0)
[2023-11-29] MEDS ORDERED: GABAPENTIN 400 MG CAP PO SCH (21:00)
[2023-11-29] MEDS ORDERED: ROSUVASTATIN CALCIUM 20 MG TAB PO SCH (21:00)
[2023-11-30] MEDS: SODIUM CHLORIDE 0.9% 1,000 ML IV SCH (05:19)
--- NOTE | 2023-11-30 06:12 | Electrocardiogram Report ---
Test Reason : Blood Pressure : / mmHG Vent. Rate : 054 BPM Atrial Rate : 054 BPM P-R Int : 162 ms QRS Dur : 082 ms QT Int : 444 ms P-R-T Axes : 045 039 096 degrees QTc Int : 421 ms Sinus bradycardia Nonspecific ST and T wave abnormality Abnormal ECG When compared with ECG of 07-FEB-2022 12:22, Nonspecific T wave abnormality now evident in Lateral leads Confirmed by Rehan Garza ([id number]) on 11/30/2023 6:11:43 AM Referred By: REFERRED SELF Confirmed By:Rehan Garza
--- NOTE | 2023-11-30 06:13 | Electrocardiogram Report ---
Test Reason : Blood Pressure : / mmHG Vent. Rate : 052 BPM Atrial Rate : 052 BPM P-R Int : 166 ms QRS Dur : 090 ms QT Int : 478 ms P-R-T Axes : 050 049 114 degrees QTc Int : 444 ms Sinus bradycardia Nonspecific ST and T wave abnormality Abnormal ECG When compared with ECG of 28-NOV-2023 18:57, No significant change was found Confirmed by Rehan Garza ([id number]) on 11/30/2023 6:12:39 AM Referred By: REFERRED SELF Confirmed By:Rehan Garza
--- NOTE | 2023-11-30 07:17 | Electrocardiogram Report ---
Test Reason : Blood Pressure : / mmHG Vent. Rate : 056 BPM Atrial Rate : 056 BPM P-R Int : 174 ms QRS Dur : 084 ms QT Int : 444 ms P-R-T Axes : 036 029 091 degrees QTc Int : 428 ms Sinus bradycardia Nonspecific ST and T wave abnormality Abnormal ECG When compared with ECG of 29-NOV-2023 05:13, T wave inversion now evident in Inferior leads Nonspecific T wave abnormality, worse in Lateral leads Confirmed by Julius Mancilla ([id number]) on 11/30/2023 7:17:26 AM Referred By: REFERRED SELF Confirmed By:Drew Mancilla
[2023-11-30 08:26] LABS: Hematocrit (blood only) 36.8 % (42.0-52.0); Hemoglobin 12.6 g/dl (14.0-18.0); Mean Corpuscular Hemoglobin 29.2 pg (25.0-34.0); Mean Corpuscular Hgb Conc 34.2 g/dL (32.0-36.0); Mean Corpuscular Volume 85.2 fL (80.0-100.0); Mean Platelet Volume 11.4 fL (9.4-12.4); Platelet Count 219 K/uL (130-400); RDW Coefficient of Variation 13.8 % (11.5-14.5); RDW Standard Deviation 42.8 fL (36.4-46.3); Red Blood Count 4.32 M/uL (4.70-6.10); White Blood Count 7.27 K/ul (4.8-10.8)
[2023-11-30] MEDS: FAMOTIDINE 20 MG in SYRINGE 3 ML IV SCH (08:41)
[2023-11-30] MEDS: CLOPIDOGREL BISULFATE 75 MG TAB PO SCH (08:42)
[2023-11-30] MEDS: CYANOCOBALAMIN (B-12) 500 MCG TABLET PO SCH (08:42)
[2023-11-30] MEDS: ASPIRIN 81 MG ECTAB PO SCH (08:42)
[2023-11-30 08:43] LABS: Calcium 8.8 mg/dl (8.6-10.3); Creatinine Clr Calc Pharmacy 69.6 ml/min; Est GFR (African American) 96.9 ml/min; Est GFR (Non-African American) 83.6 ml/min; Magnesium 1.9 mg/dl (1.7-2.4); Phosphorus 2.8 mg/dl (2.5-4.9)
[2023-11-30] MEDS: CEROVITE ADV FORMULA TAB PO SCH (08:43)
[2023-11-30] MEDS: DORZOLAMIDE/TIMOLOL 22.3/6.8MG/ML 10 ML BTL OP SCH (08:43)
[2023-11-30] MEDS: METOPROLOL TARTRATE 25 MG TAB PO SCH (08:43)
[2023-11-30 09:02] LABS: Ferritin 64.7 ng/ml (8-388)
[2023-11-30 09:06] LABS: Folate (Folic Acid),Ser orPlas > 22.30 ng/ml (>5.38); Vitamin B12 927 pg/ml (180-914)
[2023-11-30] MEDS: PANTOprazole 40 MG in SYRINGE 0 ML IV SCH (11:10)
--- NOTE | 2023-11-30 17:13 | Discharge Summary ---
Discharge Summary Date of Service November 30, 2023 Notes For Next Care Provider Medication Changes From Visit Holding Eliquis until 12/04/2023 Admission HPI Per Admitting Provider 77-year-old male with a past medical history significant for hyperlipidemia, prediabetes, hypercalcemia, aortic root enlargement, nonrheumatic aortic valve insufficiency, history of CAD s/p stent, GERD, nephrolithiasis, spinal stenosis, arthritis, weakness of right foot, glaucoma, depression, anxiety, A-fib on Eliquis, who recently had elective cardiac cath for positive stress test and s/p drug-eluting stent to ramus and in on aspirin and Plavix and Eliquis comes with rectal bleed. Patient states he was constipated. Today around 5 PM he had an episode of blood per rectum. Since then no more episodes per patient. Denies abdominal pain. Normal micturition. Denies any chest pain or shortness of breath. Denies cough. No fevers. No runny nose or sore throat. No blurred visions. No earache. No headaches. Resting comfortably. Patient was newly diagnosed with A-fib in September 2023. Because of that he had a nuclear stress test which was positive. Last Saturday at [place] had cardiac cath which showed Ramus branch 95% stenosis and s/p OBIE. Also found to have MID LAD 50%, distal LAD 60%, ostial 70% and proximal RCA 50% stenosis. Currently on aspirin, Plavix and Eliquis and beta-ino and statin. Currently hemodynamically stable. Patient states couple of weeks ago he had some runny nose and sore throat for 1 week and that got resolved. And on Nov 26 2022 patient was tested positive for COVID. Patient currently has no COVID symptoms and is saturating okay on room air. Says he is ambulating okay. Past medical history. As mentioned above Past surgical history. Bilateral knee arthroplasty. Colonoscopy with biopsy. Injection of the lumbosacral spine. Abdominal surgery for twisted bowel. Partial removal of left thyroid lobe. Removal of kidney stone. Right shoulder arthroscopy. Social history. . No smoking. Social drinking. No drug use. Family history. Brother had esophageal cancer. Uncle had skin cancer. Mother mother had diabetes, CAD, rheumatic heart disease. Daughter has heart disorder. Admission Exam Per Admitting Provider General- Not in distress Head- atraumatic Eyes- PERRL. ENT- oropharynx clear Neck- supple, no JVD. Lungs- clear to auscultation no wheezing or crackles Heart- regular rhythm; no murmur, no gallop. Abdomen- normal bowel sounds, soft, nontender, no distension. Extremities- no pretibial edema, no erythema seen Neuro- alert, oriented x 3; PERRL,no facial palsy; no dysarthria; moves extremities Skin- warm & dry Principal Dx & Hospital Course #1 = Principal Diagnosis (1) GIB (gastrointestinal bleeding): Mr. Fregoso is a 77-year-old male with a past medical history significant for hyperlipidemia, prediabetes, hypercalcemia, aortic root enlargement, nonrheumatic aortic valve insufficiency, history of CAD s/p stent, GERD, nephrolithiasis, spinal stenosis, arthritis, weakness of right foot, glaucoma, depression, anxiety, A-fib on Eliquis, who recently had elective cardiac cath for positive stress test and s/p drug-eluting stent to ramus and in on aspirin and Plavix and Eliquis who was admitted on 11/28 for acute blood loss anemia 2/2 BRBPR. Patient states he was constipated and then notes a single episode of notable blood while attempting to defecate on 11/28. Hgb down from 13 to 11. Patient's course is complicated given recent stent placed on 11/26, as well as atrial fibrillation. Patient was placed on triple therapy given the stent and a fib; however, in the setting of a bleed, the eliquis will be held. If a scope is necessary, ASA can be held; however, plavix must be continued at the very minimum uninterrupted. Patient's hemoglobin remained stable overall on DAPT. Bowel movement was observed the am of discharge, formed/soft no blood visualized. Discussed over [employer] with Dr. Palacios timing for Eliquis resumption. Plan to resume on 12/04. #Acute Blood loss anemia, concern for lower GI bleeding #Bright red blood per rectum, likely diverticular Hemoglobin stable at 13.0, down to 11 Blood consent obtained GI following -Hold Eliquis until 12/04. if hgb stable plan for OP scope 3months Cards following -Continue plavix and ASA uninterrupted iso stent Sent with prescription for miralax, encouraged prevention of constipation and high fiber diet #COVID 19 infection -Reports slight flu-like symptoms 1-2 weeks ago, but denies any concerns at this time -remains asymptomatic #Elevated troponin likely given recent cath, demand from bleed Patient currently asymptomatic; EKG no acute ST changes Downtrended, no acute concerns #Obstructive CAD s/p stent placement 11/26/2023 ramus Also found to have mid LAD 50%, distal LAD 60%, ostial 70% and proximal RCA 50% stenosis On aspirin, Plavix, statin and beta-ino Continue statin and metoprolol 25 BID Continue plavix uninterrupted, as well as asa #Paroxysmal Atrial fibrillation Rate controlled metoprolol Holding Eliquis for rectal bleed until 12/04 #Prediabetes A1c 5.8%, lifestyle modifications #Hyperlipidemia On statin #Aortic root enlargement OP follow-up #History of glaucoma Continue home eyedrops Denies any acute concerns on discharge. Discharge Exam Constitutional WD/WN, vitals as above Respiratory normal respiratory effort, lungs clear to auscultation Cardiovascular RRR, no murmur, no edema Gastrointestinal (Abdomen) normal bowel sounds, soft, nontender, no hepatosplenomegaly Musculoskeletal no cyanosis or clubbing, extremities motor strength 5/5 Updated Medication List Medication Instructions Recorded Confirmed Type cyanocobalamin (vitamin B-12) 1,000 mcg PO QAM 09/29/21 11/28/23 History 1,000 mcg tablet (Vitamin B-12) dorzolamide-timolol (PF) 2 %-0.5 % 1 drp ophthalmic (eye) BID 09/29/21 11/28/23 History eye drops in a dropperette gabapentin 400 mg capsule 400 mg PO HS 09/29/21 11/28/23 History omeprazole 20 mg capsule,delayed 20 mg PO QAM 09/29/21 11/28/23 History release oxycodone-acetaminophen 5 mg-325 0.5 - 1 tab PO DIRECTED PRN Pain 09/29/21 11/28/23 History mg tablet tafluprost (PF) 0.0015 % eye drops 1 drp ophthalmic (eye) HS 02/16/22 11/28/23 History in a dropperette (Zioptan (PF)) apixaban 5 mg tablet (Eliquis) 5 mg PO BID 11/28/23 11/28/23 History ascorbic acid (vitamin C) 100 mg 100 mg PO DAILY 11/28/23 11/28/23 History tablet (Vitamin C) aspirin 81 mg tablet,delayed 81 mg PO DAILY 11/28/23 11/28/23 History release clopidogrel 75 mg tablet 75 mg PO DAILY 11/28/23 11/28/23 History metoprolol tartrate 25 mg tablet 25 mg PO BID 11/28/23 11/28/23 History nbpepyljbkag-xoqhdzbo-bfjksk tablet 1 tab PO DAILY 11/28/23 11/28/23 History nitroglycerin 0.4 mg sublingual 0.4 mg sublingual DIRECTED PRN 11/28/23 11/28/23 History tablet (Nitrostat) Chest Pain psyllium husk 3.4 gram/5.4 gram 1 tbsp PO DAILY 11/28/23 11/28/23 History oral powder (Metamucil) rosuvastatin 20 mg tablet 20 mg PO QPM 11/28/23 11/28/23 History polyethylene glycol 3350 17 gram 17 g PO BID #60 ea 11/30/23 Rx oral powder packet (Miralax) Hospital Stay Data Consultations 11/28/23 20:25 ED Decision to Admit Stat 11/29/23 08:00 Consult Cardiology Routine Consult Gastroenterology Routine Pending Results Patient Have Any Pending Studies at Discharge: No Discharge Instructions Given to Patient (Per Discharging Provider) You were admitted for concerns of bleeding after a bowel movement. You have a history of hemorrhoids and diverticulosis on your last colonoscopy. With this, it is imperative that you have a scheduled bowel regimen in order to keep your stool soft. Constipation will likely precipitate bleeding events. It is recommended that you continue both aspirin and Plavix uninterrupted and not to hold these medications unless specifically cleared by your [facility]. Your Eliquis can resume in 4 days time, Saturday12/04/2023. Please monitor for further signs of bleeding. Please ensure follow up with Gastroenterology for colonoscopy. They will make recommendations regarding to hold your Eliquis prior to procedure. Total Time Total Time Spent Total Time Spent (In Minutes): 45
[2023-11-30] MEDS ORDERED: POLYETHYLENE (MIRALAX) 17 GM PACK PO SCH (21:00)
== END 2023-11-30 13:06 | disposition home or self-care (01) | DRG 377 ==
LOC: ED 18:25 → EDINP 22:16 → SUATTDRO 22:16 → 2E 23:16